=== PATIENT | female | born 1955 | race Caucasian/White ===

== ENCOUNTER 2016-07-07 11:00 | Inpatient (IN) | payer OTHER ==
[2016-07-07] VITALS (15 sets, daily range): BP systolic 74–142; BP diastolic 41–87
[~2016-07-07] VITALS: Ht 167.6 cm; Wt 83.9 kg
--- NOTE | ~2016-07-07 | HC ---
[place] [address] CONSULTATION Name: RAVINDRA FORD Room #: 250-P [facility] IN M.R.#: [id number] Admission: 07/07/16 Attend Phys: Kendell Tidwell MD Discharge: Date of : 55 Report #: [id number] THIS REPORT FOR: //name// CC: Kendell Toscano REASON FOR CONSULTATION: I was asked by Dr. iTdwell to evaluate the patient concerning pneumonia and sepsis. HISTORY OF PRESENT ILLNESS: The patient is a 60-year-old who presented with acute onset of chills, shortness of breath, cough and left pleuritic chest pain. She was brought into the emergency room earlier this morning. Chest x-ray showed left lower lobe and lingular infiltrate. White count was 8.9 with 16% bands. Hemoglobin 14, creatinine 1. She has underlying common variable immunodeficiency and receives monthly immunoglobulin injections. She was hospitalized with pneumonia and respiratory failure a year ago. She has had no travel. She has exposure to young children. No recent vaccinations. No HIV risk factors. ALLERGIES: LATEX, RED DYE, LANOLIN and TYLENOL. She has nausea with SULFA. Headache with PETROLEUM JELLY. MEDICATIONS: As noted on her MAR including azithromycin and ceftriaxone given in the emergency room. PAST MEDICAL HISTORY: Common variable immunodeficiency, asthma, restless leg syndrome, fibrocystic breast disease, bipolar affective disorder, pancreatitis, appendectomy, tubal ligation, left knee arthroscopic surgery, tonsillectomy, hysterectomy, bilateral salpingo-oophorectomy, and premalignant skin lesions to her nose. FAMILY HISTORY: . SOCIAL HISTORY: Past smoker. No significant alcohol intake. REVIEW OF SYSTEMS: The patient denies any nausea, vomiting, or diarrhea. No dysuria or frequency. No rashes. PHYSICAL EXAMINATION: VITAL SIGNS: Afebrile, pulse 90, blood pressure 87/48, respiratory rate 32 on 3-1/2 liters per nasal cannula. GENERAL: She was alert and cooperative. Had pain on movement involving the left chest. SKIN: Unremarkable. LYMPHATIC: Unremarkable. Moderately obese. HEENT: Unremarkable. [address] [place] [address] CONSULTATION Name: RAVINDRA FORD Room #: 250-P ADM IN .R.#: [id number] Admission: 07/07/16 Attend Phys: Kendell Tidwell MD Discharge: Date of : 55 Report #: [id number] NECK: Supple. No adenopathy. No thyromegaly. LUNGS: Crackles with rub heard in the left lateral to the anterior mid lung harrell. HEART: Regular without appreciable murmur. ABDOMEN: Soft, nontender, no hepatosplenomegaly or mass. EXTREMITIES: Unremarkable. NEUROLOGIC: Nonfocal. LABORATORY STUDIES: Hemoglobin is 14.3, white count 8.9, platelet count 258,000, 16% bands. She had vacuolated polys seen. Sodium 138, potassium 2.9, bicarbonate 24, creatinine 1, and glucose 124. ABGs on 3 liters showed a pO2 of 57, pCO2 of 41, pH 7.35, lactate 1.8. Chest x-ray, left lower lobe lingular infiltrate. I did not appreciate any effusion. IMPRESSION: A 60-year-old with underlying asthma, common variable immunodeficiency with community-acquired pneumonia, left lower lobe with pruritus. Recommend IV antibiotic therapy, fluid resuscitation for her sepsis. Corticosteroids increased. We will have pulmonary medicine evaluate and follow closely for evidence of empyema. We will continue on the med-surg floor. I have discussed with nursing staff and respiratory therapy. <ELECTRONICALLY SIGNED> By: Basil Naylor MD 07/08/16 1056 1609 2327 Basil Naylor MD /nt
--- NOTE | ~2016-07-07 | HC ---
[facility] [place] [address] CONSULTATION Name: RAVINDRA FORD Room #: 302-P [facility] IN M.R.#: [id number] Admission: 07/07/16 Attend Phys: Kendell Tidwell MD Discharge: 07/12/16 Date of : 55 Report #: [id number] THIS REPORT FOR: //name// CC: Basil Toscano DATE OF SERVICE: 07/07/2016 REFERRING PROVIDER: Kendell Tidwell M.D. REASON FOR CONSULTATION: Pneumonia and hypotension. HISTORY OF PRESENT ILLNESS: Our group was asked to see the patient in consultation while hospitalized at [facility]. She actually called our office earlier today and was subsequently referred to the emergency department due to increasing shortness of breath, sudden onset chills and left-sided chest pain. In the emergency department, left lower lobe infiltrate was noted. She has had some cough, no significant sputum production. She has not had fevers, but as mentioned had chills, that has come on within the last 12 hours to 24 hours. No other ill contacts, had been ill about 5 days prior with what she states was an upper respiratory infection; this subsequently resolved. While admitted to critical care telemetry floor, was noted to be hypotensive despite 3 liters of fluid administration; subsequently transferred to ICU for further management. Currently is weak with some left-sided pleuritic pain, making it difficult to cough and take a deep inspiratory effort. ALLERGIES: Include RED DYE, SULFA, TYLENOL, LANOLIN, LATEX, PETROLEUM JELLY and HEPARIN, which caused swelling at a local injection site. OUTPATIENT MEDICATIONS: Include lorazepam, clotrimazole, Benadryl p.r.n., Dexilant 60 mg daily, IVIG infusions every month, fluoxetine 20 mg daily, Synthroid 0.112 daily, Tums p.r.n., albuterol inhaler p.r.n., prednisone 5 mg daily, Mucinex 600 mg twice daily p.r.n., tramadol p.r.n., aspirin she takes 2 grams daily on days of IVIG infusion, oxycodone, Proventil inhaler, Qsymia, Adderall 30 mg daily, Firazyr, fluconazole 150 p.r.n., metronidazole p.r.n., rabeprazole ____ mg daily, multivitamin, Sudafed p.r.n., iron 325 daily, Advair 500/50 ____ and Spiriva once daily. PAST MEDICAL HISTORY: 1. Persistent severe asthma. 2. Hypogammaglobulinemia. 3. Hypothyroidism. [address] [address] CONSULTATION Name: LOGANRAVINDRA JAZMIN Room #: 302-P [facility] IN M.R.#: [id number] Admission: 07/07/16 Attend Phys: Kendell Tidwell MD Discharge: 07/12/16 Date of : 55 Report #: [id number] 4. Restless leg syndrome. 5. History of appendectomy. 6. History of bilateral tubal ligation. 7. History of left knee arthroscopy. 8. History of fibrocystic breast disease. 9. Bipolar affective disorder. 10. History of cholecystectomy. 11. Prior history of pancreatitis. SOCIAL HISTORY: The patient is an ex-smoker, quitting in 2009. No significant alcohol consumption. Currently retired. FAMILY HISTORY: Significant for CML, congestive heart failure and cerebrovascular accident. REVIEW OF SYSTEMS: CONSTITUTIONAL: No fever, but chills and rigors noted, some diminished appetite but no nausea. EARS, NOSE AND THROAT: No upper respiratory congestion, rhinorrhea or dysphagia. CARDIOVASCULAR: Left sided pleuritic chest pain, worse with coughing. No palpitations. GASTROINTESTINAL: No nausea or vomiting, some diarrhea noted in the last 24 hours. GENITOURINARY: No dysuria, no frequency. INTEGUMENT: Denies any new rash. MUSCULOSKELETAL: No joint pains or swelling. PHYSICAL EXAMINATION: VITAL SIGNS: Afebrile, pulse 90s and regular, respiratory rate 28-32 and blood pressure 74/41. GENERAL: This is a middle-aged woman, somewhat somnolent but arousable, no distress. EARS, NOSE AND THROAT: Clear oropharynx, no thrush. NECK: Supple, no lymphadenopathy. LUNGS: Revealed diminished breath sounds left base with inspiratory crackles noted, left greater than right base. No wheezes. CARDIOVASCULAR: Heart regular. No murmurs noted. ABDOMEN: Soft and nontender, no masses and no hepatosplenomegaly. EXTREMITIES: Warm, 2+ pulses, no edema. INTEGUMENT: Without rash. LABORATORY DATA: White blood cell count 15,000, hemoglobin 12, hematocrit 36, platelet count 188. Sodium 138, potassium 4.6, chloride 110, bicarbonate 21, BUN 29, creatinine 0.8, glucose 82, procalcitonin was 31. INR 1.1. Most recent lactate 1.31. Cultures are pending. Respiratory viral panel pending. [address] [place] [address] CONSULTATION Name: RAVINDRA FORD Room #: 302-P [facility] IN M.R.#: [id number] Admission: 07/07/16 Attend Phys: Kendell Tidwell MD Discharge: 07/12/16 Date of : 55 Report #: [id number] IMPRESSION: 1. Severe sepsis manifested by refractory hypotension despite intravenous fluids and administration of systemic steroids likely secondary to pneumonia. 2. Severe community-acquired pneumonia resulting in severe sepsis. 3. Asthma with acute exacerbation. 4. Chronic steroid use, will need stress dose steroids. 5. History of hypogammaglobulinemia. 6. Hypothyroidism. SUGGESTIONS: 1. Follow chest radiographs. 2. Sepsis protocol, ____ request placed. 3. Systemic steroids with taper stress dose. 4. Antibiotics per infectious disease service. 5. Await cultures. 6. Follow up chest radiograph. 7. Intravenous and oral narcotics to assist with pain control. 8. Bronchodilators. 9. Followup chest x-ray in a.m. 10. Additional recommendations to follow. Total critical care time 40 minutes not including procedures. Case discussed with patient's , nursing and Dr. Basil Naylor. <ELECTRONICALLY SIGNED> By: Jesus Manuel Haywood MD 07/27/16 0903 1946 0527 Jesus Manuel Haywood MD /nt
[~2016-07-07 11:00] MED LIST: ADDERALL 15 MG15 MG PO; ADDERALL 30 MG30 MG PO; ADVAIR 100-501 EACH INH; AMOXIL 875 MG875 M1 PO; ARMOUR THYROID180 M1 PO; ATIVAN1 MG PO; ATIVAN2 MG PO; AZO STANDARD95 MG PO; BACTROBAN15 GM TP; BENADRYL25 MG PO; CATHFLO ACT2 MG/VIAL INJECTION; CENTRUM SILVER1 EAC3 PO; CLEOCIN HCL300 MG PO; CLOTRIMAZOLE10 MG PO; COLACE100 MG PO; CULTURELLE CAP1 EACH; CULTURELLE1 EACH PO; DEXILANT60 MG PO; DIPHENHYDRAMINE50 MG PO; DUONEB 2.5-0.5 M3 ML INH; FLAGYL500 MG PO; FLOVENT DISKUS50 MCG INH; HEPARIN SO5000 UNIT/ SUBQ; KLOR-CON 1010 MEQ PO; LACTASE 3000U T1 TA1 PO; LEVOTHYROXINE 0.1 MG PO; LOPERAMIDE 2 MG2 M1 PO; LOPRESSOR25 PO; LOTRIMIN AF10 ML PO; LOXAPINE5 MG; LOXAPINE5 MG PO; LUVOX CR100 MG PO; MAGNESIUM500 MG PO; MILK OF MA2400 MG/10 PO; NORCO 5-325 TA1 EACH PO; OMEPRAZOLE 20 M20 M1 PO; OXYCODONE HCL 55 MG PO; PEPCID20 MG PO; PHENERGAN 25 MG25 M1 PO; PREDNISONE 10 M10 M1 PO; PREDNISONE 10 M10 MG PO; PREDNISONE 20 M20 M1 PO; PROAIR HFA8.5 GM INH; PROTONIX40 MG PO; PROVENTIL HFA6.7 G1; PROVENTIL HFA6.7 G1 INH; PROZAC20 MG PO; REGLAN 10 MG TA10 MG PO; SENNA8.6 MG PO; SIMETHICON CHEW80 M1 PO; SPIRIVA INH; STERAPRED DS10 MG PO; SUDAFED30 MG PO; SULFAMETHOXAZOLE PO; SYMBICORT160 MCG/4. INH; SYNTHROID112 MCG PO; SYNTHROID75 MCG PO; TRAMADOL 50 MG50 MG; TRAMADOL 50 MG50 MG PO; TRIMETHOPRIM PO; TUMS; TUMS PO; TYLENOL325 MG PO; UNICOMPLEX M TA1 TA1 PO; UNITHROID112 MCG PO; VANCOMYCIN100 MG/M1 PO; VENTOLIN HFA 1818 GM INH; VICODIN 5-5001 EACH PO; VITRON-C TABLE1 EAC1 PO; ZOFRAN ODT4 MG PO; ZOLOFT25 MG PO; ZPAK PO; ZYPREXA 10 MG T10 MG PO; [UNRECOGNIZED DRUG - OTHER] PO
[2016-07-07 11:37] LABS: HEMATOCRIT 41.7 % (37.0-47.0); HEMOGLOBIN 14.3 gm/dL (12.0-15.0); MCH 31.6 pg (26.0-34.0); MCHC 34.2 % (28.0-37.0); MCV 92.6 fL (80.0-100.0); PLATELET COUNT 258 thou/uL (150-400); RBC 4.51 mil/uL (4.20-5.00); RDW 13.3 % (10.5-14.5); WBC 8.9 thou/uL (4.0-11.0)
[2016-07-07 11:40] LABS: ANION GAP 9 mmol/L (7-16); BUN 33 mg/dL (7-18); CALCIUM 8.4 mg/dL (8.5-10.1); CHLORIDE 105 mmol/L (98-107); CO2 24 mmol/L (21-32); GLUCOSE 124 mg/dL (70-99); SODIUM 138 mmol/L (136-145)
[2016-07-07 11:43] LABS: MANUAL DIFF YES
[2016-07-07 11:49] LABS: ABG SAMPLE TYPE ARTERIAL; BE(vivo) -3.1 mmol/L (-2 to +3); HCO3 22.3 mmol/L (22.0-26.0); LACTATE 1.84 mmol/L (0.5-2.0); O2(CT) 17.8 mL/dL (15.0-23.0); O2Hb 88.9 % (92.0-98.0); PCO2 41.2 mmHg (35.0-45.0); pH 7.352 (7.360-7.450); sO2 88.4 % (92.0-98.0); tCO2 23.6 mmol/L (24.0-30.0)
[2016-07-07 11:50] LABS: POTASSIUM 2.9 mmol/L (3.5-5.1)
[2016-07-07 11:50] LABS: STICK SITE R.RADIAL
[2016-07-07 11:54] LABS: NT-PRO BRAIN NAT PEPTIDE 519 pg/mL (<300); TROPONIN-I < 0.04 ng/mL (<0.04-0.07)
[2016-07-07 12:29] LABS: ABSOLUTE NEUTROPHILS 7.1 thou/uL (1.4-8.2); METAMYELOCYTES 1 %; TOTAL CELL COUNT 100
[2016-07-07 12:31] LABS: ANISOCYTOSIS SLIGHT
[2016-07-07] MEDS ORDERED: CLOTRIMAZOLE10 GM (13:56)
[2016-07-07] MEDS ORDERED: HYQVIA IV (13:58)
[2016-07-07] MEDS ORDERED: ULTRAM 50MG TAB50 MG PO (14:01)
[2016-07-07] MEDS ORDERED: DEXILANT60 MG PO (14:03)
[2016-07-07] MEDS ORDERED: QSYMIA 15 MG-91 EACH PO (14:04)
[2016-07-07] MEDS ORDERED: ADDERALL 15 MG15 MG PO (14:05)
[2016-07-07] MEDS ORDERED: FIRAZYR30 MG/3 ML SQ (14:07)
[2016-07-07] MEDS ORDERED: DIFLUCAN200 MG PO (14:09)
[2016-07-07] MEDS ORDERED: ARIPIPRAZOLE2 MG PO (14:10)
[2016-07-07] MEDS ORDERED: ASPIRIN325 PO (14:12)
[2016-07-07] MEDS ORDERED: SUDAFED 12 HOU120 MG PO (14:14)
[2016-07-07] MEDS ORDERED: MUCINEX TA600 MG/TA2 PO (14:16)
[2016-07-07] MEDS ORDERED: CULTURELLE IMM1 EACH PO (14:17)
[2016-07-07] MEDS ORDERED: POTASSIUM20 PO (14:18)
[2016-07-07 17:58] LABS: ABG SAMPLE TYPE ARTERIAL; BE(vivo) -6.5 mmol/L (-2 to +3); HCO3 18.5 mmol/L (22.0-26.0); LACTATE 1.05 mmol/L (0.5-2.0); O2(CT) 14.6 mL/dL (15.0-23.0); PCO2 35.4 mmHg (35.0-45.0); PO2 46.5 mmHg (80.0-100.0); STICK SITE L.RADIAL; pH 7.336 (7.360-7.450); sO2 80.2 % (92.0-98.0); tCO2 19.6 mmol/L (24.0-30.0)
[2016-07-07 19:06] LABS: HEMATOCRIT 35.7 % (37.0-47.0); MCH 31.2 pg (26.0-34.0); MCHC 33.6 % (28.0-37.0); MCV 92.8 fL (80.0-100.0); PLATELET COUNT 188 thou/uL (150-400); RBC 3.84 mil/uL (4.20-5.00); RDW 13.7 % (10.5-14.5); WBC 14.7 thou/uL (4.0-11.0)
[2016-07-07 19:09] LABS: MANUAL DIFF YES
[2016-07-07 19:10] LABS: BE(vivo) -6.7 mmol/L (-2 to +3); HCO3 19.8 mmol/L (22.0-26.0); LACTATE 1.31 mmol/L (0.5-2.0); O2(CT) 12.1 mL/dL (15.0-23.0); O2Hb VENOUS 70.1 (65.0-85.0); PCO2 VENOUS 43.8 mmHg (41.0-51.0); PO2 VENOUS 38.8 mmHg (35.0-45.0); sO2 VENOUS 66.2 % (65.0-85.0); tCO2 21.2 mmol/L (24.0-30.0)
[2016-07-07 19:11] LABS: ABG SAMPLE TYPE VENOUS; STICK SITE LINE
[2016-07-07 19:11] LABS: URINE BILIRUBIN NEGATIVE (Negative); URINE BLOOD NEGATIVE (Negative); URINE COLOR YELLOW; URINE GLUCOSE-RANDOM* NEGATIVE (Negative); URINE KETONES NEGATIVE (Negative); URINE NITRITE NEGATIVE (Negative); URINE PROTEIN (DIPSTICK) NEGATIVE (Negative); URINE UROBILINOGEN 0.2 E.U./dl (0.2-1.0)
[2016-07-07 19:12] LABS: CALCIUM 7.5 mg/dL (8.5-10.1); CREATININE 0.8 mg/dL (0.6-1.3); POTASSIUM 4.6 mmol/L (3.5-5.1)
[2016-07-07 19:13] LABS: AMYLASE 68 U/L (25-115)
[2016-07-07 19:18] LABS: FIBRINOGEN 292.6 mg/dL (210-360); INR 1.1; PROTIME 11.6 Seconds (9.3-11.4)
[2016-07-07 19:30] LABS: METAMYELOCYTES 1 %; TOTAL CELL COUNT 100
[2016-07-07 19:31] LABS: ANISOCYTOSIS 1+; POIKILOCYTOSIS SLIGHT
[2016-07-07 19:56] LABS: ABG SAMPLE TYPE ARTERIAL; BE(vivo) -6.6 mmol/L (-2 to +3); HCO3 20.3 mmol/L (22.0-26.0); LACTATE 1.15 mmol/L (0.5-2.0); O2Hb VENOUS 70.4 (65.0-85.0); PCO2 VENOUS 45.7 mmHg (41.0-51.0); PO2 VENOUS 39.3 mmHg (35.0-45.0); sO2 VENOUS 66.3 % (65.0-85.0); tCO2 21.7 mmol/L (24.0-30.0)
[2016-07-07 19:57] LABS: STICK SITE LINE
[2016-07-07 20:58] LABS: ABG SAMPLE TYPE VENOUS; BE(vivo) -5.9 mmol/L (-2 to +3); HCO3 20.8 mmol/L (22.0-26.0); LACTATE 1.19 mmol/L (0.5-2.0); O2(CT) 12.7 mL/dL (15.0-23.0); O2Hb VENOUS 70.8 (65.0-85.0); PCO2 VENOUS 45.1 mmHg (41.0-51.0); STICK SITE LINE; sO2 VENOUS 66.8 % (65.0-85.0); tCO2 22.1 mmol/L (24.0-30.0)
[2016-07-07 22:07] LABS: ABG SAMPLE TYPE VENOUS; BE(vivo) -7.9 mmol/L (-2 to +3); HCO3 18.7 mmol/L (22.0-26.0); LACTATE 1.17 mmol/L (0.5-2.0); O2(CT) 13.3 mL/dL (15.0-23.0); O2Hb VENOUS 73.2 (65.0-85.0); PCO2 VENOUS 42.3 mmHg (41.0-51.0); PO2 VENOUS 41.5 mmHg (35.0-45.0); STICK SITE LINE; sO2 VENOUS 69.8 % (65.0-85.0)
[2016-07-07 22:59] LABS: ABG SAMPLE TYPE VENOUS; BE(vivo) -7.1 mmol/L (-2 to +3); HCO3 20.4 mmol/L (22.0-26.0); LACTATE 1.48 mmol/L (0.5-2.0); O2(CT) 14.5 mL/dL (15.0-23.0); O2Hb VENOUS 79.6 (65.0-85.0); PCO2 VENOUS 49.1 mmHg (41.0-51.0); PO2 VENOUS 48.5 mmHg (35.0-45.0); sO2 VENOUS 76.8 % (65.0-85.0); tCO2 21.9 mmol/L (24.0-30.0)
[2016-07-07 23:00] LABS: STICK SITE LINE
[2016-07-07 23:09] LABS: CALCIUM 7.9 mg/dL (8.5-10.1); CREATININE 0.8 mg/dL (0.6-1.3); POTASSIUM 4.2 mmol/L (3.5-5.1)
[2016-07-07 23:12] LABS: APTT 23.5 Seconds (24.5-32.8); FIBRINOGEN 343.2 mg/dL (210-360)
[2016-07-07 23:50] LABS: ABG SAMPLE TYPE VENOUS; BE(vivo) -8.4 mmol/L (-2 to +3); HCO3 18.6 mmol/L (22.0-26.0); LACTATE 1.08 mmol/L (0.5-2.0); O2Hb VENOUS 79.1 (65.0-85.0); PO2 VENOUS 46.6 mmHg (35.0-45.0); sO2 VENOUS 75.4 % (65.0-85.0)
[2016-07-07 23:51] LABS: STICK SITE LINE
[2016-07-08] VITALS (31 sets, daily range): BP systolic 90–132; BP diastolic 50–97
[2016-07-08 03:31] LABS: HEMATOCRIT 35.6 % (37.0-47.0); HEMOGLOBIN 11.6 gm/dL (12.0-15.0); MCH 30.7 pg (26.0-34.0); MCHC 32.6 % (28.0-37.0); MCV 94.4 fL (80.0-100.0); PLATELET COUNT 176 thou/uL (150-400); RBC 3.77 mil/uL (4.20-5.00); RDW 13.5 % (10.5-14.5); WBC 22.9 thou/uL (4.0-11.0)
[2016-07-08 03:44] LABS: ALBUMIN 2.2 g/dL (3.4-5.0); CREATININE 0.7 mg/dL (0.6-1.3); MAGNESIUM 1.6 mg/dL (1.8-2.4); POTASSIUM 3.9 mmol/L (3.5-5.1); TOTAL BILIRUBIN 0.2 mg/dL (<0.1-1.0)
[2016-07-08 03:46] LABS: MANUAL DIFF YES
[2016-07-08 04:42] LABS: ABSOLUTE NEUTROPHILS 20.4 thou/uL (1.4-8.2); METAMYELOCYTES 2 %; MYELOCYTES 1 %; TOTAL CELL COUNT 100
[2016-07-08 04:43] LABS: TOXIC GRANULATION 1+
[2016-07-08 06:54] LABS: CREATININE 0.7 mg/dL (0.6-1.3); POTASSIUM 3.9 mmol/L (3.5-5.1)
[2016-07-08 06:55] LABS: APTT 26.8 Seconds (24.5-32.8); FIBRINOGEN 439.7 mg/dL (210-360)
[2016-07-09] VITALS (7 sets, daily range): BP systolic 120–158; BP diastolic 64–79
[2016-07-10 03:40] VITALS: BP 150/87
[2016-07-10 07:17] VITALS: BP 162/81
[2016-07-10 07:38] LABS: HEMATOCRIT 35.2 % (37.0-47.0); HEMOGLOBIN 11.5 gm/dL (12.0-15.0); MCH 30.6 pg (26.0-34.0); MCHC 32.8 % (28.0-37.0); MCV 93.3 fL (80.0-100.0); PLATELET COUNT 158 thou/uL (150-400); RBC 3.77 mil/uL (4.20-5.00)
[2016-07-10 07:41] LABS: MANUAL DIFF YES
[2016-07-10 07:48] LABS: CALCIUM 8.6 mg/dL (8.5-10.1); CREATININE 0.6 mg/dL (0.6-1.3); MAGNESIUM 1.8 mg/dL (1.8-2.4); POTASSIUM 3.8 mmol/L (3.5-5.1)
[2016-07-10 08:24] LABS: ABSOLUTE NEUTROPHILS 18.2 thou/uL (1.4-8.2); TOTAL CELL COUNT 100
[2016-07-10 11:53] VITALS: BP 149/80
[2016-07-10 16:05] VITALS: BP 137/75
[2016-07-10 20:00] VITALS: BP 153/83
[2016-07-11 04:00] VITALS: BP 136/80
[2016-07-11 07:30] VITALS: BP 148/73
[2016-07-11 15:15] VITALS: BP 154/79
[2016-07-11 20:00] VITALS: BP 135/83
[2016-07-12 04:00] VITALS: BP 141/77
[2016-07-12 05:46] LABS: ABSOLUTE NEUTROPHILS 8.2 thou/uL (1.4-8.2); BASOPHILS 0.2 % (0.0-2.0); EOSINOPHILS 0.1 % (0.0-3.0); HEMATOCRIT 39.6 % (37.0-47.0); HEMOGLOBIN 13.3 gm/dL (12.0-15.0); LYMPHOCYTES 11.3 % (24.0-44.0); MCH 30.9 pg (26.0-34.0); MCHC 33.6 % (28.0-37.0); MCV 92.1 fL (80.0-100.0); PLATELET COUNT 204 thou/uL (150-400); POLYS 84.4 % (36.0-66.0); RDW 13.6 % (10.5-14.5); WBC 9.7 thou/uL (4.0-11.0)
[2016-07-12 05:56] LABS: MANUAL DIFF NO
[2016-07-12 06:03] LABS: ALBUMIN 2.3 g/dL (3.4-5.0); CALCIUM 8.7 mg/dL (8.5-10.1); CREATININE 0.6 mg/dL (0.6-1.3); POTASSIUM 3.5 mmol/L (3.5-5.1); TOTAL BILIRUBIN 0.3 mg/dL (<0.1-1.0); TOTAL PROTEIN 6.8 g/dL (6.4-8.2)
[2016-07-12 09:23] VITALS: BP 116/62
[2016-07-12] MEDS ORDERED: AZITHROMYCIN 2250 MG PO (13:22)
[2016-07-12] MEDS ORDERED: CEFUROXIME500 MG PO (13:24)
[2016-07-12] MEDS ORDERED: OXYCODONE HCL5 M1 PO (14:03)
[2016-07-12] MEDS ORDERED: LORAZEPAM 0.50.5 MG PO (14:03)
[2016-07-12 14:48] VITALS: BP 116/62
[2016-07-14 13:11] LABS: INFLUENZA B Negative (Negative); METAPNEUMOVIRUS Negative (Negative)
== END 2016-07-12 15:53 | disposition home or self-care (01) | DRG 871 ==
LOC: ER 11:00 → 3N 12:40 → EROBS 12:40 → ICU 12:40 → 3N 13:27 → ICU 17:48 → 3N 07-08 13:58
PROVIDERS: Emergency Medicine; Internal Medicine; Internal Medicine Pulmonary Disease; Nurse Practitioner; Nurse Practitioner Family; Specialist
PROC: B54MZZA Ultrasonography of Right Upper Extremity Veins, Guidance (ICD-10-PCS; principal; 2016-07-07)
PROC: 05HB33Z Insertion of Infusion Device into Right Basilic Vein, Percutaneous Approach (ICD-10-PCS; principal; 2016-07-07)
DX: A41.9 Sepsis, unspecified organism (principal); R65.21 Severe sepsis with septic shock; J18.9 Pneumonia, unspecified organism; J96.01 Acute respiratory failure with hypoxia; E43 Unspecified severe protein-calorie malnutrition; D80.1 Nonfamilial hypogammaglobulinemia; J45.51 Severe persistent asthma with (acute) exacerbation; F31.9 Bipolar disorder, unspecified; E03.9 Hypothyroidism, unspecified; M51.36 Other intervertebral disc degeneration, lumbar region; G72.9 Myopathy, unspecified; G25.81 Restless legs syndrome; J06.9 Acute upper respiratory infection, unspecified; E87.6 Hypokalemia; E83.42 Hypomagnesemia; Z68.29 Body mass index [BMI] 29.0-29.9, adult; Z90.49 Acquired absence of other specified parts of digestive tract; Z87.891 Personal history of nicotine dependence; Z90.710 Acquired absence of both cervix and uterus; Z79.899 Other long term (current) drug therapy; Z88.8 Allergy status to other drugs, medicaments and biological substances; Z88.2 Allergy status to sulfonamides; Z82.49 Family history of ischemic heart disease and other diseases of the circulatory system; Z82.3 Family history of stroke; Z91.041 Radiographic dye allergy status; Z91.040 Latex allergy status; Z90.722 Acquired absence of ovaries, bilateral; Z23 Encounter for immunization
CPT/HCPCS: 10078; 10096; 23026; 27000

== ENCOUNTER → 2016-07-20 | Outpatient (CLI) | payer OTHER ==
[~2016-07-20] MED LIST changes: +ARIPIPRAZOLE2 MG PO; +ASPIRIN325 PO; +AZITHROMYCIN 2250 MG PO; +CEFUROXIME500 MG PO; +CLOTRIMAZOLE10 GM; +CULTURELLE IMM1 EACH PO; +DIFLUCAN200 MG PO; +FIRAZYR30 MG/3 ML SQ; +HYQVIA IV; +LORAZEPAM 0.50.5 MG PO; +MAGNESIUM OXID400 MG PO; +MUCINEX TA600 MG/TA2 PO; +OXYCODONE HCL5 M1 PO; +POTASSIUM20 PO; +QSYMIA 15 MG-91 EACH PO; +SUDAFED 12 HOU120 MG PO; +SUDAFED 12-HOU120 MG PO; +ULTRAM 50MG TAB50 MG PO
== END ==
LOC: RAD 02:25
DX: J18.9 Pneumonia, unspecified organism (principal); R91.8 Other nonspecific abnormal finding of lung field

== ENCOUNTER 2016-08-02 17:48 | Emergency (ER) | payer OTHER ==
[~2016-08-02] VITALS: Ht 167.6 cm; Wt 76.2 kg
--- NOTE | ~2016-08-02 | EKG ---
[place] [address] [address] [place] [address] ELECTROCARDIOGRAM REPORT Name: FORDRAVINDRA JAZMIN [id number] Admission: 08/02/16 Attend Phys: Discharge: 08/02/16 Date of : 55 Report #: [id number] THIS REPORT FOR: //name// [facility] ED Test Date: 2016-08-02 Test Time: 18:32:44 Pat Name: RAVINDRA FORD Department: Room: Gender: F Engineer Chief: FERNANDO : 1955 Requested By: Obdulia Weems Order Number: [id number] MD: Mariano Sanders Measurements Intervals [place] Rate: 83 P: 25 VA: 161 QRS: 44 QRSD: 87 T: 55 QT: 375 QTc: 441 Interpretive Statements Sinus rhythm No significant abnormality No previous ECG available for comparison Electronically Signed On 08-03-2016 8:17:01 FINAL INSPECTION SUPERVISOR by Mariano Sanders [email or web address] <ELECTRONICALLY SIGNED> By: Mariano Sanders MD, [facility] 08/03/16 0817 1832 31 Mariano Sanders MD, FACC /EPI
[~2016-08-02 17:48] MED LIST changes: -MAGNESIUM OXID400 MG PO; -SUDAFED 12-HOU120 MG PO
[2016-08-02 18:31] LABS: ABSOLUTE NEUTROPHILS 4.5 thou/uL (1.4-8.2); BASOPHILS 0.9 % (0.0-2.0); EOSINOPHILS 0.9 % (0.0-3.0); HEMATOCRIT 39.5 % (37.0-47.0); HEMOGLOBIN 13.1 gm/dL (12.0-15.0); LYMPHOCYTES 21.4 % (24.0-44.0); MCHC 33.2 % (28.0-37.0); MCV 93.4 fL (80.0-100.0); MONOCYTES 7.5 % (1.0-8.0); PLATELET COUNT 253 thou/uL (150-400); POLYS 69.3 % (36.0-66.0); RBC 4.23 mil/uL (4.20-5.00); RDW 14.1 % (10.5-14.5); WBC 6.5 thou/uL (4.0-11.0)
[2016-08-02 18:35] LABS: ANION GAP 7 mmol/L (7-16); BUN 28 mg/dL (7-18); CALCIUM 8.3 mg/dL (8.5-10.1); CHLORIDE 106 mmol/L (98-107); CO2 25 mmol/L (21-32); CREATININE 0.9 mg/dL (0.6-1.3); GLUCOSE 98 mg/dL (70-99); POTASSIUM 3.7 mmol/L (3.5-5.1); SODIUM 138 mmol/L (136-145)
[2016-08-02] MEDS ORDERED: FLAGYL500 MG PO (18:35)
[2016-08-02] MEDS ORDERED: SUDAFED 12-HOU120 MG PO (18:36)
[2016-08-02] MEDS ORDERED: MAGNESIUM OXID400 MG PO (18:36)
[2016-08-02] MEDS ORDERED: LOPERAMIDE 2 MG2 M1 PO (18:37)
[2016-08-02 18:44] LABS: TROPONIN-I < 0.04 ng/mL (<0.04-0.07)
[2016-08-02 18:49] LABS: MANUAL DIFF NO
[2016-08-02 19:27] VITALS: BP 129/62
== END 2016-08-02 19:28 | disposition home or self-care (01) ==
LOC: ER 17:48
PROVIDERS: Emergency Medicine
DX: R07.89 Other chest pain (principal); R50.9 Fever, unspecified; R05 Cough; J45.909 Unspecified asthma, uncomplicated; F31.9 Bipolar disorder, unspecified; Z88.2 Allergy status to sulfonamides; Z88.8 Allergy status to other drugs, medicaments and biological substances; Z91.040 Latex allergy status; Z91.041 Radiographic dye allergy status; Z87.891 Personal history of nicotine dependence

== ENCOUNTER 2016-10-24 15:01 | Emergency (ER) | payer OTHER ==
[~2016-10-24] VITALS: Ht 167.6 cm; Wt 68.0 kg
[~2016-10-24 15:01] MED LIST changes: +MAGNESIUM OXID400 MG PO; +SUDAFED 12-HOU120 MG PO
[2016-10-24 16:53] LABS: ABSOLUTE NEUTROPHILS 5.7 thou/uL (1.4-8.2); BASOPHILS 0.6 % (0.0-2.0); EOSINOPHILS 0.4 % (0.0-3.0); HEMATOCRIT 40.2 % (37.0-47.0); HEMOGLOBIN 13.8 gm/dL (12.0-15.0); LYMPHOCYTES 12.1 % (24.0-44.0); MCH 31.6 pg (26.0-34.0); MCHC 34.4 g/dL (28.0-37.0); MONOCYTES 5.5 % (1.0-8.0); PLATELET COUNT 257 thou/uL (150-400); POLYS 81.4 % (36.0-66.0); RBC 4.37 mil/uL (4.20-5.00)
[2016-10-24 16:54] LABS: MANUAL DIFF NO
[2016-10-24 17:08] LABS: ALBUMIN 2.6 g/dL (3.4-5.0); ALKALINE PHOSPHATASE 76 U/L (46-116); ANION GAP 5 mmol/L (7-16); BUN 19 mg/dL (7-18); CALCIUM 8.3 mg/dL (8.5-10.1); CHLORIDE 105 mmol/L (98-107); CO2 27 mmol/L (21-32); CREATININE 0.9 mg/dL (0.6-1.0); DIRECT BILIRUBIN < 0.1 mg/dL (<0.1-0.3); GLUCOSE 107 mg/dL (74-106); POTASSIUM 3.7 mmol/L (3.5-5.1); SGOT 20 U/L (15-37); SGPT 31 U/L (30-65); SODIUM 137 mmol/L (136-145); TOTAL BILIRUBIN 0.2 mg/dL (<0.1-1.0); TOTAL PROTEIN 8.6 g/dL (6.4-8.2)
[2016-10-24 17:40] LABS: URINE BILIRUBIN NEGATIVE (Negative); URINE BLOOD 1+ (Negative); URINE COLOR YELLOW; URINE GLUCOSE-RANDOM* NEGATIVE (Negative); URINE KETONES NEGATIVE (Negative); URINE NITRITE NEGATIVE (Negative); URINE PROTEIN (DIPSTICK) NEGATIVE (Negative); URINE UROBILINOGEN 0.2 E.U./dl (0.2-1.0)
[2016-10-24 17:46] LABS: SQUAMOUS 0-3 Few /LPF (0-3)
[2016-10-24 17:47] LABS: BACTERIA None Seen /HPF (None Seen); CASTS None Seen /LPF (None Seen); CRYSTALS None Seen /LPF (None Seen); URINE RBC 0-2 Rare /HPF (0-2); URINE WBC None Seen /HPF (0-5)
[2016-10-24 18:57] VITALS: BP 138/74
== END 2016-10-24 19:00 | disposition home or self-care (01) ==
LOC: ER 15:01
PROVIDERS: Nurse Practitioner
DX: J40 Bronchitis, not specified as acute or chronic (principal); J45.909 Unspecified asthma, uncomplicated; F31.9 Bipolar disorder, unspecified; E03.9 Hypothyroidism, unspecified; M51.37 Other intervertebral disc degeneration, lumbosacral region; A41.9 Sepsis, unspecified organism; R65.20 Severe sepsis without septic shock; Z88.6 Allergy status to analgesic agent; Z91.040 Latex allergy status; Z88.2 Allergy status to sulfonamides; Z88.8 Allergy status to other drugs, medicaments and biological substances; Z87.891 Personal history of nicotine dependence

== ENCOUNTER → 2016-12-16 | Outpatient (CLI) | payer OTHER ==
[~2016-12-16] MED LIST changes: +ADVAIR 500-501 EACH INH; +CULTURELLE1 EACH; +DAIRY RELIE9000 UNIT; +FIRAZYR30 MG/3 ML; +POTASSIUM GLUC500 MG; +PREDNISONE 20 M20 MG PO; +PREDNISONE 5 MG5 M1; +SPIRIVA; +WELLBUTRIN XL300 MG PO
== END ==
LOC: RAD 14:16
DX: J45.30 Mild persistent asthma, uncomplicated (principal)

== ENCOUNTER 2016-12-20 17:00 | Emergency (ER) | payer OTHER ==
[~2016-12-20] VITALS: Ht 167.6 cm; Wt 77.1 kg
--- NOTE | ~2016-12-20 | EKG ---
[place] [address] [facility] [place] [address] ELECTROCARDIOGRAM REPORT Name: LOGANRAVINDRA JAZMIN [facility] [id number] Admission: 12/20/16 Attend Phys: Discharge: Date of : 55 Report #: [id number] THIS REPORT FOR: //name// [facility] ED Test Date: 2016-12-20 Test Time: 20:13:35 Pat Name: RAVINDRA FORD Department: Room: Gender: F Associate Business Analyst: guy guerra : 1955 Requested By: Basil Grady Order Number: [id number] MD: [facility] Measurements Intervals [place] Rate: 98 P: 17 IA: 148 QRS: 36 QRSD: 81 T: 46 QT: 349 QTc: 446 Interpretive Statements Sinus arrhythmia Consider RVH or posterior infarct Baseline wander in lead(s) V1,V3,V5 Compared to ECG 11/28/2016 18:50:55 Myocardial infarct finding now present Sinus rhythm no longer present Electronically Signed On 12-20-2016 22:09:03 CDT by Home Agee [email or web address] <ELECTRONICALLY SIGNED> By: Home Agee MD 12/20/16 2209 12 12 Home Agee MD /EPI
[2016-12-20 18:59] LABS: HEMATOCRIT 41.3 % (37.0-47.0); HEMOGLOBIN 13.8 gm/dL (12.0-15.0); MCHC 33.4 g/dL (28.0-37.0); MCV 95.7 fL (80.0-100.0); PLATELET COUNT 258 thou/uL (150-400); RBC 4.32 mil/uL (4.20-5.00); RDW 13.7 % (10.5-14.5); WBC 18.2 thou/uL (4.0-11.0)
[2016-12-20 19:16] LABS: ANION GAP 6 mmol/L (7-16); BUN 29 mg/dL (7-18); CALCIUM 8.7 mg/dL (8.5-10.1); CHLORIDE 104 mmol/L (98-107); CO2 24 mmol/L (21-32); CREATININE 0.9 mg/dL (0.6-1.0); GLUCOSE 140 mg/dL (74-106); POTASSIUM 4.2 mmol/L (3.5-5.1); SODIUM 134 mmol/L (136-145)
[2016-12-20 19:17] LABS: MANUAL DIFF YES
[2016-12-20 19:26] LABS: ALBUMIN 3.2 g/dL (3.4-5.0); ALKALINE PHOSPHATASE 75 U/L (46-116); MAGNESIUM 2.1 mg/dL (1.8-2.4); NT-PRO BRAIN NAT PEPTIDE 230 pg/mL (<300); SGOT 23 U/L (15-37); SGPT 35 U/L (30-65); TOTAL BILIRUBIN 0.3 mg/dL (<0.1-1.0); TOTAL PROTEIN 9.1 g/dL (6.4-8.2); TROPONIN-I < 0.04 ng/mL (<0.04-0.07)
[2016-12-20 19:27] LABS: APTT 24.5 Seconds (24.5-32.8); PROTIME 10.5 Seconds (9.3-11.4)
[2016-12-20 20:03] LABS: ABSOLUTE NEUTROPHILS 15.8 thou/uL (1.4-8.2); TOTAL CELL COUNT 100
[2016-12-20] MEDS ORDERED: CEFUROXIME250 MG PO (21:19)
[2016-12-20] MEDS ORDERED: DOXYCYCLINE 10100 MG PO (21:19)
[2016-12-20] MEDS ORDERED: ULTRAM 50MG TAB50 MG PO (21:21)
[2016-12-20 21:22] VITALS: BP 133/85
[2016-12-20] MEDS ORDERED: OXYCODONE HCL 55 MG PO (21:27)
== END 2016-12-20 21:17 | disposition still patient (30) ==
LOC: ER 17:00
PROVIDERS: Emergency Medicine
DX: J18.8 Other pneumonia, unspecified organism (principal); J45.909 Unspecified asthma, uncomplicated; F31.9 Bipolar disorder, unspecified; E03.9 Hypothyroidism, unspecified; Z88.6 Allergy status to analgesic agent; Z91.040 Latex allergy status; Z91.041 Radiographic dye allergy status; Z88.8 Allergy status to other drugs, medicaments and biological substances; Z88.2 Allergy status to sulfonamides; Z87.891 Personal history of nicotine dependence

== ENCOUNTER 2016-12-24 16:36 | Emergency (ER) | payer OTHER ==
[~2016-12-24] VITALS: Ht 152.4 cm; Wt 79.8 kg
--- NOTE | ~2016-12-24 | EKG ---
[place] [address] [facility] [place] [address] ELECTROCARDIOGRAM REPORT Name: RAVINDRA FORD [facility] [id number] Admission: 12/24/16 Attend Phys: Discharge: 12/24/16 Date of : 55 Report #: [id number] THIS REPORT FOR: //name// [facility] ED Test Date: 2016-12-24 Test Time: 17:16:15 Pat Name: RAVINDRA FORD Department: Room: Gender: F Athletics Director: Darlin DEMARCO : 1955 Requested By: Arianna López Order Number: [id number] MD: Mariano Sanders Measurements Intervals [place] Rate: 69 P: 48 [place]: 143 QRS: 28 QRSD: 82 T: 54 QT: 407 QTc: 436 Interpretive Statements Sinus rhythm Atrial premature complex Compared to ECG 12/20/2016 20:13:35 Atrial premature complex(es) now present Sinus arrhythmia no longer present Electronically Signed On 12-25-2016 8:08:52 CDT by Mariano Sanders [email or web address] <ELECTRONICALLY SIGNED> By: Mariano Sanders MD, [facility] 12/25/16 0808 15 15 Mariano Sanders MD, [facility] /EPI
[~2016-12-24 16:36] MED LIST changes: +CEFUROXIME250 MG PO; +DOXYCYCLINE 10100 MG PO
[2016-12-24 17:30] LABS: ABSOLUTE NEUTROPHILS 4.9 thou/uL (1.4-8.2); BASOPHILS 0.9 % (0.0-2.0); EOSINOPHILS 1.9 % (0.0-3.0); HEMATOCRIT 40.7 % (37.0-47.0); LYMPHOCYTES 17.3 % (24.0-44.0); MANUAL DIFF NO; MCH 32.4 pg (26.0-34.0); MCHC 34.5 g/dL (28.0-37.0); MCV 93.8 fL (80.0-100.0); MONOCYTES 5.3 % (1.0-8.0); PLATELET COUNT 274 thou/uL (150-400); POLYS 74.6 % (36.0-66.0); RBC 4.34 mil/uL (4.20-5.00); RDW 13.4 % (10.5-14.5); WBC 6.6 thou/uL (4.0-11.0)
[2016-12-24 17:42] LABS: CALCIUM 8.6 mg/dL (8.5-10.1); CREATININE 0.9 mg/dL (0.6-1.0); POTASSIUM 3.4 mmol/L (3.5-5.1)
[2016-12-24 17:46] LABS: ALBUMIN 2.7 g/dL (3.4-5.0); TOTAL BILIRUBIN 0.2 mg/dL (<0.1-1.0); TOTAL PROTEIN 7.9 g/dL (6.4-8.2)
[2016-12-24 17:56] LABS: NT-PRO BRAIN NAT PEPTIDE 223 pg/mL (<300); TROPONIN-I < 0.04 ng/mL (<0.04-0.07)
[2016-12-24] MEDS ORDERED: LIDODERM 5%1 PATC1 TRANSDERM (18:12)
[2016-12-24] MEDS ORDERED: PHENERGAN 25 MG25 M1 PO (18:17)
[2016-12-24 18:31] VITALS: BP 134/77
== END 2016-12-24 18:50 | disposition home or self-care (01) ==
LOC: ER 16:36
PROVIDERS: Physician Assistant
DX: J18.9 Pneumonia, unspecified organism (principal); R07.89 Other chest pain; J45.909 Unspecified asthma, uncomplicated; F31.9 Bipolar disorder, unspecified; E03.9 Hypothyroidism, unspecified; Z88.6 Allergy status to analgesic agent; Z91.048 Other nonmedicinal substance allergy status; Z91.040 Latex allergy status; Z91.041 Radiographic dye allergy status; Z88.2 Allergy status to sulfonamides; Z87.891 Personal history of nicotine dependence; Z88.8 Allergy status to other drugs, medicaments and biological substances

== ENCOUNTER 2016-12-30 11:44 | Inpatient (IN) | payer OTHER ==
[~2016-12-30] VITALS: Ht 167.6 cm; Wt 81.2 kg
--- NOTE | ~2016-12-30 | HC ---
[facility] [place] [address] CONSULTATION Name: RAVINDRA FORD Room #: 534-P ADM IN M.R.#: [id number] Admission: 12/30/16 Attend Phys: Jesus Manuel Haywood MD Discharge: Date of : 55 Report #: [id number] THIS REPORT FOR: //name// CC: Clifford Toscano REASON FOR CONSULTATION: I was asked to evaluate concerning bilateral pulmonary infiltrates. HISTORY OF PRESENT ILLNESS: The patient is a 61-year-old known from her previous hospitalizations, who presents with approximately 10-day history of increasing shortness of breath, left-sided chest pain and intermittent cough. She presented to the emergency room on 12/20, diagnosed with pneumonia and placed on oral antibiotic therapy. She returned on 12/24, with similar symptoms. She was on Ceftin and doxycycline. She was continued on her current treatment program after being given lidocaine patch and Phenergan. She continues to have low-grade fever and intermittent chills. No hemoptysis. sputum. She was hospitalized after she presented to Dr. Haywood' office where she was unable to walk and had to come in through a wheelchair due to her dyspnea. She does have difficulty swallowing both liquid and some solids. Previous video swallows; however, have cleared her for oral intake. She has had no travel. About a month ago, had gastroenteritis that lasted 24 hours. REVIEW OF SYSTEMS: Notes no rash. She has had intermittent nausea without vomiting. No diarrhea. No dysuria or frequency. ALLERGIES: TYLENOL, BAND-AIDS, LANOLIN, LATEX, RED DYE, SULFA, and PETROLEUM. MEDICATIONS: As noted on her MAR, which were reviewed. PAST MEDICAL HISTORY, FAMILY HISTORY, AND SOCIAL HISTORY: Unchanged from her previous hospitalization. It is noted that she has common variable immunodeficiency and has been on immunoglobulin infusions, last of which was 10 days ago. She has history of asthma and recurring episodes of sepsis and respiratory failure. She has had C. difficile colitis as of July 2015, with no relapse. FAMILY HISTORY: Noncontributory. SOCIAL HISTORY: She is a smoker of cigarettes. PHYSICAL EXAMINATION: VITAL SIGNS: Afebrile, hemodynamically stable. GENERAL: She was alert, cooperative and pleasant. Oxygen saturation was 97% on room air. Moderately obese. SKIN: Unremarkable. [address] [address] CONSULTATION Name: RAVINDRA FORD Room #: 534-P [facility] IN M.R.#: [id number] Admission: 12/30/16 Attend Phys: Jesus Manuel Haywood MD Discharge: Date of : 55 Report #: [id number] LYMPH: Unremarkable. HEENT: Unremarkable. NECK: Supple. LUNGS: Coarse breath sounds in the mid posterior chest bilaterally. HEART: Regular without murmur. ABDOMEN: Soft, nontender, no hepatosplenomegaly or mass. NEUROLOGIC: Nonfocal. She was alert and conversant. LABORATORY STUDIES: Sodium 137, potassium 3.4, bicarbonate 27, creatinine 1. Liver function test normal except for an AST of 71 and ALT of 67. INR 1. Hemoglobin 13.4, white count 19.1, and platelet count 242. ABG on room air showed a pO2 66, pCO2 32, pH 7.44, and lactate 2.3. Chest x-ray is pending. Previous CT scan earlier last week did show bilateral infiltrates, left upper lobe. Also had right middle lobe infiltrate. She also has some hazy ground glass opacities in the upper lobes. IMPRESSION: A 61-year-old with recurring bilateral pulmonary infiltrates. Given the intermittent nature and location, I am suspecting aspiration may be primary etiology. However, given the other ground glass changes, must also consider other granulomatous processes and inflammatory conditions. I doubt we are dealing with malignancy. Recommend restarting her antibiotics. We will prophylax for Clostridium difficile relapse. Check sedimentation rate, IgG level, urine antigens, await bronchoscopy for bacterial, fungus and AFB cultures. I did not get a sense we are dealing with viral process. Have speech therapy evaluate. <ELECTRONICALLY SIGNED> By: Basil Naylor MD 12/31/16 0843 1520 1650 Basil Naylor MD /nt
--- NOTE | ~2016-12-30 | CNG ---
[facility] [place] [address] CYTO-NONGYN REPORT PROCEDURE Name: RAVINDRA ESPITIA Room #: 534-P ADM IN M.R.#: [id number] Admission: 12/30/16 Date of : 55 Discharge: Report #: [id number] Path Case #: [id number] CYTOPATHOLOGY REPORT COLLECTION DATE: 12/30/2016 RECEIVED DATE: 12/31/2016 SUBMITTING PHYS: Dr. Jesus Manuel Haywood OTHER PHYS: Dr. Claudio Horton CLINICAL HISTORY: Pneumonia. SPECIMEN(S) RECEIVED: A.Bronchoalveolar lavage, RML * * * * * * * * * * * * FINAL DIAGNOSIS: A. Lung, RML, Bronchoalveolar lavage: - No malignant cells identified. Pulmonary macrophages and bronchial cells identified in the background of numerous inflammatory cells. PATHOLOGIST: Morena Red M.D. REPORT ELECTRONICALLY SIGNED BY: Morena Red M.D. DATE/TIME: 01/01/2017 11:23 * * * * * * * * * * * * GROSS PATHOLOGY: A. Bronchoalveolar lavage, RML: The specimen is submitted unfixed, labeled "Ravindra Espitia". Received by the Cytology Department is 20 mL of cloudy pink fluid. One ThinPrep slide was prepared. (clt 12.31.2016) MACHINE COMPOSITOR(S): KATY Perea([facility]) INITIAL CPT CODE(S): A; 63949 Professional services performed by [facility] at [facility] [address], [place] [address] Technical services performed by [facility] at [address] [place] [address]., [address], [place] [address]. [facility] [address] [place] [address], [address] [facility] [address] [place] [address] CYTO-NONGYN REPORT PROCEDURE Name: RAVINDRA ESPITIA Room #: 534-P ADM IN M.R.#: [id number] Admission: 12/30/16 Date of : 55 Discharge: Report #: [id number] Path Case #: [id number] [place] [id number] PHONE: [phone] DIRECTOR: Kieran Jose M.D. * * * END OF REPORT * * *
--- NOTE | ~2016-12-30 | HC ---
[facility] [place] [address] CONSULTATION Name: RAVINDRA FORD Room #: 534-P ADM IN M.R.#: [id number] Admission: 12/30/16 Attend Phys: Jesus Manuel Haywood MD Discharge: Date of : 55 Report #: [id number] THIS REPORT FOR: //name// CC: Basil Toscano MD DATE OF SERVICE: 12/30/2016 REASON FOR CONSULTATION: Persistent pneumonia. CHIEF COMPLAINT: Rigors and cough, shortness of breath. HISTORY OF PRESENT ILLNESS: The patient is a pleasant 61-year-old female known to me from prior office visits with known history of severe persistent asthma as well as recurrent lower respiratory infections and infiltrates, predominantly most recently in the lingula, hospitalized most recently in June for similar problem, subsequently also has a history of common variable immunodeficiency for which she received IVIG most recently about 2 weeks ago, was seen in my office about 3 weeks ago, had been complaining of some general malaise, but was waiting her followup IVIG infusions, did not get better, subsequently has been to the Emergency Room twice with complaints of left-sided chest pain and shortness of breath and low grade fevers and was found to have lingular and right upper and middle lobe infiltrates most recently on CT of the chest, had been on Ceftin and doxycycline. The patient continues to have nonproductive cough and severe left-sided pleuritic chest pain, has been having chills, in fact when seen in the office for chilling and had significant noted. Subsequent chest x-ray from the office showed some persistent slightly progressive infiltrates in these areas; was admitted for further management. I have just completed fiberoptic bronchoscopy on this patient showing some thick white secretions coming from lingula and right lower lobe predominantly. ALLERGIES: Include BAND-AID, SULFA, ACETAMINOPHEN, LANOLIN, PETROLEUM, LATEX and RED DYE. PAST MEDICAL HISTORY: 1. Severe persistent asthma. 2. Common variable immunodeficiency, for which she receives IVIG. 3. Hypothyroidism. 4. Restless legs syndrome. 5. Bipolar affective disorder. 6. History of pancreatitis. [facility] [address] [place] [address] CONSULTATION Name: RAVINDRA FORD Room #: 534-P [facility] IN .R.#: [id number] Admission: 12/30/16 Attend Phys: Jesus Manuel Haywood MD Discharge: Date of : 55 Report #: [id number] SOCIAL HISTORY: Ex-smoker, quitting in 2009. No significant alcohol consumption. FAMILY HISTORY: Significant for CML, congestive heart failure, cerebrovascular accident. REVIEW OF SYSTEMS: CONSTITUTIONAL: No fever, no significant chills noted. ENT: No upper respiratory congestion, rhinorrhea or dysphagia. CARDIOVASCULAR: Some left-sided pleuritic chest pain. GASTROINTESTINAL: No nausea, vomiting, diarrhea, constipation or abdominal pain. GENITOURINARY: No dysuria, no frequency. INTEGUMENT: Denies any new rash. MUSCULOSKELETAL: No new joint pains or swelling. PHYSICAL EXAMINATION: VITAL SIGNS: The patient's temperature 97.8, pulse 100, respiratory rate 16, blood pressure 134/77. GENERAL: This is a pleasant middle-aged woman, somewhat somnolent. ENT: Edentulous mouth. Clear oropharynx. NECK: Supple, no lymphadenopathy. LUNGS: Bilateral crackles on inspiration. No wheezes. Crackles predominantly in the bases. CARDIOVASCULAR: Heart regular. No murmurs noted. ABDOMEN: Soft, nontender, no masses. EXTREMITIES: Without significant edema. LABORATORY DATA: Sodium 137, potassium 3.4, chloride 103, bicarbonate 27, BUN 20, creatinine 1.0. Glucose of 92, mildly elevated ALT of 68, alkaline phosphatase normal. INR 1.0. White blood cell count 19,000, hemoglobin 13, hematocrit 40, platelet count 242, IgG level is pending, urinalysis pending. Arterial blood gas on room air revealed pH 7.44, pCO2 of 33, pO2 of 66, bicarbonate 22. IMPRESSION: 1. Persistent pulmonary infiltrates, immunocompromised host, worrisome for atypical infections and failing outpatient therapy. 2. Severe persistent asthma. 3. Pleuritic chest pain in the left, nothing for pleural effusion noted, likely related to current infiltrates. 4. Poor airway clearance. SUGGESTIONS: 1. [place] [address] CONSULTATION Name: RAVINDRA FORD Room #: 534-P [facility] IN M.R.#: [id number] Admission: 12/30/16 Attend Phys: Jesus Manuel Haywood MD Discharge: Date of : 55 Report #: [id number] 2. Antibiotics per Infectious Disease. 3. Bronchodilators. 4. Systemic steroids. 5. Await bronchoscopy cultures. 6. Additional recommendations to follow. Thank you for requesting our suggestions. By: 1708 2255 Jesus Manuel Haywood MD /nt
--- NOTE | ~2016-12-30 | P ---
[facility] [place] [address] PROCEDURE REPORT Name: RAVINDRA FORD Room #: 534-P [facility] IN M.R.#: [id number] Admission: 12/30/16 Attend Phys: Jesus Manuel Haywood MD Discharge: Date of : 55 Report #: [id number] THIS REPORT FOR: //name// CC: Basil Mayama Jesus Manuel Toscano MD DATE OF SERVICE: 12/30/2016 PROCEDURE: Fiberoptic bronchoscopy with microscopic protected specimen brush of the left lingula and bronchial lavage in the right middle lobe. INDICATION: Persistent pulmonary infiltrates in immunocompromised host, failing outpatient therapy. ASA classification class II. PROCEDURE NOTATION: After discussing risks, benefits of planned procedure with the patient. She desired to proceed. After obtaining informed consent, she was brought to director of cath lab room 3, her procedure was performed. She was placed on continuous cardiopulmonary monitoring and supplemental oxygen. She was given 4% lidocaine nebulized to anesthetize the upper respiratory tract. She received conscious sedation, a total 4 mg of Versed and 50 mcg of fentanyl were titrated during the procedure to provide adequate sedation. Once accomplished, bronchoscope was passed through an oral biteblock until the vocal cords were visualized. Lidocaine 1% was instilled in the vocal cords to provide topical anesthesia. Bronchoscope was then passed in the trachea, 1% lidocaine was instilled in the tracheobronchial tree bilaterally to provide topical anesthesia. Once complete, airways were surveyed. FINDINGS: Mainstem, lobar, segmental and subsegmental bronchi were explored. No significant anatomic variation noted. Some scattered thick white plugs and mucus were emanating predominantly from the right middle lobe and left lingula. There was some mild bronchiectasis suggested. Protected specimen brush was obtained in the left lingula and sent for quantitative cultures. A bronchioalveolar lavage was performed in the right middle lobe with thick white mucus plugs and secretions noted with cloudy return. This was sent for microbiologic and cytologic tests. The patient tolerated well. No noted complications. IMPRESSION: Persistent pulmonary infiltrates, failing outpatient therapy, [facility] [address] [place] [address] PROCEDURE REPORT Name: RAVINDRA FORD Room #: 534-P [facility] IN M.R.#: [id number] Admission: 12/30/16 Attend Phys: Jesus Manuel Haywood MD Discharge: Date of : 55 Report #: [id number] status post bronchoscopy with the above plan. Await microbiologic and cytologic testing. By: 1642 [id number] Jesus Manuel Haywood MD /nt
[~2016-12-30 11:44] MED LIST changes: -DAIRY RELIE9000 UNIT; +DAIRY RELIE9000 UNIT PO; +LIDODERM 5%1 PATC1 TRANSDERM
[2016-12-30 14:04] LABS: ABG SAMPLE TYPE ARTERIAL; BE(vivo) -1.4 mmol/L (-2 to +3); LACTATE 2.37 mmol/L (0.5-2.0); O2Hb 92.5 % (92.0-98.0); PCO2 33.1 mmHg (35.0-45.0); PO2 66.2 mmHg (80.0-100.0); STICK SITE R.RADIAL
[2016-12-30 14:28] LABS: HEMATOCRIT 40.2 % (37.0-47.0); HEMOGLOBIN 13.4 gm/dL (12.0-15.0); MCH 31.6 pg (26.0-34.0); MCHC 33.3 g/dL (28.0-37.0); RBC 4.24 mil/uL (4.20-5.00); RDW 13.6 % (10.5-14.5); WBC 19.1 thou/uL (4.0-11.0)
[2016-12-30 14:40] LABS: CALCIUM 8.9 mg/dL (8.5-10.1); POTASSIUM 3.4 mmol/L (3.5-5.1)
[2016-12-30 14:41] LABS: PROTIME 10.5 Seconds (9.3-11.4)
[2016-12-30 14:44] LABS: TOTAL BILIRUBIN 0.4 mg/dL (<0.1-1.0); TOTAL PROTEIN 7.1 g/dL (6.4-8.2)
[2016-12-30 19:45] VITALS: BP 111/36
[2016-12-30 19:58] VITALS: BP 102/47
[2016-12-30 23:34] VITALS: BP 117/68
[2016-12-31 03:39] VITALS: BP 105/60
[2016-12-31 06:09] LABS: HEMATOCRIT 36.2 % (37.0-47.0); HEMOGLOBIN 12.1 gm/dL (12.0-15.0); MCH 31.6 pg (26.0-34.0); MCHC 33.3 g/dL (28.0-37.0); RBC 3.81 mil/uL (4.20-5.00); RDW 13.9 % (10.5-14.5); WBC 18.1 thou/uL (4.0-11.0)
[2016-12-31 06:20] LABS: CALCIUM 8.3 mg/dL (8.5-10.1); CREATININE 0.9 mg/dL (0.6-1.0); POTASSIUM 4.5 mmol/L (3.5-5.1)
[2016-12-31 08:16] VITALS: BP 116/64
[2016-12-31 15:52] VITALS: BP 109/77
[2016-12-31 19:09] VITALS: BP 120/67
[2017-01-01 03:38] LABS: HEMATOCRIT 33.8 % (37.0-47.0); HEMOGLOBIN 11.3 gm/dL (12.0-15.0); MCHC 33.5 g/dL (28.0-37.0); MCV 95.5 fL (80.0-100.0); RBC 3.54 mil/uL (4.20-5.00); RDW 14.1 % (10.5-14.5); WBC 14.4 thou/uL (4.0-11.0)
[2017-01-01 03:44] LABS: CALCIUM 8.3 mg/dL (8.5-10.1); CREATININE 0.9 mg/dL (0.6-1.0); POTASSIUM 3.8 mmol/L (3.5-5.1)
[2017-01-01 04:05] VITALS: BP 129/71
[2017-01-01 16:58] VITALS: BP 126/75
[2017-01-01 20:00] VITALS: BP 149/79
[2017-01-02 04:00] VITALS: BP 133/75
[2017-01-02 04:47] LABS: HEMOGLOBIN 11.4 gm/dL (12.0-15.0); MCH 31.7 pg (26.0-34.0); MCHC 33.4 g/dL (28.0-37.0); RBC 3.58 mil/uL (4.20-5.00); RDW 13.8 % (10.5-14.5); WBC 15.2 thou/uL (4.0-11.0)
[2017-01-02 04:56] LABS: CALCIUM 8.4 mg/dL (8.5-10.1); CREATININE 0.8 mg/dL (0.6-1.0); POTASSIUM 3.2 mmol/L (3.5-5.1)
[2017-01-02 07:26] VITALS: BP 160/82
[2017-01-02 15:27] VITALS: BP 147/88
[2017-01-02 19:12] VITALS: BP 138/86
[2017-01-03 03:46] LABS: HEMATOCRIT 37.4 % (37.0-47.0); HEMOGLOBIN 12.4 gm/dL (12.0-15.0); MCH 31.4 pg (26.0-34.0); MCHC 33.3 g/dL (28.0-37.0); MCV 94.2 fL (80.0-100.0); RBC 3.97 mil/uL (4.20-5.00); RDW 13.7 % (10.5-14.5); WBC 12.6 thou/uL (4.0-11.0)
[2017-01-03 03:57] LABS: CALCIUM 8.1 mg/dL (8.5-10.1); CREATININE 0.8 mg/dL (0.6-1.0); POTASSIUM 3.5 mmol/L (3.5-5.1)
[2017-01-03 04:34] VITALS: BP 140/84
[2017-01-03 07:10] VITALS: BP 156/81
[2017-01-03 19:50] VITALS: BP 130/79
[2017-01-04 03:47] LABS: HEMOGLOBIN 13.8 gm/dL (12.0-15.0); MCHC 33.6 g/dL (28.0-37.0); RBC 4.32 mil/uL (4.20-5.00); RDW 13.8 % (10.5-14.5); WBC 10.1 thou/uL (4.0-11.0)
[2017-01-04 04:12] LABS: CALCIUM 8.1 mg/dL (8.5-10.1); CREATININE 0.9 mg/dL (0.6-1.0); POTASSIUM 3.4 mmol/L (3.5-5.1)
[2017-01-04 05:02] VITALS: BP 150/95
[2017-01-04 07:15] VITALS: BP 130/81
[2017-01-04] MEDS ORDERED: CODEINE SULFATE30 MG PO (12:10)
[2017-01-04] MEDS ORDERED: ACIDOPHILUS1 EAC4 PO ×2 (12:11→13:11)
[2017-01-04] MEDS ORDERED: AUGMENTIN 875875 MG PO ×2 (12:21→12:25)
[2017-01-04] MEDS ORDERED: FLAGYL 250 MG250 MG PO ×2 (12:21→12:26)
[2017-01-04] MEDS ORDERED: PROTONIX40 M1 PO (12:21)
[2017-01-04] MEDS ORDERED: PHENERGAN 25 MG25 M1 PO (13:11)
[2017-01-04] MEDS ORDERED: PREDNISONE 10 M10 MG PO (13:12)
[2017-01-04 13:43] VITALS: BP 130/81
[2017-01-06 23:07] LABS: INFLUENZA B Negative (Negative); METAPNEUMOVIRUS Negative (Negative)
== END 2017-01-04 14:00 | disposition home or self-care (01) | DRG 853 ==
LOC: RAD 11:44 → 5S 13:04
PROVIDERS: Hospitalist; Internal Medicine; Internal Medicine Pulmonary Disease
PROC: 0B9D8ZX Drainage of Right Middle Lung Lobe, Via Natural or Artificial Opening Endoscopic, Diagnostic (ICD-10-PCS; principal; 2016-12-30)
PROC: 0BB98ZX Excision of Lingula Bronchus, Via Natural or Artificial Opening Endoscopic, Diagnostic (ICD-10-PCS; principal; 2016-12-30)
DX: A41.9 Sepsis, unspecified organism (principal); J18.9 Pneumonia, unspecified organism; J96.01 Acute respiratory failure with hypoxia; D83.9 Common variable immunodeficiency, unspecified; J45.901 Unspecified asthma with (acute) exacerbation; D80.3 Selective deficiency of immunoglobulin G [IgG] subclasses; E03.9 Hypothyroidism, unspecified; G25.81 Restless legs syndrome; F31.9 Bipolar disorder, unspecified; M51.36 Other intervertebral disc degeneration, lumbar region; F41.1 Generalized anxiety disorder; E87.6 Hypokalemia; J47.9 Bronchiectasis, uncomplicated; Z88.2 Allergy status to sulfonamides; Z88.8 Allergy status to other drugs, medicaments and biological substances; Z91.040 Latex allergy status; Z87.891 Personal history of nicotine dependence; Z82.49 Family history of ischemic heart disease and other diseases of the circulatory system; Z82.3 Family history of stroke; Z88.6 Allergy status to analgesic agent; Z90.710 Acquired absence of both cervix and uterus; Z79.899 Other long term (current) drug therapy
CPT/HCPCS: 10086

== ENCOUNTER 2017-01-25 15:35 | Emergency (ER) | payer OTHER ==
[~2017-01-25] VITALS: Ht 167.6 cm; Wt 77.1 kg
[~2017-01-25 15:35] MED LIST changes: +ACIDOPHILUS1 EAC4 PO; +AUGMENTIN 875875 MG PO; +CODEINE SULFATE30 MG PO; +FLAGYL 250 MG250 MG PO; +PROTONIX40 M1 PO
[2017-01-25 16:55] LABS: ABSOLUTE NEUTROPHILS 8.9 thou/uL (1.4-8.2); BASOPHILS 0.8 % (0.0-2.0); EOSINOPHILS 0.1 % (0.0-3.0); HEMATOCRIT 42.1 % (37.0-47.0); HEMOGLOBIN 14.3 gm/dL (12.0-15.0); LYMPHOCYTES 12.1 % (24.0-44.0); MCH 31.6 pg (26.0-34.0); MONOCYTES 3.4 % (1.0-8.0); PLATELET COUNT 303 thou/uL (150-400); POLYS 83.6 % (36.0-66.0); RBC 4.53 mil/uL (4.20-5.00); RDW 14.1 % (10.5-14.5); WBC 10.6 thou/uL (4.0-11.0)
[2017-01-25 17:03] LABS: MANUAL DIFF NO; POTASSIUM 4.1 mmol/L (3.5-5.1)
[2017-01-25 18:14] VITALS: BP 133/87
== END 2017-01-25 18:15 | disposition home or self-care (01) ==
LOC: ER 15:35
PROVIDERS: Emergency Medicine
DX: R06.00 Dyspnea, unspecified (principal); J45.909 Unspecified asthma, uncomplicated; F31.9 Bipolar disorder, unspecified; E03.9 Hypothyroidism, unspecified; Z88.6 Allergy status to analgesic agent; Z91.040 Latex allergy status; Z91.041 Radiographic dye allergy status; Z88.2 Allergy status to sulfonamides; Z88.8 Allergy status to other drugs, medicaments and biological substances; Z87.891 Personal history of nicotine dependence

== ENCOUNTER 2017-02-18 17:14 | Observation (INO) | payer OTHER ==
[~2017-02-18] VITALS: Ht 167.6 cm; Wt 79.4 kg
--- NOTE | ~2017-02-18 | 2DMMODE ---
[facility] [address] [place] [address] 2 D/M-MODE ECHOCARDIOGRAM Name: RAVINDRA FORD JAZMIN Room #: 453-P [facility]..#: [id number] Admission: 02/18/17 Attend Phys: Marcos Velazquez, Discharge: 02/19/17 Date of : 55 Date of Service: 02/21/17 1625 Report #: [id number] THIS REPORT FOR: //name// APPROVED REPORT Study performed: 02/19/2017 12:30:39 EXAM: Comprehensive 2D, Doppler, and color-flow Echocardiogram Patient Location: Echo lab Room #: [id number] Status: routine BSA: 1.89 HR: 89 bpm BP: 132/76 mmHg Rhythm: NSR Other Information Study Quality: Good Indications Chest Pressure Dyspnea 2D Dimensions RVDd: 29.53 mm LVEF(%): 63.12 (>50%) IVSd: 1.20 (7-11mm) LVOT Diam: 19.94 (18-24mm) LVDd: 41.21 mm PWd: 1.20 (7-11mm) Ascending Ao: 34.29 (22-36mm) LVDs: 27.28 (25-40mm) Aortic Root: 31.19 mm Mayers's LVEF: 63.12 % Volumes Left Atrial Volume (Systole) Single Plane 4CH: 34.99 mL Single Plane 2CH: 37.63 mL LA ESV Index: 21.00 mL/m2 Aortic Valve AoV Peak Drew.: 1.31 m/s AO Peak Gr.: 6.84 mmHg LVOT Max P.57 mmHg LVOT Max V: 1.18 m/s GUANAKITO Vmax: 2.81 cm2 Mitral Valve E/A Ratio: 0.8 [facility] [place] [place] [address] 2 D/M-MODE ECHOCARDIOGRAM Name: RAVINDRA FORD JAZMIN Room #: 453-[facility]..#: [id number] Admission: 02/18/17 Attend Phys: Marcos Velazquez, Discharge: 02/19/17 Date of : 55 Date of Service: 02/21/17 1625 Report #: [id number] MV Decel. Time: 219.16 ms MV E Max Drew.: 0.60 m/s MV A Drew.: 0.77 m/s MV PHT: 63.56 ms IVRT: 78.43 ms Pulmonary Valve PV Peak Drew.: 0.96 m/s PV Peak Gr.: 3.66 mmHg Pulmonary Vein P Vein S: 0.79 m/s P Vein D: 0.53 m/s P Vein S/D Ratio: 1.49 Tricuspid Valve TR Peak Drew.: 2.03 m/s RAP Estimate: 5.00 mmHg TR Peak Gr.: 16.50 mmHg PA Pressure: 21.00 mmHg Left Ventricle The left ventricle is normal size. There is normal LV segmental wall motion. Mild concentric left ventricular hypertrophy. Left ventricular systolic function is normal. LVEF is 55-60%. Mild diastolic dysfunction is present (impaired relaxation pattern). Right Ventricle The right ventricle is normal size. The right ventricular systolic function is normal. Atria The left atrium size is normal. The right atrium size is normal. Aortic Valve The aortic valve is normal in structure. No aortic regurgitation is present. There is no aortic valvular stenosis. Mitral Valve Mitral valve leaflets are mildly thickened. Trace to mild mitral regurgitation. Tricuspid Valve The tricuspid valve is normal in structure. There is trace tricuspid regurgitation. The right atrial pressure is estimated at 5 mmHg. Estimated PAP is 21mmHg. [address] [address] 2 D/M-MODE ECHOCARDIOGRAM Name: RAVINDRA FORD JAZMIN Room #: 453-P [facility] IN ..#: [id number] Admission: 02/18/17 Attend Phys: Marcos Velazquez, Discharge: 02/19/17 Date of : 55 Date of Service: 02/21/17 1625 Report #: [id number] Pulmonic Valve The pulmonary valve is normal in structure. There is no pulmonic valvular regurgitation. Great Vessels The aortic root is normal in size. The ascending aorta is normal in size. IVC is normal in size and collapses >50% with inspiration. Pericardium There is no pericardial effusion. <Conclusion> The left ventricle is normal size. LVEF is 55-60%. The aortic valve is normal in structure. Mitral valve leaflets are mildly thickened. Trace to mild mitral regurgitation. The tricuspid valve is normal in structure. There is trace tricuspid regurgitation. The right atrial pressure is estimated at 5 mmHg. Estimated PAP is 21mmHg. The pulmonary valve is normal in structure. <ELECTRONICALLY SIGNED> By: Perez Bliss MD 02/21/17 1625 1625 1625 Perez Bliss MD /INF
--- NOTE | ~2017-02-18 | EKG ---
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
[2017-02-18 17:27] VITALS: BP 150/86
[2017-02-18 17:42] LABS: ABG SAMPLE TYPE ARTERIAL; BE(vivo) 0.4 mmol/L (-2 to +3); HCO3 23.1 mmol/L (22.0-26.0); LACTATE 2.29 mmol/L (0.5-2.0); O2(CT) 20.4 mL/dL (15.0-23.0); O2Hb 96.4 % (92.0-98.0); PCO2 32.1 mmHg (35.0-45.0); PO2 87.9 mmHg (80.0-100.0); STICK SITE R.RADIAL; pH 7.475 (7.360-7.450); sO2 97.3 % (92.0-98.0); tCO2 24.1 mmol/L (24.0-30.0)
[2017-02-18] MEDS ORDERED: PREDNISONE 10 M10 MG PO (18:31)
[2017-02-18 19:24] LABS: ABSOLUTE NEUTROPHILS 6.8 thou/uL (1.4-8.2); EOSINOPHILS 0.1 % (0.0-3.0); HEMOGLOBIN 13.9 gm/dL (12.0-15.0); LYMPHOCYTES 21.2 % (24.0-44.0); MCH 31.6 pg (26.0-34.0); MCHC 34.6 g/dL (28.0-37.0); MCV 91.4 fL (80.0-100.0); MONOCYTES 7.1 % (1.0-8.0); PLATELET COUNT 332 thou/uL (150-400); POLYS 70.6 % (36.0-66.0); RBC 4.38 mil/uL (4.20-5.00); RDW 13.5 % (10.5-14.5); WBC 9.6 thou/uL (4.0-11.0)
[2017-02-18 19:33] LABS: MANUAL DIFF NO
[2017-02-18 19:36] LABS: CALCIUM 9.1 mg/dL (8.5-10.1); CREATININE 0.9 mg/dL (0.6-1.0); POTASSIUM 4.1 mmol/L (3.5-5.1)
[2017-02-18 19:43] LABS: ALBUMIN 3.2 g/dL (3.4-5.0); ALKALINE PHOSPHATASE 72 U/L (46-116); DIRECT BILIRUBIN < 0.1 mg/dL (<0.1-0.3); SGOT 32 U/L (15-37); SGPT 52 U/L (30-65); TOTAL BILIRUBIN 0.2 mg/dL (<0.1-1.0); TOTAL PROTEIN 7.9 g/dL (6.4-8.2)
[2017-02-18 19:51] LABS: TROPONIN-I 0.06 ng/mL (<0.04-0.07)
[2017-02-18] MEDS ORDERED: ADVAIR HFA 230M12 GM INH (20:34)
[2017-02-18 21:40] VITALS: BP 150/86
[2017-02-18] MEDS ORDERED: LACTAID FAS9000 UNIT PO (21:56)
[2017-02-18 23:18] VITALS: BP 152/89
[2017-02-19 03:57] VITALS: BP 137/99
[2017-02-19 07:45] VITALS: BP 150/84
[2017-02-19 11:25] VITALS: BP 132/76
[2017-02-19 11:50] LABS: CHOLESTEROL 244 mg/dL (<200); HDL CHOLESTEROL 47 mg/dL (>40); LDL CHOLESTEROL 162 mg/dL (<100); TC:HDL 5.2 Ratio (Not establshd); TRIGLYCERIDE 177 mg/dL (<150); VLDL 35 mg/dL (<40)
[2017-02-19 15:24] VITALS: BP 151/78
[2017-02-19 19:15] VITALS: BP 156/91
[2017-02-19 19:46] VITALS: BP 156/91
[2017-02-19] MEDS ORDERED: MUCINEX TA600 MG/TA2 PO (20:24)
[2017-02-19] MEDS ORDERED: ASPIRIN325 PO (20:24)
[2017-02-19] MEDS ORDERED: PROAIR HFA8.5 GM INH (20:24)
[2017-02-19] MEDS ORDERED: UNICOMPLEX M TA1 TA1 PO (20:24)
[2017-02-19] MEDS ORDERED: SPIRIVA INH (20:24)
[2017-02-19] MEDS ORDERED: AUGMENTIN 875875 MG PO (20:24)
[2017-02-19] MEDS ORDERED: PROZAC20 MG PO (20:24)
[2017-02-19] MEDS ORDERED: ADVAIR HFA 230M12 GM INH (20:24)
[2017-02-19] MEDS ORDERED: WELLBUTRIN XL300 MG PO (20:24)
[2017-02-19] MEDS ORDERED: ACIDOPHILUS1 EAC4 PO (20:24)
== END 2017-02-19 21:30 | disposition home or self-care (01) ==
LOC: ER 17:36 → EROBS 20:50 → 4W 20:50
PROVIDERS: Nurse Practitioner; Nurse Practitioner Gerontology
DX: J96.20 Acute and chronic respiratory failure, unspecified whether with hypoxia or hypercapnia (principal); R07.89 Other chest pain; J47.9 Bronchiectasis, uncomplicated; E03.9 Hypothyroidism, unspecified; Z87.891 Personal history of nicotine dependence
CPT/HCPCS: 27001

== ENCOUNTER 2017-05-22 06:25 | Inpatient (IN) | payer OTHER ==
[2017-05-22] VITALS (27 sets, daily range): BP systolic 74–133; BP diastolic 37–84
[~2017-05-22] VITALS: Ht 167.6 cm; Wt 81.6 kg
--- NOTE | ~2017-05-22 | H ---
[facility] [place] [address] HISTORY AND PHYSICAL Name: RAVINDRA FORD Room #: 245-P ADM IN M.R.#: [id number] Admission: 05/22/17 Attend Phys: Hamzah Ma MD Discharge: Date of : 55 Report #: [id number] THIS REPORT FOR: //name// CC: Hamzah [facility]jay [facility] DATE OF SERVICE: 05/22/2017 REASON FOR ADMISSION: Shortness of breath. HISTORY OF PRESENT ILLNESS: The patient is a 61-year-old with extensive past medical history including and not limited to common variable immunodeficiency syndrome. She has had repeated hospitalizations since 06/2016. Those were for numerous causes including and not limited to pneumonitis, septic shock, C. diff. She required ICU stay. She is followed by Dr. Haywood from the pulmonary team. She started to have some right-sided chest pain with shortness of breath this morning. She also felt that she is somewhat warm. She presented to the emergency room where she was found to have hypoxemia and what seems to be a right-sided infiltration. I was asked to admit accordingly given her hypoxemia. PAST MEDICAL HISTORY: 1. Common variable immunodeficiency syndrome. 2. Asthma. 3. Recurrent episodes of C. diff. 4. Respiratory failure. 5. Sepsis. 6. Hypothyroidism. 7. Pancreatitis. 8. Bipolar affective disorder. 9. Severe persistent asthma. 10. Restless legs syndrome. SOCIAL HISTORY: Ex-smoker. She quit in 2009. No drug or alcohol abuse. FAMILY HISTORY: Significant for common variable immunodeficiency and congestive heart failure. REVIEW OF SYSTEMS: GENERAL: No fever or chills. CARDIOVASCULAR: Significant for right-sided chest pain. PULMONARY: Significant for shortness of breath and cough. GASTROINTESTINAL: No nausea or vomiting. GENITOURINARY: No frequency, no urgency. MUSCULOSKELETAL: No back pain. MEDICATIONS: Listed in the patient's medications the following: [facility] [address] [place] [address] HISTORY AND PHYSICAL Name: RAVINDRA FORD Room #: 245-[facility] IN [facility]#: [id number] Admission: 05/22/17 Attend Phys: Hamzah Ma MD Discharge: Date of : 55 Report #: [id number] 1. Spiriva. 2. Aspirin. 3. Fluoxetine. 4. Lactobacillus. 5. Prednisone. PHYSICAL EXAMINATION: GENERAL: The patient is alert, oriented. VITAL SIGNS: Bedside pulse ox 88 on 2 liters by nasal. Temperature 36.5. HEAD AND NECK: No jugular venous distention. CHEST: Decreased air entry on the right base. CARDIOVASCULAR: Regular, no rub detected. ABDOMEN: Soft, nontender, with no hepatosplenomegaly. LOWER EXTREMITIES: No edema. LABORATORY DATA: Reviewed. She is mildly hypokalemic. There is no leukocytosis; however, she does have significant bands. Chest x-ray and CT reviewed. There is a right lower lobe consolidation. ASSESSMENT, IMPRESSION, PLAN: 1. Right-sided pneumonitis. 2. Acute hypoxemic respiratory failure. 3. Hypokalemia. 4. History of common variable immunodeficiency disorder. 5. Hypothyroidism. 6. Admission to the Intensive Care Unit. 7. Blood cultures were obtained in the Emergency Room. 8. Initiate triple antibiotic with vancomycin, Zosyn and levofloxacin. 9. Pulmonary consultation. 10. Resume her home medications. 11. Pulmonary toilet program. 12. P.r.n. oxygen. 13. Routine Intensive Care Unit care. <ELECTRONICALLY SIGNED> By: Hamzah Ma MD 05/25/17 0918 1106 1210 Hamzah Ma MD /nt
--- NOTE | ~2017-05-22 | EKG ---
[place] [address] [facility] [employer] 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 05/22/17 0958 0710 0710 Mariano Sanders MD, FACC /EPI
--- NOTE | ~2017-05-22 | HC ---
[facility] [place] [address] CONSULTATION Name: RAVINDRA FORD Room #: [facility] IN M.R.#: [id number] Admission: 05/22/17 Attend Phys: Hamzah Ma MD Discharge: Date of : 55 Report #: [id number] THIS REPORT FOR: //name// CC: Hamzah Toscano DATE OF SERVICE: 05/22/2017 CONSULTATION: Infectious Diseases. HISTORY OF PRESENT ILLNESS: The patient is a 61-year-old white female who comes to [facility] the morning of 05/22 because of increased dyspnea and shortness of breath. This was associated with severe right-sided chest pain. The patient noted fevers, chills, sweats and a pleuritic-kind of pain. The patient has a history of persistent pneumonia and was better with a long course of antibiotic therapy this summer. She developed cough and a severe chest pain, bringing her into the hospital. Workup shows right-sided pneumonia. Infectious Disease consultation was requested. PAST MEDICAL HISTORY: Past history is significant for diagnosis of common variable immunodeficiency. The patient received gamma globulin transfusions every 4 weeks. She is about 2 weeks since her last infusion. The patient's other diagnoses include coronary artery disease, asthma, bronchiectasis, hypothyroidism, low back pain, ADD, bipolar and several years ago, she had C. difficile disease and, I believe, she had it again with oral antibiotics this summer. PAST SURGICAL HISTORY: Includes hysterectomy. ALLERGIES: THE PATIENT NOTES ALLERGY TO FLAGYL, SULFA CAUSES NAUSEA AND VOMITING. MEDICATION RECONCILIATION: Home medications include Prozac 40 mg daily, oxycodone 5 mg q.4h. p.r.n., L-Thyroid 100 mcg daily, pantoprazole 20 mg daily and budesonide 0.5 mg respiratory therapy b.i.d. Here in the hospital, we have added vancomycin 1 gram q. 24h., levofloxacin 500 mg q.24h and piperacillin/tazobactam 3.375 grams every 6 hours as well as intravenous hydrocortisone 100 mg q.6h. Other medications include Lactobacillus 2 capsules 3 times a day, bupropion 300 mg daily and tramadol 50 mg b.i.d. p.r.n. FAMILY HISTORY: Noncontributory. SOCIAL HISTORY: The patient is . She lives with her who brought her to the hospital. She did smoke cigarettes, quitting about 7 years ago. No history of alcohol. [facility] [address] [place] [address] CONSULTATION Name: RAVINDRA FORD Room #: 245-P [facility] IN [facility].#: [id number] Admission: 05/22/17 Attend Phys: Hamzah Ma MD Discharge: Date of : 55 Report #: [id number] REVIEW OF SYSTEMS: GENERAL: Fevers, chills, sweats, weakness and malaise. ENT: The patient denies headache, sinus congestion, sore throat or trouble swallowing. She is quite anxious because of her discomfort and dyspnea. CHEST: The patient has cough. She is not able to raise up any phlegm. She has dyspnea. She has a severe right-sided pleuritic type of chest pain which makes it difficult to cough. GASTROINTESTINAL: The patient denies nausea, vomiting, diarrhea or constipation. GENITOURINARY: No urinary complaints. EXTREMITIES: No new complaints in her extremities. PHYSICAL EXAMINATION: GENERAL: On examination, the patient appears her stated age, alert, oriented, comfortable, not in any distress. VITAL SIGNS: Normal. The patient is afebrile. She appears uncomfortable. SKIN: Shows no rash, lesion or exanthem. ENT EXAMINATION: Negative. HEART: Heart sounds, rapid S1, S2. Regular rate and rhythm. CHEST: Breath sounds are diminished, with rales on the right. ABDOMEN: Belly is obese, soft, not tender. No mass. No organomegaly. EXTREMITIES: Demonstrate no cyanosis, clubbing or edema. LABORATORY STUDIES: Electrolytes show sodium 140, potassium 3.3, chloride 106, bicarbonate 26, BUN 27, creatinine 0.9 and glucose 122. Liver function tests are normal. The CBC shows white count 7.2, hemoglobin 13.0, hematocrit 39.7% and platelets are normal. The differential shows 74% polys and 19% bands. The CT of the chest shows dense infiltrates in the right upper and right lower lobes. Other laboratory studies include elevated procalcitonin at 21. Influenza antigens are negative. BNP is normal. Troponin is normal. Blood gas shows pH of 7.32, pCO2 of 41 and pO2 of 53. SUMMARY: In summary, the patient is immunocompromised by common variable immunodeficiency, who presents with dense right-sided infiltrates with fever, pleurisy and shortness of breath. This patient apparently has another episode of acute pneumonia given her extensive antibiotic exposure. I think it would be very reasonable to treat her with very broad antibiotic therapy. At this point, she is on a regimen of vancomycin plus Zosyn. We would like to obtain sputum for culture. At some point, this may require bronchoscopy or lung biopsy. We can do a nasopharyngeal swab for non-influenza viruses. I would like to check for MRSA in the sputum. With a history of C. difficile and intensive use of antibiotics, we will use probiotics up front. I want to follow CBC, chemistries and chest x-ray. The patient may require some invasive procedure to obtain a specimen for culture, which might allow us to further de-escalate antibiotic therapy. [facility] [address] [place] [address] CONSULTATION Name: RAVINDRA FORD Room #: 245-P ADM IN M.R.#: [id number] Admission: 05/22/17 Attend Phys: Hamzah Ma MD Discharge: Date of : 55 Report #: [id number] I appreciate the opportunity to offer input in the care of the patient. I will be happy to follow her through the weekend. Dr. Naylor returns on Wednesday. Thank you for this consultation. By: [id number] Godwin Mendez MD /nt
--- NOTE | ~2017-05-22 | HC ---
[facility] [address] [place] [address] CONSULTATION Name: RAVINDRA FORD Room #: 429-[facility] IN ..#: [id number] Admission: 05/22/17 Attend Phys: Hamzah Ma MD Discharge: Date of : 55 Report #: [id number] THIS REPORT FOR: //name// CC: Hamzah Toscano DATE OF SERVICE: 05/27/2017 HISTORY OF PRESENT ILLNESS: The patient is a 61-year-old white female with a history of common variable immunodeficiency syndrome, history of asthma, was noted to have acute hypoxic respiratory failure with multilobar pneumonia. She has considerable hypoxia and has been on elevated nasal prong O2, currently at 5 liters. She did have sepsis, which has resolved. She has had an exacerbation of her COPD/asthma. She has significant problems with endurance. We are seeing her in rehabilitation medicine consultation. PAST MEDICAL HISTORY: Common variable immunodeficiency syndrome, asthma, recurrent episodes of C. diff, respiratory failure, sepsis, pancreatitis, bipolar affective disorder, severe persistent asthma, restless legs syndrome. MEDICATIONS: Please see the full medication listing. SOCIAL HISTORY: The patient lives with her in a house ranched out 2 steps in, was not on O2 premorbidly was ambulatory without a device, driving in the community. HABITS: Exsmoker, quit in 2009, no history of drug or alcohol abuse. FAMILY HISTORY: Significant for common variable immunodeficiency and congestive heart failure. REVIEW OF SYSTEMS: No complaints of chest pain or abdominal discomfort. She gets short of breath with limited activity. No focal extremity pain complaints. Did not offer any complaints of bowel or bladder changes. PHYSICAL EXAMINATION: GENERAL: She is a pleasant 61-year-old white female in no obvious distress, currently on 6 liters nasal prong O2. She is alert, oriented. VITAL SIGNS: Temperature is 98.3, pulse 94, respirations 20, blood pressure 150/90. HEENT: Appeared to be benign. EXTREMITIES: Functional range of motion of both upper extremities with strength grade 4-/5. DTRs are trace to 1. Lower extremities, no focal calf swelling, functional range of motion with strength grade 4-/5. DTRs are trace to 1. She has been standby assistance with basic activities and has significant decreased endurance. Physical therapy evaluation is pending. [address] [address] CONSULTATION Name: RAVINDRA FORD Room #: [address] [place] [address] [place] ..#: [id number] Admission: 05/22/17 Attend Phys: Hamzah Ma MD Discharge: Date of : 55 Report #: [id number] ASSESSMENT: A 61-year-old white female with the following problem list: 1. Pulmonary rehabilitation. 2. Medical complexity with generalized debilitation. 3. Common variable immunodeficiency syndrome. 4. Acute hypoxic respiratory failure. 5. Multilobar pneumonia. 6. Sepsis has resolved. 7. Hypothyroidism. 8. History of asthma with exacerbation. 9. Diarrhea, C. diff, rule out. PLAN: Therapies are evaluated. She certainly made benefit from a short acute in-hospital inpatient rehabilitation to try to further improve her strength and endurance overall independence and hopefully decrease some of her oxygen while the art sales consultant physicians are continuing to follow. At this point, we will follow along with you regarding her rehab therapy needs. <ELECTRONICALLY SIGNED> By: Tom Gómez MD 05/27/17 1456 0945 1105 Tom Gómez MD /PMT
--- NOTE | ~2017-05-22 | HC ---
[facility] [place] [address] CONSULTATION Name: RAVINDRA FORD Room #: [facility]- ADM IN M.R.#: [id number] Admission: 05/22/17 Attend Phys: Hamzah Ma MD Discharge: Date of : 55 Report #: [id number] THIS REPORT FOR: //name// CC: Hamzah Toscano DATE OF SERVICE: 05/22/2017 PULMONARY CONSULTATION REFERRING PROVIDER: Hamzah Ma M.D. REASON FOR CONSULTATION: Pneumonia, sepsis and respiratory failure. HISTORY OF PRESENT ILLNESS: Our group was asked to evaluate the patient in consultation. ____ called about 30 minutes ago about this patient. She is well known to me from prior admissions due to severe asthma and recurrent lower respiratory infections and pneumonia due to underlying common variable immunodeficiency, has been on IVIG infusions, managed by Dr. Chris Rene, presented to the emergency department earlier this morning, had been in usual state of health overnight. notes about 2:00 to 3:00 in the morning, the patient with severe right-sided chest pain and chills, within hours had her in the Emergency Department where she was diagnosed with pneumonia based on CT scan of the chest showing extensive right upper and right lower lobe infiltrates. Small pleural effusion was also noted. She has received IV antibiotics and is now receiving IV fluid bolus. IV team here placing PICC line during my evaluation without difficulties. She is awake, is speaking full sentences. Denies any recent travel. No other recent exposures. No ill contacts. ALLERGIES: Include ACETAMINOPHEN, BAND-AIDS, LANOLIN, LATEX, METRONIDAZOLE, RED DYE, SULFA AND PETROLATUM. PAST MEDICAL HISTORY: 1. Recurrent lower respiratory infections and pneumonia. 2. Common variable immunodeficiency. 3. Severe persistent asthma. 4. Hypothyroidism. 5. Restless leg syndrome. 6. Bipolar affective disorder. 7. Prior history of pancreatitis. SOCIAL HISTORY: Ex-smoker, quit in 2009. No alcohol consumption. FAMILY HISTORY: Significant for CML, congestive heart failure and [facility] [address] [place] [address] CONSULTATION Name: RAVINDRA FORD Room #: 245-P [facility] IN M.R.#: [id number] Admission: 05/22/17 Attend Phys: Hamzah Ma MD Discharge: Date of : 55 Report #: [id number] cerebrovascular accident. REVIEW OF SYSTEMS: CONSTITUTIONAL: Chills. No fever. ENT: No upper respiratory congestion, rhinorrhea or dysphagia. CARDIOVASCULAR: Right-sided pleuritic chest pain. No palpitations. GASTROINTESTINAL: No nausea, vomiting, diarrhea, constipation or abdominal pain or hematochezia. GENITOURINARY: No dysuria. No frequency. No hematuria. INTEGUMENT: Denies any rash. MUSCULOSKELETAL: No new joint pains or swelling. PHYSICAL EXAMINATION: VITAL SIGNS: Afebrile, pulse 90s, respiratory rate 20s and blood pressure 86/41. GENERAL: This is a pleasant middle-aged woman, in no apparent distress, awake, conversant. HEENT: ENT: Clear oropharynx. NECK: Supple. No lymphadenopathy. LUNGS: Diffuse right-sided inspiratory crackles. No wheezes. CARDIOVASCULAR: Heart is regular. No murmurs. ABDOMEN: Soft and nontender. No masses. No hepatosplenomegaly. EXTREMITIES: Warm with 2+ pulses. No edema. INTEGUMENT: No rash. LABORATORY DATA: White blood cell count 7000, hemoglobin 13, hematocrit 40 and platelet count 252. Sodium 140, potassium 3.3, chloride 106, bicarbonate 26, BUN 27, creatinine 0.9 and glucose 122. Arterial blood gas done on 2 liters revealed pH 7.37, pCO2 of 42, pO2 of 53 and bicarbonate of 24. RADIOLOGICAL DATA: CT scan as described in HPI. IMPRESSION: 1. Multilobar pneumonia, an immunocompromised host. 2. Acute hypoxemic respiratory failure. 3. Severe sepsis with respiratory failure and hypertension. 4. History of chronic steroid use, last use of systemic steroids was in February. 5. Common variable immunodeficiency. SUGGESTIONS: 1. Infectious Disease consultation. 2. Sepsis protocol. 3. ICU care. 4. Frequent bronchodilators. 5. Systemic steroid with taper. 6. Await cultures. [address] [address] CONSULTATION Name: RAVINDRA FORD JAZMIN Room #: 245-P [facility] IN M.R.#: [id number] Admission: 05/22/17 Attend Phys: Hamzah Ma MD Discharge: Date of : 55 Report #: [id number] 7. If not performed, rapid influenza screen and respiratory viral panel. 8. Additional recommendations to follow. Discussed with and nursing and the patient at bedside. Total critical care time 40 minutes, not including procedures to this point. By: [id number] Jesus Manuel Haywood MD /nt
[~2017-05-22 06:25] MED LIST changes: +ADVAIR HFA 230M12 GM INH; +LACTAID FAS9000 UNIT PO
[2017-05-22 06:52] LABS: ABG SAMPLE TYPE ARTERIAL; BE(vivo) -1.6 mmol/L (-2 to +3); HCO3 23.6 mmol/L (22.0-26.0); LACTATE 1.38 mmol/L (0.5-2.0); O2Hb 86.5 % (92.0-98.0); PCO2 41.6 mmHg (35.0-45.0); PO2 53.3 mmHg (80.0-100.0); STICK SITE R.RADIAL; pH 7.372 (7.360-7.450); sO2 86.8 % (92.0-98.0); tCO2 24.9 mmol/L (24.0-30.0)
[2017-05-22] MEDS ORDERED: ADVAIR 500-501 EACH INH (07:21)
[2017-05-22] MEDS ORDERED: CLOTRIMAZOLE10 MG MM (07:23)
[2017-05-22] MEDS ORDERED: FIRAZYR30 MG/3 ML SUBQ (07:25)
[2017-05-22] MEDS ORDERED: MAGOX 400400 MG PO (07:27)
[2017-05-22] MEDS ORDERED: ASPIRIN325 PO (07:27)
[2017-05-22 07:36] LABS: HEMATOCRIT 39.7 % (37.0-47.0); MCH 28.8 pg (26.0-34.0); MCHC 32.8 g/dL (28.0-37.0); MCV 87.7 fL (80.0-100.0); PLATELET COUNT 252 thou/uL (150-400); RBC 4.52 mil/uL (4.20-5.00); WBC 7.2 thou/uL (4.0-11.0)
[2017-05-22 07:39] LABS: MANUAL DIFF YES
[2017-05-22 07:41] LABS: ANION GAP 8 mmol/L (7-16); BUN 27 mg/dL (7-18); CHLORIDE 106 mmol/L (98-107); CO2 26 mmol/L (21-32); CREATININE 0.9 mg/dL (0.6-1.0); GLUCOSE 122 mg/dL (74-106); POTASSIUM 3.3 mmol/L (3.5-5.1); SODIUM 140 mmol/L (136-145)
[2017-05-22 07:49] LABS: TROPONIN-I < 0.04 ng/mL (<0.06)
[2017-05-22 08:08] LABS: ABSOLUTE NEUTROPHILS 6.7 thou/uL (1.4-8.2); ANISOCYTOSIS 1+; POLYCHROMASIA OCCASIONAL; TOTAL CELL COUNT 100
[2017-05-22 08:23] LABS: URINE BILIRUBIN NEGATIVE (Negative); URINE BLOOD NEGATIVE (Negative); URINE COLOR YELLOW; URINE GLUCOSE-RANDOM* NEGATIVE (Negative); URINE KETONES NEGATIVE (Negative); URINE LEUKOCYTES-REFLEX NEGATIVE (Negative); URINE PROTEIN (DIPSTICK) NEGATIVE (Negative); URINE UROBILINOGEN 0.2 E.U./dl (0.2-1.0)
[2017-05-22 15:25] LABS: CALCIUM 7.9 mg/dL (8.5-10.1); CREATININE 0.8 mg/dL (0.6-1.0); POTASSIUM 4.4 mmol/L (3.5-5.1)
[2017-05-22 15:29] LABS: INR 1.1
[2017-05-22 15:32] LABS: ALBUMIN 2.4 g/dL (3.4-5.0); TOTAL BILIRUBIN 0.6 mg/dL (<0.1-1.0); TOTAL PROTEIN 5.8 g/dL (6.4-8.2)
[2017-05-23] VITALS (25 sets, daily range): BP systolic 99–155; BP diastolic 45–78
[2017-05-23 05:23] LABS: HEMATOCRIT 32.2 % (37.0-47.0); MCH 28.8 pg (26.0-34.0); MCHC 32.3 g/dL (28.0-37.0); MCV 89.1 fL (80.0-100.0); RBC 3.61 mil/uL (4.20-5.00); RDW 14.4 % (10.5-14.5); WBC 16.9 thou/uL (4.0-11.0)
[2017-05-23 05:29] LABS: ABG SAMPLE TYPE ARTERIAL; BE(vivo) -5.3 mmol/L (-2 to +3); LACTATE 0.93 mmol/L (0.5-2.0); O2(CT) 15.3 mL/dL (15.0-23.0); O2Hb 94.9 % (92.0-98.0); PCO2 38.1 mmHg (35.0-45.0); PO2 83.9 mmHg (80.0-100.0); pH 7.337 (7.360-7.450); sO2 95.8 % (92.0-98.0); tCO2 21.1 mmol/L (24.0-30.0)
[2017-05-23 05:30] LABS: STICK SITE L.RADIAL
[2017-05-23 05:31] LABS: HEMOGLOBIN 10.4 gm/dL (12.0-15.0)
[2017-05-23 05:37] LABS: ALBUMIN 2.2 g/dL (3.4-5.0); CREATININE 0.7 mg/dL (0.6-1.0); POTASSIUM 3.6 mmol/L (3.5-5.1); TOTAL BILIRUBIN 0.4 mg/dL (<0.1-1.0); TOTAL PROTEIN 5.6 g/dL (6.4-8.2)
[2017-05-23] MEDS ORDERED: SYNTHROID100 MCG PO (05:44)
[2017-05-23] MEDS ORDERED: OXYCODONE HCL 55 MG PO (05:46)
[2017-05-24] VITALS (26 sets, daily range): BP systolic 138–179; BP diastolic 61–140
[2017-05-24 05:38] LABS: HEMATOCRIT 32.7 % (37.0-47.0); HEMOGLOBIN 10.6 gm/dL (12.0-15.0); MCH 28.8 pg (26.0-34.0); MCHC 32.4 g/dL (28.0-37.0); MCV 88.8 fL (80.0-100.0); RBC 3.69 mil/uL (4.20-5.00); RDW 14.4 % (10.5-14.5); WBC 17.7 thou/uL (4.0-11.0)
[2017-05-24 06:03] LABS: ALBUMIN 2.1 g/dL (3.4-5.0); CALCIUM 8.4 mg/dL (8.5-10.1); CREATININE 0.8 mg/dL (0.6-1.0); TOTAL BILIRUBIN 0.3 mg/dL (<0.1-1.0)
[2017-05-24 14:47] LABS: CALCIUM 8.3 mg/dL (8.5-10.1); CREATININE 0.7 mg/dL (0.6-1.0); MAGNESIUM 1.8 mg/dL (1.8-2.4)
[2017-05-24 15:01] LABS: POTASSIUM 2.9 mmol/L (3.5-5.1)
[2017-05-24 19:41] LABS: ABG SAMPLE TYPE ARTERIAL; BE(vivo) -0.4 mmol/L (-2 to +3); HCO3 24.3 mmol/L (22.0-26.0); LACTATE 0.73 mmol/L (0.5-2.0); O2Hb 93.4 % (92.0-98.0); PCO2 39.8 mmHg (35.0-45.0); PO2 71.3 mmHg (80.0-100.0); pH 7.403 (7.360-7.450); sO2 94.4 % (92.0-98.0); tCO2 25.5 mmol/L (24.0-30.0)
[2017-05-24 19:42] LABS: STICK SITE L.RADIAL
[2017-05-25] VITALS (22 sets, daily range): BP systolic 133–174; BP diastolic 67–106
[2017-05-25 01:11] LABS: MAGNESIUM 1.9 mg/dL (1.8-2.4); POTASSIUM 3.8 mmol/L (3.5-5.1)
[2017-05-25 05:37] LABS: HEMATOCRIT 33.2 % (37.0-47.0); HEMOGLOBIN 10.9 gm/dL (12.0-15.0); MCH 28.6 pg (26.0-34.0); MCHC 32.9 g/dL (28.0-37.0); PLATELET COUNT 258 thou/uL (150-400); RBC 3.81 mil/uL (4.20-5.00); RDW 14.4 % (10.5-14.5); WBC 10.8 thou/uL (4.0-11.0)
[2017-05-25 05:43] LABS: MANUAL DIFF YES
[2017-05-25 05:44] LABS: CALCIUM 8.6 mg/dL (8.5-10.1); CREATININE 0.6 mg/dL (0.6-1.0); POTASSIUM 3.8 mmol/L (3.5-5.1)
[2017-05-25 06:07] LABS: ABSOLUTE NEUTROPHILS 10.3 thou/uL (1.4-8.2); TOTAL CELL COUNT 100
[2017-05-26] VITALS (18 sets, daily range): BP systolic 126–155; BP diastolic 61–91
[2017-05-27 00:06] LABS: INFLUENZA B Negative (Negative); METAPNEUMOVIRUS Negative (Negative)
[2017-05-27 04:00] VITALS: BP 142/75
[2017-05-27 07:29] VITALS: BP 150/90
[2017-05-27 12:30] LABS: HEMATOCRIT 34.8 % (37.0-47.0); HEMOGLOBIN 11.4 gm/dL (12.0-15.0); MCH 28.5 pg (26.0-34.0); MCHC 32.6 g/dL (28.0-37.0); MCV 87.4 fL (80.0-100.0); RBC 3.98 mil/uL (4.20-5.00); RDW 14.6 % (10.5-14.5); WBC 13.6 thou/uL (4.0-11.0)
[2017-05-27 12:33] LABS: CALCIUM 8.3 mg/dL (8.5-10.1); CREATININE 0.6 mg/dL (0.6-1.0); POTASSIUM 3.7 mmol/L (3.5-5.1)
[2017-05-27 15:30] VITALS: BP 147/94
[2017-05-27 19:26] VITALS: BP 135/86
[2017-05-28 04:08] VITALS: BP 151/84
[2017-05-28 07:44] VITALS: BP 139/85
[2017-05-28 16:18] VITALS: BP 139/74
[2017-05-28 20:08] VITALS: BP 125/65
[2017-05-29 03:29] VITALS: BP 146/98
[2017-05-29 08:00] VITALS: BP 119/80
[2017-05-29] MEDS ORDERED: PREDNISONE 20 M20 M1 PO (12:46)
[2017-05-29 13:50] VITALS: BP 119/80
[2017-05-29] MEDS ORDERED: OXYCODONE HCL 55 MG PO (13:58)
== END 2017-05-29 14:48 | disposition home health service (06) | DRG 871 ==
LOC: ER 06:25 → EROBS 11:01 → ICU 11:01 → 4E 05-26 18:29
PROVIDERS: Emergency Medicine; Hospitalist; Internal Medicine Infectious Disease; Internal Medicine Pulmonary Disease; Nurse Practitioner
PROC: 02HV33Z Insertion of Infusion Device into Superior Vena Cava, Percutaneous Approach (ICD-10-PCS; principal; 2017-05-22)
PROC: 5A09357 Assistance with Respiratory Ventilation, Less than 24 Consecutive Hours, Continuous Positive Airway Pressure (ICD-10-PCS; 2017-05-24)
PROC: 5A09357 Assistance with Respiratory Ventilation, Less than 24 Consecutive Hours, Continuous Positive Airway Pressure (ICD-10-PCS; 2017-05-25)
DX: A41.9 Sepsis, unspecified organism (principal); J96.01 Acute respiratory failure with hypoxia; J18.1 Lobar pneumonia, unspecified organism; D81.9 Combined immunodeficiency, unspecified; A04.72 Enterocolitis due to Clostridium difficile, not specified as recurrent; J45.901 Unspecified asthma with (acute) exacerbation; J44.1 Chronic obstructive pulmonary disease with (acute) exacerbation; J44.0 Chronic obstructive pulmonary disease with (acute) lower respiratory infection; D83.9 Common variable immunodeficiency, unspecified; J98.11 Atelectasis; G25.81 Restless legs syndrome; E03.9 Hypothyroidism, unspecified; R65.20 Severe sepsis without septic shock; E87.6 Hypokalemia; I25.10 Atherosclerotic heart disease of native coronary artery without angina pectoris; I10 Essential (primary) hypertension; F31.9 Bipolar disorder, unspecified; M51.36 Other intervertebral disc degeneration, lumbar region; F41.9 Anxiety disorder, unspecified; Z88.2 Allergy status to sulfonamides; Z88.8 Allergy status to other drugs, medicaments and biological substances; Z79.52 Long term (current) use of systemic steroids; Z91.040 Latex allergy status; Z91.011 Allergy to milk products; Z87.891 Personal history of nicotine dependence; Z80.6 Family history of leukemia; Z82.49 Family history of ischemic heart disease and other diseases of the circulatory system; Z82.3 Family history of stroke; Z79.82 Long term (current) use of aspirin; Z79.899 Other long term (current) drug therapy
CPT/HCPCS: 10203; 10783; 27000

== ENCOUNTER 2017-09-14 13:52 | Inpatient (IN) | payer OTHER ==
[~2017-09-14] VITALS: Ht 165.1 cm; Wt 75.1 kg
--- NOTE | ~2017-09-14 | EKG ---
[place] [address] [facility] [place] [address] ELECTROCARDIOGRAM REPORT Name: RAVINDRA FORD JAZMIN Room #: 434-P ADM IN M.R.#: [id number] Admission: 09/14/17 Attend Phys: Liu Hobbs MD Discharge: Date of : 55 Report #: [id number] THIS REPORT FOR: //name// [facility] ED Test Date: 2017-09-14 Test Time: 15:32:32 Pat Name: RAVINDRA FORD Department: Room: 434 Gender: F Mutton Puncher: NAKIA : 1955 Requested By: Arun Nash Order Number: [id number] MD: Mariano Sanders Measurements Intervals [place] Rate: 119 P: 49 [place]: 149 QRS: 45 QRSD: 77 T: 65 QT: 327 QTc: 461 Interpretive Statements Sinus tachycardia Ventricular bigeminy Nonspecific ST segment abnormality Compared to ECG 05/22/2017 07:10:14 Ventricular premature complex(es) now present Electronically Signed On 09-15-2017 8:02:34 ELECTRICAL AND RADIO [employer]CHANIC by Mariano Sanders [email or web address] <ELECTRONICALLY SIGNED> By: Mariano Sanders MD, [facility] [id number] Mariano Sanders MD, [facility] /EPI
--- NOTE | ~2017-09-14 | HC ---
[facility] [place] [address] CONSULTATION Name: RAVINDRA FORD Room #: 434-P [facility] IN M.R.#: [id number] Admission: 09/14/17 Attend Phys: Liu Hobbs MD Discharge: Date of : 55 Report #: [id number] THIS REPORT FOR: //name// CC: Liu Toscano TYPE OF REPORT: Infectious diseases consultation. REASON FOR CONSULTATION: I was asked to evaluate concerning pneumonia. HISTORY OF PRESENT ILLNESS: The patient was a 62-year old underlying history of common variable immunodeficiency. Her last immunoglobulin injection was approximately 2 weeks ago. She was hospitalized in May with RSV pneumonia. Subsequently, she had a urinary tract infection and was treated for C. difficile colitis. This has subsequently improved. She was on cholestyramine after finishing a course of metronidazole. Overall, was feeling reasonably well until 48 hours ago when she had the acute onset of fever, chills, cough, shortness of breath along with some bilateral lower chest discomfort. Brought into the Emergency Room and found to have a right middle lobe and right upper lobe pulmonary infiltrate. No gross aspiration symptoms. No travel. No other exposure to ill persons. Her has been feeling reasonably well. No nausea, vomiting or diarrhea. No dysuria or frequency. No rash. No arthritis symptoms. ALLERGIES: TYLENOL, BAND-AIDS, LANOLIN, LATEX, RED DYE, SULFA and PETROLEUM. MEDICATIONS: As noted on her MAR, which were reviewed. She was given Solu-Medrol in the Emergency Room. Now on ceftriaxone and azithromycin. Added oral vancomycin. PAST MEDICAL HISTORY: Unchanged from previous consultations and that of her current history and physical. FAMILY HISTORY: Unchanged from previous consultations and that of her current history and physical. SOCIAL HISTORY: Unchanged from previous consultations and that of her current history and physical. REVIEW OF SYSTEMS: As noted above. PHYSICAL EXAMINATION: VITAL SIGNS: Afebrile and hemodynamically stable. GENERAL: She was alert and cooperative and pleasant and on room air saturations were normal. She had nonproductive cough. SKIN: Unremarkable. LYMPHATIC: Unremarkable. [address] [address] CONSULTATION Name: RAVINDRA FORD Room #: 434-P [facility] IN M.R.#: [id number] Admission: 09/14/17 Attend Phys: Liu Hobbs MD Discharge: Date of : 55 Report #: [id number] HEENT: Unremarkable. NECK: Supple. LUNGS: Few crackles in the right mid posterior chest. No consolidation. HEART: Regular, without murmur. ABDOMEN: Mild distention and tenderness. No hepatosplenomegaly or mass. EXTREMITIES: Unremarkable. LABORATORY STUDIES: Influenza antigen negative. Chest x-ray, right middle lobe, right upper lobe infiltrates with left mid lung atelectasis. Sodium 145, potassium 3.3, bicarbonate 25 and creatinine 1. Liver function tests normal. Hemoglobin 13.1; platelet count 287,000 and WBC is 17.7 with 81% segs and 11% lymphs. Blood cultures are pending. IMPRESSION: A 62-year-old with common variable immunodeficiency, asthma, now community-acquired pneumonia. Would be concerned about influenza versus bacterial pneumonitis. I doubt aspiration. She does have history of recent respiratory syncytial virus. No evidence of ongoing Clostridium difficile colitis. We would need to prophylax while on her antibiotic therapy for this reoccurrence. RECOMMENDATIONS: Check urine antigens as well as viral respiratory panel. Sputum culture. Continue antibiotic coverage with azithromycin, Tamiflu and ceftriaxone. We will keep in droplet precautions. Since her immunoglobulin was only 2 weeks ago, we will maintain on her current program. Continue with oral vancomycin while on systemic antibiotics. <ELECTRONICALLY SIGNED> By: Basil Naylor MD 09/15/17 1036 [id number] Basil Naylor MD /nt
--- NOTE | ~2017-09-14 | HC ---
[facility] [place] [address] CONSULTATION Name: RAVINDRA FORD Room #: 434-P ADM IN M.R.#: [id number] Admission: 09/14/17 Attend Phys: Liu Hobbs MD Discharge: Date of : 55 Report #: [id number] THIS REPORT FOR: //name// CC: Liu Toscano DATE OF SERVICE: 09/15/2017 TYPE OF REPORT: Pulmonary consultation. REFERRING PROVIDER: Liu Hobbs M.D. REASON FOR CONSULTATION: Pneumonia. CHIEF COMPLAINT: Shortness of breath and chest pain. HISTORY OF PRESENT ILLNESS: Our group was asked to see the patient in consultation while hospitalized in [facility], well known to me from office visits and prior admissions with longstanding history of common variable immune deficiency, on immunoglobulin replacement therapy as well as underlying history of severe persistent asthma had been in her usual state of health with several small children visiting with her, recently hospitalized in May with RSV pneumonia and also recently on antibiotics for urinary tract infection complicated by C. difficile colitis and has been on therapeutic metronidazole and cholestyramine. As mentioned, presented with sudden onset shortness of breath and some chest discomfort and fevers for about 2 days prior to admission. Chest x-ray in the Emergency Department revealed right lower lobe infiltrate. She has some cough, unable to clear any sputum, was admitted yesterday but has not been on any aerosol treatments until I ordered this afternoon. Has been receiving antimicrobial therapy with Rocephin and azithromycin in addition to oral vancomycin. Has been on no systemic steroids recently. ALLERGIES: MULT[employer] as well as BAND-AIDS, PERFUME, PLASTIC, SULFA, TYLENOL, LANOLIN, LACTOSE, PETROLEUM and MOLD. PAST MEDICAL HISTORY: 1. Persistent asthma. 2. Common variable immunodeficiency, on immunoglobulin replacement therapy. 3. Recurrent pneumonias. 4. Hypothyroidism. 5. Restless leg syndrome. 6. Bipolar affective disorder. 7. Prior history of pancreatitis. SOCIAL HISTORY: Ex-smoker, quitting in 2009. No significant alcohol [facility] [address] [place] [address] CONSULTATION Name: RAVINDRA FORD Room #: 434-[facility] IN ..#: [id number] Admission: 09/14/17 Attend Phys: Liu Hobbs MD Discharge: Date of : 55 Report #: [id number] consumption. Lives with her . FAMILY HISTORY: Significant for CML, congestive heart failure and cerebrovascular accident. REVIEW OF SYSTEMS: CONSTITUTIONAL: Some chills and fever. ENT: No upper respiratory congestion, rhinorrhea or dysphagia. CARDIOVASCULAR: Some right-sided pleuritic chest pain. No palpitations. GASTROINTESTINAL: One episode of emesis noted 2 days ago. History of C. difficile colitis. GENITOURINARY: No dysuria. No frequency or hematuria. INTEGUMENT: Denies any rash. MUSCULOSKELETAL: No joint pain or swelling. PHYSICAL EXAMINATION: VITAL SIGNS: Afebrile, pulse 90s, respiratory rate 16, blood pressure 103/52 and oxygen saturation 90%. GENERAL: This is a pleasant middle-aged woman, does not appear in any distress, speaking in full sentences. ENT: With obvious prior surgery to the nose with a clear oropharynx. No thrush. Dentures in place. LUNGS: Revealed right basal inspiratory crackles. No significant wheeze noted. CARDIOVASCULAR: Regular rate and rhythm. No murmurs or gallops. ABDOMEN: Soft and nontender. No masses. EXTREMITIES: Without edema. LABORATORY DATA: Chest x-ray with right lower lobe infiltrate as described in the HPI on yesterday's film. White blood cell count 12,000 down from 18, hemoglobin 12, hematocrit 36 and platelet count 244. Chemistry profile within normal limits except for mild elevated BUN at 20 and glucose 144. Laboratories are pending including micro labs. IMPRESSION: 1. Right lower lobe infiltrate, immunocompromised host. 2. Common variable immunodeficiency. 3. Underlying asthma with mild exacerbation. RECOMMENDATIONS: 1. Low dose steroids with taper. 2. Antibiotics per infectious disease service. 3. Bronchodilators. 4. Await cultures. 5. We will continue to follow [place] [address] CONSULTATION Name: RAVINDRA FORD Room #: [address] [place] [address] IN ..#: [id number] Admission: 09/14/17 Attend Phys: Liu Hobbs MD Discharge: Date of : 55 Report #: [id number] Thank you for requesting our suggestions. <ELECTRONICALLY SIGNED> By: Jesus Manuel Haywood MD 09/22/17 1233 1730 0228 Jesus Manuel Haywood MD /nt
[~2017-09-14 13:52] MED LIST changes: +CLOTRIMAZOLE10 MG MM; +FIRAZYR30 MG/3 ML SUBQ; +MAGOX 400400 MG PO; +SYNTHROID100 MCG PO
[2017-09-14 13:53] VITALS: BP 104/43
[2017-09-14 14:37] LABS: ABSOLUTE NEUTROPHILS 14.4 thou/uL (1.4-8.2); EOSINOPHILS 1.1 % (0.0-3.0); HEMATOCRIT 39.8 % (37.0-47.0); HEMOGLOBIN 13.1 gm/dL (12.0-15.0); LYMPHOCYTES 11.9 % (24.0-44.0); MCH 30.4 pg (26.0-34.0); MCHC 32.9 g/dL (28.0-37.0); MCV 92.3 fL (80.0-100.0); MONOCYTES 4.7 % (1.0-8.0); PLATELET COUNT 287 thou/uL (150-400); POLYS 81.3 % (36.0-66.0); RBC 4.31 mil/uL (4.20-5.00); RDW 16.8 % (10.5-14.5); WBC 17.7 thou/uL (4.0-11.0)
[2017-09-14 14:44] LABS: ANION GAP 8 mmol/L (7-16); BUN 23 mg/dL (7-18); CHLORIDE 112 mmol/L (98-107); CO2 25 mmol/L (21-32); GLUCOSE 118 mg/dL (74-106); POTASSIUM 3.3 mmol/L (3.5-5.1); SODIUM 145 mmol/L (136-145)
[2017-09-14 14:53] LABS: ALBUMIN 2.6 g/dL (3.4-5.0); SGOT 22 U/L (15-37); SGPT 49 U/L (30-65); TOTAL BILIRUBIN 0.3 mg/dL (<0.1-1.0); TOTAL PROTEIN 6.5 g/dL (6.4-8.2); TROPONIN-I < 0.04 ng/mL (<0.06)
[2017-09-14 15:43] VITALS: BP 105/66
[2017-09-14 16:28] VITALS: BP 101/64
[2017-09-14 17:17] VITALS: BP 118/66
[2017-09-14 19:14] VITALS: BP 103/60
[2017-09-14] MEDS ORDERED: ZYPREXA 5 MG TAB5 M1 PO (20:27)
[2017-09-14] MEDS ORDERED: ATIVAN0.5 MG PO (20:29)
[2017-09-15 04:28] VITALS: BP 91/55
[2017-09-15 05:10] LABS: CALCIUM 8.7 mg/dL (8.5-10.1); CREATININE 0.8 mg/dL (0.6-1.0)
[2017-09-15 05:27] LABS: HEMATOCRIT 35.6 % (37.0-47.0); HEMOGLOBIN 11.7 gm/dL (12.0-15.0); MCH 30.2 pg (26.0-34.0); MCHC 32.9 g/dL (28.0-37.0); MCV 91.8 fL (80.0-100.0); RBC 3.88 mil/uL (4.20-5.00); RDW 16.6 % (10.5-14.5); WBC 11.5 thou/uL (4.0-11.0)
[2017-09-15 07:53] VITALS: BP 105/51
[2017-09-15] MEDS ORDERED: ADVAIR 500-501 EACH INH (13:14)
[2017-09-15 16:34] VITALS: BP 103/52
[2017-09-15 22:10] VITALS: BP 123/73
[2017-09-16 03:21] VITALS: BP 117/58
[2017-09-16 05:47] LABS: ABSOLUTE NEUTROPHILS 11.2 thou/uL (1.4-8.2); HEMOGLOBIN 11.3 gm/dL (12.0-15.0); LYMPHOCYTES 6.4 % (24.0-44.0); MCH 30.5 pg (26.0-34.0); MCHC 33.2 g/dL (28.0-37.0); MCV 91.7 fL (80.0-100.0); MONOCYTES 1.3 % (1.0-8.0); PLATELET COUNT 265 thou/uL (150-400); POLYS 92.3 % (36.0-66.0); RBC 3.71 mil/uL (4.20-5.00); RDW 16.7 % (10.5-14.5); WBC 12.1 thou/uL (4.0-11.0)
[2017-09-16 08:59] VITALS: BP 125/67
[2017-09-16 16:29] VITALS: BP 147/76
[2017-09-16 20:03] VITALS: BP 126/56
[2017-09-17 04:05] VITALS: BP 125/84
[2017-09-17 08:03] VITALS: BP 148/91
[2017-09-17] MEDS ORDERED: NF PO (13:13)
[2017-09-17 19:24] VITALS: BP 157/80
[2017-09-17 23:10] LABS: ADENOVIRUS Negative (Negative); INFLUENZA A Negative (Negative); INFLUENZA B Negative (Negative); METAPNEUMOVIRUS Negative (Negative); PARAINFLUENZA 1 Negative (Negative); PARAINFLUENZA 2 Negative (Negative); PARAINFLUENZA 3 Negative (Negative); RHINOVIRUS Negative (Negative); RSV A Negative (Negative); RSV B Negative (Negative)
[2017-09-18 05:16] VITALS: BP 159/99
[2017-09-18 05:58] LABS: HEMOGLOBIN 11.8 gm/dL (12.0-15.0); MCHC 32.9 g/dL (28.0-37.0); MCV 91.1 fL (80.0-100.0); RBC 3.95 mil/uL (4.20-5.00); RDW 16.5 % (10.5-14.5); WBC 12.4 thou/uL (4.0-11.0)
[2017-09-18 06:10] LABS: CALCIUM 8.4 mg/dL (8.5-10.1); CREATININE 0.7 mg/dL (0.6-1.0); POTASSIUM 3.6 mmol/L (3.5-5.1)
[2017-09-18 06:42] VITALS: BP 155/73
[2017-09-18 16:45] VITALS: BP 151/91
[2017-09-18 19:20] VITALS: BP 176/84
[2017-09-19 05:49] VITALS: BP 143/85
[2017-09-19 07:29] VITALS: BP 160/85
[2017-09-19 17:00] VITALS: BP 162/113
[2017-09-19 19:46] VITALS: BP 154/89
[2017-09-20 03:31] VITALS: BP 139/78
[2017-09-20 07:19] VITALS: BP 153/94
[2017-09-20 20:45] VITALS: BP 169/80
[2017-09-21 03:05] VITALS: BP 142/58
[2017-09-21 08:28] VITALS: BP 149/91
[2017-09-21 16:41] VITALS: BP 142/75
[2017-09-21 19:22] VITALS: BP 154/74
[2017-09-21 20:10] VITALS: BP 154/74
[2017-09-22 03:58] VITALS: BP 169/89
[2017-09-22 08:00] VITALS: BP 158/80
[2017-09-22 15:04] VITALS: BP 158/80
[2017-09-22] MEDS ORDERED: VANCOMYCIN HCL10 GM PO (15:09)
[2017-09-22] MEDS ORDERED: CEFDINIR300 MG PO (15:09)
[2017-09-22] MEDS ORDERED: LOMOTIL TABLET1 EACH PO (15:10)
[2017-10-06] MEDS ORDERED: LOMOTIL TABLET1 EACH PO (16:31)
== END 2017-09-22 15:36 | disposition home or self-care (01) | DRG 871 ==
LOC: ER 13:52 → EROBS 15:26 → 4S 15:26
PROVIDERS: Hospitalist; Internal Medicine Pulmonary Disease; Physician Assistant; Specialist
DX: A41.9 Sepsis, unspecified organism (principal); J18.1 Lobar pneumonia, unspecified organism; D83.9 Common variable immunodeficiency, unspecified; J45.901 Unspecified asthma with (acute) exacerbation; E03.9 Hypothyroidism, unspecified; F41.9 Anxiety disorder, unspecified; E87.6 Hypokalemia; G25.81 Restless legs syndrome; F31.9 Bipolar disorder, unspecified; R19.7 Diarrhea, unspecified; Z90.710 Acquired absence of both cervix and uterus; Z79.52 Long term (current) use of systemic steroids; Z88.2 Allergy status to sulfonamides; Z88.8 Allergy status to other drugs, medicaments and biological substances; Z91.041 Radiographic dye allergy status; Z91.040 Latex allergy status; Z87.891 Personal history of nicotine dependence; Z79.899 Other long term (current) drug therapy; Z79.82 Long term (current) use of aspirin
CPT/HCPCS: 10195

== ENCOUNTER → 2017-10-05 | Outpatient (CLI) | payer OTHER ==
[~2017-10-05] MED LIST changes: +AFRIN30 ML NASAL; +ALBUTEROL2.5 MG/31 INH; +AMPHETAMINE SAL30 MG PO; +ATIVAN0.5 MG PO; +AUGMENTIN 875-1 EACH PO; +CEFDINIR300 MG PO; +CULTURELLE1 EAC1 PO; +D3-5050000 UNIT PO; +DOXYCYCLINE HYC50 MG PO; +EMERGEN-C 1,01000 MG PO; +FLEXERIL PO; +FOLBIC RF TABL1 EACH PO; +GAMUNEX-C40 GM/400; +HEALTHY HEART1 EAC1 PO; +LOMOTIL TABLET1 EACH PO; +MELATONIN5 M1 PO; +MUCINEX1200 MG PO; +MUCINEX600 MG PO; +NF PO; +PREDNISONE 5 MG5 M1 PO; +PROMETHAZINE/C118 ML PO; +VANCOCIN 125 M125 M1 PO; +VANCOMYCIN HCL10 GM PO; +ZYPREXA 5 MG TAB5 M1 PO
== END ==
LOC: RAD 11:54
DX: J18.9 Pneumonia, unspecified organism (principal); J93.82 Other air leak

== ENCOUNTER 2017-10-29 13:59 | Inpatient (IN) | payer OTHER ==
[~2017-10-29] VITALS: Ht 165.1 cm; Wt 86.2 kg
--- NOTE | ~2017-10-29 | HC ---
[facility] [place] [address] CONSULTATION Name: RAVINDRA FORD Room #: 222-P [facility] IN M.R.#: [id number] Admission: 10/29/17 Attend Phys: Liu Hobbs MD Discharge: Date of : 55 Report #: [id number] THIS REPORT FOR: //name// CC: Liu Toscano DATE OF SERVICE: 10/29/2017 REASON FOR CONSULTATION: I was asked to evaluate concerning pneumonia. HISTORY OF PRESENT ILLNESS: The patient was a 62-year-old known from her previous hospitalizations, who has a common variable immunodeficiency, who has been on immunoglobulin injections. Hospitalized last month with pneumonia and respiratory failure. She improved with IV antibiotic therapy followed by discharge on azithromycin, cefdinir. Subsequent to that, developed a flare of her C. difficile colitis and was on vancomycin. Improved following this and was doing well for several weeks. Last week, developed increased cough with purulent sputum production along with some hemoptysis. She was seen in the outpatient clinic last week and increased her prednisone to 40 mg a day. Despite this, she continued to have further respiratory compromise and presents to the Emergency Room. Here, she had basilar infiltrates on chest x-ray with a white count of 22,000. Lactate was normal. She has been wheezing. Still has green sputum production. Stools have been normal. Appetite has been reasonable. Mental status has been normal. She has had no travel. She has been exposed to her grandchildren along with their pet dog. She feels that she may be allergic to that. ALLERGIES: Include TYLENOL, NAUSEA WITH SULFA, METRONIDAZOLE, HEADACHE WITH PETROLEUM JELLY, BAND-AIDS, RED DYE, LATEX, LANOLIN. MEDICATIONS: As noted on her MAR, having started on vancomycin and cefepime in the Emergency Room. I also placed on oral vancomycin. 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 FAMILY HISTORY: Noncontributory. SOCIAL HISTORY: She is a past smoker. No alcohol intake. REVIEW OF SYSTEMS: No nausea, vomiting, diarrhea, dysuria or frequency, rash or arthritis symptoms. [facility] [address] [place] [address] CONSULTATION Name: RAVINDRA FORD Room #: 222-P [facility] IN M.R.#: [id number] Admission: 10/29/17 Attend Phys: Liu Hobbs MD Discharge: Date of : 55 Report #: [id number] PHYSICAL EXAMINATION: VITAL SIGNS: Afebrile and hemodynamically stable. She was tachycardic at 102. Alert and cooperative. GENERAL: She was diaphoretic. SKIN: Unremarkable. LYMPH: Unremarkable. HEENT: Unremarkable. NECK: Supple. LUNGS: Scattered wheezes with some crackles in the bases bilaterally, no consolidation. HEART: Regular, without murmur. ABDOMEN: Soft, mildly protuberant. No hepatosplenomegaly or mass. EXTREMITIES: Unremarkable. NEUROLOGIC: Nonfocal. LABORATORY STUDIES: Influenza antigen negative. Blood cultures pending. Sputum culture pending. Procalcitonin 0.07, hemoglobin 13.5, white count 22.3, platelet count 222,000, 4% bands, 88% neutrophils. BNP 311, lactate 1.2, sodium 139, potassium 3.9, bicarbonate 29, creatinine 0.9. Liver function test normal. Chest x-ray, bibasilar nonconsolidative opacities are present. IMPRESSION: A 62-year-old with underlying asthma and common variable immunodeficiency. Has exacerbation of her lung disease with associated infiltrates still possible could have pneumonia. I am suspecting that her white count may be driven from her high prednisone dosing. She also has some hoarseness to her voice. Does not appear to be in status asthmaticus. No other source of infection identified at this time. It appears that her C. difficile symptoms are stable. RECOMMENDATIONS: Agree with full pulmonary toilet and asthma treatment. We will cover with vancomycin and cefepime for now pending culture results. Obtain sputum and blood cultures. Follow up chest x-ray and laboratory studies. I have discussed with nursing staff. <ELECTRONICALLY SIGNED> By: Basil Naylor MD 11/01/17 0915 2100 223 Basil Naylor MD /nt
--- NOTE | ~2017-10-29 | EKG ---
[address] [place] [address] ELECTROCARDIOGRAM REPORT Name: RAVINDRA FORD Room #: 170-8 ADM IN M.R.#: [id number] Admission: 10/29/17 Attend Phys: Liu Hobbs MD Discharge: Date of : 55 Report #: [id number] THIS REPORT FOR: //name// [facility] ED Test Date: 2017-10-29 Test Time: 15:10:51 Pat Name: RAVINDRA FORD Department: Room: 170 Gender: F Residential Specialist: MZOOK : 1955 Requested By: Bertha Mcwilliams Order Number: [id number] MD: Mariano Sanders Measurements Intervals [place] Rate: 138 P: 26 [place]: 132 QRS: 37 QRSD: 72 T: 58 QT: 295 QTc: 447 Interpretive Statements Sinus tachycardia Frequent premature ventricular complexes Compared to ECG 10/06/2017 14:03:02 No significant change was found Electronically Signed On 10-29-2017 17:28:24 CDT by Mariano Sanders [email or web address] <ELECTRONICALLY SIGNED> By: Mariano Sanders MD, [facility] 10/29/17 1728 D: [id number] 09 Mariano Sanders MD, [facility] /EPI
[~2017-10-29 13:59] MED LIST changes: -AFRIN30 ML NASAL; -ALBUTEROL2.5 MG/31 INH; -AMPHETAMINE SAL30 MG PO; -AUGMENTIN 875-1 EACH PO; -CULTURELLE1 EAC1 PO; -D3-5050000 UNIT PO; -DOXYCYCLINE HYC50 MG PO; -EMERGEN-C 1,01000 MG PO; -FLEXERIL PO; -FOLBIC RF TABL1 EACH PO; -GAMUNEX-C40 GM/400; -HEALTHY HEART1 EAC1 PO; -MELATONIN5 M1 PO; -MUCINEX1200 MG PO; -MUCINEX600 MG PO; -PREDNISONE 5 MG5 M1 PO; -PROMETHAZINE/C118 ML PO; -VANCOCIN 125 M125 M1 PO
[2017-10-29 14:44] VITALS: BP 137/50
[2017-10-29 14:50] LABS: HEMATOCRIT 40.5 % (37.0-47.0); HEMOGLOBIN 13.5 gm/dL (12.0-15.0); MCH 29.7 pg (26.0-34.0); MCHC 33.3 g/dL (28.0-37.0); PLATELET COUNT 222 thou/uL (150-400); RBC 4.55 mil/uL (4.20-5.00); RDW 15.2 % (10.5-14.5); WBC 22.3 thou/uL (4.0-11.0)
[2017-10-29 14:59] LABS: CALCIUM 8.4 mg/dL (8.5-10.1); CREATININE 0.9 mg/dL (0.6-1.0); POTASSIUM 3.9 mmol/L (3.5-5.1)
[2017-10-29 15:08] LABS: ALBUMIN 2.4 g/dL (3.4-5.0); TOTAL BILIRUBIN 0.2 mg/dL (<0.1-1.0); TROPONIN-I 0.05 ng/mL (<0.06)
[2017-10-29 15:35] LABS: ABSOLUTE NEUTROPHILS 20.5 thou/uL (1.4-8.2)
[2017-10-29 17:31] VITALS: BP 137/50
[2017-10-29 19:02] VITALS: BP 136/73
[2017-10-29 19:20] VITALS: BP 117/91
[2017-10-29 23:43] VITALS: BP 156/83
[2017-10-30] MEDS ORDERED: ALBUTEROL2.5 MG/31 INH
[2017-10-30] MEDS ORDERED: GAMUNEX-C40 GM/400
[2017-10-30] MEDS ORDERED: FIRAZYR30 MG/3 ML SUBQ (00:03)
[2017-10-30] MEDS ORDERED: PREDNISONE 20 M20 M1 PO (00:04)
[2017-10-30] MEDS ORDERED: FLEXERIL PO (00:04)
[2017-10-30] MEDS ORDERED: LOPERAMIDE 2 MG2 M1 PO (00:05)
[2017-10-30] MEDS ORDERED: BENADRYL25 MG PO (00:06)
[2017-10-30] MEDS ORDERED: CULTURELLE1 EAC1 PO (00:09)
[2017-10-30] MEDS ORDERED: MUCINEX1200 MG PO (00:09)
[2017-10-30] MEDS ORDERED: AFRIN30 ML NASAL (00:10)
[2017-10-30] MEDS ORDERED: D3-5050000 UNIT PO (00:11)
[2017-10-30] MEDS ORDERED: MELATONIN5 M1 PO (00:11)
[2017-10-30] MEDS ORDERED: EMERGEN-C 1,01000 MG PO (00:12)
[2017-10-30] MEDS ORDERED: FOLBIC RF TABL1 EACH PO (00:12)
[2017-10-30] MEDS ORDERED: HEALTHY HEART1 EAC1 PO (00:12)
[2017-10-30 03:47] VITALS: BP 177/101
[2017-10-30 06:22] VITALS: BP 161/86
[2017-10-30 07:48] VITALS: BP 165/97
[2017-10-30 08:59] LABS: HEMATOCRIT 38.2 % (37.0-47.0); HEMOGLOBIN 12.6 gm/dL (12.0-15.0); MCH 29.4 pg (26.0-34.0); MCHC 32.9 g/dL (28.0-37.0); MCV 89.2 fL (80.0-100.0); RBC 4.28 mil/uL (4.20-5.00); RDW 15.4 % (10.5-14.5); WBC 17.6 thou/uL (4.0-11.0)
[2017-10-30 09:06] LABS: CALCIUM 8.5 mg/dL (8.5-10.1); CREATININE 0.7 mg/dL (0.6-1.0)
[2017-10-30 16:00] VITALS: BP 162/89
[2017-10-30 20:00] VITALS: BP 166/92
[2017-10-31 00:30] VITALS: BP 130/87
[2017-10-31 04:00] VITALS: BP 133/79
[2017-10-31 07:30] VITALS: BP 159/105
[2017-10-31 08:53] LABS: HEMATOCRIT 38.1 % (37.0-47.0); HEMOGLOBIN 12.4 gm/dL (12.0-15.0); MCH 29.2 pg (26.0-34.0); MCHC 32.6 g/dL (28.0-37.0); MCV 89.8 fL (80.0-100.0); RBC 4.25 mil/uL (4.20-5.00); RDW 15.8 % (10.5-14.5)
[2017-10-31 08:58] LABS: CALCIUM 8.6 mg/dL (8.5-10.1); CREATININE 0.7 mg/dL (0.6-1.0); POTASSIUM 4.1 mmol/L (3.5-5.1)
[2017-10-31 20:00] VITALS: BP 169/95
[2017-11-01 09:14] VITALS: BP 157/93
[2017-11-01 19:58] VITALS: BP 160/99
[2017-11-02 07:20] VITALS: BP 175/103
[2017-11-02 07:49] LABS: HEMATOCRIT 43.4 % (37.0-47.0); HEMOGLOBIN 14.1 gm/dL (12.0-15.0); MCH 29.4 pg (26.0-34.0); MCHC 32.5 g/dL (28.0-37.0); MCV 90.6 fL (80.0-100.0); RBC 4.79 mil/uL (4.20-5.00); RDW 15.9 % (10.5-14.5); WBC 16.7 thou/uL (4.0-11.0)
[2017-11-02 07:55] LABS: CREATININE 0.8 mg/dL (0.6-1.0); POTASSIUM 4.6 mmol/L (3.5-5.1)
[2017-11-02 08:00] VITALS: BP 175/103
[2017-11-02] MEDS ORDERED: PROMETHAZINE/C118 ML PO (17:40)
[2017-11-02] MEDS ORDERED: CEFDINIR300 MG PO (18:00)
[2017-11-02] MEDS ORDERED: VANCOMYCIN HCL10 GM PO (18:01)
[2017-11-02 18:26] VITALS: BP 175/103
[2017-11-03 03:08] LABS: ADENOVIRUS Negative (Negative); INFLUENZA A Negative (Negative); INFLUENZA B Positive (Negative); METAPNEUMOVIRUS Negative (Negative); PARAINFLUENZA 1 Negative (Negative); PARAINFLUENZA 2 Negative (Negative); PARAINFLUENZA 3 Negative (Negative); RHINOVIRUS Negative (Negative); RSV A Negative (Negative); RSV B Negative (Negative)
== END 2017-11-02 19:50 | disposition home or self-care (01) | DRG 177 ==
LOC: ER 13:59 → EROBS 15:34 → SICU 15:34 → 3W 15:34 → SICU 10-31 07:18
PROVIDERS: Hospitalist; Internal Medicine Pulmonary Disease; Nurse Practitioner Family
DX: J15.6 Pneumonia due to other Gram-negative bacteria (principal); J96.00 Acute respiratory failure, unspecified whether with hypoxia or hypercapnia; E43 Unspecified severe protein-calorie malnutrition; J45.901 Unspecified asthma with (acute) exacerbation; D83.9 Common variable immunodeficiency, unspecified; F31.9 Bipolar disorder, unspecified; E03.9 Hypothyroidism, unspecified; F41.9 Anxiety disorder, unspecified; J04.0 Acute laryngitis; Y95 Nosocomial condition; Z88.2 Allergy status to sulfonamides; Z88.8 Allergy status to other drugs, medicaments and biological substances; Z88.1 Allergy status to other antibiotic agents; Z91.040 Latex allergy status; Z79.899 Other long term (current) drug therapy; Z87.891 Personal history of nicotine dependence; Z90.710 Acquired absence of both cervix and uterus; Z90.89 Acquired absence of other organs; Z98.51 Tubal ligation status; Z86.73 Personal history of transient ischemic attack (TIA), and cerebral infarction without residual deficits; Z79.51 Long term (current) use of inhaled steroids
CPT/HCPCS: 10879; 15002

== ENCOUNTER 2017-11-08 10:23 | Inpatient (IN) | payer OTHER ==
[~2017-11-08] VITALS: Ht 167.6 cm; Wt 90.3 kg
--- NOTE | ~2017-11-08 | HC ---
[facility] [place] [address] CONSULTATION Name: RAVINDRA FORD Room #: 359-[facility] IN M.R.#: [id number] Admission: 11/08/17 Attend Phys: Allen Yang DO Discharge: Date of : 55 Report #: [id number] THIS REPORT FOR: //name// CC: Allen Toscano REASON FOR CONSULTATION: I was asked to evaluate concerning pneumonia. HISTORY OF PRESENT ILLNESS: The patient is a 62-year-old with underlying history of common variable immunodeficiency who was on immunoglobulin injections. She has been hospitalized multiple times over the last 6 months. She was just discharged on the with pneumonia. No organisms were identified. She was treated with broad spectrum antibiotic coverage and discharged on Omnicef. Also, was discharged on oral vancomycin; she has a history of C. difficile colitis. She returns now with acute onset of shortness of breath, cough with yellowish sputum production. No hemoptysis. No pleuritic chest pain. No documented fever. ALLERGIES: SHE IS ALLERGIC TO TYLENOL, NAUSEA WITH SULFA, METRONIDAZOLE, HEADACHE WITH PETROLEUM JELLY, BAND-AIDS, RED DYE, LATEX, LANOLIN. MEDICATIONS: As noted on her MAR, now on cefepime, Levaquin, vancomycin. I also increased her steroids, given 125 mg of Solu-Medrol. PAST MEDICAL HISTORY, FAMILY HISTORY AND SOCIAL HISTORY: Unchanged from history and physical and that of my previous consultation. REVIEW OF SYSTEMS: No nausea or vomiting. No abdominal pain. Stools have been loose. PHYSICAL EXAMINATION: VITAL SIGNS: She is afebrile, hemodynamically stable, heart rate 114, O2 saturation normal on 2 liters per nasal cannula. SKIN: Unremarkable. LYMPHATIC: Unremarkable. HEENT: Unremarkable. NECK: Supple. LUNGS: Crackles in the bases bilaterally, mostly on the left. ABDOMEN: Soft and nontender. EXTREMITIES: Unremarkable. LABORATORY STUDIES: Procalcitonin 0.06. ABG on 2 liters showed a pO2 of 63, pCO2 of 31, pH 7.5. Sodium 135, potassium 3.9, bicarbonate 32, creatinine 0.8. Hemoglobin 12.6, white count 22.2, platelet count 287,000. Chest x-ray: Bibasilar infiltrates, mostly on the left. IMPRESSION: A 62-year-old with common variable immunodeficiency with basilar [facility] [address] [place] [address] CONSULTATION Name: RAVINDRA FORD JAZMIN Room #: 359-P ADM IN M.R.#: [id number] Admission: 11/08/17 Attend Phys: Allen Yang DO Discharge: Date of : 55 Report #: [id number] infiltrates. I am suspecting she aspirates causing these exacerbations. She also has underlying asthma and chronic obstructive pulmonary disease. She has been very difficult to control at this time. We did do evaluation for aspiration during her last hospital stay finding no gross evidence on study. I have discussed the case with the patient and her regarding attempting to elevate her head of bed at night. I have discussed also with Dr. Haywood. She will perform bronchoscopy to evaluate for opportunistic pathogens. We will continue vancomycin p.o. as prophylaxis for her Clostridium difficile colitis. Continue broad antibiotic coverage and corticosteroids. Revaluate after bronchoscopy. <ELECTRONICALLY SIGNED> By: Basil Naylor MD 11/09/17 1554 1211 0408 Basil Naylor MD /nt
--- NOTE | ~2017-11-08 | HC ---
[facility] [place] [address] CONSULTATION Name: RAVINDRA FORD Room #: 359-[facility] IN M.R.#: [id number] Admission: 11/08/17 Attend Phys: Allen Yang DO Discharge: Date of : 55 Report #: [id number] THIS REPORT FOR: //name// CC: Basil Ibrahim DATE OF SERVICE: 11/08/2017 PULMONARY CONSULTATION REASON FOR CONSULTATION: Pneumonia, failing outpatient management. CHIEF COMPLAINT: Shortness of breath. HISTORY OF PRESENT ILLNESS: Our group was asked to see the patient in consultation while hospitalized at [facility], seen in the Emergency Department at the request of Dr. Person. She is known to me from multiple office visits and hospitalizations. Recently discharged about 1 week ago for pneumonia and had been doing reasonably well, but had increased shortness of breath suddenly this morning with a nonproductive cough, increased wheezing. Chest x-ray revealed left greater than right basilar infiltrates, new from 1 week ago. The patient does have a history of common variable immunodeficiency for which she is on immunoglobulin supplementation. No fevers, chills or sweats. The patient also carries a history of C. difficile colitis. The patient also has a history of severe persistent asthma. At last admission, a barium esophagram was done to evaluate for possible reflux disease, but nothing noted. ALLERGIES: INCLUDE BAND-AID, PERFUME, LAUNDRY DETERGENT, PLASTIC GADGETS, SULFA, TYLENOL, LANOLIN, LACTOSE, WHITE PETROLEUM, METRONIDAZOLE, LATEX, RED DYE, AND MOLD. PAST MEDICAL HISTORY: 1. History of common variable immunodeficiency. 2. Persistent asthma, severe. 3. Recurrent pneumonias. 4. Hypothyroidism. 5. Restless legs syndrome. 6. Bipolar affective disorder. 7. Pancreatitis. SOCIAL HISTORY: Ex-smoker, quitting in 2009. No significant alcohol consumption. Lives with her . [facility] [address] [place] [address] CONSULTATION Name: RAVINDRA FORD Room #: 359-P [facility] IN [facility].#: [id number] Admission: 11/08/17 Attend Phys: Allen Yang DO Discharge: Date of : 55 Report #: [id number] FAMILY HISTORY: Significant for CML, congestive heart failure and cerebrovascular disease. REVIEW OF SYSTEMS: CONSTITUTIONAL: No fevers or chills. ENT: No upper respiratory congestion or dysphagia. CARDIOVASCULAR: No chest pains or palpitations. GASTROINTESTINAL: No known reflux symptoms. GENITOURINARY: No dysuria, no frequency or hematuria. INTEGUMENT: Denies any rash. MUSCULOSKELETAL: No joint pains or swelling. PHYSICAL EXAMINATION: VITAL SIGNS: Afebrile, pulse 120s and regular, respiratory rate 20s, blood pressure 136/79, saturation 95% on 2 liters. GENERAL: This is a pleasant, somewhat cushingoid appearing elderly woman in no distress. HEENT: Clear oropharynx. No thrush. Dentures in place. NECK: Supple, no lymphadenopathy. LUNGS: Basilar inspiratory crackles, occasional wheezes. CARDIOVASCULAR: Heart regular but tachycardic. No murmurs. ABDOMEN: Soft, nontender, no masses. EXTREMITIES: With trace edema. LABORATORY DATA: Arterial blood gas done on 2 liters revealed pH 7.52, pCO2 of 32, pO2 of 63, bicarbonate 26, lactate 2.15. White blood cell count 22,000; hemoglobin 13, hematocrit 39, platelet count 287. Sodium 135, potassium 3.9, chloride 101, bicarbonate 32, BUN 26, creatinine 0.8, glucose 132. Procalcitonin 0.06. Chest x-ray with basilar infiltrates. IMPRESSION: 1. Recurrent pulmonary infiltrates, worrisome for aspiration despite findings on most recent barium esophagram. This patient is immunocompromised and is failing outpatient therapy. 2. History of Clostridium difficile colitis. 3. Severe persistent asthma. 4. Bipolar disorder. SUGGESTIONS: 1. Bronchoscopy for cultures and evaluate lower respiratory tract. 2. Infectious Disease consultation. 3. Systemic steroid taper. 4. Bronchodilators. 5. Consult GI regarding possible reflux and aspiration problems. 6. Follow up on elevated lactate. 7. Additional recommendations to follow. [address] [address] CONSULTATION Name: RAVINDRA FORD JAZMIN Room #: 359-P [facility] IN M.R.#: [id number] Admission: 11/08/17 Attend Phys: Allen Yang DO Discharge: Date of : 55 Report #: [id number] Thank you for requesting our suggestions. <ELECTRONICALLY SIGNED> By: Jesus Manuel Haywood MD 11/10/17 1055 1417 0547 Jesus Manuel Haywood MD /nt
--- NOTE | ~2017-11-08 | EKG ---
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 : 1955 Requested By: Elton Person Order Number: [id number] MD: Mariano Sanders Measurements Intervals [place] Rate: 119 P: 14 ME: 142 QRS: 21 QRSD: 71 T: 58 QT: 309 QTc: 435 Interpretive Statements Sinus tachycardia Occasional atrial premature complexes Compared to ECG 10/29/2017 15:10:51 Ventricular premature complex(es) no longer present Electronically Signed On 11-09-2017 8:48:04 CDT by Mariano Sanders [email or web address] <ELECTRONICALLY SIGNED> By: Mariano Sanders MD, [facility] 11/09/17 0848 1037 [facility] Mariano Sanders MD, [facility] /EPI
--- NOTE | ~2017-11-08 | EKG ---
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: CARLOS : 1955 Requested By: Liu Hobbs Order Number: [id number] MD: Luis Antonio Cruz Measurements Intervals [place] Rate: 107 P: 29 DC: 129 QRS: 41 QRSD: 75 T: 59 QT: 314 QTc: 419 Interpretive Statements Sinus tachycardia Ventricular trigeminy Probable left atrial enlargement Compared to ECG 11/08/2017 10:37:08 Ventricular premature complex(es) now present Atrial premature complex(es) no longer present Electronically Signed On 11-14-2017 7:32:10 CDT by Luis Antonio Cruz [email or web address] <ELECTRONICALLY SIGNED> By: Luis Antonio Cruz MD 11/14/17 0732 1402 140 Luis Antonio Cruz MD /DEVON
--- NOTE | ~2017-11-08 | P ---
[facility] [place] [address] PROCEDURE REPORT Name: RAVINDRA FORD Room #: 359-P [facility] IN ..#: [id number] Admission: 11/08/17 Attend Phys: Allen Yang DO Discharge: Date of : 55 Report #: [id number] THIS REPORT FOR: //name// CC: Allen Toscano DATE OF SERVICE: 11/08/2017 PROCEDURE: Fiberoptic bronchoscopy, bronchial lavaging of the left upper lobe as well as microbiologic protected specimen brush. INDICATION: Recurrent pneumonia and immunocompromised host, ASA classification class 3. PROCEDURE NOTATION: After discussing risks and benefits of the planned procedure with the patient, she desired to proceed. After obtaining informed consent, she was brought to calibration laboratory technician 3 where she was placed on continuous cardiopulmonary monitoring and supplemental oxygen. She was then given 4% lidocaine nebulized to anesthetize the upper respiratory tract. Once complete, she received conscious sedation. She received 1 mg of lorazepam IV prior to arrival while in the Emergency Department; 7 mg of Versed and 75 mcg of fentanyl were titrated during the procedure to provide adequate sedation. Once accomplished, bronchoscope was passed through an oral bite block until the vocal cords were visualized. Vocal cords moved appropriately both before and after procedure. Some minor irregular appearance to the right vocal fold was noted. 1% lidocaine was then instilled in the vocal cords to provide topical anesthesia. Bronchoscope was then passed in the trachea, 1% lidocaine was instilled in the tracheobronchial tree bilaterally to provide topical anesthesia. Once complete, airways were surveyed. FINDINGS: Mainstem, lobar, segmental and subsegmental bronchi were all explored and appeared patent without any significant anatomic variation. The airways were significantly friable. There was some bronchomalacia noted. Right-sided structures without significant secretions noted. Left side with thick mucopurulent secretions predominately in the left upper lobe. This was sampled using a protected specimen brush. This was sent for quantitative microbiologic tests. Bronchial lavage was then performed in the left upper lobe at the end of procedure. The patient tolerated well. No noted complications. IMPRESSION: Recurrent pulmonary infiltrates, immunocompromised host, status post bronchoscopy with microbiologic brush and lavage. [address] [address] PROCEDURE REPORT Name: RAVINDRA FORD Room #: 359-P ADM IN M.R.#: [id number] Admission: 11/08/17 Attend Phys: Allen Yang DO Discharge: Date of : 55 Report #: [id number] PLAN: Await microbiologic tests. Consider GI consultation for possible recurrent aspiration events. <ELECTRONICALLY SIGNED> By: Jesus Manuel Haywood MD 11/10/17 1055 1447 0721 Jesus Manuel Haywood MD /nt
--- NOTE | ~2017-11-08 | 2DMMODE ---
[facility] [address] [place] [address] 2 D/M-MODE ECHOCARDIOGRAM Name: LOGANRAVINDRA JAZMIN Room #: 357-P [facility] IN ..#: [id number] Admission: 11/08/17 Attend Phys: Allen Yang, Discharge: Date of : 55 Date of Service: 11/15/17 0858 Report #: [id number] THIS REPORT FOR: //name// APPROVED REPORT Study performed: 11/15/2017 08:20:24 EXAM: Comprehensive 2D, Doppler, and color-flow Echocardiogram Patient Location: Echo lab Room #: 357 Status: routine BSA: 2.00 BP: 127/67 mmHg Rhythm: Irregular. Heart rate between 80-125bpm Other Information Study Quality: Good Indications Tachycardia 2D Dimensions RVDd: 33.00 mm LVEF(%): 65.16 (>50%) IVSd: 11.70 (7-11mm) LVOT Diam: 19.52 (18-24mm) LVDd: 51.52 mm PWd: 10.96 (7-11mm) LVDs: 33.01 (25-40mm) Aortic Root: 33.93 mm Mayers's LVEF: 65.16 % Volumes Left Atrial Volume (Systole) Single Plane 4CH: 42.12 mL Single Plane 2CH: 47.74 mL LA ESV Index: 24.00 mL/m2 Aortic Valve AoV Peak Drew.: 1.42 m/s AO Peak Gr.: 8.08 mmHg LVOT Max P.14 mmHg LVOT Max V: 1.24 m/s GUANAKITO Vmax: 2.61 cm2 Mitral Valve E/A Ratio: 0.8 MV Decel. Time: 176.80 ms [facility] [place] [address] 2 D/M-MODE ECHOCARDIOGRAM Name: LOGANRAVINDRA JAZMIN Room #: 357-[facility] IN ..#: [id number] Admission: 11/08/17 Attend Phys: Allen Yang, Discharge: Date of : 55 Date of Service: 11/15/17 0858 Report #: [id number] E Max Drew.: 0.77 m/s MV A Drew.: 0.93 m/s MV PHT: 51.27 ms IVRT: 73.82 ms Pulmonary Valve PV Peak Drew.: 1.01 m/s PV Peak Gr.: 4.12 mmHg Pulmonary Vein P Vein S: 0.78 m/s P Vein A: 0.43 m/s P Vein D: 0.59 m/s P Vein A Dur.: 120.0 msec P Vein S/D Ratio: 1.32 Tricuspid Valve TR Peak Drew.: 2.73 m/s RAP Estimate: 5.00 mmHg TR Peak Gr.: 29.78 mmHg PA Pressure: 35.00 mmHg Left Ventricle The left ventricle is normal size. There is normal LV segmental wall motion. Mild concentric left ventricular hypertrophy. Left ventricular systolic function is normal. LVEF is 55-60%. Mild diastolic dysfunction is present (impaired relaxation pattern). Right Ventricle The right ventricle is normal size. The right ventricular systolic function is normal. Atria The left atrium size is normal. The right atrium size is normal. Aortic Valve The aortic valve is normal in structure. No aortic regurgitation. There is no aortic valvular stenosis. Mitral Valve Mitral valve leaflets are mildly thickened. Moderate mitral regurgitation. Tricuspid Valve The tricuspid valve is normal in structure. Trace tricuspid regurgitation. Estimated PAP is 35mmHg. Pulmonic Valve [facility] [address] [place] [address] 2 D/M-MODE ECHOCARDIOGRAM Name: RAVINDRA FORD JAZMIN Room #: 357-P [facility] IN ..#: [id number] Admission: 11/08/17 Attend Phys: Allen Yang, Discharge: Date of : 55 Date of Service: 11/15/17 0858 Report #: [id number] The pulmonary valve is normal in structure. Trace pulmonic regurgitation. Great Vessels The aortic root is normal in size. IVC is normal in size and collapses >50% with inspiration. Pericardium There is no pericardial effusion. <Conclusion> Left ventricular systolic function is normal. There is normal LV segmental wall motion. Mild concentric LVH LVEF is 55-60%. Mild diastolic dysfunction The aortic valve is normal in structure. No aortic regurgitation or stenosis. Mitral valve leaflets are mildly thickened. Moderate mitral regurgitation. Trace tricuspid regurgitation. Estimated pulmonary artery pressure of 35mmHg. There is no pericardial effusion. <ELECTRONICALLY SIGNED> By: Mariano Sanders MD, [facility] 11/15/1758 7 7 Mariano Sanders MD, FACC /INF
--- NOTE | ~2017-11-08 | HC ---
[facility] [place] [address] CONSULTATION Name: RAVINDRA FORD Room #: 222-P [facility] IN .R.#: [id number] Admission: 11/08/17 Attend Phys: Allen Yang DO Discharge: Date of : 55 Report #: [id number] THIS REPORT FOR: //name// CC: Allen Toscano DATE OF SERVICE: 11/15/2017 HISTORY OF PRESENT ILLNESS: A 62-year-old white female who has a history of common variable immunodeficiency syndrome, history of asthma, was noted to have problems with recurrent pneumonia, and has been on corticosteroids for at least the past year per her and her 's history. She has also had a history of recurrent C. diff, history of respiratory failure and healthcare-associated pneumonia. She was readmitted at this time with increased shortness of breath. She underwent a fiberoptic bronchoscopy and had bronchial lavage. She was treated for acute on chronic respiratory failure and aspiration pneumonia. Infectious Disease is involved and she has been on doxycycline and p.o. vancomycin. Following white blood cell count as steroids are tapered. Gastroenterology has been involved as well with aspiration pneumonia and satiety on Reglan. She is continuing on the Reglan and PPI. Pulmonary is following. She complains of weakness with decreased endurance, some difficulty with proximal weakness. We are seeing her in rehabilitation medicine consultation. PAST MEDICAL HISTORY: Includes the common variable immunodeficiency syndrome, asthma, recurrent episodes of C. diff, respiratory failure, sepsis, pancreatitis, bipolar affective disorder, severe persistent asthma, restless legs syndrome. MEDICATIONS: Please see the full medication listing. ALLERGIES: Multiple allergies are noted. Please see the full list. HABITS: Past tobacco abuse, quit greater than a year ago. No history of ETOH abuse or usage. SOCIAL HISTORY: Lives in a house with her , helga kan, 2 steps in, was not on oxygen premorbidly and ambulated without a device. REVIEW OF SYSTEMS: Did not offer any current complaints of chest pain, has shortness of breath with limited activity. No abdominal discomfort. Complains of difficulty with short distance functional ambulation. PHYSICAL EXAMINATION: GENERAL: A pleasant 62-year-old overweight white female in no obvious distress. VITAL SIGNS: Last recorded temperature 36.7, pulse 64, respirations 16, blood pressure 127/67. [address] [address] CONSULTATION Name: RAVINDRA FORD Room #: 222-P [facility] IN .R.#: [id number] Admission: 11/08/17 Attend Phys: Allen Yang DO Discharge: Date of : 55 Report #: [id number] NEUROLOGIC: She is alert. She is currently on 2 liters nasal cannula. Facies are symmetric. Functional range of motion of both upper extremities with strength grade 4-/5. DTRs are trace to 1. Lower extremities, proximal strength is probably 4- with distal strength more of a grade 4. Tone appeared to be intact. She does fatigue quickly with limited functional mobility. 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 She is on tapering dose of steroids as noted. 2. Medical complexity with generalized debilitation. 3. Acute on chronic respiratory failure. 4. Aspiration pneumonia. 5. Common variable immunodeficiency syndrome. 6. Asthma. 7. Bipolar affective disorder. 8. History of pancreatitis. 9. Restless leg syndrome. PLAN: We will ask Physical Therapy and Occupational Therapy to reevaluate. We will need to see what her current functional level is. She feels that she is doing worse than she was before. We will be glad to assist and follow along with you regarding her rehab therapy needs. By: 1423 02 Tom Gómez MD /PMT
[~2017-11-08 10:23] MED LIST changes: +AFRIN30 ML NASAL; +ALBUTEROL2.5 MG/31 INH; +CULTURELLE1 EAC1 PO; +D3-5050000 UNIT PO; +EMERGEN-C 1,01000 MG PO; +FLEXERIL PO; +FOLBIC RF TABL1 EACH PO; +GAMUNEX-C40 GM/400; +HEALTHY HEART1 EAC1 PO; +MELATONIN5 M1 PO; +MUCINEX1200 MG PO; +PROMETHAZINE/C118 ML PO
[2017-11-08 10:30] VITALS: BP 164/72
[2017-11-08 10:54] LABS: HEMATOCRIT 38.9 % (37.0-47.0); HEMOGLOBIN 12.6 gm/dL (12.0-15.0); MCH 29.5 pg (26.0-34.0); MCHC 32.3 g/dL (28.0-37.0); MCV 91.3 fL (80.0-100.0); RBC 4.26 mil/uL (4.20-5.00); RDW 16.4 % (10.5-14.5); WBC 22.2 thou/uL (4.0-11.0)
[2017-11-08 11:02] LABS: ANION GAP 2 mmol/L (7-16); BUN 26 mg/dL (7-18); CALCIUM 8.5 mg/dL (8.5-10.1); CHLORIDE 101 mmol/L (98-107); CO2 32 mmol/L (21-32); CREATININE 0.8 mg/dL (0.6-1.0); GLUCOSE 132 mg/dL (74-106); POTASSIUM 3.9 mmol/L (3.5-5.1); SODIUM 135 mmol/L (136-145)
[2017-11-08 11:11] LABS: TROPONIN-I < 0.04 ng/mL (<0.06)
[2017-11-08 11:20] LABS: BE(vivo) 3.4 mmol/L (-2 to +3); HCO3 25.7 mmol/L (22.0-26.0); PCO2 31.9 mmHg (35.0-45.0); pH 7.524 (7.360-7.450); sO2 94.4 % (92.0-98.0)
[2017-11-08 12:54] VITALS: BP 127/60
[2017-11-08 15:05] VITALS: BP 115/58
[2017-11-08 16:05] VITALS: BP 115/72
[2017-11-08 16:24] VITALS: BP 115/72
[2017-11-08 20:00] VITALS: BP 122/92
[2017-11-09 05:19] VITALS: BP 137/90
[2017-11-09 05:34] LABS: HEMATOCRIT 37.2 % (37.0-47.0); HEMOGLOBIN 11.9 gm/dL (12.0-15.0); MCH 29.5 pg (26.0-34.0); MCV 92.1 fL (80.0-100.0); PLATELET COUNT 289 thou/uL (150-400); RBC 4.04 mil/uL (4.20-5.00)
[2017-11-09 05:47] LABS: CALCIUM 8.7 mg/dL (8.5-10.1); CREATININE 0.7 mg/dL (0.6-1.0); MAGNESIUM 2.5 mg/dL (1.8-2.4); POTASSIUM 4.7 mmol/L (3.5-5.1)
[2017-11-09 06:23] LABS: ABSOLUTE NEUTROPHILS 24.6 thou/uL (1.4-8.2); ATYPICAL LYMPHS 2 %
[2017-11-09 07:30] VITALS: BP 156/84
[2017-11-09 11:10] VITALS: BP 129/85
[2017-11-09 15:20] VITALS: BP 112/69
[2017-11-09 19:10] VITALS: BP 132/77
[2017-11-10 04:30] VITALS: BP 132/79
[2017-11-10 08:20] VITALS: BP 142/66
[2017-11-10 12:15] VITALS: BP 142/74
[2017-11-11 00:06] LABS: ADENOVIRUS Negative (Negative); INFLUENZA A Negative (Negative); INFLUENZA B Negative (Negative); METAPNEUMOVIRUS Negative (Negative); PARAINFLUENZA 1 Negative (Negative); PARAINFLUENZA 2 Negative (Negative); PARAINFLUENZA 3 Negative (Negative); RHINOVIRUS Negative (Negative); RSV A Negative (Negative); RSV B Negative (Negative)
[2017-11-11 03:46] VITALS: BP 135/58
[2017-11-11 07:21] VITALS: BP 143/87
[2017-11-11 15:31] VITALS: BP 139/82
[2017-11-11 19:22] VITALS: BP 158/80
[2017-11-12 04:30] VITALS: BP 149/95
[2017-11-12 07:21] VITALS: BP 156/80
[2017-11-12 14:07] LABS: HEMATOCRIT 34.7 % (37.0-47.0); HEMOGLOBIN 11.2 gm/dL (12.0-15.0); MCH 29.7 pg (26.0-34.0); MCHC 32.3 g/dL (28.0-37.0); RBC 3.78 mil/uL (4.20-5.00); RDW 16.2 % (10.5-14.5); WBC 14.8 thou/uL (4.0-11.0)
[2017-11-12 14:15] LABS: CALCIUM 8.7 mg/dL (8.5-10.1); CREATININE 0.9 mg/dL (0.6-1.0); POTASSIUM 4.4 mmol/L (3.5-5.1)
[2017-11-12 15:12] VITALS: BP 153/87
[2017-11-12 19:30] VITALS: BP 152/73
[2017-11-13 04:16] VITALS: BP 149/90
[2017-11-13 07:59] VITALS: BP 120/82
[2017-11-13 11:02] VITALS: BP 126/69
[2017-11-13 15:34] VITALS: BP 137/70
[2017-11-13 19:41] VITALS: BP 122/62
[2017-11-14 04:29] VITALS: BP 144/95
[2017-11-14 07:05] VITALS: BP 127/80
[2017-11-14 11:59] VITALS: BP 140/62
[2017-11-14 15:39] VITALS: BP 121/74
[2017-11-14 20:00] VITALS: BP 117/77
[2017-11-15 04:00] VITALS: BP 166/75
[2017-11-15 07:54] VITALS: BP 127/67
[2017-11-15 20:05] VITALS: BP 126/62
[2017-11-16 08:22] VITALS: BP 106/71
[2017-11-16] MEDS ORDERED: PREDNISONE 5 MG5 M1 PO (17:44)
[2017-11-16] MEDS ORDERED: MUCINEX600 MG PO (17:44)
[2017-11-16] MEDS ORDERED: DOXYCYCLINE HYC50 MG PO (17:44)
[2017-11-16 18:31] VITALS: BP 106/71
== END 2017-11-16 16:45 | disposition home or self-care (01) | DRG 853 ==
LOC: ER 10:23 → EROBS 12:04 → 3W 12:04 → SICU 11-15 16:00
PROVIDERS: Emergency Medicine; Internal Medicine Pulmonary Disease; Nurse Practitioner; Specialist
PROC: 0B9G8ZX Drainage of Left Upper Lung Lobe, Via Natural or Artificial Opening Endoscopic, Diagnostic (ICD-10-PCS; principal; 2017-11-08)
DX: A41.9 Sepsis, unspecified organism (principal); J69.0 Pneumonitis due to inhalation of food and vomit; J96.21 Acute and chronic respiratory failure with hypoxia; E43 Unspecified severe protein-calorie malnutrition; D83.9 Common variable immunodeficiency, unspecified; J45.51 Severe persistent asthma with (acute) exacerbation; A04.72 Enterocolitis due to Clostridium difficile, not specified as recurrent; F31.9 Bipolar disorder, unspecified; J44.9 Chronic obstructive pulmonary disease, unspecified; G25.81 Restless legs syndrome; E03.9 Hypothyroidism, unspecified; K44.9 Diaphragmatic hernia without obstruction or gangrene; R68.81 Early satiety; Z66 Do not resuscitate; F41.9 Anxiety disorder, unspecified; R21 Rash and other nonspecific skin eruption; R73.9 Hyperglycemia, unspecified; K21.9 Gastro-esophageal reflux disease without esophagitis; E66.9 Obesity, unspecified; Z68.32 Body mass index [BMI] 32.0-32.9, adult; Z87.891 Personal history of nicotine dependence; Z87.19 Personal history of other diseases of the digestive system; Z90.49 Acquired absence of other specified parts of digestive tract; Z90.710 Acquired absence of both cervix and uterus; Z79.51 Long term (current) use of inhaled steroids; Z79.82 Long term (current) use of aspirin; Z79.899 Other long term (current) drug therapy; Z91.041 Radiographic dye allergy status; Z91.040 Latex allergy status; Z88.2 Allergy status to sulfonamides; Z88.8 Allergy status to other drugs, medicaments and biological substances; Z91.048 Other nonmedicinal substance allergy status
CPT/HCPCS: 10879; 15002

== ENCOUNTER 2017-11-21 07:46 | Inpatient (IN) | payer OTHER ==
[~2017-11-21] VITALS: Ht 167.6 cm; Wt 94.4 kg
--- NOTE | ~2017-11-21 | HC ---
[facility] [place] [address] CONSULTATION Name: RAVINDRA FORD Room #: 213-[facility] IN M.R.#: [id number] Admission: 11/21/17 Attend Phys: Marcos Velazquez MD Discharge: 11/29/17 Date of : 55 Report #: [id number] THIS REPORT FOR: //name// CC: Marcos Hoovermeghan DATE OF SERVICE: 11/24/2017 HISTORY OF PRESENT ILLNESS: The patient is a 62-year-old white female previously known to me with a history of common variable immune deficiency syndrome, history of asthma, noted to have problems with recurrent pneumonia, has been on corticosteroids for at least the past year, history of recurrent C. diff, respiratory failure. She was recently discharged from [facility] and was able to be discharged home without any oxygen. She was discharged on 11/08/2017. She ended up being readmitted on 11/21/2017 with increased shortness of breath, decreased O2 saturation, elevated white count, hypoxemia and complaints of worsening weakness. She was also seen by Surgery and Gastroenterology with a history of reflux and hiatal hernia as a cause for her recurrent pneumonias and hospitalizations. Plan would be for her to have an EGD with an esophageal manometry study in an outpatient setting with consideration for surgical intervention regarding the hiatal hernia at a later date. In the meantime, she is continuing with current antibiotics as per Infectious Disease with IV Zosyn. She is also on IV Solu-Medrol. She complains of significant weakness and we are seeing her in rehabilitation medicine consultation. PAST MEDICAL HISTORY: Includes the common variable immune deficiency syndrome, history of asthma, recurrent episodes of C. diff, respiratory failure, sepsis, pancreatitis, bipolar affective disorder, restless leg syndrome. MEDICATIONS: Please see the full medication listing. PAST SURGICAL HISTORY: Includes the patient's vitamins, herbals and supplements. ALLERGIES: She does have multiple allergies. Please see the full list. HABITS: Past tobacco abuse, quit greater than a year ago. No history of ETOH abuse. SOCIAL HISTORY: Lives in a house with her , helga kan, 2 steps in, was not on oxygen premorbidly and was ambulatory without a device. REVIEW OF SYSTEMS: No current complaints of chest pain. Has shortness of breath with limited activity. Complains of weakness, proximal and distal was able to ambulate without a device. [address] [address] CONSULTATION Name: RAVINDRA FORD Room #: 213-P [facility] IN [facility].#: [id number] Admission: 11/21/17 Attend Phys: Marcos Velazquez MD Discharge: 11/29/17 Date of : 55 Report #: [id number] PHYSICAL EXAMINATION: GENERAL: A 62-year-old overweight white female in no obvious distress. VITAL SIGNS: Last recorded temperature 97.5, pulse 108, respirations 16, blood pressure 152/77. NEUROLOGIC: She is alert, pleasant. Currently on nasal prong O2, 4 liters. Facies were symmetric. Functional range of motion of both upper extremities. Strength is grade 4-/5. DTRs are trace to 1. Lower extremities, no focal calf swelling, functional range of motion with strength grade 3+ to 4-/5. She needed 6 liters for short distance ambulation. She required 2 short standing rest breaks with one loss of balance. She needs min assist for steadiness. Lower extremities reveal normal tone. There is no clonus. ASSESSMENT: A 62-year-old white female with the following problem list: 1. Medical complexity with generalized debilitation. 2. Sepsis secondary to healthcare-associated pneumonia. 3. Recurrent aspiration. Gastroenterology and surgery are involved with consideration for possible surgical intervention for the hiatal hernia as noted above. 4. Common variable immune deficiency, on replacement. 5. Asthma with acute exacerbation. 6. Chronic obstructive pulmonary disease. 7. GERD. 8. Bipolar affective disorder. 9. Severe persistent asthma. 10. Restless leg syndrome. 11. Recurrent episodes of Clostridium difficile. PLAN: Therapies are further assessing. She has had multiple hospitalizations. She is debilitated and we are assessing her for an acute in-hospital, inpatient rehabilitation stay to further maximize her functional independence and also assist with maximizing her overall medical stability prior to returning back to the home setting. We will be glad to follow along with you. <ELECTRONICALLY SIGNED> By: Tom Gómez MD 11/30/17 1440 1015 1359 Tom Gómez MD /nt
--- NOTE | ~2017-11-21 | EKG ---
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: [facility] : 1955 Requested By: Timi Wilhelm Order Number: [id number] MD: Mariano Sanders Measurements Intervals [place] Rate: 113 P: 20 [place]: 130 QRS: 38 QRSD: 80 T: 42 QT: 302 QTc: 414 Interpretive Statements Sinus tachycardia Frequent premature ventricular complexes Baseline wander in lead(s) V1,V2 Compared to ECG 11/21/2017 08:05:38 No significant changes Electronically Signed On 11-28-2017 10:11:14 CDT by Mariano Sanders [email or web address] <ELECTRONICALLY SIGNED> By: Mariano Sanders MD, [facility] 11/28/17 1011 1108 1108 Mariano Sanders MD, [facility] /EPI
--- NOTE | ~2017-11-21 | HC ---
[facility] [place] [address] CONSULTATION Name: RAVINDRA FORD Room #: 213-[facility] IN ..#: [id number] Admission: 11/21/17 Attend Phys: Marcos Velazquez MD Discharge: 11/29/17 Date of : 55 Report #: [id number] THIS REPORT FOR: //name// CC: Marcos Hoovermeghan REASON FOR CONSULTATION: Tachycardia. HISTORY OF PRESENT ILLNESS: The patient is a 62-year-old woman with a complicated history including common variable immunodeficiency, severe asthma and recurrent pneumonia. She has been hospitalized many times over the past 6 months for recurrent pulmonary infections. There is also presumed aspiration pneumonitis. She was admitted on 11/21/2017 with exacerbation in her lung disease and recurrent infection. In this setting, she has been tachycardic. I have been asked to see her in this regard. She had remembered that her mother, Arely Wright, had a tachycardia for which she underwent an ablation procedure. The patient was wondering that if she would be a candidate for the same. She denies chest heaviness or pressure. She does have a sense on occasion that her heart races, although this is not sustained. I have reviewed all of her telemetry rhythm strips and her predominant rhythm is either sinus rhythm or sinus tachycardia with atrial premature complexes. Earlier in her course, she had a brief episode of multifocal atrial tachycardia at rates of about 115 beats per minute. There is no history of heart failure. She denies palpitations, near-syncope or syncope. A recent echocardiogram, which I reviewed demonstrated normal left ventricular systolic function with ilmv-dj-nvkkssas mitral insufficiency. Ejection fraction 55%. HOME MEDICATIONS: Include Synthroid 100 mcg daily, Advair 1 puff twice daily, Fluoxetine 40 mg daily, Dexilant, albuterol, prednisone and doxycycline. ALLERGIES: She is allergic to TYLENOL, LACTOSE, LATEX, FLAGYL, SULFA, RED DYE, PLASTICS, PERFUMES, MOLD and LAUNDRY DETERGENT. PAST MEDICAL HISTORY: Past history and medical records have been reviewed and are notable for bipolar disorder, restless leg syndrome, recurrent pneumonia and common variable immunodeficiency. SOCIAL HISTORY: She is a former smoker, and nondrinker. FAMILY HISTORY: Unremarkable for premature coronary artery disease. Mother had coronary artery disease at an advanced age. REVIEW OF SYSTEMS: All systems negative except as that noted above. [facility] [address] [place] [address] CONSULTATION Name: RAVINDRA FORD Room #: 213-P [facility] IN ..#: [id number] Admission: 11/21/17 Attend Phys: Marcos Velazquez MD Discharge: 11/29/17 Date of : 55 Report #: [id number] PHYSICAL EXAMINATION: GENERAL: A pleasant woman, in no distress. VITAL SIGNS: Blood pressure is 115/70, heart rate of 100 and regular. She is afebrile, 5 feet 6 inches tall and 204 pounds. HEENT: There are neither xanthelasma, subcutaneous xanthomata, oral mucosal or digital cyanosis or kyphoscoliosis present. CHEST: Reveals a few end-expiratory wheezes. CARDIAC: Regular rate and rhythm with normal S1 and S2. ABDOMEN: Soft and nontender. EXTREMITIES: Without cyanosis, clubbing or edema. Radial pulses are 2+. NEUROLOGICAL: She is alert with a nonfocal exam. LABORATORY DATA: Sodium 139, potassium 3.7 and creatinine 0.8. Pro-BNP of 542. White count 11.7, hemoglobin 11.4, hematocrit 35 and platelet count 278. RADIOLOGICAL DATA: Chest x-ray demonstrates a normal heart size, no infiltrates and atelectasis. EKGs, sinus tachycardia with atrial premature complexes and occasional premature ventricular complexes. IMPRESSION: 1. Recurrent aspiration pneumonia. 2. Severe asthma. 3. Common variable immunodeficiency. 4. Sinus tachycardia with atrial premature complexes. 5. Hypothyroidism, on replacement. RECOMMENDATIONS: 1. No specific suppressant therapy is needed for this sinus tachycardia, which is a physiologic response to illness. 2. No additional cardiovascular testing needed at this point. I have discussed these issues with patient. Thank you for asking me to participate in her care. <ELECTRONICALLY SIGNED> By: Mariano Sanders MD, FACC 12/01/17 0759 0738 [facility] Mariano Sanders MD, FACC /nt
--- NOTE | ~2017-11-21 | EKG ---
[place] [address] [facility] [place] [address] ELECTROCARDIOGRAM REPORT Name: RAVINDRA FORD JAZMIN Room #: 213-P ADM IN M.R.#: [id number] Admission: 11/21/17 Attend Phys: Marcos Velazquez MD Discharge: Date of : 55 Report #: [id number] THIS REPORT FOR: //name// [facility] ED Test Date: 2017-11-21 Test Time: 08:05:38 Pat Name: RAVINDRA FORD Department: Room: Gender: F Director Of Education: Preston DURAN : 1955 Requested By: Haylie Lozano Order Number: [id number] MD: Mariano Sanders Measurements Intervals [place] Rate: 143 P: 33 SD: 130 QRS: 26 QRSD: 82 T: 42 QT: 330 QTc: 509 Interpretive Statements Sinus tachycardia Frequent ventricular premature complexes Compared to ECG 11/13/2017 14:02:43 No significant changes Electronically Signed On 11-22-2017 8:02:17 CDT by Mariano Sanders [email or web address] <ELECTRONICALLY SIGNED> By: Mariano Sanders MD, [facility] 11/22/17 0802 08 08 Mariano Sanders MD, [facility] /EPI
--- NOTE | ~2017-11-21 | EKG ---
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: as : 1955 Requested By: Lisa Solano Order Number: [id number] MD: [facility] Measurements Intervals [place] Rate: 97 P: 53 MN: 139 QRS: 42 QRSD: 75 T: 46 QT: 352 QTc: 447 Interpretive Statements Sinus tachycardia Atrial premature complex Probable left atrial enlargement Compared to ECG 11/27/2017 11:08:50 Atrial premature complex(es) now present Ventricular premature complex(es) no longer present Electronically Signed On 11-29-2017 7:06:05 CDT by Home Agee [email or web address] <ELECTRONICALLY SIGNED> By: Home Agee MD 11/29/17 0706 0656 0656 Home Agee MD /EPI
--- NOTE | ~2017-11-21 | HC ---
[facility] [place] [address] CONSULTATION Name: RAVINDRA FORD Room #: 213-P [facility] IN M.R.#: [id number] Admission: 11/21/17 Attend Phys: Marcos Velazquez MD Discharge: Date of : 55 Report #: [id number] THIS REPORT FOR: //name// CC: [facility] REASON FOR CONSULTATION: I was asked to evaluate concerning recurrent pneumonia. HISTORY OF PRESENT ILLNESS: The patient was a 62-year-old with underlying history of chronic obstructive pulmonary disease, asthma, hiatal hernia who had suspected nocturnal aspiration along with common variable immunodeficiency. She has been hospitalized multiple times over the last several months. Just hospitalized here on 11/08/2017 through 11/16/2017. At that time was diagnosed with aspiration pneumonia. No organisms were identified. She had basilar infiltrates. She was started on Reglan and was markedly improved at the time of dismissal on Reglan, doxycycline and oral vancomycin to prevent relapse of her C. difficile colitis. She was doing very well at home off oxygen. She had been out to eat and been to a conference and was doing very well until she awoke on 11/21/2017 with acute shortness of breath. Now on 4 liters of oxygen per nasal cannula and x-ray showing a new pulmonary infiltrate. No fever, chills or sweats. No pleuritic chest pain. No nausea, vomiting or diarrhea. ALLERGIES: TYLENOL, BAND-AID, CATGUT, LACTOSE, LANOLIN, LATEX, METRONIDAZOLE, SULFA, PETROLEUM, RED DYE, PLASTIC, PERFUMES, MOLD, LAUNDRY DETERGENT. MEDICATIONS: As noted on her MAR, which were reviewed. Now on vancomycin, Levaquin, Zosyn, enteral vancomycin, olanzapine, aspirin, fluoxetine, fluticasone, levothyroxine, enoxaparin, guaifenesin, melatonin, magnesium, ipratropium/albuterol, Solu-Medrol 80 mg t.i.d., lactobacillus, lactase. PAST MEDICAL HISTORY, FAMILY HISTORY AND SOCIAL HISTORY: Unchanged from previous history and physical and most recent consultations. PHYSICAL EXAMINATION: GENERAL: She is afebrile, hemodynamically stable, alert and cooperative. On 4 liters of oxygen per nasal cannula. HEENT: Unremarkable. Moderately obese. SKIN: Unremarkable. LYMPH: Unremarkable. NECK: Supple. LUNGS: Clear posteriorly. HEART: Regular, without murmur. ABDOMEN: Soft, nontender, no hepatosplenomegaly or mass. EXTREMITIES: Unremarkable. LABORATORY DATA: Sodium 142, potassium 3.5, bicarbonate 28, creatinine [address]. [address] [address] CONSULTATION Name: RAVINDRA FORD JAZMIN [facility]M IN M.R.#: [id number] Admission: 11/21/17 Attend Phys: Marcos Velazquez MD Discharge: Date of : 55 Report #: [id number] Hemoglobin 10.4, WBC 19, platelet count 218,000. CT scan of the chest shows no evidence of pulmonary emboli. Multifocal infiltrates, right lung predominantly. IMPRESSION: A 62-year-old with aspiration pneumonitis involving the right lung. Underlying chronic obstructive pulmonary disease and asthma, underlying common variable immunodeficiency, hiatal hernia with gastroesophageal reflux. RECOMMENDATIONS: We will continue with broad nosocomial coverage due to her recent hospital stay. Agree with GI Service, General Surgery Service seeing the patient concerning her reflux. <ELECTRONICALLY SIGNED> By: Basil Naylor MD 11/23/17 1702 0919 1927 Basil Naylor MD /nt
--- NOTE | ~2017-11-21 | P ---
[facility] [place] [address] PROCEDURE REPORT Name: RAVINDRA FORD Room #: 213-P [facility] IN .R.#: [id number] Admission: 11/21/17 Attend Phys: Marcos Velazquez MD Discharge: 11/29/17 Date of : 55 Report #: [id number] THIS REPORT FOR: //name// CC: Marcos Toscano MD DATE OF SERVICE: 11/29/2017 PROCEDURE PERFORMED: Upper endoscopy with biopsies. HISTORY OF PRESENT ILLNESS: The patient is a 62-year-old female with a history of recurrent aspiration pneumonia and gastroesophageal reflux disease. She has been on PPI therapy. She denies any nausea or vomiting. She has a known history of hiatal hernia. Last hospitalization for pneumonia, we placed the patient on 5 mg of Reglan before each meal and at dinner, which was helpful for early satiety, but unfortunately, she had side effects. She then presented again with a recurrent pneumonia due to aspiration. Therefore, the plan is likely to proceed with a fundoplication type procedure in the near future. Plan is for EGD today and then later the patient is to have an esophageal manometry. DESCRIPTION OF PROCEDURE: The risks and benefits of the procedure were explained to the patient, those risks including but not limited to bleeding, perforation and the risk of sedation. She understood these risks and gave informed consent. Sedation was given using propofol per anesthesia. Next, using a standard Olympus upper endoscope, the scope was placed in the patient's mouth and advanced under direct vision through the esophagus, stomach and into the second portion of the duodenum. The larynx was normal in appearance. The upper and mid esophagus was normal. In the distal esophagus, there appears to be a short segment of Dawn's esophagus. Several biopsies were obtained. There was no esophagitis or stricture. Upon entering the stomach, there was a medium-sized hiatal hernia approximately 5-7 cm. Overall, the gastric mucosa was normal. The pylorus was normal and patent. The duodenal bulb, first and second portion were all normal. The scope was then withdrawn and the procedure terminated. The patient tolerated the procedure well. IMPRESSION: 1. Possible short segment Dawn's esophagus, biopsies obtained. 2. Medium-sized hiatal hernia. 3. Otherwise, normal upper endoscopy. RECOMMENDATIONS: 1. Await biopsy results. 2. Continue PPI therapy. 3. Agree with considering surgery as the patient has failed promotility agent [address] [address] PROCEDURE REPORT Name: RAVINDRA FORD Room #: 213-P DIS IN M.R.#: [id number] Admission: 11/21/17 Attend Phys: Marcos Velazquez MD Discharge: 11/29/17 Date of : 55 Report #: [id number] secondary to side effects in the case of Reglan and unfortunately is unable to take erythromycin. Thank you for allowing me to participate in her care. <ELECTRONICALLY SIGNED> By: Shant Del Toro MD 12/01/17 0816 1157 1505 Shant Del Toro MD /nt
[~2017-11-21 07:46] MED LIST changes: +DOXYCYCLINE HYC50 MG PO; +MUCINEX600 MG PO; +PREDNISONE 5 MG5 M1 PO
[2017-11-21 07:48] VITALS: BP 127/56
[2017-11-21 08:19] LABS: BE(vivo) 1.5 mmol/L (-2 to +3); HCO3 24.3 mmol/L (22.0-26.0); PCO2 32.5 mmHg (35.0-45.0); PO2 53.7 mmHg (80.0-100.0); pH 7.492 (7.360-7.450); sO2 90.7 % (92.0-98.0)
[2017-11-21 08:24] LABS: HEMATOCRIT 36.8 % (37.0-47.0); HEMOGLOBIN 11.7 gm/dL (12.0-15.0); MCH 29.7 pg (26.0-34.0); MCHC 31.9 g/dL (28.0-37.0); PLATELET COUNT 257 thou/uL (150-400); RBC 3.95 mil/uL (4.20-5.00); RDW 16.1 % (10.5-14.5); WBC 20.7 thou/uL (4.0-11.0)
[2017-11-21 08:28] LABS: CALCIUM 8.2 mg/dL (8.5-10.1); CREATININE 0.9 mg/dL (0.6-1.0); POTASSIUM 3.7 mmol/L (3.5-5.1)
[2017-11-21 08:55] LABS: ABSOLUTE NEUTROPHILS 19.5 thou/uL (1.4-8.2)
[2017-11-21 08:56] LABS: ANISOCYTOSIS 1+; POLYCHROMASIA SLIGHT
[2017-11-21 10:30] VITALS: BP 138/58
[2017-11-21 11:20] VITALS: BP 121/64
[2017-11-21 16:25] VITALS: BP 123/72
[2017-11-21 19:11] VITALS: BP 114/58
[2017-11-21 23:43] VITALS: BP 116/55
[2017-11-22 03:02] VITALS: BP 135/62
[2017-11-22 04:33] LABS: HEMATOCRIT 32.9 % (37.0-47.0); HEMOGLOBIN 10.4 gm/dL (12.0-15.0); MCH 29.7 pg (26.0-34.0); MCHC 31.7 g/dL (28.0-37.0); MCV 93.8 fL (80.0-100.0); RBC 3.5 mil/uL (4.20-5.00); RDW 16.2 % (10.5-14.5)
[2017-11-22 04:46] LABS: CALCIUM 8.3 mg/dL (8.5-10.1); MAGNESIUM 2.3 mg/dL (1.8-2.4); POTASSIUM 3.5 mmol/L (3.5-5.1)
[2017-11-22 07:30] VITALS: BP 138/72
[2017-11-22 11:25] VITALS: BP 121/67
[2017-11-22 16:00] VITALS: BP 127/77
[2017-11-22 19:45] VITALS: BP 151/64
[2017-11-23 04:32] VITALS: BP 143/79
[2017-11-23 04:45] LABS: HEMATOCRIT 32.5 % (37.0-47.0); HEMOGLOBIN 10.5 gm/dL (12.0-15.0); MCH 29.9 pg (26.0-34.0); MCHC 32.1 g/dL (28.0-37.0); MCV 92.9 fL (80.0-100.0); PLATELET COUNT 242 thou/uL (150-400); RDW 16.4 % (10.5-14.5); WBC 15.1 thou/uL (4.0-11.0)
[2017-11-23 04:57] LABS: CALCIUM 8.6 mg/dL (8.5-10.1); CREATININE 0.9 mg/dL (0.6-1.0); MAGNESIUM 2.3 mg/dL (1.8-2.4); POTASSIUM 4.4 mmol/L (3.5-5.1)
[2017-11-23 07:10] VITALS: BP 131/64
[2017-11-23 08:30] LABS: PLATELET ESTIMATE NORMAL
[2017-11-23 11:55] VITALS: BP 157/79
[2017-11-23 16:10] VITALS: BP 138/74
[2017-11-23 19:57] VITALS: BP 142/72
[2017-11-24 03:45] VITALS: BP 136/92
[2017-11-24 04:05] LABS: HEMATOCRIT 33.8 % (37.0-47.0); MCHC 32.5 g/dL (28.0-37.0); MCV 92.3 fL (80.0-100.0); PLATELET COUNT 275 thou/uL (150-400); RBC 3.66 mil/uL (4.20-5.00); RDW 16.1 % (10.5-14.5); WBC 12.6 thou/uL (4.0-11.0)
[2017-11-24 04:14] LABS: CALCIUM 8.6 mg/dL (8.5-10.1); CREATININE 0.9 mg/dL (0.6-1.0); MAGNESIUM 2.2 mg/dL (1.8-2.4); POTASSIUM 4.4 mmol/L (3.5-5.1)
[2017-11-24 05:33] LABS: ABSOLUTE NEUTROPHILS 10.5 thou/uL (1.4-8.2); ANISOCYTOSIS 1+; ATYPICAL LYMPHS 3 %; LARGE PLATELETS OCCASIONAL; METAMYELOCYTES 2 %; MYELOCYTES 1 %
[2017-11-24 08:40] VITALS: BP 152/77
[2017-11-24 11:10] VITALS: BP 127/74
[2017-11-24 15:15] VITALS: BP 154/76
[2017-11-24 19:45] VITALS: BP 135/81
[2017-11-25 03:52] LABS: CALCIUM 8.3 mg/dL (8.5-10.1); CREATININE 0.9 mg/dL (0.6-1.0); MAGNESIUM 2.2 mg/dL (1.8-2.4); POTASSIUM 4.1 mmol/L (3.5-5.1)
[2017-11-25 04:17] LABS: HEMATOCRIT 34.2 % (37.0-47.0); MCH 29.6 pg (26.0-34.0); MCHC 32.1 g/dL (28.0-37.0); MCV 92.4 fL (80.0-100.0); PLATELET COUNT 278 thou/uL (150-400); RDW 15.6 % (10.5-14.5); WBC 10.1 thou/uL (4.0-11.0)
[2017-11-25 04:32] VITALS: BP 154/100
[2017-11-25 05:31] LABS: ABSOLUTE NEUTROPHILS 8.6 thou/uL (1.4-8.2); MYELOCYTES 2 %; PROMYELOCYTES 2 %
[2017-11-25 08:16] VITALS: BP 168/97
[2017-11-25 11:06] VITALS: BP 141/63
[2017-11-25 18:21] VITALS: BP 134/86
[2017-11-25 19:22] VITALS: BP 139/75
[2017-11-26 02:25] LABS: HEMATOCRIT 35.2 % (37.0-47.0); HEMOGLOBIN 11.4 gm/dL (12.0-15.0); MCH 29.4 pg (26.0-34.0); MCHC 32.2 g/dL (28.0-37.0); MCV 91.3 fL (80.0-100.0); PLATELET COUNT 278 thou/uL (150-400); RBC 3.86 mil/uL (4.20-5.00); RDW 15.5 % (10.5-14.5); WBC 11.7 thou/uL (4.0-11.0)
[2017-11-26 02:38] LABS: CALCIUM 8.2 mg/dL (8.5-10.1); CREATININE 0.8 mg/dL (0.6-1.0); POTASSIUM 3.7 mmol/L (3.5-5.1)
[2017-11-26 04:24] VITALS: BP 115/71
[2017-11-26 04:55] LABS: ABSOLUTE NEUTROPHILS 8.5 thou/uL (1.4-8.2); ATYPICAL LYMPHS 2 %; METAMYELOCYTES 1 %; MYELOCYTES 1 %; PROMYELOCYTES 2 %
[2017-11-26 04:56] LABS: PLATELET ESTIMATE NORMAL
[2017-11-26 08:00] VITALS: BP 152/99
[2017-11-26 12:00] VITALS: BP 126/74
[2017-11-26 15:46] VITALS: BP 119/63
[2017-11-26 20:30] VITALS: BP 128/71
[2017-11-27 03:49] LABS: WBC 10.4 thou/uL (4.0-11.0)
[2017-11-27 03:51] LABS: HEMATOCRIT 35.2 % (37.0-47.0); HEMOGLOBIN 11.6 gm/dL (12.0-15.0); MCH 30.2 pg (26.0-34.0); MCV 91.4 fL (80.0-100.0); PLATELET COUNT 281 thou/uL (150-400); RBC 3.85 mil/uL (4.20-5.00); RDW 15.5 % (10.5-14.5)
[2017-11-27 04:08] LABS: CALCIUM 8.3 mg/dL (8.5-10.1); CREATININE 0.9 mg/dL (0.6-1.0); POTASSIUM 4.4 mmol/L (3.5-5.1)
[2017-11-27 04:11] VITALS: BP 136/82
[2017-11-27 04:57] LABS: ABSOLUTE NEUTROPHILS 8.3 thou/uL (1.4-8.2); ANISOCYTOSIS SLIGHT; MYELOCYTES 1 %
[2017-11-27 07:25] VITALS: BP 124/68
[2017-11-27 11:51] VITALS: BP 126/74
[2017-11-27 15:59] VITALS: BP 154/48
[2017-11-27 19:04] VITALS: BP 151/62
[2017-11-28 04:11] VITALS: BP 119/76
[2017-11-28 08:15] VITALS: BP 145/99
[2017-11-28 16:47] VITALS: BP 130/87
[2017-11-28 19:45] VITALS: BP 147/61
[2017-11-29 03:49] VITALS: BP 137/83
[2017-11-29 04:00] LABS: HEMATOCRIT 33.3 % (37.0-47.0); HEMOGLOBIN 10.8 gm/dL (12.0-15.0); MCH 29.4 pg (26.0-34.0); MCHC 32.3 g/dL (28.0-37.0); MCV 91.1 fL (80.0-100.0); PLATELET COUNT 234 thou/uL (150-400); RBC 3.66 mil/uL (4.20-5.00); RDW 15.8 % (10.5-14.5); WBC 10.8 thou/uL (4.0-11.0)
[2017-11-29 04:15] LABS: CALCIUM 7.9 mg/dL (8.5-10.1); CREATININE 0.9 mg/dL (0.6-1.0); POTASSIUM 4.4 mmol/L (3.5-5.1)
[2017-11-29 05:12] LABS: ABSOLUTE NEUTROPHILS 8.2 thou/uL (1.4-8.2); ATYPICAL LYMPHS 1 %; LARGE PLATELETS RARE; METAMYELOCYTES 4 %; MYELOCYTES 1 %
[2017-11-29 07:53] VITALS: BP 149/82
[2017-11-29] MEDS ORDERED: AUGMENTIN 875-1 EACH PO (15:10)
[2017-11-29 15:58] VITALS: BP 149/82
== END 2017-11-29 16:53 | disposition home or self-care (01) | DRG 871 ==
LOC: ER 07:46 → EROBS 09:23 → 2N 09:23 → ENTRNSPT 11-29 16:18 → 2N 11-29 16:53
PROVIDERS: Emergency Medicine; Hospitalist; Internal Medicine; Internal Medicine Pulmonary Disease
PROC: 0DB38ZX Excision of Lower Esophagus, Via Natural or Artificial Opening Endoscopic, Diagnostic (ICD-10-PCS; principal; 2017-11-29)
DX: A41.9 Sepsis, unspecified organism (principal); J69.0 Pneumonitis due to inhalation of food and vomit; I50.31 Acute diastolic (congestive) heart failure; D83.9 Common variable immunodeficiency, unspecified; J45.51 Severe persistent asthma with (acute) exacerbation; F31.9 Bipolar disorder, unspecified; G25.81 Restless legs syndrome; E03.9 Hypothyroidism, unspecified; J44.9 Chronic obstructive pulmonary disease, unspecified; K44.9 Diaphragmatic hernia without obstruction or gangrene; K21.9 Gastro-esophageal reflux disease without esophagitis; R00.0 Tachycardia, unspecified; K22.70 Barrett's esophagus without dysplasia; D64.9 Anemia, unspecified; I11.0 Hypertensive heart disease with heart failure; G89.29 Other chronic pain; F41.1 Generalized anxiety disorder; Z79.82 Long term (current) use of aspirin; Z87.891 Personal history of nicotine dependence; Z88.2 Allergy status to sulfonamides; Z88.8 Allergy status to other drugs, medicaments and biological substances; Z91.041 Radiographic dye allergy status; Z91.040 Latex allergy status; Z82.49 Family history of ischemic heart disease and other diseases of the circulatory system; Z79.899 Other long term (current) drug therapy; Z90.49 Acquired absence of other specified parts of digestive tract; Z90.710 Acquired absence of both cervix and uterus
CPT/HCPCS: 10081; 62110; 62900; 70005

== ENCOUNTER → 2018-01-24 | Outpatient (CLI) | payer OTHER ==
[~2018-01-24] MED LIST changes: +AUGMENTIN 875-1 EACH PO
== END ==
LOC: RAD 10:50
DX: R07.9 Chest pain, unspecified (principal)

== ENCOUNTER 2018-01-27 09:06 | Inpatient (IN) | payer OTHER ==
[~2018-01-27] VITALS: Ht 167.6 cm; Wt 92.5 kg
--- NOTE | ~2018-01-27 | EKG ---
[address] Done In :[address] [place] [address] ELECTROCARDIOGRAM REPORT Name: RAVINDRA FORD JAZMIN Room #: 357-P ADM IN M.R.#: [id number] Admission: 01/27/18 Attend Phys: Reema Aragon Discharge: Date of : 55 Report #: [id number] THIS REPORT FOR: //name// [facility] ED Test Date: 2018-01-27 Test Time: 09:35:11 Pat Name: RAVINDRA FORD Department: Room: Gender: F Inspection Manager: bhanu : 1955 Requested By: Arun Nash Order Number: [id number] MD: Mariano Sanders Measurements Intervals [place] Rate: 100 P: 23 OR: 138 QRS: 32 QRSD: 79 T: 44 QT: 334 QTc: 431 Interpretive Statements Sinus tachycardia Ventricular premature complex Borderline ST depression, lateral leads Compared to ECG 11/29/2017 06:56:41 Ventricular premature complex(es) now present ST (T wave) deviation now present Atrial premature complex(es) no longer present Electronically Signed On 01-28-2018 8:45:27 CDT by Mariano Sanders [email or web address] <ELECTRONICALLY SIGNED> By: Mariano Sanders MD, [facility] 01/28/18 0845 0935 0935 Mariano Sanders MD, [facility] /EPI
--- NOTE | ~2018-01-27 | HC ---
[facility] [place] [address] CONSULTATION Name: RAVINDRA FORD Room #: [facility] IN M.R.#: [id number] Admission: 01/27/18 Attend Phys: Reema Aragon Discharge: Date of : 55 Report #: [id number] THIS REPORT FOR: //name// CC: Reema Toscano DATE OF SERVICE: 01/27/2018 REFERRING PHYSICIAN: Dr. Aragon. PRIMARY CARE PHYSICIAN: Dr. Toscano. REASON FOR REFERRAL: Hypoxia. HISTORY OF PRESENT ILLNESS: The patient is a 62-year-old white female with common variable immune deficiency, asthma, bipolar disorder, who presents with dyspnea and hypoxia. A pulmonary consultation was requested. The patient is followed longitudinally by Dr. Haywood. She was seen recently for preop pulmonary evaluation. Two days ago, she underwent a repair of hiatal hernia at [facility]. She was then discharged. Surgery went well. Early this morning, the patient started to be confused, hallucinating, became aphasic and hypoxic. Her saturation was said to be in the 60%. She was brought to the Emergency Room. CT chest angiogram showed no evidence of pulmonary embolus. Chronic infiltrates are seen in the left upper lobe. Of note, the patient has had altered mental status with respiratory failure in the past. Currently, she is awake, feels better. Denies any chest pain, productive cough, night sweats or chills. PAST MEDICAL HISTORY: Notable for COPD, moderately severe impairment, baseline FEV1 of 1.48 liters or 58% predicted; bipolar disorder, common variable immune deficiency, on immunoglobulin infusion supplements; depression, endometriosis, fibrocystic breast disease, gastroesophageal reflux disease, hypothyroidism, history of pancreatitis, restless leg syndrome. PAST SURGICAL HISTORY: As mentioned above including appendectomy, knee surgery, nose surgery, tonsillectomy, adenoidectomy, total abdominal hysterectomy with bilateral salpingo-oophorectomy. ALLERGIES: MULTIPLE, THESE INCLUDE ACETAMINOPHEN WHICH CAUSES RASH, BAND-AIDS [facility] [address] [address] CONSULTATION Name: RAVINDRA FORD Room #: 357-P [facility] IN M.R.#: [id number] Admission: 01/27/18 Attend Phys: Reema Aragon Discharge: Date of : 55 Report #: [id number] CAUSE PLEURITIS, CATGUT, REACTION NOT SPECIFIED; LACTOSE, REACTIONS NOT SPECIFIED; LANOLIN CAUSES RASH, LATEX, REACTIONS NOT SPECIFIED; LAUNDRY DETERGENT, REACTIONS NOT SPECIFIED; METRONIDAZOLE CAUSES THROAT SWELLING, MOLD, REACTIONS NOT SPECIFIED; PERFUME, PLASTIC, REACTIONS NOT SPECIFIED; RED DYE CAUSES RASH, SULFA CAUSES NAUSEA, PETROLEUM JELLY CAUSES HEADACHE, HOUSEHOLD ACID DIPPER, REACTIONS NOT SPECIFIED; PERSONAL ACID DIPPER, REACTION NOT SPECIFIED. HOME MEDICATIONS: Reviewed. These include Gamunex-C 60 grams IV q.4 weeks, nebulized albuterol, icatibant 30 mg subcutaneous p.r.n., Flexeril, Imodium, Benadryl, lactobacillus, vitamin supplements, melatonin, Zyprexa, Ativan, Diflucan 150 mg p.o. p.r.n., Advair 500 mcg 1 puff twice a day, clotrimazole, mag oxide, aspirin, Synthroid, Dexilant. FAMILY HISTORY: Notable for leukemia in mother, father with heart failure. SOCIAL HISTORY: The patient has smoked for about 37 years, smoking about 1-1/2 packs a day. She quit in 2009. She denies any alcohol use. She is . REVIEW OF SYSTEMS: As mentioned above, otherwise 10-point system review negative. PHYSICAL EXAMINATION: GENERAL: She is awake, alert, in no apparent distress. VITAL SIGNS: Temperature is 98 degrees Fahrenheit, pulse is 100, respiratory rate is 18, blood pressure 150/90 mmHg, saturation 95%. HEENT: Normocephalic, atraumatic. NECK: Supple, without lymphadenopathy or thyromegaly. CHEST: Breath sounds are fair with a few scattered crackles. No obvious wheezes. CARDIOVASCULAR: Normal S1, S2. There are no murmurs or gallop. There is no JVD. There is no carotid bruit. Pulses are 2+/4+ bilaterally. ABDOMEN: Soft. Mildly tender, but no rebound tenderness. GENITOURINARY: Deferred. RECTAL: Deferred. EXTREMITIES: There is no edema, cyanosis or clubbing. LABORATORY DATA: CT chest as mentioned above. Chest x-ray is grossly unremarkable. CT abdomen and pelvis shows fatty infiltrate of the liver, otherwise unremarkable. Electrolytes are normal. Liver function enzymes are mildly elevated. WBC 14,300, hemoglobin is normal, platelets are normal, no bandemia. Troponin 0.56. Arterial blood gas revealed pH 7.34, pCO2 of 50, pO2 of 70 on 2 liters of O2. Albumin 3.1. IMPRESSION: 1. Acute hypoxic hypercapnic respiratory failure in this 62-year-old white female. She recently underwent a hiatal hernia repair. CT chest angiogram [facility] [address] [place] [address] CONSULTATION Name: RAVINDRA FORD Room #: 357-P ADM IN M.R.#: [id number] Admission: 01/27/18 Attend Phys: Reema Aragon Discharge: Date of : 55 Report #: [id number] showed no evidence of pulmonary embolus. Mild atelectasis noted. Etiology is probably related to atelectasis, underlying asthma as a cause. No evidence of pneumonia. 2. Altered mental status. The patient has exhibited altered mental status in the past when she gets sick. Neurologically appears to be near baseline at this time. 3. Elevated troponin, likely related to hypoxia, stress demand. Needs close followup. 4. Elevated liver enzymes. Etiology not clear, but does have findings of fatty liver by CT abdomen and pelvis. Will need to be followed. 5. Left upper lobe infiltrate appears to be chronic, dating back to November of this year. Infiltrates seen in the right lung field has cleared since then. Residual left upper lobe infiltrate is noted. Cannot rule out pneumonia, though clinically appears to be less likely. 6. Asthma, mildly severe impairment without obvious exacerbation. We will try to hold off on steroids given recent surgery. 7. Common variable immunodeficiency, on replacement therapy. 8. Bipolar disorder, likely contributing to her altered mental status. 9. Restless leg syndrome. 10. Hypothyroidism. 11. 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 12. Chronic steroid use. She has been on chronic steroid use due to recurrent exacerbation of asthma. This was recently discontinued. Please see above comments. Again, with a recent surgery, we will try to hold off on steroids if possible as the patient is clinically stable. 13. Anxiety disorder. RECOMMENDATION: Continue bronchodilators, wean O2 for saturation 90%, incentive spirometry. Agree with broad-spectrum antibiotics, but would deescalate if the patient remains afebrile without evidence of infection. DVT and GI prophylaxis recommended. Thank you for this consultation. <ELECTRONICALLY SIGNED> By: Michael Vidal MD 01/28/18 1632 1629 1848 Michael Vidal MD /nt
[2018-01-27 09:06] VITALS: BP 126/83
[2018-01-27 09:37] LABS: ABSOLUTE NEUTROPHILS 10.8 thou/uL (1.4-8.2); BASOPHILS 0.5 % (0.0-2.0); EOSINOPHILS 0.1 % (0.0-3.0); HEMATOCRIT 39.5 % (37.0-47.0); HEMOGLOBIN 12.6 gm/dL (12.0-15.0); LYMPHOCYTES 17.4 % (24.0-44.0); MCH 29.1 pg (26.0-34.0); MCHC 31.9 g/dL (28.0-37.0); MCV 91.3 fL (80.0-100.0); MONOCYTES 6.7 % (1.0-8.0); PLATELET COUNT 312 thou/uL (150-400); POLYS 75.3 % (36.0-66.0); RBC 4.32 mil/uL (4.20-5.00); RDW 17.9 % (10.5-14.5); WBC 14.3 thou/uL (4.0-11.0)
[2018-01-27 09:42] LABS: CREATININE 1.2 mg/dL (0.6-1.0); POTASSIUM 4.5 mmol/L (3.5-5.1)
[2018-01-27 09:46] LABS: BE(vivo) 0.5 mmol/L (-2 to +3); HCO3 26.8 mmol/L (22.0-26.0); PCO2 50.3 mmHg (35.0-45.0); PO2 70.7 mmHg (80.0-100.0); pH 7.345 (7.360-7.450); sO2 93.2 % (92.0-98.0)
[2018-01-27 09:50] LABS: ALBUMIN 3.1 g/dL (3.4-5.0); TOTAL BILIRUBIN 0.4 mg/dL (<0.1-1.0); TOTAL PROTEIN 7.2 g/dL (6.4-8.2); TROPONIN-I 0.56 ng/mL (<0.06)
[2018-01-27 11:52] LABS: URINE BLOOD NEGATIVE (Negative); URINE CLARITY CLEAR; URINE COLOR YELLOW; URINE GLUCOSE-RANDOM* TRACE (Negative); URINE KETONES NEGATIVE (Negative); URINE LEUKOCYTES-REFLEX NEGATIVE (Negative); URINE NITRITE-REFLEX NEGATIVE (Negative); URINE PROTEIN (DIPSTICK) TRACE (Negative); URINE UROBILINOGEN 0.2 E.U./dl (0.2-1.0)
[2018-01-27 11:59] LABS: ICTOTEST (BILI CONFIRMATORY) Negative (Negative); URINE BILIRUBIN NEGATIVE (Negative)
[2018-01-27 12:34] VITALS: BP 127/79
[2018-01-27 13:11] VITALS: BP 127/79
[2018-01-27 13:30] VITALS: BP 153/89
[2018-01-27] MEDS ORDERED: AMPHETAMINE SAL30 MG PO (16:39)
[2018-01-27 19:50] VITALS: BP 128/70
[2018-01-27 23:45] VITALS: BP 122/72
[2018-01-28 04:15] VITALS: BP 144/87
[2018-01-28 05:15] LABS: HEMATOCRIT 37.4 % (37.0-47.0); HEMOGLOBIN 12.3 gm/dL (12.0-15.0); MCH 29.2 pg (26.0-34.0); MCV 88.7 fL (80.0-100.0); RBC 4.22 mil/uL (4.20-5.00); RDW 17.5 % (10.5-14.5); WBC 10.4 thou/uL (4.0-11.0)
[2018-01-28 05:39] LABS: ANION GAP 4 mmol/L (7-16); BUN 17 mg/dL (7-18); CALCIUM 8.7 mg/dL (8.5-10.1); CHLORIDE 102 mmol/L (98-107); CO2 37 mmol/L (21-32); CREATININE 0.9 mg/dL (0.6-1.0); DIRECT BILIRUBIN < 0.1 mg/dL (<0.1-0.3); GLUCOSE 111 mg/dL (74-106); PHOSPHORUS 3.4 mg/dL (2.5-4.9); SGOT 242 U/L (15-37); SGPT 427 U/L (30-65); SODIUM 143 mmol/L (136-145); TOTAL BILIRUBIN 0.3 mg/dL (<0.1-1.0); TOTAL PROTEIN 7.2 g/dL (6.4-8.2); TROPONIN-I 0.49 ng/mL (<0.06)
[2018-01-28 07:46] VITALS: BP 150/82
[2018-01-28 11:23] VITALS: BP 118/73
[2018-01-28 16:54] VITALS: BP 117/67
[2018-01-28 20:30] VITALS: BP 116/72
[2018-01-29 03:30] VITALS: BP 135/71
[2018-01-29 03:49] LABS: ABSOLUTE NEUTROPHILS 4.8 thou/uL (1.4-8.2); BASOPHILS 1.2 % (0.0-2.0); EOSINOPHILS 0.2 % (0.0-3.0); HEMATOCRIT 38.4 % (37.0-47.0); HEMOGLOBIN 12.4 gm/dL (12.0-15.0); LYMPHOCYTES 26.1 % (24.0-44.0); MCHC 32.4 g/dL (28.0-37.0); MCV 89.5 fL (80.0-100.0); MONOCYTES 6.7 % (1.0-8.0); PLATELET COUNT 286 thou/uL (150-400); POLYS 65.8 % (36.0-66.0); RBC 4.29 mil/uL (4.20-5.00); RDW 17.5 % (10.5-14.5); WBC 7.3 thou/uL (4.0-11.0)
[2018-01-29 04:06] LABS: CALCIUM 8.5 mg/dL (8.5-10.1); CREATININE 0.8 mg/dL (0.6-1.0); POTASSIUM 3.3 mmol/L (3.5-5.1)
[2018-01-29 07:15] VITALS: BP 141/78
[2018-01-29] MEDS ORDERED: AUGMENTIN 875-1 EACH PO (08:47)
[2018-01-29] MEDS ORDERED: VANCOCIN 125 M125 M1 PO (08:48)
[2018-01-29 09:11] LABS: ALBUMIN 2.8 g/dL (3.4-5.0); DIRECT BILIRUBIN < 0.1 mg/dL (<0.1-0.3); SGOT 149 U/L (15-37); SGPT 325 U/L (30-65); TOTAL BILIRUBIN 0.3 mg/dL (<0.1-1.0); TOTAL PROTEIN 6.5 g/dL (6.4-8.2)
[2018-01-29 11:32] VITALS: BP 104/64
[2018-01-29 11:34] VITALS: BP 141/78
== END 2018-01-29 14:17 | disposition home or self-care (01) | DRG 177 ==
LOC: ER 09:06 → EROBS 11:43 → 3W 11:43
PROVIDERS: Hospitalist; Internal Medicine Pulmonary Disease; Physician Assistant
DX: J69.0 Pneumonitis due to inhalation of food and vomit (principal); J96.01 Acute respiratory failure with hypoxia; J96.02 Acute respiratory failure with hypercapnia; G92 Toxic encephalopathy; I21.A1 Myocardial infarction type 2; J45.901 Unspecified asthma with (acute) exacerbation; D83.9 Common variable immunodeficiency, unspecified; J98.11 Atelectasis; K44.9 Diaphragmatic hernia without obstruction or gangrene; G72.9 Myopathy, unspecified; K76.0 Fatty (change of) liver, not elsewhere classified; F31.9 Bipolar disorder, unspecified; N18.9 Chronic kidney disease, unspecified; R74.0 Nonspecific elevation of levels of transaminase and lactic acid dehydrogenase [LDH]; K21.9 Gastro-esophageal reflux disease without esophagitis; G25.81 Restless legs syndrome; E03.9 Hypothyroidism, unspecified; F41.9 Anxiety disorder, unspecified; Z91.041 Radiographic dye allergy status; Z91.040 Latex allergy status; Z88.2 Allergy status to sulfonamides; Z88.8 Allergy status to other drugs, medicaments and biological substances; Z91.09 Other allergy status, other than to drugs and biological substances; Z87.891 Personal history of nicotine dependence; Z90.49 Acquired absence of other specified parts of digestive tract; Z90.710 Acquired absence of both cervix and uterus; Z90.722 Acquired absence of ovaries, bilateral; Z80.6 Family history of leukemia; Z82.49 Family history of ischemic heart disease and other diseases of the circulatory system; Z79.52 Long term (current) use of systemic steroids; Z79.899 Other long term (current) drug therapy
CPT/HCPCS: 10879

== ENCOUNTER → 2018-02-08 | Outpatient (CLI) | payer OTHER ==
[~2018-02-08] MED LIST changes: +AMPHETAMINE SAL30 MG PO; +VANCOCIN 125 M125 M1 PO
== END ==
LOC: RAD 12:16
DX: J45.909 Unspecified asthma, uncomplicated (principal); J98.11 Atelectasis

== ENCOUNTER → 2018-08-24 | Outpatient (CLI) | payer OTHER | LOC: RAD 07:38 | DX: M41.86 Other forms of scoliosis, lumbar region (principal); N18.9 Chronic kidney disease, unspecified; R11.0 Nausea; J44.9 Chronic obstructive pulmonary disease, unspecified ==

== ENCOUNTER → 2018-09-28 | Outpatient (CLI) | payer OTHER | LOC: NUC 10:23 | DX: M85.89 Other specified disorders of bone density and structure, multiple sites (principal); Z78.0 Asymptomatic menopausal state ==

== ENCOUNTER → 2018-11-16 | Outpatient (CLI) | payer OTHER ==
[~2018-11-16] VITALS: Ht 165.1 cm; Wt 79.4 kg
[~2018-11-16] MED LIST changes: +ASMANEX220 MC2 INH; +BREO ELLIPTA 21 EACH INH; +INCRUSE ELLI62.5 MCG INH; +OXYCODONE HCL10 MG PO; +PHENTERMINE HCL15 MG PO; +TOPAMAX 100 MG100 MG PO; +VANCOMYCIN HCL125 MG PO
--- NOTE | 2018-11-17 18:05 | PATH ---
[facility] [place] [address] PATHOLOGY RPT PROCEDURE Name: RAVINDRA ESPITIA Room #: REG [facility].#: [id number] ������������������ Admission: 11/16/18 ������������������ Date of : 55 Discharge: Report #: [id number] Path Case #: [id number] [facility] Accession Number: [id number] . 01 Material submitted: . PART A: duodenum - DUODENAL BIOPSY PART B: stomach - GASTRIC POLYP PART C: esophagus - DISTAL ESOPHAGUS. Modifiers: distal . 01 Clinical history: . Moreno's esophagus, diarrhea, gastric polyp, history of intermittent diarrhea. A: rule out spure. . 02 Diagnosis: A. Small bowel mucosa, duodenum, rule out sprue, endoscopic biopsy: - No diagnostic abnormalities present. - Negative for villous blunting or increase in intraepithelial lymphocytes. . B. Polyp, gastric polyp, endoscopic biopsy: - Fundic gland polyp. - Negative for dysplasia or malignancy. . C. Gastroesophageal mucosa, distal esophagus, histor of Moreno's, endoscopic biopsy: - SPECIALIZED COLUMNAR EPITHELIUM CONSISTENT WITH MORENO'S METAPLASIA AND SHOWING FOCAL LOW-GRADE DYSPLASIA. - Negative for high-grade dysplasia. - Mild chronic inflammation along with reactive changes. (IUV:pit 11/17/2018) QTP/11/17/2018 . 02 Comment: Dr. Marah Simmons has seen a sales representative adding machines slide of part C and concurs with the diagnosis rendered. (IUV:pit 11/17/2018) . 02 Electronically signed: . Morena Red MD, Pathologist NPI- [id number] . 01 Gross description: . A. The specimen is received in formalin, labeled "Ravindra Espitia, duodenal BX", are few fragments of vences soft tissue measuring 0.3 x 0.3 x 0.1 cm in aggregate, entirely submitted in A1. . [address] [address] PATHOLOGY RPT PROCEDURE Name: RAVINDRA ESPITIA Room #: REG CLI [facility]#: [id number] ������������������ Admission: 11/16/18 ������������������ Date of : 55 Discharge: Report #: [id number] Path Case #: [id number] B. The specimen is received in formalin, labeled "Ravindra Espitia, biopsy gastric polyp", are two vences soft tissues measuring 0.2 cm in greatest dimension each, entirely submitted in B1. . C. The specimen is received in formalin, labeled "Ravindra Espitia, biopsy distal esophagus, history Moreno's", are three vences-white soft tissues measuring 0.5 x 0.2 x 0.1 cm in aggregate, entirely submitted in C1. ([facility]; 11/16/2018) SHS/SHS . 02 Pathologist provided ICD-10: K31.7, K22.710, K20.9 . 02 CPT . 777684, 693813, 235237 Specimen Comment: A courtesy copy of this report has been sent to Specimen Comment: [phone], . Specimen Comment: Report sent to / DR FITCH Performed at: [address], [place], [place] [id number] MD Rajinder Arana MD Phone: [phone] Performed at: [address] [id number] MD Morena Red MD Phone: [phone]
--- NOTE | 2018-11-18 08:25 | P ---
[facility] [place] [address] PROCEDURE REPORT Name: RAVINDRA FORD Room #: REG [facility]#: [id number] Admission: 11/16/18 ������������������ Attend Phys: Shant Handy Discharge: ������������������ Date of : 55 Report #: [id number] THIS REPORT FOR: //name// CC: Shant Toscano MD DATE OF SERVICE: 11/16/2018 PROCEDURE PERFORMED: Upper endoscopy with biopsies. HISTORY OF PRESENT ILLNESS: The patient is a 63-year-old female with a history of gastroesophageal reflux disease and Dawn esophagus, here for 1-year followup. She is currently taking Dexilant 60 mg per day. She denies any heartburn symptoms. She denies any dysphagia. She had a previous history of heartburn that was not responding to medication and a hiatal hernia; therefore, underwent a hiatal hernia repair and LINX procedure for reflux last year. She also has noticed intermittent diarrhea, especially when eating gluten products. Plan is for EGD. DESCRIPTION OF PROCEDURE: The risks and benefits of the procedure were explained to the patient. Those risks including, but not limited to, bleeding, perforation and the risk of sedation. She understood these risks and gave informed consent. Sedation was given using propofol per Anesthesia. Next, using a standard Olympus upper endoscope, the scope was placed in the patient's mouth and advanced under direct vision through the esophagus, stomach and into the second portion of the duodenum. The larynx was normal in appearance. The upper and mid esophagus was normal in appearance. In the distal esophagus, a short segment of Dawn's as well as an island of Dawn's was noted. Biopsies were obtained. There was no evidence of erosive esophagitis. Upon entering the stomach, the gastric fundus was normal. There was no evidence of hiatal hernia. In the gastric body, a single 3 mm sessile polyp was noted. This was removed with cold forceps. The gastric antrum was normal. The pylorus was normal and patent. The duodenal bulb, first and second portion were all normal. Biopsies were obtained to rule out the possibility of celiac sprue. The scope was then withdrawn and the procedure terminated. The patient tolerated the procedure well. IMPRESSION: 1. Short segment Dawn esophagus. 2. Small gastric polyp. 3. Otherwise, normal upper endoscopy. RECOMMENDATIONS: 1. Await biopsy results. 2. Continue daily PPI therapy. [address] [address] PROCEDURE REPORT Name: LOGANRAVINDRA Kamila Room #: REG [facility]#: [id number] Admission: 11/16/18 ������������������ Attend Phys: Shant Handy Discharge: ������������������ Date of : 55 Report #: [id number] Thank you for allowing me to participate in her care. ��������������������������������������������� <ELECTRONICALLY SIGNED> ���������������������������������������� By: Shant Del Toro MD ��������������������������������������������� 11/18/18 0825 0848 21 Shant Del Toro MD /[place]
== END | disposition home or self-care (01) ==
LOC: GI 07:02
DX: K31.7 Polyp of stomach and duodenum (principal); K29.50 Unspecified chronic gastritis without bleeding; K22.70 Barrett's esophagus without dysplasia; K21.9 Gastro-esophageal reflux disease without esophagitis; F41.9 Anxiety disorder, unspecified; F32.9 Major depressive disorder, single episode, unspecified; J44.9 Chronic obstructive pulmonary disease, unspecified; E03.9 Hypothyroidism, unspecified; D64.9 Anemia, unspecified; J45.901 Unspecified asthma with (acute) exacerbation; N18.9 Chronic kidney disease, unspecified; I21.A1 Myocardial infarction type 2; I21.4 Non-ST elevation (NSTEMI) myocardial infarction; Z87.891 Personal history of nicotine dependence; Z98.890 Other specified postprocedural states; Z90.49 Acquired absence of other specified parts of digestive tract; Z88.8 Allergy status to other drugs, medicaments and biological substances; Z88.2 Allergy status to sulfonamides; Z91.040 Latex allergy status
CPT/HCPCS: 62110; 62900

== ENCOUNTER → 2019-04-13 | Outpatient (CLI) | payer OTHER ==
[~2019-04-13] VITALS: Ht 167.6 cm; Wt 74.4 kg
[~2019-04-13] MED LIST changes: +EFFER-K 20 MEQ20 ME1 PO; +FUROSEMIDE 40 M40 MG PO; +MS CONTIN15 MG PO; +ONDANSETRON HCL4 M2 PO; +OXYGEN NASAL; +PREDNISOLONE 5 M5 M1 PO; +PROAIR RESPICL90 MCG INH; +PROZAC20 M1 PO; +ROXICODONE5 M2 PO; +SUPER THERAVIT1 EACH PO
[2019-04-13 08:47] VITALS: BP 111/72
== END | disposition home or self-care (01) ==
LOC: MRI 02-17 12:21 → SPEC 08:24 → CATH 11:08 → SPEC 11:15
DX: S32.050A Wedge compression fracture of fifth lumbar vertebra, initial encounter for closed fracture (principal); S32.040A Wedge compression fracture of fourth lumbar vertebra, initial encounter for closed fracture; Z53.8 Procedure and treatment not carried out for other reasons; M54.5 Low back pain; Z87.81 Personal history of (healed) traumatic fracture; F31.89 Other bipolar disorder; I25.10 Atherosclerotic heart disease of native coronary artery without angina pectoris; K21.9 Gastro-esophageal reflux disease without esophagitis; E03.9 Hypothyroidism, unspecified; I25.2 Old myocardial infarction; Z87.19 Personal history of other diseases of the digestive system; Z90.49 Acquired absence of other specified parts of digestive tract; Z90.710 Acquired absence of both cervix and uterus; Z87.891 Personal history of nicotine dependence; Z79.899 Other long term (current) drug therapy; X58.XXXA Exposure to other specified factors, initial encounter; Y93.89 Activity, other specified; Y92.89 Other specified places as the place of occurrence of the external cause; Y99.8 Other external cause status

== ENCOUNTER → 2019-04-20 | Outpatient (CLI) | payer OTHER ==
[~2019-04-20] VITALS: Ht 162.6 cm; Wt 76.2 kg
[2019-04-20 12:27] VITALS: BP 122/64
[2019-04-20 12:53] LABS: HEMATOCRIT 40.8 % (37.0-47.0); HEMOGLOBIN 13.6 gm/dL (12.0-15.0); MCH 31.6 pg (26.0-34.0); MCHC 33.3 g/dL (28.0-37.0); MCV 95.1 fL (80.0-100.0); RBC 4.29 mil/uL (4.20-5.00); RDW 13.8 % (10.5-14.5); WBC 6.8 thou/uL (4.0-11.0)
[2019-04-20 13:10] LABS: APTT 25.1 Seconds (24.5-32.8); PROTIME 10.4 Seconds (9.3-11.4)
--- NOTE | 2019-04-20 15:16 | NUR ---
PT RETRUNED FROM PACU AT 1440. PT AWAKE AND ALERT AND ORIENTED. WILL CONTINUE TO MONITOR. PT HAS NO PAIN OR COMPLAINTS AT THIS TIME. SITE COVERED WITH BANDAGE. NO BLEEDING NOTED.
== END | disposition home or self-care (01) ==
LOC: CATH 10:27
PROVIDERS: Radiology Vascular & Interventional Radiology
DX: S32.020A Wedge compression fracture of second lumbar vertebra, initial encounter for closed fracture (principal); S32.050A Wedge compression fracture of fifth lumbar vertebra, initial encounter for closed fracture; M54.9 Dorsalgia, unspecified; J44.9 Chronic obstructive pulmonary disease, unspecified; E03.9 Hypothyroidism, unspecified; N18.9 Chronic kidney disease, unspecified; K21.9 Gastro-esophageal reflux disease without esophagitis; F31.9 Bipolar disorder, unspecified; F41.9 Anxiety disorder, unspecified; Z90.710 Acquired absence of both cervix and uterus; Z90.49 Acquired absence of other specified parts of digestive tract; Z87.442 Personal history of urinary calculi; Z98.890 Other specified postprocedural states; Z79.899 Other long term (current) drug therapy; Z87.891 Personal history of nicotine dependence; Z87.19 Personal history of other diseases of the digestive system; Z88.2 Allergy status to sulfonamides; Z91.040 Latex allergy status; Z91.041 Radiographic dye allergy status; Z88.8 Allergy status to other drugs, medicaments and biological substances; X58.XXXA Exposure to other specified factors, initial encounter; Y93.89 Activity, other specified; Y92.89 Other specified places as the place of occurrence of the external cause; Y99.8 Other external cause status
CPT/HCPCS: 62110; 62900; 70005

== ENCOUNTER → 2019-05-03 | Outpatient (CLI) | payer OTHER ==
[~2019-05-03] VITALS: Ht 165.1 cm; Wt 74.8 kg
[2019-05-03 13:38] VITALS: BP 123/69
--- NOTE | 2019-05-03 14:31 | NUR ---
Pain Clinic Assessment: 1. History of Osteoarthritis: NECK History of Rheumatoid Arthritis: Not Applicable 2. Height: 5 ft. 5 in. 165.1 cm. Weight: 165.0 lb. oz. 74.844 kg. Patient's BMI: 27.5 3. Vital Signs: BP: 123/69 Pulse: 97 Resp: 16 Temp: 02 Sat: 98 ECG Mon: 4. Pain Intensity: 7 5. Fall Risk: Dizziness: Needs help standing or walking: Fallen in the last 3 months: Fall risk comments: 6. Patient on Blood Thinner: None 7. History of Hypertension: N 8. Opioid Therapy greater than 6 weeks: Y Opiate Contract Signed: 05/03/19 9. Risk Assessment Tool Provided: LOW RISK 2/3 10. Functional Assessment Tool: / 11. Recreational Drug Use: Never Drug Type: Tobacco Use: Never Smoker Tobacco Type: Amount or Packs/day: How Many Years: Alcohol Use: No Frequency: Quant:
--- NOTE | 2019-05-19 08:25 | HPC ---
[facility] [address] [place] [address] PAIN MANAGEMENT CONSULTATION Name: RAVINDRA FORD Room #: REG [facility].#: [id number] Admission: 05/03/19 Attend Phys: Mariam Tovar MD Discharge: Date of : 55 Report #: [id number] THIS REPORT FOR: //name// CC: Mariam Toscano DATE OF SERVICE: 05/03/2019 CHIEF COMPLAINT: Lumbar spine pain and nasal/nose problems. HISTORY: The patient is a 63-year-old female who has been referred to the pain clinic for evaluation. The patient has a history of osteoporosis. She was found to have increased pain in 12/2018. At that time, she felt like she injured her back. Evaluation of her back indicated compression fractures at L1, L3, L4 and L5. She did undergo a repair of L3 and L4 at [facility]. She has a history of an old fracture at T12 and has taken pain medications to try to quell and decrease her discomfort. She has been referred to the pain clinic for evaluation. Does have some other problems. She has had some problems with her nose. This had been treated with antibiotics. The patient states that she does have a primary immune deficiency. The problem with her nose was found to have been a fungus rather than bacteria. She has found that pain continues to disrupt her life. She has had a number of surgeries on her nose. She has had problems with infections and has been on life support because of septic shock. She has had pneumonia as well as pleurisy. She has been using oxycodone to help quell her pain. ALLERGIES: ASPIRIN, shortness of breath; FLAGYL, shortness of breath, palpitation; SINGULAIR, shortness of breath; ACETAMINOPHEN, rash; IBUPROFEN, rash; LANOLIN, swelling, hives, dermatitis; NICKEL, itching, swelling, dermatitis; RED DYE; BACTROBAN, HEPARIN, LACTULOSE, gas and bloating, diarrhea, GI intolerance; MOLD ? asthma; PETROLEUM JELLY; PLASTICIZED MATERIALS; REGLAN, shaking, headache, twitching; SOAPS; VERSED, the patient states it does not work in her, CEPHALEXIN, rash; LATEX, contact dermatitis; and SULFA ANTIBIOTICS. CURRENT MEDICATIONS: Albuterol 2 puffs q. 6 hours p.r.n., Adderall XR 15 mg b.i.d., vitamin D 2000 units, clotrimazole 10 mg triston, Flexeril 10 mg one-half tablet at bedtime, Dexilant 60 mg, EpiPen, Prozac 40 mg, Breo Ellipta 200/25, Lasix 40 mg 2 tablets, immune globulin (Gamunex) infusion every 4 weeks, lactate 3000 units with meals, lactobacillus, Synthroid 100 mcg, Imodium 2 grams, Ativan 0.5 mg q. 6 hours p.r.n. anxiety, Asmanex 120 inhaled 2 puffs, multivitamins, Zofran 4 mg p.r.n., oxycodone 5 mg tablets 5-10 q. 6 hours p.r.n., phentermine 37.5 mg, potassium 10 mEq 2 times daily, prednisone 10 mg daily, Topamax 100 mg daily, Incruse Ellipta 62.5 one puff, garlic tabs, ibuprofen 200 mg by mouth, multivitamins. PAST MEDICAL HISTORY: [facility] [address] [place] [address] PAIN MANAGEMENT CONSULTATION Name: RAVINDRA FORD Room #: REG [facility]#: [id number] Admission: 05/03/19 Attend Phys: Mariam Tovar MD Discharge: Date of : 55 Report #: [id number] 1. Asthma. 2. Bipolar affective disorder. 3. Hyperplastic rectal polyps. 4. Common variable immunodeficiency. 5. Coronary artery disease. 6. Osteoporosis. 7. Depression. 8. Dawn's esophagus, stable. 9. Endometriosis. 10. Fibrocystic breast disease. 11. Gastroesophageal reflux with esophagitis. 12. Heart attack. 13. Hypothyroidism. 14. Pancreatitis in 2013. 15. Pneumonia. 16. Restless leg syndrome. PAST SURGICAL HISTORY: 1. Appendectomy in 1963. 2. Cystoscopy with dilation of the bladder, 10/10/2018. 3. D and C uterus 1987, EGD procedures. 4. Hiatal hernia repair. 5. Hysterectomy. 6. Knee arthroscopy, left 2003. 7. Laparoscopic cholecystectomy in 1998. 8. Nose surgery 2013, debridement of left nasal wound with graft 2011. 9. Periesophageal hernia repair 2017. 10. Tonsillectomy and adenoids 1971. 11. Total abdominal hysterectomy with bilateral salpingo-oophorectomy 2003. 12. Tubal ligation in 1988. 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 She is not working, has not worked for the last 22 years. REVIEW OF SYSTEMS: Weight change, decreased appetite, fever, night sweats, fatigue, weakness, headaches, wears glasses, chronic sinus problems, asthma, kidney stones, rash, numbness and tingling, tremors, memory loss/confusion, depression, hormone problems, thyroid disease, cold and hot intolerance, slow to heal, bruising easily. LABORATORY DATA: No laboratory values are available at the time of our interview. PAIN CLINIC ASSESSMENT AND PQRS: 1. History of osteoarthritis with involvement of her neck. The patient is not being treated for rheumatoid arthritis. [facility] [address] [place] [address] PAIN MANAGEMENT CONSULTATION Name: RAVINDRA FORD Room #: REG [facility]#: [id number] Admission: 05/03/19 Attend Phys: Mariam Tovar MD Discharge: Date of : 55 Report #: [id number] 2. Height 5 feet 5 inches, weight 165 pounds, BMI is 27.5. 3. Vital signs: Blood pressure 123/69, pulse 97, respiratory rate 16, room air saturation 98%. 4. Pain intensity 7/10. 5. Fall history: The patient has not fallen in the last 3 months. 6. Blood thinner. The patient is not on a blood thinning medication. 7. Hypertension. The patient is not being treated for hypertension. 8. Opioids greater than 6 weeks. The patient received medication from her primary physician. 9. Risk assessment tool, moderate for opioid use. 10. Functional assessment tool 57/70. 11. Recreational drug use. The patient denies use of recreational drugs. 12. Tobacco: The patient has never smoked. 13. Alcohol. The patient denies alcohol. PHYSICAL EXAMINATION: GENERAL: The patient is a well-developed white female. Appears her stated age. Her affect appears stable. She becomes very emotional and starts to cry when indicates that opioid levels could only be increased slowly. HEENT: The patient has a nose, which shows obvious surgeries in the past with changes similar to that which Isrrael Michael had. The patient does place a Kleenex up into her nose on a number of occasions while we are chatting through the interview. HEART: Regular rate. ABDOMEN: Nontender. MUSCULOSKELETAL: Without significant scoliosis, kyphosis or lordosis. Complains of pain in the area of her nose. States that the oxycodone is helpful, but does not eliminate her pain. IMPRESSION: 1. Chronic pain with pain in the nasal area as a result of fungal infection per the patient report, sinus discomfort. 2. Asthma. 3. Bipolar affective disorder. 4. Hyperplastic rectal polyps. 5. Common variable immunodeficiency. 6. Coronary artery disease. 7. Osteoporosis. 8. Depression. 9. Dawn's esophagus, stable. 10. Endometriosis. 11. Fibrocystic breast disease. 12. Gastroesophageal reflux with esophagitis. 13. Heart attack. 14. Hypothyroidism. [address] [address] PAIN MANAGEMENT CONSULTATION Name: RAVINDRA FORD Room #: REG [facility]#: [id number] Admission: 05/03/19 Attend Phys: Mariam Tovar MD Discharge: Date of : 55 Report #: [id number] 15. Pancreatitis in 2013. 16. Pneumonia. 17. Restless leg syndrome. RECOMMENDATIONS: We discussed treatment options with the patient. We will make adjustments to her pain medication as tolerated. We have explained to the patient that 70,000 people last year as a result of overdose for medications. We are willing to provide the patient with medication, but we must do it in a slow and a reasonable manner. We will provide her with oxycodone 5 mg 1 p.o. q.i.d. up from one p.o. t.i.d. The patient will also continue with MS Contin 15 mg p.o. b.i.d. We discussed the limitations as considered reasonable by the CDC. The patient will call us if she has any concerns. We would like to thank you for letting us participate in her care. We hope she continues to improve. <ELECTRONICALLY SIGNED> By: Mariam Tovar MD 05/19/19 0825 2350 0232 Mariam Tovar MD /[facility]
== END ==
LOC: PAIN 07:05
DX: M54.5 Low back pain (principal); J45.909 Unspecified asthma, uncomplicated; I25.10 Atherosclerotic heart disease of native coronary artery without angina pectoris; M81.0 Age-related osteoporosis without current pathological fracture; F32.89 Other specified depressive episodes; K21.9 Gastro-esophageal reflux disease without esophagitis; E03.9 Hypothyroidism, unspecified; K22.70 Barrett's esophagus without dysplasia; I25.2 Old myocardial infarction; N80.9 Endometriosis, unspecified; K85.90 Acute pancreatitis without necrosis or infection, unspecified; Z79.82 Long term (current) use of aspirin; Z91.040 Latex allergy status; Z88.8 Allergy status to other drugs, medicaments and biological substances; Z79.899 Other long term (current) drug therapy

== ENCOUNTER → 2019-06-07 | Outpatient (CLI) | payer OTHER ==
[~2019-06-07] VITALS: Ht 165.1 cm; Wt 75.3 kg
[2019-06-07 08:07] VITALS: BP 142/82
--- NOTE | 2019-06-07 08:11 | NUR ---
Pain Clinic Assessment: 1. History of Osteoarthritis: NECK History of Rheumatoid Arthritis: Not Applicable 2. Height: 5 ft. 5 in. 165.1 cm. Weight: 166.0 lb. oz. 75.297 kg. Patient's BMI: 27.6 3. Vital Signs: BP: 142/82 Pulse: 101 Resp: 16 Temp: 02 Sat: 98 ECG Mon: 4. Pain Intensity: 7 5. Fall Risk: Dizziness: N Needs help standing or walking: N Fallen in the last 3 months: N Fall risk comments: 6. Patient on Blood Thinner: None 7. History of Hypertension: N 8. Opioid Therapy greater than 6 weeks: Y Opiate Contract Signed: 05/03/19 9. Risk Assessment Tool Provided: LOW RISK 2 10. Functional Assessment Tool: 57/ 11. Recreational Drug Use: Never Drug Type: Tobacco Use: Never Smoker Tobacco Type: Amount or Packs/day: How Many Years: Alcohol Use: No Frequency: Quant:
--- NOTE | 2019-06-12 09:18 | HPC ---
[facility] [address] [address] PAIN MANAGEMENT CONSULTATION Name: RAVINDRA FORD Room #: REG [facility]#: [id number] Admission: 06/07/19 Attend Phys: Angeline Tavares Discharge: Date of : 55 Report #: [id number] THIS REPORT FOR: //name// CC: Angeline Toscano MD DATE OF SERVICE: 06/07/2019 CHIEF COMPLAINT: Lumbar spine pain and nasal pain. HISTORY OF PRESENT ILLNESS: This is a 63-year-old female who returns to the pain clinic today to discuss her medications. She has been a longstanding patient of Dr. Toscano'steven. We saw her for consultation in April for her ongoing back pain as well as her nose pain. She does have multiple pain generators in other areas in her hands, calves and rib cage. She does report a pain score of 7/10, though she reports that time, she can be "pain free." Her pain is exacerbated by talking, eating, blowing her nose as well as using her hands for various activities. She reports that quite stiff in the morning, but better with activity. She feels her medication is very beneficial in controlling her pain except that the changes that we rotate her to last month have not been beneficial. She reports that the morphine sulfate makes her too sleepy and it does not relieve her pain. She would like to rotate back to oxycodone 5 mg, a total of 6 pills available in a day. She reports by taking that medication, she is able to have "complete pain relief at times." When it does flare, she will take occasionally 2 tablets of her oxycodone to help quiet her pain and then return to one tablet as needed, taking no more than 6 tablets a day. She feels that that medication gave her the most benefit. She denies any problems with constipation or daytime sleepiness only happens when she takes her morphine, which she has not taken for several days per her report. ALLERGIES: CATGUT, SULFA, ASPIRIN, TYLENOL, LANOLIN, LACTULOSE, PETROLEUM JELLY, FLAGYL, ADHESIVE, AMOXICILLIN, LATEX, RED DYE. CURRENT MEDICATIONS: Oxycodone 5 mg q.i.d. p.r.n., Prozac 20 mg b.i.d., multivitamin, Zofran p.r.n., Lasix 40 mg daily, potassium, albuterol inhaler, prednisone 10 mg daily, Incruse Ellipta Breo, Asmanex, Topamax 100 mg daily, phentermine 15 mg daily, amphetamine salts 30 mg 4 times a day, lactobacillus, Benadryl p.r.n., Imodium p.r.n., Flexeril rarely, immunoglobulin IgG, lorazepam 0.5 mg p.r.n., Synthroid 100 mcg, Lactase before meals, and Dexilant 60 mg at bedtime. PQRS: 1. She has known osteoarthritic changes involving her neck and hand. She is not being treated for rheumatoid arthritis. [address] [address] PAIN MANAGEMENT CONSULTATION Name: RAVINDRA FORD Room #: REG [facility]#: [id number] Admission: 06/07/19 Attend Phys: Angeline Tavares Discharge: Date of : 55 Report #: [id number] 2. Height is 5 feet 5 inches, weight is 166. BMI is 27. 3. Vital signs: Blood pressure 142/82, pulse is 101, respirations 16, oxygen sat is 98. 4. Pain score 7/10. 5. Denies dizziness, does not need help walking or standing, has not fallen in the last 3 months. 6. The patient is not on any blood thinners and she is not being treated for hypertension. 7. Opioid therapy is greater than 6 weeks. She has been receiving her medications prior to the last [address] Toscano. 8. Risk assessment tool is moderate. Functional assessment is 57/70. 9. Recreational drug use, she denies. She is not a smoker and does not drink alcohol. According to the prescription monitoring system, the patient is filling her opioid medications in a timely fashion and is due for those medications today. According to the CDC guidelines, her morphine milliequivalent at her current dose is 60 per day. PHYSICAL EXAMINATION: GENERAL: This is a well-developed female who appears her stated age, placing her current pain score at 7/10 today. She is alert and orientated. HEENT: The patient's nose shows obvious surgeries in the past. It is reddened in color today. Pupils equal and reactive to light. Mucous membranes are moist. MUSCULOSKELETAL: She is without significant scoliosis, kyphosis or lordosis. Complains of pain in her bilateral hands, stiffness. IMPRESSION: 1. Chronic pain with pain in her nasal area as a result of past surgeries. 2. Osteoporosis. 3. Osteoarthritis. 4. Complex medical management. 5. Asthma. 6. Bipolar affective disorder. We reviewed the fact that opiate medications are being used to provide analgesia adequate to support activities of daily living, not attempting to achieve a specific pain score on the 0-10 Visual Analog Scale. The current opiate medications are providing sufficient analgesia to allow the patient to participate in activities of daily living. The patient is not exhibiting any aberrant behavior suggestive of drug diversion. The patient is not having any adverse reactions to medications. The patient is not suffering from daytime somnolence or mental acuity changes. The patient is managing opiate-induced constipation with appropriate [id number] agents and dietary considerations. The patient was counseled on concern for caution with operating [facility] [address] [place] [address] PAIN MANAGEMENT CONSULTATION Name: LOGANRAVINDRA Kamila Room #: REG [facility]#: [id number] Admission: 06/07/19 Attend Phys: Angeline Tavares Discharge: Date of : 55 Report #: [id number] a motor vehicle while using opiate medications. PLAN: 1. We discussed treatment options with the patient today. The patient reports that the change in medications by Dr. Tereso Tovar tried her on in the last month was not effective in controlling her pain, gave her significant side effects of sleepiness throughout the day. She has stopped her morphine several days ago due to the side effects, is requesting a change back to her oxycodone 5 mg. She informed me that Dr. Toscano is willing to write these medications for her again, but he is out of town this week. We will gladly return her to oxycodone 5 mg, #180, this is a 30-day supply. The patient instructed to take the lowest most effective dose; if she is not needing 6 tablets a day to control her pain, then she is to try to take less. We also discussed the interaction of opioids with her benzodiazepine and other medications that she does take. The patient reports she does not take her opioids and lorazepam at the same time. 2. With this decrease dose, the patient's morphine milliequivalent will be 45 MME according to the CDC guidelines. 3. Scripts given to the patient today. The patient will follow up with Dr. Toscano in the future. Thank you for allowing us to see this patient. The patient is seen in collaboration with Dr. Tereso Tovar. <ELECTRONICALLY SIGNED> By: Angeline Tavares 06/12/19 0918 0922 1451 Angeline Tavares /nt
== END ==
LOC: PAIN 06:39
DX: M54.5 Low back pain (principal); G89.29 Other chronic pain; M81.0 Age-related osteoporosis without current pathological fracture; M19.90 Unspecified osteoarthritis, unspecified site; J45.909 Unspecified asthma, uncomplicated; F31.9 Bipolar disorder, unspecified; Z88.8 Allergy status to other drugs, medicaments and biological substances; Z79.899 Other long term (current) drug therapy

== ENCOUNTER 2019-07-31 19:07 | Emergency (ER) | payer OTHER ==
[~2019-07-31] VITALS: Ht 165.1 cm; Wt 68.0 kg
[2019-07-31 21:03] VITALS: BP 126/70
== END 2019-07-31 22:55 | disposition home or self-care (01) ==
LOC: ER 19:07
DX: S39.012A Strain of muscle, fascia and tendon of lower back, initial encounter (principal); S60.011A Contusion of right thumb without damage to nail, initial encounter; Z90.710 Acquired absence of both cervix and uterus; Z90.49 Acquired absence of other specified parts of digestive tract; Z98.51 Tubal ligation status; Z87.891 Personal history of nicotine dependence; Z91.040 Latex allergy status; Z91.048 Other nonmedicinal substance allergy status; Z88.1 Allergy status to other antibiotic agents; Z88.2 Allergy status to sulfonamides; Z88.6 Allergy status to analgesic agent; Z88.8 Allergy status to other drugs, medicaments and biological substances; X50.1XXA Overexertion from prolonged static or awkward postures, initial encounter; Y93.89 Activity, other specified; Y92.89 Other specified places as the place of occurrence of the external cause; Y99.8 Other external cause status

== ENCOUNTER 2019-09-21 18:53 | Emergency (ER) | payer OTHER ==
[~2019-09-21] VITALS: Ht 162.6 cm; Wt 70.3 kg
[2019-09-21 19:36] LABS: URINE BILIRUBIN NEGATIVE (Negative); URINE BLOOD TRACE (Negative); URINE CLARITY CLEAR; URINE COLOR YELLOW; URINE GLUCOSE-RANDOM* NEGATIVE (Negative); URINE KETONES NEGATIVE (Negative); URINE LEUKOCYTES-REFLEX NEGATIVE (Negative); URINE NITRITE-REFLEX NEGATIVE (Negative); URINE PROTEIN (DIPSTICK) NEGATIVE (Negative); URINE SPECIFIC GRAVITY >= 1.030 (1.005-1.035); URINE UROBILINOGEN 0.2 E.U./dl (0.2-1.0)
[2019-09-21 20:00] LABS: AMP/METHAMP POSITIVE (Negative); BARBITURATES Negative (Negative); BENZODIAZEPINES Negative (Negative); COCAINE Negative (Negative); METHADONE Negative (Negative); OPIATES POSITIVE (Negative); PCP Negative (Negative)
[2019-09-21 21:09] LABS: ABSOLUTE NEUTROPHILS 3.6 thou/uL (1.4-8.2); BASOPHILS 1.1 % (0.0-2.0); EOSINOPHILS 0.8 % (0.0-3.0); HEMATOCRIT 39.6 % (37.0-47.0); HEMOGLOBIN 13.2 gm/dL (12.0-15.0); LYMPHOCYTES 30.5 % (24.0-44.0); MCH 31.9 pg (26.0-34.0); MCHC 33.4 g/dL (28.0-37.0); MCV 95.5 fL (80.0-100.0); MONOCYTES 7.4 % (1.0-8.0); PLATELET COUNT 274 thou/uL (150-400); POLYS 60.2 % (36.0-66.0); RBC 4.14 mil/uL (4.20-5.00); RDW 13.5 % (10.5-14.5)
[2019-09-21 21:12] LABS: CALCIUM 8.3 mg/dL (8.5-10.1); CREATININE 0.7 mg/dL (0.6-1.0); POTASSIUM 3.8 mmol/L (3.5-5.1)
[2019-09-21 21:18] LABS: ALBUMIN 3.2 g/dL (3.4-5.0); TOTAL BILIRUBIN 0.4 mg/dL (<0.1-1.0); TOTAL PROTEIN 7.1 g/dL (6.4-8.2)
[2019-09-21 22:03] VITALS: BP 138/77
== END 2019-09-21 22:03 | disposition home or self-care (01) ==
LOC: ER 18:53
PROVIDERS: Emergency Medicine Emergency Medical Services
DX: R21 Rash and other nonspecific skin eruption (principal); F17.210 Nicotine dependence, cigarettes, uncomplicated; Z88.6 Allergy status to analgesic agent; Z91.011 Allergy to milk products; Z91.041 Radiographic dye allergy status; Z88.2 Allergy status to sulfonamides; Z79.899 Other long term (current) drug therapy; Z90.710 Acquired absence of both cervix and uterus; Z98.51 Tubal ligation status; Z98.890 Other specified postprocedural states

== ENCOUNTER 2020-02-29 20:20 | Emergency (ER) | payer OTHER ==
[~2020-02-29] VITALS: Ht 162.6 cm; Wt 72.6 kg
[2020-02-29 21:34] LABS: ABSOLUTE NEUTROPHILS 5.7 thou/uL (1.4-8.2); BASOPHILS 1.2 % (0.0-2.0); EOSINOPHILS 1.3 % (0.0-3.0); HEMATOCRIT 38.8 % (37.0-47.0); HEMOGLOBIN 13.1 gm/dL (12.0-15.0); MCH 31.7 pg (26.0-34.0); MCHC 33.8 g/dL (28.0-37.0); MCV 93.9 fL (80.0-100.0); MONOCYTES 6.9 % (1.0-8.0); PLATELET COUNT 260 thou/uL (150-400); POLYS 64.6 % (36.0-66.0); RBC 4.13 mil/uL (4.20-5.00); RDW 13.5 % (10.5-14.5); WBC 8.9 thou/uL (4.0-11.0)
[2020-02-29 21:48] LABS: ANION GAP 9 mmol/L (7-16); BUN 37 mg/dL (7-18); CALCIUM 8.1 mg/dL (8.5-10.1); CHLORIDE 106 mmol/L (98-107); CO2 25 mmol/L (21-32); CREATININE 0.7 mg/dL (0.6-1.0); GLUCOSE 92 mg/dL (74-106); POTASSIUM 3.7 mmol/L (3.5-5.1); SODIUM 140 mmol/L (136-145)
[2020-02-29 21:58] LABS: ALBUMIN 3.1 g/dL (3.4-5.0); SGOT 23 U/L (15-37); SGPT 33 U/L (30-65); TOTAL BILIRUBIN 0.1 mg/dL (0.2-1.0); TOTAL PROTEIN 6.8 g/dL (6.4-8.2); TROPONIN-I <0.06 ng/mL (<0.06)
[2020-02-29] MEDS ORDERED: HIZENTRA1 GM/5 ML PO (22:17)
[2020-02-29] MEDS ORDERED: MAGNESIUM250 M1 PO (22:18)
[2020-02-29] MEDS ORDERED: DIFLUCAN100 MG PO (22:18)
[2020-02-29] MEDS ORDERED: CLOTRIMAZOLE10 GM PO (22:19)
[2020-02-29] MEDS ORDERED: IMITREX100 MG PO (22:19)
[2020-02-29] MEDS ORDERED: AJOVY225 MG/1.5 SUBQ (22:20)
[2020-02-29] MEDS ORDERED: DEXILANT30 MG PO (22:20)
[2020-02-29] MEDS ORDERED: CELEXA 20 MG TA20 MG PO (22:21)
[2020-02-29] MEDS ORDERED: KEFLEX500 M1 PO (22:27)
[2020-02-29] MEDS ORDERED: DOXYCYCLINE 10100 M2 PO (22:34)
[2020-02-29] MEDS ORDERED: VANCOMYCIN HCL250 MG PO (22:34)
[2020-02-29 22:45] VITALS: BP 129/69
--- NOTE | 2020-03-01 08:46 | EKG ---
[facility] [place] [address] ELECTROCARDIOGRAM REPORT Name: RAVINDRA FORD Room #: DEP [facility]#: [id number] Admission: 02/29/20 Attend Phys: Discharge: 02/29/20 Date of : 55 Report #: [id number] THIS REPORT FOR: cc: Claudio Toscano MD, Rene P. MD Lundgren, Craig H. 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[facility] : 1955 Requested By: Donovan Schuster Order Number: [id number] MD: Mariano Sanders Measurements Intervals [place] Rate: 89 P: 15 CA: 148 QRS: 18 QRSD: 79 T: 45 QT: 375 QTc: 457 Interpretive Statements Sinus rhythm Frequent supraventricular complexes Compared to ECG 01/27/2018 09:35:11 Atrial premature complex(es) now present Sinus tachycardia no longer present Ventricular premature complex(es) no longer present Electronically Signed On 03-01-2020 8:46:30 CDT by Mariano Sanders [email or web address] <ELECTRONICALLY SIGNED> By: Mariano Sanders MD, [facility] 03/01/20845 23 23 Mariano Sanders MD, FAC /EPI
== END 2020-02-29 22:30 | disposition home or self-care (01) ==
LOC: ER 20:20
PROVIDERS: Emergency Medicine
DX: R07.9 Chest pain, unspecified (principal); L03.113 Cellulitis of right upper limb; R06.02 Shortness of breath; I50.9 Heart failure, unspecified; Z90.711 Acquired absence of uterus with remaining cervical stump; Z90.49 Acquired absence of other specified parts of digestive tract; Z98.51 Tubal ligation status; Z79.899 Other long term (current) drug therapy; Z88.6 Allergy status to analgesic agent; Z88.8 Allergy status to other drugs, medicaments and biological substances; Z91.040 Latex allergy status; Z91.048 Other nonmedicinal substance allergy status; Z88.2 Allergy status to sulfonamides; Z91.041 Radiographic dye allergy status; Z87.891 Personal history of nicotine dependence

== ENCOUNTER → 2020-03-26 | Outpatient (CLI) | payer OTHER ==
[~2020-03-26] MED LIST changes: +AJOVY225 MG/1.5 SUBQ; +CELEXA 20 MG TA20 MG PO; +CLOTRIMAZOLE10 GM PO; +CLOTRIMAZOLE10 MG DISSOLVE; +DEXILANT30 MG PO; +DIFLUCAN100 MG PO; +DOXYCYCLINE 10100 M2 PO; +HIZENTRA1 GM/5 ML SUBQ; +HYZENTRA SUBQ; +IBUPROFEN 400400 M2 PO; +IMITREX100 MG PO; +IVERMECTIN3 MG PO; +KEFLEX500 M1 PO; +LORAZEPAM 1 MG T1 MG PO; +MAGNESIUM250 M1 PO; +ROXICODONE5 MG PO; +SUDAFED 12 HR120 MG PO; +SYNTHROID100 MC1 PO; -SYNTHROID100 MCG PO; +VANCOMYCIN HCL250 MG PO
== END ==
LOC: LAB 10:52
PROVIDERS: ATTEND Specialist
DX: Z01.812 Encounter for preprocedural laboratory examination (principal); Z20.828 Contact with and (suspected) exposure to other viral communicable diseases

== ENCOUNTER → 2020-03-29 | Outpatient (CLI) | payer OTHER ==
[~2020-03-29] VITALS: Ht 162.6 cm; Wt 72.6 kg
--- NOTE | 2020-04-01 15:07 | PATH ---
[facility] [place] [address] PATHOLOGY RPT PROCEDURE Name: RAVINDRA ESPITIA Room #: REG [facility] M.R.#: [id number] Admission: 03/29/20 Date of : 55 Discharge: Report #: [id number] Path Case #: [id number] LCA Accession Number: [id number] . 01 Material submitted: . PART A: stomach - GASTRIC BIOPSY R/O H. PYLORI PART B: colon - ASCENDING COLON POLYP. Modifiers: ascending PART C: colon - BIOPSY OF TRANSVERSE COLON ULCER. Modifiers: transverse . 01 Clinical history: . HX OF MORENO'S, SCREENING, NAUSEA DX: MORENO'S ESOPHAGUS, COLON POLYP, COLON ULCER . 02 Diagnosis: A. Gastric mucosa, gastric, endoscopic biopsy: - Mild chronic gastritis. - Negative for intestinal metaplasia or atrophy. - Negative for Helicobacter pylori (properly controlled immunohistochemical stain performed). . B. Polyp, ascending colon polyp, endoscopic biopsy: - Tubular adenoma. - Negative for high-grade dysplasia. . C. Large intestinal mucosa, transverse colon ulcer, endoscopic biopsy: - One fragment of fibrinopurulent material, consistent with ulceration. 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 - Negative for dysplasia or malignancy. . 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 02 Comment: C. Sections of the colonic mucosa designated "transverse colon ulcer" show focal cryptitis, and a moderately cellular lamina propria composed predominantly of lymphocytes and plasma cells and occasional eosinophils. Surface ulceration is present. There are no crypt abscesses, granulomas or viral inclusions. The process affects all the fragments with a similar intensity. Given the description, the differential diagnosis includes focal acute infectious-type of colitis, medication/drug induced colitis, acute diverticulitis, as well as inflammatory bowel disease (including ulcerative colitis). Please correlate with clinical as well as endoscopic findings. 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 02 Electronically signed: . [address] [address] PATHOLOGY RPT PROCEDURE Name: RAVINDRA ESPITIA Room #: REG CLDestini Fernandes.#: [id number] Admission: 03/29/20 Date of : 55 Discharge: Report #: [id number] Path Case #: [id number] Morena Red MD, Pathologist NPI- [id number] . 01 Gross description: . A. Received in formalin labeled "Ravindra Espitia, gastric BX rule out H. pylori" are two vences-brown soft tissue fragments measuring in aggregate 0.7 x 0.4 x 0.1 cm. The specimen is submitted entirely in A1. . B. Received in formalin labeled "Ravindra Espitia, ascending colon polyp" are multiple vences-brown soft tissue fragments measuring in aggregate 0.5 x 0.4 x 0.1 cm. The specimen is submitted entirely in B1. . C. Received in formalin labeled "Ravindra Espitia, BX of ulcer at transverse colon" are multiple vences-brown soft tissue fragments measuring in aggregate 1.0 x 0.5 x 0.1 cm. The specimen is submitted entirely in C1. ([facility] [place] [place]; 03/31/2020) [facility] 03/31/2020 1230 Local . 02 Pathologist provided ICD-10: K29.50, D12.2, K52.9 . 02 CPT . 504258, 528288, 328231, F77048 Specimen Comment: A courtesy copy of this report has been sent to [phone] Specimen Comment: [phone] Specimen Comment: Report sent to / DR FITCH Performed at: [address] [facility], [place], [place] [id number] MD Rajinder Arana MD Phone: [phone] Performed at: [address] [facility] [id number] MD Morena Red MD Phone: [phone]
--- NOTE | 2020-04-03 08:37 | P ---
[facility] [address] PROCEDURE REPORT Name: RAVINDRA FORD Room #: REG [facility]#: [id number] Admission: 03/29/20 Attend Phys: Shant Handy Discharge: Date of : 55 Report #: [id number] THIS REPORT FOR: cc: Claudio Toscano MD, Rene P. MD McElhinney, Christian C. MD ~ CC: Shant Toscano MD DATE OF SERVICE: 03/29/2020 PROCEDURE PERFORMED: Esophagoscopy with ablation and biopsies. HISTORY OF PRESENT ILLNESS: The patient is a 64-year-old female with a history of Dawn's esophagus, underwent an upper endoscopy routine by myself in November of last year. 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 She has also had a previous LINX procedure for reflux. The patient does take PPI therapy. Since her LINX procedure, she reports significant improvement in her heartburn symptoms. She does, however, complain of nausea and vomiting with meat. She denies any dysphagia. We discussed proceeding with an ablation last year in the office in December; however, the patient never did schedule procedure. She states she was feeling ill at that time. She now presents today for possible first ablation. DESCRIPTION OF PROCEDURE: The risks and benefits of the procedure were explained to the patient, those risks including but not limited to bleeding, perforation and the risk of sedation. She understood these risks and gave informed consent. Sedation was given using propofol per anesthesia. Next, using a standard Olympus upper endoscope, the scope was placed in the patient's mouth and advanced under direct vision through the esophagus, stomach and into the second portion of the duodenum. The larynx was normal in appearance. The upper and mid esophagus was normal in appearance. In the distal esophagus, patchy Dawn's esophagus was noted just above the GE junction with several small islands. No nodules or esophagitis was noted. Overall, the gastric mucosa was normal. Because of her history of intermittent nausea, biopsies were obtained to rule out H. pylori. On retroflexion, possible LINX changes were noted, but nothing obvious. The pylorus was normal and patent. The duodenal bulb, first and second portion were all normal. The scope was then brought back up into the patient's distal esophagus. The esophagus was then irrigated with 1% Mucomyst mixed solution with water. This was then aspirated away. Next, the in-channel electrode ablation device was advanced through the channel. The Dawn's tissue was then targeted using the ablation electrode, which was positioned under direct visualization, so the ablation electrode was in contact with the Dawn's tissue. Energy was applied twice at 40 W/cm squared and 12 joules/cm squared. Each area was treated twice as per protocol and then the [address] [address] PROCEDURE REPORT Name: RAVINDRA FORD Room #: REG [facility] Chrissie#: [id number] Admission: 03/29/20 Attend Phys: Shant Handy Discharge: Date of : 55 Report #: [id number] tissue was sloughed off and removed and the area was treated again. All areas of Dawn's esophagus was treated today. There was no evidence of bleeding after treatment. At this point, the scope was then withdrawn and the procedure terminated. The patient tolerated the procedure well. IMPRESSION: 1. Patchy Dawn's esophagus noted in the distal esophagus areas were treated as per ablation protocol described above. 2. Otherwise, normal upper endoscopy. RECOMMENDATIONS: 1. Await biopsy results. 2. Continue PPI therapy. 3. We will have the patient return in 2 months' time for possible repeat ablation at that time. Thank you for allowing me to participate in her care. <ELECTRONICALLY SIGNED> By: Shant Del Toro MD 04/03/20 0837 0939 [id number] Shant Del Toro MD /nt
--- NOTE | 2020-04-03 08:37 | P ---
[facility] [place] [address] [address] PROCEDURE REPORT Name: RAVINDRA FORD Room #: REG [facility]#: [id number] Admission: 03/29/20 Attend Phys: Shant Handy Discharge: Date of : 55 Report #: [id number] THIS REPORT FOR: cc: Claudio Toscano MD, Rene P. MD McElhinney, Christian C. MD ~ CC: Shant Toscano MD DATE OF SERVICE: 03/29/2020 PROCEDURE PERFORMED: Colonoscopy with polypectomies. HISTORY OF PRESENT ILLNESS: The patient is a 64-year-old female here for a screening colonoscopy. Last colonoscopy was approximately 10 years ago and reportedly negative. She denies any symptoms at this time. No family history of colon cancer. DESCRIPTION OF PROCEDURE: The risks and benefits of the procedure were explained to the patient, those risks including but not limited to bleeding, perforation and the risk of sedation. She understood these risks and gave informed consent. Sedation was given using propofol per anesthesia. Next, digital rectal exam was initially performed, which was normal. Next, using a standard Olympus colonoscope, the scope was placed in the patient's anus and advanced under direct vision to the cecum. The overall prep was good. The cecum and ileocecal valve were normal in appearance. In the ascending colon, a 6 mm sessile polyp was noted. This was removed by snare cautery, otherwise normal. In the transverse colon, a single clean white based ulcer 1-1.2 cm was noted on a fold. No evidence of bleeding. No other ulcerations are surrounding colitis was noted. Biopsies were obtained. The descending and sigmoid colon were normal. The rectal mucosa was normal, on retroflexion, no abnormalities were noted. The scope was then withdrawn and the procedure terminated. The patient tolerated the procedure well. IMPRESSION: 1. Colonic polyp. 2. Area of ulceration in the transverse colon. 3. Otherwise, normal colonoscopy. RECOMMENDATIONS: 1. Await biopsy results. 2. If polyp is hyperplastic, repeat in 10 years, if adenomatous polyp, repeat in [address] [address] PROCEDURE REPORT Name: RAVINDRA FORD [id number] Admission: 03/29/20 Attend Phys: Shant Handy Discharge: Date of : 55 Report #: [id number] Thank you for allowing me to participate in her care. <ELECTRONICALLY SIGNED> By: Shant Del Toro MD 04/03/20 0837 0951 0959 Shant Del Toro MD /nt
== END | disposition home or self-care (01) ==
LOC: GI
PROVIDERS: ATTEND Specialist
DX: Z12.11 Encounter for screening for malignant neoplasm of colon (principal); D12.2 Benign neoplasm of ascending colon; K52.9 Noninfective gastroenteritis and colitis, unspecified; K63.3 Ulcer of intestine; K29.50 Unspecified chronic gastritis without bleeding; K22.70 Barrett's esophagus without dysplasia; I50.9 Heart failure, unspecified; J43.9 Emphysema, unspecified; D64.9 Anemia, unspecified; E03.9 Hypothyroidism, unspecified; F32.9 Major depressive disorder, single episode, unspecified; F41.9 Anxiety disorder, unspecified; Z98.890 Other specified postprocedural states; Z79.899 Other long term (current) drug therapy; Z87.442 Personal history of urinary calculi; Z90.49 Acquired absence of other specified parts of digestive tract; Z90.710 Acquired absence of both cervix and uterus; Z98.51 Tubal ligation status; Z87.891 Personal history of nicotine dependence; Z91.040 Latex allergy status; Z88.2 Allergy status to sulfonamides; Z88.8 Allergy status to other drugs, medicaments and biological substances
CPT/HCPCS: 62110; 62900

== ENCOUNTER 2020-04-20 18:12 | Emergency (ER) | payer OTHER ==
[~2020-04-20] VITALS: Ht 162.6 cm; Wt 72.6 kg
[2020-04-20] MEDS ORDERED: ROXICODONE5 M2 PO (19:36)
[2020-04-20 19:40] VITALS: BP 132/80
== END 2020-04-20 19:44 | disposition home or self-care (01) ==
LOC: ER 18:12
DX: M48.56XA Collapsed vertebra, not elsewhere classified, lumbar region, initial encounter for fracture (principal); S60.522A Blister (nonthermal) of left hand, initial encounter; J45.909 Unspecified asthma, uncomplicated; F98.8 Other specified behavioral and emotional disorders with onset usually occurring in childhood and adolescence; F32.9 Major depressive disorder, single episode, unspecified; F41.9 Anxiety disorder, unspecified; E03.9 Hypothyroidism, unspecified; Z90.711 Acquired absence of uterus with remaining cervical stump; Z90.49 Acquired absence of other specified parts of digestive tract; Z98.51 Tubal ligation status; Z87.442 Personal history of urinary calculi; Z79.899 Other long term (current) drug therapy; Z88.6 Allergy status to analgesic agent; Z91.048 Other nonmedicinal substance allergy status; Z91.041 Radiographic dye allergy status; Z88.1 Allergy status to other antibiotic agents; Z88.8 Allergy status to other drugs, medicaments and biological substances; Z88.2 Allergy status to sulfonamides; Z87.891 Personal history of nicotine dependence; X58.XXXA Exposure to other specified factors, initial encounter; Y93.89 Activity, other specified; Y92.89 Other specified places as the place of occurrence of the external cause; Y99.8 Other external cause status

== ENCOUNTER → 2020-05-09 | Outpatient (CLI) | payer OTHER | LOC: MRI 12:46 | PROVIDERS: ATTEND Nuclear Medicine Nuclear Cardiology | DX: M47.816 Spondylosis without myelopathy or radiculopathy, lumbar region (principal) ==

== ENCOUNTER → 2020-05-10 | Outpatient (CLI) | payer OTHER | LOC: LAB 14:23 | PROVIDERS: ATTEND Nuclear Medicine Nuclear Cardiology | DX: Z01.812 Encounter for preprocedural laboratory examination (principal); Z20.828 Contact with and (suspected) exposure to other viral communicable diseases ==

== ENCOUNTER → 2020-05-14 | Outpatient (CLI) | payer OTHER ==
[~2020-05-14] MED LIST changes: +AJOVY225 MG/1.5 SQ; +CENTRUM ADULTS1 EACH PO; +DIGESTIVE ENZY1 EAC1 PO; +LOPERAMIDE2 MG PO
[2020-05-14 07:33] LABS: HEMOGLOBIN 13.8 gm/dL (12.0-15.0); MCH 31.8 pg (26.0-34.0); MCHC 33.6 g/dL (28.0-37.0); MCV 94.7 fL (80.0-100.0); RBC 4.33 mil/uL (4.20-5.00); RDW 15.1 % (10.5-14.5); WBC 10.8 thou/uL (4.0-11.0)
== END | disposition home or self-care (01) ==
LOC: CATH
PROVIDERS: ATTEND Nuclear Medicine Nuclear Cardiology
DX: M54.9 Dorsalgia, unspecified (principal); M80.08XA Age-related osteoporosis with current pathological fracture, vertebra(e), initial encounter for fracture; I50.9 Heart failure, unspecified; I25.10 Atherosclerotic heart disease of native coronary artery without angina pectoris; J43.9 Emphysema, unspecified; E03.9 Hypothyroidism, unspecified; D64.9 Anemia, unspecified; F31.9 Bipolar disorder, unspecified; F41.9 Anxiety disorder, unspecified; Z98.890 Other specified postprocedural states; Z79.899 Other long term (current) drug therapy; Z90.49 Acquired absence of other specified parts of digestive tract; Z90.710 Acquired absence of both cervix and uterus; Z98.51 Tubal ligation status; Z87.442 Personal history of urinary calculi; Z87.19 Personal history of other diseases of the digestive system; Z79.891 Long term (current) use of opiate analgesic
CPT/HCPCS: 62110; 62900; 70005

== ENCOUNTER 2020-05-26 18:30 | Emergency (ER) | payer OTHER ==
[~2020-05-26] VITALS: Ht 162.6 cm; Wt 74.8 kg
[2020-05-26 20:09] VITALS: BP 136/79
== END 2020-05-26 20:10 | disposition home or self-care (01) ==
LOC: ER 18:30
DX: M79.605 Pain in left leg (principal); I50.9 Heart failure, unspecified; E03.9 Hypothyroidism, unspecified; I25.10 Atherosclerotic heart disease of native coronary artery without angina pectoris; J44.9 Chronic obstructive pulmonary disease, unspecified; Z86.2 Personal history of diseases of the blood and blood-forming organs and certain disorders involving the immune mechanism; Z90.49 Acquired absence of other specified parts of digestive tract; Z79.1 Long term (current) use of non-steroidal anti-inflammatories (NSAID); Z79.899 Other long term (current) drug therapy; Z87.891 Personal history of nicotine dependence; Z88.6 Allergy status to analgesic agent; Z88.1 Allergy status to other antibiotic agents; Z88.8 Allergy status to other drugs, medicaments and biological substances; Z91.010 Allergy to peanuts; Z88.2 Allergy status to sulfonamides; Z91.048 Other nonmedicinal substance allergy status

== ENCOUNTER → 2020-07-16 | Outpatient (CLI) | payer OTHER | LOC: MRI 09:51 | PROVIDERS: ATTEND Nuclear Medicine Nuclear Cardiology | DX: M51.24 Other intervertebral disc displacement, thoracic region (principal); M25.78 Osteophyte, vertebrae ==

== ENCOUNTER 2020-07-24 03:42 | Inpatient (IN) | payer OTHER ==
[~2020-07-24] VITALS: Ht 165.1 cm; Wt 80.3 kg
[2020-07-24] VITALS (7 sets, daily range): BP systolic 103–135; BP diastolic 44–58
[2020-07-24] MEDS ORDERED: ADIPEX-P37.5 MG PO (03:46)
[2020-07-24] MEDS ORDERED: PREGABALIN75 MG PO (03:48)
[2020-07-24] MEDS ORDERED: ONDANSETRON ODT4 MG PO (03:50)
[2020-07-24 04:57] LABS: ABSOLUTE NEUTROPHILS 7.1 thou/uL (1.4-8.2); BASOPHILS 0.2 % (0.0-2.0); HEMATOCRIT 42.8 % (37.0-47.0); HEMOGLOBIN 13.8 gm/dL (12.0-15.0); LYMPHOCYTES 3.2 % (24.0-44.0); MCH 31.1 pg (26.0-34.0); MCHC 32.3 g/dL (28.0-37.0); MONOCYTES 2.4 % (1.0-8.0); PLATELET COUNT 201 thou/uL (150-400); POLYS 94.2 % (36.0-66.0); RBC 4.46 mil/uL (4.20-5.00); RDW 14.3 % (10.5-14.5); WBC 7.6 thou/uL (4.0-11.0)
[2020-07-24 05:02] LABS: APTT 22.4 Seconds (24.5-32.8); PROTIME 10.4 Seconds (9.3-11.4)
[2020-07-24 05:03] LABS: ANION GAP 8 mmol/L (7-16); BUN 44 mg/dL (7-18); CALCIUM 8.5 mg/dL (8.5-10.1); CHLORIDE 103 mmol/L (98-107); CO2 28 mmol/L (21-32); CREATININE 1.1 mg/dL (0.6-1.0); GLUCOSE 175 mg/dL (74-106); POTASSIUM 3.5 mmol/L (3.5-5.1); SODIUM 139 mmol/L (136-145)
[2020-07-24 05:07] LABS: ALBUMIN 2.5 g/dL (3.4-5.0); SGOT 30 U/L (15-37); SGPT 49 U/L (14-59); TOTAL BILIRUBIN 0.3 mg/dL (0.2-1.0); TOTAL PROTEIN 5.9 g/dL (6.4-8.2); TROPONIN-I <0.06 ng/mL (<0.06)
--- NOTE | 2020-07-24 07:17 | EKG ---
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 : 1955 Requested By: Silvestre Corona Order Number: [id number] MD: Jesus Manuel Paulino Measurements Intervals [place] Rate: 92 P: 91 OK: 142 QRS: 72 QRSD: 75 T: 63 QT: 365 QTc: 452 Interpretive Statements Sinus rhythm LAE, consider biatrial enlargement Minimal ST elevation, lateral leads Baseline wander in lead(s) II,III,aVF,V1 Compared to ECG 02/29/2020 20:24:00 ST (T wave) deviation now present Electronically Signed On 07-24-2020 7:17:03 ENTRY LEVEL CIVIL ENGINEER by Jesus Manuel Paulino [email or web address] <ELECTRONICALLY SIGNED> By: Jesus Manuel Paulino MD, FACC 07/24/20 0717 0400 0400 Jesus Manuel Paulino MD, [facility] /EPI
--- NOTE | 2020-07-24 10:39 | NUR ---
ASSESSMENT: CM REVIEWED CHART AND SPOKE WITH PT AND HER . PT WAS ADMITTED DUE TO CELLULITIS. WOUND CARE HAS BEEN CONSULTED. PT LIVES IN A HOUSE WITH HER . PT REPORTS TWO STEPS TO ENTER AND NO STEPS SHE HAS TO USE ONCE INSIDE. PT STATES SHE HAS A CANE AT HOME FOR AMBULATION. PT REPORTS ALSO HAVING OXYGEN ARRANGED AT HOME THROUGH [facility] AND REPORTS THE MAX IS 6L OXGEN. PT REPORTS HAVING [facility] AND [facility] IN THE PAST AND HAS ALSO BEEN TO 5N. CM DISCUSSED ROLE. CM WILL CONTINUE TO FOLLOW TO ASSIST NEEDED.
--- NOTE | 2020-07-24 13:45 | NUR ---
COVID 19 TEST TO RIGHT NARE COMPLETED AT THIS TIME AND TAKEN TO LAB.
[2020-07-24] MEDS ORDERED: ROXICODONE5 M2 PO (15:56)
--- NOTE | 2020-07-24 20:06 | NUR ---
PATIENT ADMITTED TO ROOM 441 LATER MOVED TO ROOM 436 CAME THROUGH ER. AT BED SIDE. ALERT XS 3 HAS FORGETFULNESS. SKIN ASSESSMENT COMPLETED AND WOUND CARE PICTURES AND TX DONE. WOUND CARE NURSE HERE TO ASSESS WOUNDS. DOCTOR HERE TO SPEAK WITH PATIENT AND . ADMISSION PAPERWORK COMPLETED. FLUIDS ORDERED.
[2020-07-25 01:06] LABS: GLYCOHEMOGLOBIN (HGB A1C) 6.1 % (4.8-5.6)
--- NOTE | 2020-07-25 04:04 | NUR ---
ASSUMED CARE OF PT AT 1900. PT IS A/O X4 AND IS UP WITH ASSISTANCE TO THE BSC. LLE IS EDEMATOUS AND PT C/O PAIN 10 OUT OF 10 WITHOUT RELIEF FROM PRESCRIBED PAIN MEDICATION. NOTIFIED STONE LAYER. WAS GIVEN AN ADDITIONAL ONE TIME ORDER FOR PAIN MEDICATION. PT C/O PAIN STILL A 10 OUT OF 10. BEEN IN ROOM MOST OF EVENING TRYING TO REPOSITION TO HELP WITH LEVEL OF COMFORT AND DECREASE PAIN. PT IS TEARFUL AND AT TIMES EXTREMELY RESTLESS AND SCREAMS OUT HELP. PT HAS HAD 1 EPISODE OF DIARRHEA. VSS. NO INSULIN GIVEN AT HS WAS NOT INDICATED. AT THIS TIME PT IS LYING IN HER BED WITH HOB ELEVATED AND LLE ELEVATED ON A PILLOW. LE APPEARS RED,PURPLE AND IN PLACES THERE IS OPEN BLISTERS. REMAINS ON 4 LITERS OF 02 NC. AND AN EXTERNAL CATHETER HAS BEEN PLACED FOR COMFORT IT IS TOO PAINFUL FOR THE PT TO MOVE AROUND TOO MUCH. FALL PRECATIONS IMPLEMENTED, CALL LIGHT IS WITHIN REACH. WILL CONTINUE TO MONITOR.
[2020-07-25 04:08] VITALS: BP 121/52
[2020-07-25 05:51] LABS: BASOPHILS 0.1 % (0.0-2.0); EOSINOPHILS 0.1 % (0.0-3.0); HEMATOCRIT 35.9 % (37.0-47.0); LYMPHOCYTES 4.3 % (24.0-44.0); MCHC 32.7 g/dL (28.0-37.0); MCV 94.7 fL (80.0-100.0); MONOCYTES 2.1 % (1.0-8.0); PLATELET COUNT 141 thou/uL (150-400); POLYS 93.4 % (36.0-66.0); RBC 3.79 mil/uL (4.20-5.00); RDW 13.9 % (10.5-14.5); WBC 8.5 thou/uL (4.0-11.0)
[2020-07-25 06:04] LABS: HEMOGLOBIN 11.7 gm/dL (12.0-15.0)
[2020-07-25 06:12] LABS: CALCIUM 8.8 mg/dL (8.5-10.1); CREATININE 0.9 mg/dL (0.6-1.0); MAGNESIUM 2.3 mg/dL (1.8-2.4); POTASSIUM 3.4 mmol/L (3.5-5.1)
[2020-07-25 08:25] VITALS: BP 123/59
--- NOTE | 2020-07-25 09:54 | NUR ---
ASSUMED CARE AT 0700. PT IS A&O X4. IV IS INTACT AND SHOWS NO SIGNS OF REDNESS OR SWELLING. PT COMPLAINS OF PAIN AND NOT TOLERATING WELL WITH OXYCODONE. WILL CONTACT DOCTOR FOR PT REGARDING OXYCODONE AND TO SEE IF WE CAN INCREASE THE NUMBER OF TABS OF OXYCODONE. PT IS ON 5 L ON OXYGEN AND TOLERATING WELL. PT COMPLAINS OF PAIN AND DIARRHEA. WILL CONTACT DOCTOR TO ORDER MEDICATION TO HELP WITH DIARRHEA. PT TYPICALLY GET DIARRHEA A SIDE EFFECT FROM VANCO. ELEVATED LLE FOR EDEMA CONTROL. LLE HAS REDNESS, SWELLING, BLACK SPOTS THROUGHOUT LLE. STATES THAT THE SWELLING HAS WENT DOWN FROM YESTERDAY AND THERE ARE MORE BLACK SPOTS ON THE LLE. PT HAS SIGNED THE HOME MEDICATION DOCUMENT FROM PHARMACY. IT IS IN THE CHART. FALL PRECAUTION. CALL LIGHT WITHIN REACH. WILL CONTINUE TO MONITOR.
--- NOTE | 2020-07-25 13:54 | NUR ---
ON-GOING ASSESSMENT: CM REVIEWED CHART. PT REMAINS ON 4L OX OXYGEN. PT CONTINUING ON IV ANBX. WOUND CARE AND ID ARE FOLLOWING PATIENT. PT/OT HAS BEEN ORDERED AND EVALS ARE PENDING AT THIS TIME. CM WILL CONTINUE TO FOLLOW TO ASSIST NEEDED.
[2020-07-25 16:59] VITALS: BP 122/59
[2020-07-25 19:11] VITALS: BP 126/51
--- NOTE | 2020-07-26 01:52 | NUR ---
PT WAS OBSERVED SITTONG UP IN THE RECLINER IN HER ROOM WATCHING TV AT START OF SHIFT.PT WAS TRANSFERRED TO HER BED AT 1999 PER HER REQUEST.BLE WAS NOTED TO HAVE EDEMA,R GREATER THAN LEFT,MOTTLING NOTED ON HER BLE.EXCORIATIONS AND BLISTER TO HER LLE.PT'S LLE WEEPING ,CLEAR DRAINAGE NOTED FROM THE LEG. BLE ELEVATED WHILE PT IS IN BED TO AID WITH SWELLING.PT UP WITH ASSIST X1,GAIT BELT AND WALKER TO THE [facility],SOB WITH EXERTION NOTED.PT SOUNDED WET AND MOIST,PRN LASIX GIVEN. PT CONT ON 4L/NC.SMALL LOOSE STOOL NOTED X1 SO FAR.PT BREATHING NORMAL AND NONE LABORED AT THIS TIME.NO C/O PAIN NOTED SO FAR.CALL LIGHT WITHIN REACH.
[2020-07-26 04:07] VITALS: BP 131/51
--- NOTE | 2020-07-26 08:54 | NUR ---
ASSUMED CARE AT 0700. PT IS A&O X4. IV IS ON R. FA AND INTACT AND SHOWS NO SIGNS OF REDNESS OR SWELLING. PT COMPLAINS OF PAIN AND OXYCODONE WAS GIVEN TO PT BEFORE SHIFT. FENTAYL PATCH IS STILL PLACED ON LEFT LEG FROM YESTERDAY. PT IS TURNING MORE BETTER THAN YESTERDAY .CALL LIGHT WITHIN REACH. PT DENIES NAUSEA. PT HAS A COUGH BUT PT STATES THAT COUGH HAS BEEN THERE SINCE 3 DAYS PRIOR TO ADMITTING TO HOSPITAL. PILLOWS TO ELEVATE LLE FOR EDEMA CONTROL. LLEE SHOWS RED, SWOLLE, BLACK SPOT WITHOUT DRAINAGE. WILL CONTINUE TO MONITOR.
--- NOTE | 2020-07-26 12:22 | NUR ---
ON-GOING ASSESSMENT: CM REVIEWED CHART AND SPOKE WITH ATTENDING WHO REPORTS TO LIKELY PLAN FOR SNF ON WEDNESDAY. CM SPOKE WITH PT AND HER AT THE BEDSIDE ABOUT SNF RECOMMENDATION. CM PROVIDED THEM A LIST OF SNF OPTIONS FOR THEM TO REVIEW. PT REMAINS ON OXYGEN WELL IV ANBX. AWAITING SNF OPTIONS FROM PT AT THIS TIME. CM WILL CONTINUE TO FOLLOW. NO ANTICIPATED WEEKENED DISCHARGE.
[2020-07-26 14:08] LABS: COMPLEMENT-C3 173 mg/dL (82-167); COMPLEMENT-C4 35 mg/dL (12-38)
--- NOTE | 2020-07-26 15:26 | NUR ---
ON-GOING ASSESSMENT: CM REVIEWED CHART AND SPOKE WITH LIASON FROM [facility] WHO STATES THEY CAN ACCEPT PT. NEGATIVE COVID TEST WAS FAXED TO FACILITY. ATTENDING STATING TO PLAN DISCHARGE ON WEDNESDAY. IF PATIENT IS READY FOR DISCHARGE BEFORE THEN CONTACT MADISON MAIER AT ON LICENSE OF [facility] AT [phone] TO FACILITATE DISCHARGE. FAX D/C ORDERS AND SUMMARY TO THEIR FAX [phone]. LIVIER WALLACE WILL ARRANGE TRANSPORTATION. CONTACT PTS TO NOTIFY HIM IF SHE IS READY FOR DISCHARGE OVER THE WEEKEND.
[2020-07-26 19:58] VITALS: BP 143/60
--- NOTE | 2020-07-27 03:26 | NUR ---
PT RESTING ION HER BED AT START OF SHIFT.PT C/O PAIN ON HER LL,MANAGED WITH MED.DRAINGE NOTED TO HER LLE,DRSG CHANGED AT START OF SHIFT.PT CONT ON 4L/NC.EDEMA NOTED TO HER BLE,LEGS ELEVATED TO AID WITH EDEMA.ONE LOOSE STOOL NOTED THIS SHIFT.STILL NOT ABLE TO GET THE UA DUE TO CONTAMINATION WITH STOOL WHENEVER PT URINATES.PT'S BG 155,PT REF INSULIN AT HS.CALL LIGHT WITHIN REACH.
[2020-07-27 07:19] VITALS: BP 101/55
--- NOTE | 2020-07-27 15:32 | NUR ---
ASSUMED CARE OF THE PATIENT AT 0715, PATIENT ALERT AND ORIENTED. PATIENT C/O PAIN WITH LEFT LEG, SHE RECEIVED PAIN MEDS PRIOR TO STARTING OF THE SHIFT. PATIENT HAS TERAFUL MOMENTS, THINKING ABOUT BEFORE SHE WAS SICK. WILL DO WOUND CARE TO LEFT LEG AND LEFT ARM THIS SHIFT. PT WORKED WITH THE PATIENT WITH BED MOBILITY, O2 AT 6 LITERS/NC IN PLACE. RIGHT FOREARM IV IN PLACE, SHE RECEIVED 2 IV ABX'S THIS SHIFT. AT BEDSIDE. WILL CONTINUE TO MONITOR.
[2020-07-27 19:25] VITALS: BP 119/64
--- NOTE | 2020-07-28 04:43 | NUR ---
PATIENT ALERT AND ORIENTED X4. BS MONITORED PER ORDER. SNACK GIVEN PER REQUEST. MEDICATED FOR PAIN X2 AT TIME OF NOTE. 6LNC WITH 02SAT OF 97%. DRESSING TO LEFT LOWER LEG D/I. NO DIARRHEA DURING THE NIGHT. PATIENT BECAME VERY ANXIOUS AND TEARFUL (WHINNING) THIS AM, HOWEVER, WOULD NOT ASK FOR PAIN MEDICATION. THIS NURSE INQUIRED ABOUT HER PAIN AND THEN IT WAS ACKNOWLEDGED. PATIENT BECOMES VERY LOUD AT TIMES MOANING, THEN DENIES THAT ANYTHING IS WRONG. RESTING OFF AND ON DURING THE NIGHT.
--- NOTE | 2020-07-28 06:41 | NUR ---
PATIENT'S LEFT LEG IS FLUSHED, ESPECIALLY ON HER THIGH. THIS NURSE ASKED PATIENT IF THIS HAD HAPPENED BEFORE. PATIENT STATED THAT "THEY KNOW ABOUT IT AND ARE TRYING TO FIGURE IT OUT".
[2020-07-28 08:26] VITALS: BP 133/64
[2020-07-28 17:05] VITALS: BP 130/64
[2020-07-28 19:00] VITALS: BP 141/76
--- NOTE | 2020-07-28 19:17 | NUR ---
PT CARE ASSUMED AT 0700. A&Ox4. PT UP IN RECLINER MOST OF THE DAY. DRESSING CHANGE COMPLEETED. 6L ON O2. SPUTUM AND L. ARM SWAB COLLECTED. LATEX ALLERGY. PAIN TOLERATED WELL WITH PAIN MEDICATION ON BOARD. GAVE PT HER WEEKLY IMMUNOGLOBULIN TRANSFUSION TODAY. ACHS WITH COVERAGE. IV INFILTRATED NEW IV PLACED, SALINE LOCKED WITH NO REDNESS OR EDEMA. FALL PROTOCOL IN PLACE. CALL LIGHT IN REACH. WILL CONTINUE TO MONITOR. PT VERY NEEDY.
--- NOTE | 2020-07-29 05:39 | NUR ---
PATIENT ALERT AND ORIENTED X4. UP TO BSC WITH ONE ASSIST. VERY TIME CONSUMING. IVPB INFUSED W/O COMPLICATION. BS MONITORED PER ORDER. PAIN MED PER REQUEST WITH GOOD RESULTS. PATIENT FELT IF SHE HAD A TEMP ABOUT 0200, HOWEVER, TEMP WAS 98.3. RESTING QUIETLY AT TIME OF NOTE. LEFT LEG REMAINS FLUSH, HOWEVER IT LOOKS BETTER TO THIS NURSE THAN NIGHT OF 07/27. WILL MONITOR.
[2020-07-29 08:22] VITALS: BP 132/71
--- NOTE | 2020-07-29 13:45 | NUR ---
ON-GOING ASSESSMENT: CM REVIEWED CHART. PT IS PROGRESSING TOWARDS DISCHARGE GOALS BUT IS STILL HAVING PAIN IN HER LOWER EXTREMITY AND REMAINS ON IV ANBX. CM SPOKE WITH LIASON FROM [facility] WHO REPORTS THEY WILL LIKELY NOT HAVE A BED UNTIL WEDNESDAY. CM DISCUSSED THIS WITH PT AND HER PHYSICIAN STATING PATIENT MAY BE READY TOMORROW. PT AND WANTED REFERRAL SENT TO [facility]. CM NOTIFIED PLATE PAINTER WHO IS SENDING REFERRAL. CM WILL CONTINUE TO FOLLOW TO ASSIST NEEDED.
--- NOTE | 2020-07-29 16:28 | NUR ---
FAXED REFERRAL TO [facility] SPOKE WITH DAMON IN ADM SHE RECEIVED REFERRAL AND WILL NOT BE ABLE TO ACCEPT AT THIS TIME.
[2020-07-29 17:01] VITALS: BP 131/59
--- NOTE | 2020-07-29 18:33 | NUR ---
PT ASSESSED AT START OF SHIFT. LOTS OF PAIN W/ LEFT LEG CELLULITIS. TRANSFERS OUT OF BED W/ ASSIST OF ONE. DSNG CHANGED. BLISTERS ON TOP OF DUMONT AND FOOT. DR. SORIANO IN THIS AFTERNOON TO SEE PT AND UNWRAPPED DSNG. EATING FAIR. AT BEDSIDE MUCH OF DAY.
[2020-07-29 20:10] VITALS: BP 133/75
[2020-07-29 20:12] VITALS: BP 117/55
[2020-07-29 21:09] LABS: ANA INTERPRETATION Positive (())
--- NOTE | 2020-07-29 23:49 | NUR ---
ASSUMED PT CARE AT AROUND 1915 HRS. PT CALM AND COOPERATIVE. REQUIRES MAX ASSIST X 1 TO THE BSC, REQUIRES EXTRA TIME DUE TO PAIN.PT HAD A LARGE BM.DRSG TO LLE IS INTACT. PT ALSO ELEVATING THE LEG FOR EDEMA CONTROL.SCHEDULED PAIN MEDS WELL PRN GIVEN. PT HAS A NON PRODUCTIVE COUGH, SATTING FINE ON 023L/NC. SHE IS AFEBRILE, THOUGH PT STATES A TEMP OF 98 IS HIGH FOR HER. PT VOIDING ADEQUATELY THOUGH SHE FEELS "THE KIDNEY STONES" ARE BACK. PAIN FOR PT IS IN THE LEGS AND BACK FROM ALL THE COUGHING. PT ADVISED TO BE WOKEN UP FOR IMMODIUM-SHE DOES NOT WANT TO MISS ANY DOSE (STOOL WAS FORMED).CALL LIGHT WITHIN REACH. WILL CONTINUE WITH POC TILLL EOS.
[2020-07-30 04:55] VITALS: BP 101/55
--- NOTE | 2020-07-30 08:48 | NUR ---
ASSUMED CARE AT 0700. PT IS a&O X4. PT COMPLAINS OF HORRIBLE PAIN ON LLE. PT IS CURRENTLY HAVING OXYCODONE, FLEXERIL, TRAMDOL. PT STATES THAT SHE IS MORE IN PAIN WHEN SHE FIRST WAKE UP. PT WAS GIVEN TRAMDOL IN THE AM AND WILL RECEIVE OXYCODNE AND FLEXERIL WHEN IT IS TIME. WOUND CARE HAS BEEN CHANGED WITH NORMAL SALINE, SILVER, ZEROFORM, AND KERLIX. LLE IS ELEVATED WITH PILLOWS WHEN PT IS LAYING DOWN. SCD HOSE IS PLACE ON RIGHT LEG. LATEX ALLERGY BAND IS ON PT ALONG WITH THE PARTS INTERPRETER IN FRONT OF PT ROOM. DNR BRACELET IS ON PT. IV ON RIGHT CHEST/SHOULDER IS INTACT AND SHOWS NO SIGNS OF REDNESS OR SWELLING .FALL PRECAUTION. CALL LIGHT WITHIN REACH. PT IS ON 6L OF OYXGEN AND TOLERATING AT 95%. PT HAS NONPRODUCTIVE COUGH AND WILL CONTINUE TO MONITOR.
--- NOTE | 2020-07-30 11:32 | NUR ---
RD consult received from [facility] PIPE CLEANING MACHINE OPERATOR. Admit with cellulitis, sepsis. Lives with spouse. Reports good appetite and normally uses Muscle Milk at home for extra supplementation. Wts variable 160-175 lb past year. Follows gluten free diet due to celiac disease. Agrees to Ensure 1x per day. Vitamin D deficient, suggest supplemenation. Low nutrition risk
--- NOTE | 2020-07-30 14:12 | NUR ---
ON-GOING ASSESSMENT: DONOVAN REVIEWED CHART. PT STATING SHE IS WORRIED ABOUT GOING TO SNF DUE TO HER POOR IMMUNE SYSTEM. [facility] CONSULT WAS PLACED FOR PATIENT AND SHE IS TO BE EVALUATED. DONOVAN SPOKE WITH LIASON FROM [facility] WHO REPORTS THEY NO LONGER WILL HAVE A SNF BED TOMORROW A DISCHARGE FELL THROUGH. DONOVAN NOTIFIED PT AND THAT IF [facility] IS UNABLE TO ACCEPT HER THEN LIKELY NEED ANOTHER PLAN OR OTHER SNF FACILITY. THEY WILL REVIEW AND DISCUSS. AWAITING FURTHER INPUT FROM [facility] AT THIS TIME.
[2020-07-30 16:42] VITALS: BP 107/62
[2020-07-30] MEDS ORDERED: TOPAMAX100 MG PO (17:23)
[2020-07-30] MEDS ORDERED: PHENTERMINE H37.5 MG PO (17:24)
[2020-07-30 18:57] VITALS: BP 116/90
--- NOTE | 2020-07-31 02:36 | NUR ---
ASSESSMENT COMPLETED. PT CONTINUES TO C/O TERRIBLE PAIN TO LEFT LEG. GIVEN MORPHINE IVP X 1 SO FAR WELL THE PRN OXY.PT ABLE TO GET UP TO THE BSC WITH ICREASED DIFFICULTY.LEFT HIP IS TENDER TO TOUCH. ELEVATING ON PILLOW. DRSG TO LEFT FOOT IS INTACT-SOME SMALL DRAINAGE NOTED.PT STILL HAS THE RISK CONTROL DIRECTOR COUGH,OXYGEN AT BASELINE WITH NO WORSENING SOA.CONTINUING WITH IV ABTS. COVID TEST OBTAINED.WILL CONTINUE WITH POC.
[2020-07-31 08:06] VITALS: BP 131/97
--- NOTE | 2020-07-31 09:13 | NUR ---
ASSUMED CARE AT 0700. PT IS A&O X4.PT IS SLEEPY BUT WILL CONTINUE TO MONITOR. IF PT IS CONSTANTLY FEELING SLEEPY, PT WILL NOT HAVE MORPHINE AND EXPLAIN TO PT. VSS. IV IS INTACT AND SHOWS NO SIGNS OF REDNESS OR SWELLING BUT PT COMPLAINS OF PAIN ON IV WITHOUT EDEMA. WILL CONTINUE TO MONITOR. PAGED IV TEAM I TRIED TO PUT IV TWICE. WOUND CARE CHANGED WITH MORPHINE WRAPED AND ZEROFROM, KERLIX AND TAPE. LATEX ALLERGY IS ON THE FRONT OF DOOR AND WRIST BAND. PT COMPLAINS OF PAIN AND WAS GIVEN MORPHINE FOR PAIN. PT IS STILL HAVING NONPRODUCTIVE COUGH AND WILL CONTINUE TO MONITOR. CELLITUES ON LLE IS DRY, CLEAN, INTACT. PT IS ON 6 L O2 AND TOLERATING WELL. WILL CONTINUE TO MONITOR. CALL LIGHT WITHIN REACH. FALL PRECAUTION.
[2020-07-31 10:22] LABS: HEMATOCRIT 32.7 % (37.0-47.0); HEMOGLOBIN 10.5 gm/dL (12.0-15.0); MCH 30.7 pg (26.0-34.0); MCV 95.8 fL (80.0-100.0); RBC 3.42 mil/uL (4.20-5.00); RDW 14.3 % (10.5-14.5); WBC 10.1 thou/uL (4.0-11.0)
[2020-07-31 10:37] LABS: CREATININE 0.9 mg/dL (0.6-1.0); POTASSIUM 3.4 mmol/L (3.5-5.1)
--- NOTE | 2020-07-31 15:19 | NUR ---
Pt with hip pain and ortho consult indicating pt will likely need a CHELSEY in the future once infection is clear. Continue PT/OT. 5N reevaling should pt be limited by tolerance they may suggest SNF as a plan B. Pt down for CT chest this afternoon due to coughing up blood. 5N to reassess tomorrow. Dc discharge planner to fax updates to [facility] as they may have a bed available Wednesday. Covid test yesterday was negative. Will follow.
[2020-07-31 15:51] VITALS: BP 113/51
[2020-07-31 15:55] LABS: APTT 29.2 Seconds (24.5-32.8)
--- NOTE | 2020-07-31 16:01 | NUR ---
FAXED CLINICAL UPDATE TO [facility] SPOKE WITH MAHIN IN ADM SHE RECEIVED UPDATE.
--- NOTE | 2020-07-31 19:27 | NUR ---
ASSUMED PT CARE AT 1915. PT OBSERVED PLAYING GAMES ON TABLET. PT IS CALM. GIVEN OXY FOR A 6/10 PAIN. PT REPORTS PAIN GETS WORSE AROUND HER RIB CAGE WHEN SHE COUGHS.LLE IS ELEVATED. NO FURTHER NEEDS AT THIS TIME.
[2020-07-31 20:30] VITALS: BP 116/56
--- NOTE | 2020-08-01 03:30 | NUR ---
PT IS ALERT AND ORIENTED.CONTINUES TO C/O OF ALOT OF PAIN TO LEFT HIP WELL RIBCAGE AREA SHE COUGHS. PT GETTING PRN AND SCHEDULED PAIN MEDS. PT IS ON / WITH CONTINOUS PULSE OX IN PLACE.LEFT LEG ELEVATED ON PILLOW. SOME DRAINAGE NOTED.PT IS AFEBRILE. DENIES ANY GI OR SYMPTOMS.SHE APPEARS TO BE RESTING QUIETLY AT THIS TIME.
[2020-08-01 08:55] VITALS: BP 115/55
--- NOTE | 2020-08-01 14:40 | NUR ---
ON-GOING ASSESSMENT: CM REVIEWED CHART AND SPOKE WITH ATTENDING WELL 5N LIASON. DUE TO PATIENTS HIP PAIN THEY ARE RECOMMENDING SNF FOR PATIENT. CM MET WITH PATIENT AND HER TO DISCUSS. THEY STATE UNDERSTANDING AND WANT TO TRY AND PROCEED WITH [facility]. CM NOTIFIED LIASON FROM [facility] THAT PT RECEIVES IGG SUBQ MEDICATION HIZENTRA 1GM/5ML VIAL 15GM SUBQ WEEKLY THAT NORMALLY FILLS AT [facility] ([phone]). DONOVAN CONTACTED LESLIE AT [facility] WHO REPORTS THEY CANNOT FILL THIS MEDICATION FOR PATIENT WHILE SHE IS INPATIENT AT A HOSPITAL OR FACILITY THAT IS BILLING MEDICARE BECAUSE THEY ALSO BILL MEDICARE AND TWO CANNOT BILL AT THE SAME TIME. LIASON FROM [facility] COUNT[facility] INCLUDE 234 BEDS AT THE [facility] TO SEE IF THEY WILL STILL BE ABLE TO ACCEPT PT ON THIS MEDICATION IT WILL COST THEM AROUND 650/WEEKLY. AWAITING TO HEAR BACK AT THIS TIME. PT REMAINS ON IV ANBX AND NEARING DISCHARGE GOALS TO SNF.
--- NOTE | 2020-08-01 15:23 | HC ---
[facility] [place] [address] CONSULTATION Name: RAVINDRA FORD Room #: 436-P ADM IN ..#: [id number] Admission: 07/24/20 Attend Phys: Reema Aragon Discharge: Date of : 55 Report #: [id number] THIS REPORT FOR: cc: Claudio Toscano MD, Rene P. MD Althoff, Jeffrey R. MD ~ DATE OF SERVICE: 07/24/2020 CHIEF COMPLAINT: Cellulitis of the left lower leg. HISTORY OF PRESENT ILLNESS: This is a 64-year-old female patient who was admitted to the hospital with a left lower leg swelling, redness and a diagnosis of cellulitis. I have been asked to see her with regard to wound care. She notes significant discomfort in the left leg. It is not quite sure how long it has been swollen and red. PAST MEDICAL HISTORY: Extensive. It is positive for previous L2-L5, L3-L4 kyphoplasty. She has had previous hysterectomy, cholecystectomy and tubal ligation. She has a history of congestive heart failure, irregular heart rhythm, asthma, ADD, depression, anxiety, COPD, bronchiectasis, anemia, immune deficiency, previous kidney stones, hypothyroidism, previous left knee arthroscopy. She has a history of bipolar disorder, depression, hypothyroidism, and previous pancreatitis and restless legs syndrome. SOCIAL HISTORY: The patient admits to occasional alcohol use. She is a former smoker. FAMILY HISTORY: Noncontributory. CURRENT MEDICATIONS: Include Hizentra, lorazepam, prednisone, loperamide, dextroamphetamine, Ajovy, digestive enzyme tablets, Centrum adult, ondansetron, Lactate, Synthroid, Flexeril, Benadryl, Effexor, Imitrex, Roxicodone, Ventolin inhaler, clotrimazole and Motrin. She uses oxygen on a chronic basis. ALLERGIES: INCLUDE ASPIRIN, CATGUT, LATEX, METRONIDAZOLE, ACETAMINOPHEN, ADHESIVES, LANOLIN, SINGULAIR, NAPROSYN, RED DYE, CHOCOLATE, METOCLOPRAMIDE, MOLD, PERFUMES, INCRUSE, BREO, FLUTICASONE, LACTOSE, AMOXICILLIN, FLUOXETINE, PETROLEUM JELLY, SERTRALINE, SULFA AND SPLENDA. REVIEW OF SYSTEMS: Somewhat limited and mostly covered by the history of present illness. CONSTITUTIONAL: The patient denies fever, chills or weight loss. ENT: The patient denies earache, nasal drainage, sore throat. CARDIOVASCULAR: The patient denies chest pain, palpitations or diaphoresis. PULMONARY: The patient denies cough or shortness of breath. [address] [address] CONSULTATION Name: RAVINDRA FORD Kamila Room #: 436-P [place] ..#: [id number] Admission: 07/24/20 Attend Phys: Reema Aragon Discharge: Date of : 55 Report #: [id number] GASTROINTESTINAL: The patient denies nausea, vomiting, diarrhea or abdominal pain. ORTHOPEDIC: The patient complains of significant pain, redness and swelling of her left lower extremity. Other systems are reviewed and are negative. PHYSICAL EXAMINATION: VITAL SIGNS: At this time include temperature 97.8, pulse 97, respiratory rate 11, blood pressure 103/58. GENERAL: This is a chronically ill-appearing female patient who appears to be in mild discomfort. HEENT: Head normocephalic. Nose and throat clear. NECK: Supple. LUNGS: Diminished. HEART: Irregular without murmurs. ABDOMEN: Soft, obese, nontender. EXTREMITIES: Lower extremities demonstrate the distal pulses are palpable. She has significant cellulitis involving the left foot and lower leg. There is significant swelling, redness, tenderness and warmth consistent with cellulitis. There are no breaks in the skin at this point in time, but there is some ecchymosis and a little bit of weeping. CLINICAL IMPRESSION: 1. Cellulitis of the left lower extremity. 2. Sepsis due to the cellulitis. 3. Chronic obstructive pulmonary disease. 4. Moderate protein-calorie malnutrition with albumin of 2.5. 5. Generalized debility. RECOMMENDATIONS: At this point in time, we will recommend elevation of the leg. Due to the severity of the cellulitis, we cannot provide compression to manage the edema as it would likely worsen the lymphangitis. We will check an arterial Doppler to make sure that she has adequate blood flow. Continue with intravenous antibiotics. We will continue to follow closely. I appreciate being asked to see her in consultation. <ELECTRONICALLY SIGNED> By: Adrian Begum MD 08/01/20 1523 [id number] [id number] Adrian Begum MD /nt
[2020-08-01 19:06] VITALS: BP 109/50
--- NOTE | 2020-08-02 03:09 | NUR ---
PT WAS OBSERVED WATCHING TV ON HER BED AT START OF SHIFT.PT C/O PAIN ON HER BACK,HEAD AND LEG,MANAGED WITH MED.DEMETRI TO HER LLE C/D/I,CHANGED THIS SHIFT BY AM NURSE.DR SORIANO HERE TO SEE PT.IV ABX ADMINISTERED ORDERED.PT SLEEPING ON HER BED AT THIS TIME.PT STILL ON 4L/NC.PT SLEEPING ON HER BED T THIS TIME.CALL LIGHT WITHIN REACH.
[2020-08-02 04:49] VITALS: BP 103/52
[2020-08-02 07:30] VITALS: BP 112/50
[2020-08-02 09:22] LABS: HEMATOCRIT 30.5 % (37.0-47.0); HEMOGLOBIN 9.4 gm/dL (12.0-15.0); MCH 30.3 pg (26.0-34.0); MCHC 30.7 g/dL (28.0-37.0); MCV 98.7 fL (80.0-100.0); PLATELET COUNT 325 thou/uL (150-400); RBC 3.09 mil/uL (4.20-5.00); RDW 15.1 % (10.5-14.5)
[2020-08-02 09:51] LABS: CALCIUM 9.4 mg/dL (8.5-10.1); CREATININE 0.8 mg/dL (0.6-1.0); POTASSIUM 4.5 mmol/L (3.5-5.1)
[2020-08-02 10:37] LABS: ABSOLUTE NEUTROPHILS 9.1 thou/uL (1.4-8.2); ANISOCYTOSIS 1+; METAMYELOCYTES 1 %
--- NOTE | 2020-08-02 12:06 | NUR ---
ASSUMED PT CARE THIS AM. PT COMPLAINS OF PAIN IN THE LEFT LOWER EXTREMITY. WOUND DRESSING CHANGED, PT HANDLED WELL. PT AMBULATORY TO THE BATHROOM. ON OXYGEN VIA NASAL CANNULA. PT FUSSY WITH STAFF, HAVING A HARD TIME UNDERSTANDING WHY SHE CANNOT GET PAIN MEDICATION EARLIER THAN SCHEDULED. IV PATENT. FALL PRECAUTIONS IN PLACE.
[2020-08-02 15:08] LABS: IgA 42 mg/dL (87-352); IgG 615 mg/dL (586-1602); IgM 60 mg/dL (26-217)
--- NOTE | 2020-08-02 15:23 | NUR ---
ON-GOING ASSESSMENT: CM REVIEWED CHART. [facility], [facility], [facility] HAVE ALL DECLINED REFERRAL DUE TO IGG MEDICATION AND THE COST OF IT. DONOVAN SPOKE WITH PT AND AND REFERRAL SENT TO [facility] STATING THEY WILL CHECK WITH HER ADMINISTRATION WHETHER THIS CAN BE APPROVED. SHE REPORTS SHE HAS SENT THEM THIS INFORMATION AND AWAITING A RESPONSE FROM CORPORATE SHE STATES. CM UPDATED PT AND . NO PLANS FOR WEEKEND DISCHARGE.
[2020-08-02 15:40] VITALS: BP 98/42
[2020-08-02 19:51] VITALS: BP 103/56
--- NOTE | 2020-08-02 23:45 | NUR ---
PT HAD AN EPISODE OF WATERY LOOSE STOOL.PT CONT ON SCHEDULED IMMODIUM.PT'S PAIN MANGED WITH MED.DRSG TO HER LLE REINFORCED BC IT WAS COMING APART.PER PT SHE HAS SKIN TEAR TO HER RFA AND LFA.DRSG ON THEM C/D/I.FENTNYL TRANSDERM PATCH TO HER UPPER L THIGH.PT CONT ON 4L/NC.PT RESTING ON HER BED AT THIS TIME.CALL LIGHT WITHIN REACH.
[2020-08-03 10:24] VITALS: BP 107/52
[2020-08-03 12:31] LABS: HEMATOCRIT 32.4 % (37.0-47.0); HEMOGLOBIN 10.2 gm/dL (12.0-15.0)
[2020-08-03 16:08] VITALS: BP 125/51
[2020-08-03 19:53] VITALS: BP 111/93
--- NOTE | 2020-08-04 00:54 | NUR ---
PT WAS OBSERVED SITTING UP BY THE SIDE OF HER BED WITH HER LEGS DANGLING,BLE STILL EDEMATOUS.PT WAS ENCOURAGED TO LAY BAACK IN BED SO TO ELEVATE HER LEGS.PT REFUSED.PT STATED THAT SHE WANTS TO SIT UP FOR SOMETIME.PT C/O PAIN,MANAGED WITH MED.PT NOT COMPLIANT WITH FALL PRECAUTIONS.PTGOT UP AND SAT BY HER BEDSIDE.ALARM WENT OFF.PT WAS ENCOURGAED TO CALL FOR ASSISTANCE WHEN SHE NEEDS TO GET OUT OF BED.DRSG TO HER LLE INTACT.PT ON 2L/NC.NO BM SO FAR.CALL LIGHT WITHIN REACH.
[2020-08-04 08:00] VITALS: BP 117/54
[2020-08-04 16:56] VITALS: BP 117/71
--- NOTE | 2020-08-04 19:19 | NUR ---
ORDERED SILVADENE CREAM WITH MORPHINE SULFATE WILL STAY AND PUT ON PATIENT FOR NOC SHIFT.
[2020-08-04 19:41] VITALS: BP 141/68
--- NOTE | 2020-08-05 04:00 | NUR ---
PT MOVING BETTER TO THE BSC. STILL REQUIRES PRN MEDICATIONS DUE TO LEFT GROIN PAIN WELL WELL BACK PAIN FROM ALL THE COUGHING. SHE IS ON TESSALON PERLES AND THE COUGHING WAS ALOT LESS LAST NOC. DRSG TO LLE INTACT.VOIDING OKAY.SLEPT WELL BETWEEN MIDNOC AND 0600.
--- NOTE | 2020-08-05 10:58 | NUR ---
SW reviewed chart and spoke with attending physician. Pt is progressing towards goals for discharge to post-acute care. Awaiting input from [facility]. SW met with pt and spouse at bedside to provide update. SW is following to assist as needed with discharge planning.
[2020-08-05 16:00] VITALS: BP 135/72
--- NOTE | 2020-08-05 16:20 | NUR ---
ASSUMED PT CARE THIS AM UPON TRANSFER FROM ANOTHER NURSE. PT HAS A CONGESTED COUGH. CALLS OUT WHEN NEEDED. RELUCTANT TO HAVE THE BED ALARM ON, BUT EXPLAINED IMPORTANCE OF IT TO PT. PAIN MANAGED WITH PAIN MEDS PER EMAR. FALL PRECAUTIONS IN PLACE. IV PATENT, MEDS TAKEN WELL.
[2020-08-05 19:24] VITALS: BP 130/68
--- NOTE | 2020-08-06 02:03 | NUR ---
ASSESSMENT COMPLETED. DRSG TO LLE INTACT. PT GETS UP TO THE BSC MORE EASILY. CONTINUES ON THE PRN AND SCHEDULED PAIN MEDS.INTERMITTENT NON PRODUCTIVE COUGH. AFEBRILE. ON WHILE SLEEPING.OBSERVED SLEEPING AT THIS TIME.CALL LIGHT WITHIN REACH.
[2020-08-06 07:40] VITALS: BP 135/74
--- NOTE | 2020-08-06 15:35 | NUR ---
CASE DISCUSSED WITH SPORTS LAWYER, AND [facility] WHO HAD MITZY REVIEW PT'S INFO FOR POSSIBLE ADMISSION & NOW THAT PT'S PAIN IS MORE CONTROLLED THEY THINK PT IS AT HER BASELINE & WILL NO LONGER QUALIFY FOR 5N. S/W PT'S AND RELAYED THIS TO HIM. HAS QUESTIONS RELATED TO WHEN PT WILL BE ABLE TO HAVE HER HIP SURGERY & HOW LONG PT NEEDS IV ABX. SHAAN HE IS SCHEDULED TO HAVE BACK SURGERY ON & WILL NOT BE ABLE TO ASSIST PT FOR 6 WEEKS AFTER THIS. RELAYED ALL OF THIS INFO TO DR SILVA WHO IS TRYING TO REACH DR SORIANO TO ANSWER THE QUESTIONS RETO ABX & TIMING OF HER HIP SURGERY. PT HAS HAD HH SERVICES IN THE PAST.
[2020-08-06 16:00] VITALS: BP 120/64
--- NOTE | 2020-08-06 19:21 | NUR ---
A/O, calm, cooperative and pleasant; complains pain in legs, pain medication given and worked.
[2020-08-06 19:27] VITALS: BP 143/83
[2020-08-06 20:33] LABS: URINE BILIRUBIN NEGATIVE (Negative); URINE BLOOD NEGATIVE (Negative); URINE CLARITY SL CLOUDY; URINE COLOR YELLOW; URINE GLUCOSE-RANDOM* 2+ (Negative); URINE KETONES NEGATIVE (Negative); URINE LEUKOCYTES NEGATIVE (Negative); URINE NITRITE NEGATIVE (Negative); URINE PROTEIN (DIPSTICK) NEGATIVE (Negative); URINE SPECIFIC GRAVITY 1.015 (1.005-1.035); URINE UROBILINOGEN 0.2 E.U./dl (0.2-1.0)
--- NOTE | 2020-08-07 03:46 | NUR ---
ASUMED PT CARE AT 1900.PT C/O PAIN ON HER LLE,MANAGED WITH MED.PT NOT COMPLIANT WITH FALL PRECAUTIONS.NEEDED CONSTANT REMINDER THIS SHIFT TO CALL FOR ASSISTANCE TO THE BSC.PT'S DRSG TO HER LLE WITH DRAINAGE,PT REF DRSG CHANGE.PT STATED THAT WOUND CARE NURSE TOLD HER THAT SHE WILL CHANGE IT IN THE AM.DRSG TO HER RUE AND LUE INTACT AND DRY.PT CONT ON 2L/NC.CALL LIGHT WITHIN REACH.
[2020-08-07 06:12] VITALS: BP 147/89
[2020-08-07 07:30] VITALS: BP 155/76
[2020-08-07] MEDS ORDERED: AMITRIPTYLINE H25 M2 PO (12:35)
[2020-08-07] MEDS ORDERED: LEVOTHYROXINE88 MCG PO (12:35)
[2020-08-07] MEDS ORDERED: PREDNISONE 20 M20 M1 PO (12:35)
[2020-08-07] MEDS ORDERED: IPRAT-ALBUT 0.5-3 ML INH (12:35)
[2020-08-07] MEDS ORDERED: GUAIFEN-CODEINE10 ML PO (12:35)
[2020-08-07] MEDS ORDERED: MOBIC15 MG PO (12:35)
[2020-08-07] MEDS ORDERED: PROTONIX 20 MG20 M1 PO (12:35)
[2020-08-07] MEDS ORDERED: GABAPENTIN 100100 MG PO (12:35)
[2020-08-07] MEDS ORDERED: LASIX 40 MG TAB40 M1 PO (12:35)
[2020-08-07] MEDS ORDERED: OXYCODONE HCL10 MG PO (12:35)
[2020-08-07] MEDS ORDERED: TRAMADOL 50 MG50 MG PO (12:35)
[2020-08-07] MEDS ORDERED: ROBAXIN 750 MG750 MG PO (12:35)
[2020-08-07 12:57] LABS: CREATININE 0.9 mg/dL (0.6-1.0)
[2020-08-07 12:59] VITALS: BP 155/76
--- NOTE | 2020-08-07 17:11 | NUR ---
S/W PT'S IN ROOM AND HE IS ASKING FOR A ROLLER WALKER HOSPITAL BED AND BSC. THEY HAVE A NEB AND O2 FROM [facility] ALREADY. EXPLAINED THAT IF THEY HAVE A BATHROOM ON MAIN LEVEL UNABLE TO GET A BSC. HE UNDERSTANDS HE CAN PURCHASE ONE AT [employer]. DC DENTAL LAB TECHNICIAN FAXED SCRIPTS & DOCUMENTATION TO [facility] TO OBTAIN HOSPITAL BED & ROLLER WALKER. S/W DINO FROM [facility] TO ALERT OF THE NEED. DC DENTAL LAB TECHNICIAN FAXED REFERRAL TO [facility]. PT/SPOUSE OFFERED OPTIONS & THEY CHOSE [facility]. STILL AWAITIN ABX REC FROM DR SOIRANO PER DR SILVA.
--- NOTE | 2020-08-07 17:21 | NUR ---
JUST LEARNED THAT ID DR WANTS PT TO HAVE 24HR MORE OF IV ABX SO PLAN FOR DC TOMORROW. S/W DINO FROM [facility] WILL BE DELIVERED IN THE AM. DC WINCH OPERATOR WILL NOTIFY IRMA PUENTES OF DC TOMORROW.
[2020-08-07] MEDS ORDERED: CEFDINIR300 MG PO (18:38)
--- NOTE | 2020-08-07 19:24 | NUR ---
PATIENT HAS BEEN IN BED AND UP ON SIDE OF BED. PRN MEDS GIVEN EVERY 4 HOURS AND SIX HOURS. APPETITE GOOD. PT TO HAVE WALKER DELIEVERED AND DR SORIANO TO DECIDE IF ABT FOR HOME IS TO BE PO OR IV
--- NOTE | 2020-08-07 20:04 | NUR ---
PATIENT HAD 2 BORDERED FOAMS TO RIGHT AND LEFT FOREARMS WAS DCD WOUND CARE DOCTOR STATES TO KEEP OPEN TO AIR.
[2020-08-07 21:34] VITALS: BP 129/76
--- NOTE | 2020-08-08 01:04 | NUR ---
ASSUMED PT CARE AT 1900.PT'S PAIN MANAGED WITH MED.SKIN TEAR TO BUE HEALING,OPEN TO AIR.DRSG TO HER LLE DRY AND INTACT NO DRAINAGE NOTED.PT CONT ON 2L/NC AT HS WAS ON RA AT START OF SHIFT.PT STILL RECEIVING RT TX.PT STILL HAVE NON PRODUCTIVE COUGH,PRN MED GIVEN PER PT'S REQUEST.PT LOOKING FORWARD TO BE DC LATER IN THE DAY.CALL LIGHT WITHIN REACH.
[2020-08-08 07:20] VITALS: BP 116/52
--- NOTE | 2020-08-08 10:05 | NUR ---
Nutrition: Pt seen for LOS. Admitted with cellulitis, sepsis. Lives with spouse. Pt with good appetite, eating 85-100% of meals. Ensure enlive ordered once per day. Wt stable over past week. Pt remains low nutritional risk with current interventions.
--- NOTE | 2020-08-08 10:51 | NUR ---
DISCHARGE PAPERS REVIEWED SIGNED AND COPY IN CHART, TX TO LEFT LE DONE BEFORE DC. IV ACSESS DCD. PRN PAIN MED XS 2 GIVEN. HERE TO TRANSPORT PATIENT FOR DISCHARGE.
[2020-08-08 11:34] VITALS: BP 155/76
--- NOTE | 2020-08-08 11:41 | NUR ---
HOME MEDS SENT HOME WITH PATIENT.
--- NOTE | 2020-08-08 14:41 | NUR ---
PT DISCHARGED PLANNED, IRMA PUENTES ALERTED OF DC TODAY BY DC PHARMACY ASSOCIATE.
--- NOTE | 2020-08-09 09:28 | NUR ---
DC ORDERS/SUMMARY FAXED TO [facility] RECEIVED CONFIRMATION AND SPOKE WITH EVELYNE IN INTAKE THEY WILL ARRANGE VISITS WITH PT.
== END 2020-08-08 11:52 | disposition home health service (06) | DRG 871 ==
LOC: ER 03:42 → EROBS 05:25 → 4S 05:25
PROVIDERS: Emergency Medicine; Hospitalist; Internal Medicine Pulmonary Disease; Nurse Practitioner; Psychiatry & Neurology Neurology; Specialist; ADMIT Hospitalist; ATTEND Hospitalist
PROC: 5A0945A Assistance with Respiratory Ventilation, 24-96 Consecutive Hours, High Flow/Velocity Cannula (ICD-10-PCS; principal; 2020-07-31)
PROC: 5A0935A Assistance with Respiratory Ventilation, Less than 24 Consecutive Hours, High Flow/Velocity Cannula (ICD-10-PCS; 2020-08-02)
DX: A41.9 Sepsis, unspecified organism (principal); E43 Unspecified severe protein-calorie malnutrition; J18.0 Bronchopneumonia, unspecified organism; N17.9 Acute kidney failure, unspecified; L03.116 Cellulitis of left lower limb; A04.71 Enterocolitis due to Clostridium difficile, recurrent; D83.9 Common variable immunodeficiency, unspecified; M87.88 Other osteonecrosis, other site; R04.2 Hemoptysis; J96.11 Chronic respiratory failure with hypoxia; Z20.822 Contact with and (suspected) exposure to COVID-19; I50.9 Heart failure, unspecified; J45.909 Unspecified asthma, uncomplicated; F32.9 Major depressive disorder, single episode, unspecified; F41.9 Anxiety disorder, unspecified; J43.9 Emphysema, unspecified; I25.10 Atherosclerotic heart disease of native coronary artery without angina pectoris; E03.9 Hypothyroidism, unspecified; G25.81 Restless legs syndrome; F22 Delusional disorders; Z66 Do not resuscitate; G89.29 Other chronic pain; E55.9 Vitamin D deficiency, unspecified; M25.552 Pain in left hip; M81.0 Age-related osteoporosis without current pathological fracture; J22 Unspecified acute lower respiratory infection; G20 Parkinson's disease; S51.811A Laceration without foreign body of right forearm, initial encounter; S51.812A Laceration without foreign body of left forearm, initial encounter; X58.XXXA Exposure to other specified factors, initial encounter; Z90.710 Acquired absence of both cervix and uterus; Z90.49 Acquired absence of other specified parts of digestive tract; Z87.442 Personal history of urinary calculi; Z82.49 Family history of ischemic heart disease and other diseases of the circulatory system; Z88.2 Allergy status to sulfonamides; Z88.8 Allergy status to other drugs, medicaments and biological substances; Z88.6 Allergy status to analgesic agent; Z88.1 Allergy status to other antibiotic agents; Z91.040 Latex allergy status; Z87.891 Personal history of nicotine dependence; Z79.52 Long term (current) use of systemic steroids; Z80.6 Family history of leukemia; Y93.89 Activity, other specified; Y92.89 Other specified places as the place of occurrence of the external cause; Y99.8 Other external cause status; Z68.29 Body mass index [BMI] 29.0-29.9, adult
CPT/HCPCS: 10102

== ENCOUNTER → 2020-08-21 | Outpatient (CLI) | payer OTHER ==
[~2020-08-21] MED LIST changes: +ADIPEX-P37.5 MG PO; +AMITRIPTYLINE H25 M2 PO; +GABAPENTIN 100100 MG PO; +GUAIFEN-CODEINE10 ML PO; +IPRAT-ALBUT 0.5-3 ML INH; +LASIX 40 MG TAB40 M1 PO; +LEVOTHYROXINE88 MCG PO; +MOBIC15 MG PO; +ONDANSETRON ODT4 MG PO; +PHENTERMINE H37.5 MG PO; +PREGABALIN75 MG PO; +PROTONIX 20 MG20 M1 PO; +ROBAXIN 750 MG750 MG PO; +TOPAMAX100 MG PO
== END ==
LOC: HYPER 10:34
PROVIDERS: ATTEND Emergency Medicine
DX: I87.313 Chronic venous hypertension (idiopathic) with ulcer of bilateral lower extremity (principal); L97.421 Non-pressure chronic ulcer of left heel and midfoot limited to breakdown of skin; L97.321 Non-pressure chronic ulcer of left ankle limited to breakdown of skin; L97.821 Non-pressure chronic ulcer of other part of left lower leg limited to breakdown of skin; L97.811 Non-pressure chronic ulcer of other part of right lower leg limited to breakdown of skin; L97.121 Non-pressure chronic ulcer of left thigh limited to breakdown of skin; L98.491 Non-pressure chronic ulcer of skin of other sites limited to breakdown of skin; S40.861A Insect bite (nonvenomous) of right upper arm, initial encounter; S40.862A Insect bite (nonvenomous) of left upper arm, initial encounter; B88.9 Infestation, unspecified; E66.9 Obesity, unspecified; E03.9 Hypothyroidism, unspecified; G25.81 Restless legs syndrome; I25.10 Atherosclerotic heart disease of native coronary artery without angina pectoris; J43.9 Emphysema, unspecified; K21.9 Gastro-esophageal reflux disease without esophagitis; K22.70 Barrett's esophagus without dysplasia; M54.5 Low back pain; F31.9 Bipolar disorder, unspecified; F41.9 Anxiety disorder, unspecified; Z87.891 Personal history of nicotine dependence; Z68.28 Body mass index [BMI] 28.0-28.9, adult; X58.XXXA Exposure to other specified factors, initial encounter; Y93.89 Activity, other specified; Y92.89 Other specified places as the place of occurrence of the external cause; Y99.8 Other external cause status

== ENCOUNTER → 2020-09-04 | Outpatient (CLI) | payer OTHER | LOC: HYPER 13:40 | PROVIDERS: ATTEND Emergency Medicine | DX: I87.313 Chronic venous hypertension (idiopathic) with ulcer of bilateral lower extremity (principal); L97.422 Non-pressure chronic ulcer of left heel and midfoot with fat layer exposed; L97.322 Non-pressure chronic ulcer of left ankle with fat layer exposed; L97.821 Non-pressure chronic ulcer of other part of left lower leg limited to breakdown of skin; L97.812 Non-pressure chronic ulcer of other part of right lower leg with fat layer exposed; L98.492 Non-pressure chronic ulcer of skin of other sites with fat layer exposed; S40.861D Insect bite (nonvenomous) of right upper arm, subsequent encounter; S40.862D Insect bite (nonvenomous) of left upper arm, subsequent encounter; B88.9 Infestation, unspecified; E66.9 Obesity, unspecified; E03.9 Hypothyroidism, unspecified; G25.81 Restless legs syndrome; I25.10 Atherosclerotic heart disease of native coronary artery without angina pectoris; J43.9 Emphysema, unspecified; K21.9 Gastro-esophageal reflux disease without esophagitis; K22.70 Barrett's esophagus without dysplasia; M54.5 Low back pain; F31.9 Bipolar disorder, unspecified; F41.9 Anxiety disorder, unspecified; Z87.891 Personal history of nicotine dependence; Z68.28 Body mass index [BMI] 28.0-28.9, adult; X58.XXXD Exposure to other specified factors, subsequent encounter ==

== ENCOUNTER 2020-09-08 18:49 | Inpatient (IN) | payer OTHER ==
[~2020-09-08] VITALS: Ht 162.6 cm; Wt 82.6 kg
[2020-09-08 18:50] VITALS: BP 149/82
[2020-09-08] MEDS ORDERED: LEVO-T100 MCG PO (19:15)
[2020-09-08] MEDS ORDERED: LORAZEPAM 1 MG T1 MG PO (19:16)
[2020-09-08] MEDS ORDERED: DIFLUCAN150 M1 PO (19:16)
[2020-09-08] MEDS ORDERED: AMPHETAMINE SAL30 MG PO (19:16)
[2020-09-08] MEDS ORDERED: HIZENTRA10 GM/50 M SUBQ (19:17)
[2020-09-08] MEDS ORDERED: EFFER-K 20 MEQ20 ME1 PO (19:17)
[2020-09-08] MEDS ORDERED: SUDAFED 12-HOU120 MG PO (19:18)
[2020-09-08] MEDS ORDERED: ABILIFY 2 MG2 M1 PO (19:18)
[2020-09-08 20:57] LABS: BASOPHILS 0.5 % (0.0-2.0); HEMATOCRIT 31.9 % (37.0-47.0); HEMOGLOBIN 10.6 gm/dL (12.0-15.0); LYMPHOCYTES 7.2 % (24.0-44.0); MCH 29.9 pg (26.0-34.0); MCHC 33.2 g/dL (28.0-37.0); MCV 90.2 fL (80.0-100.0); MONOCYTES 2.8 % (1.0-8.0); PLATELET COUNT 205 thou/uL (150-400); POLYS 89.5 % (36.0-66.0); RBC 3.54 mil/uL (4.20-5.00); RDW 16.2 % (10.5-14.5); WBC 10.1 thou/uL (4.0-11.0)
[2020-09-08 21:05] LABS: ANION GAP 9 mmol/L (7-16); BUN 43 mg/dL (7-18); CALCIUM 8.8 mg/dL (8.5-10.1); CHLORIDE 99 mmol/L (98-107); CO2 24 mmol/L (21-32); CREATININE 0.9 mg/dL (0.6-1.0); GLUCOSE 306 mg/dL (74-106); POTASSIUM 3.9 mmol/L (3.5-5.1); SODIUM 132 mmol/L (136-145)
[2020-09-08 21:15] LABS: ALBUMIN 2.9 g/dL (3.4-5.0); SGOT 20 U/L (15-37); SGPT 44 U/L (14-59); TOTAL BILIRUBIN 0.2 mg/dL (0.2-1.0); TOTAL PROTEIN 6.4 g/dL (6.4-8.2); TROPONIN-I <0.06 ng/mL (<0.06)
[2020-09-08 21:56] LABS: URINE BILIRUBIN NEGATIVE (Negative); URINE BLOOD 1+ (Negative); URINE CLARITY CLEAR; URINE COLOR YELLOW; URINE GLUCOSE-RANDOM* 3+ (Negative); URINE KETONES NEGATIVE (Negative); URINE LEUKOCYTES-REFLEX NEGATIVE (Negative); URINE PROTEIN (DIPSTICK) NEGATIVE (Negative); URINE UROBILINOGEN 0.2 E.U./dl (0.2-1.0)
[2020-09-08 22:00] LABS: URINE NITRITE-REFLEX POSITIVE (Negative)
[2020-09-08 22:03] LABS: CASTS None Seen /LPF (None Seen); SQUAMOUS 0-3 Few /LPF (0-3)
[2020-09-08 22:04] LABS: BACTERIA-REFLEX >30 Many /HPF (None Seen); CRYSTALS None Seen /LPF (None Seen); URINE RBC 0-2 Rare /HPF (0-2); URINE WBC-REFLEX 6-15 Few /HPF (0-5)
[2020-09-09] MEDS ORDERED: LEVOTHYROXINE88 MC1 PO (01:38)
[2020-09-09 05:14] LABS: HEMOGLOBIN 10.7 gm/dL (12.0-15.0); MCH 29.6 pg (26.0-34.0); MCHC 32.5 g/dL (28.0-37.0); RBC 3.62 mil/uL (4.20-5.00); RDW 16.2 % (10.5-14.5); WBC 8.6 thou/uL (4.0-11.0)
[2020-09-09 06:01] LABS: CALCIUM 8.5 mg/dL (8.5-10.1); CREATININE 0.8 mg/dL (0.6-1.0); POTASSIUM 3.8 mmol/L (3.5-5.1)
--- NOTE | 2020-09-09 07:15 | NUR ---
Isrrael [phone] , called for an update
--- NOTE | 2020-09-09 07:17 | EKG ---
[address] 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 : 1955 Requested By: Laury Donohue Order Number: [id number] MD: Jesus Manuel Paulino Measurements Intervals [place] Rate: 90 P: 58 MT: 135 QRS: 30 QRSD: 79 T: 67 QT: 352 QTc: 431 Interpretive Statements Sinus rhythm Atrial premature complex Probable left atrial enlargement Abnormal R-wave progression, early transition Compared to ECG 07/24/2020 04:00:29 Atrial premature complex(es) now present ST (T wave) deviation no longer present Electronically Signed On 09-09-2020 7:17:01 [employer] by Jesus Manuel Paulino [email or web address] <ELECTRONICALLY SIGNED> By: Jesus Manuel Paulino MD, [facility] 09/09/20 0717 09 09 Jesus Manuel Paulino MD, [facility] /EPI
[2020-09-09 07:43] VITALS: BP 170/97
--- NOTE | 2020-09-09 08:45 | NUR ---
PT FOUND SITTING ON THE FLOOR CRYING. PER SPOUSE, PT WAS ATTEMPTING TO GET ON THE BEDSIDE COMMODE BY SELF BUT SLIDDED UNTO THE FLOOR. PT DENIES HITTING HEAD OR BACK ON FLOOR/ANY SURFACE BUT REPORTS BACK PAIN WHICH SHE STATES SHE'S HAD A LONG TIME. SKIN ASSESSMENT DONE, ABRASION NOTED TO L HAND, NO ACTIVE BLEEDING. VSS HR 96, R 15 SP02 96% RA, BP 148/81. PT ASSISTED BACK TO BED BY ER STAFF, DR MENESES MADE AWARE.
[2020-09-09 14:20] VITALS: BP 170/97
[2020-09-09 14:51] VITALS: BP 162/82
[2020-09-09 15:25] VITALS: BP 151/85
--- NOTE | 2020-09-09 18:10 | NUR ---
ASSUMED PT CARE UPON TRANSFER FROM ED. ADMISSION COMPLETED. WOUND PICTURES TAKEN OF BOTH LOWER AND UPPER EXTREMETIES AND NOSE. PATIENT REPORTING GENERALIZED PAIN, RESPONDING WELL TO PAIN MEDS GIVEN PER EMAR. IV STARTED IN THE RIGHT UPPER ARM BY IV NURSE. PT WEAK, FALL PRECAUTIONS IN [place]. CALLING WHEN NEEDED. ON ROOM AIR. AT BEDSIDE.
--- NOTE | 2020-09-09 19:05 | NUR ---
4FRSLPICC PLACED MINDY FOR VANCO FOR UTI AND CHRONIC WOUNDS. PEAKED PWAVE WITH ECG CAPTURED AND LINE RELEASED TO THE RN FOR USE,
[2020-09-09 23:19] VITALS: BP 185/99
--- NOTE | 2020-09-10 04:17 | NUR ---
RECIEVED CARE OF THIS PATIENT AT 1900. PATIENT ALERT AND ORIENTED X4. C/O PAIN, MED GIVEN WHEN TIME. WHEN AWAKE CRIES OUT IN PAIN. FALLS ASLEEP QUICKLY. [facility]. REMAINS ON BEDREST. ACCUCHECK WAS 263, RECIEVED 6UNITS LISPRO INSULIN. HAS MULTIPLE WOUNDS. SLEPT MOST OF NIGHT.
[2020-09-10 06:59] LABS: HEMATOCRIT 32.2 % (37.0-47.0); HEMOGLOBIN 10.5 gm/dL (12.0-15.0); MCHC 32.6 g/dL (28.0-37.0); RBC 3.51 mil/uL (4.20-5.00); RDW 16.8 % (10.5-14.5); WBC 8.7 thou/uL (4.0-11.0)
[2020-09-10 07:12] LABS: CREATININE 0.6 mg/dL (0.6-1.0); POTASSIUM 3.7 mmol/L (3.5-5.1)
[2020-09-10 07:45] VITALS: BP 171/85
--- NOTE | 2020-09-10 10:07 | NUR ---
assessment: CM REVIEWED CHART AND MET WITH PATIENT AT THE BEDSIDE. PT WAS ADMITTED DUE TO UTI/WEAKNESS. PT ALSO HAS BLE ULCERS AND CONSULT PLACED FOR WOUNDCARE PATIENT SEES DR. LONG. PT IS CURRENTLY ON IV ANBX. PT ADMITS FROM HOME WHERE SHE LIVES WITH HER . PT HAS TWO STEPS TO ENTER AND NO STEPS SHE HAS TO USE ONCE INSIDE. PT HAS A HOSPITAL BED AT HOME, WALKER, NEBULIZER, WELL OXYGEN AT HOME. PT REPORTS BEING ON 2-4L DURING THE DAY AND ABOUT 6L AT BEDTIME. PT STATES SHE IS CURRENTLY IN SERVICES WITH [facility] AND IS VERY HAPPY WITH THEM. PT IS HOPEFUL SHE WILL BE ABLE TO RETURN HOME WITH HER AND [facility] SERVICES. CM WILL CONTINUE TO FOLLOW TO ASSIST NEEDED.
--- NOTE | 2020-09-10 11:39 | NUR ---
Assumed care of pt at 0700. Pt a&ox4. C/o generalized pain. Prn pain meds administered. Wound dressings changed according to dr's orders. IVF and IV antibiotcs infusing. Family at bedside. Call light within reach. Fall precautions in place. Will continue to monitor.
--- NOTE | 2020-09-10 15:51 | HC ---
[facility] [place] [address] CONSULTATION Name: RAVINDRA FORD Room #: 436-[facility]#: [id number] Admission: 09/08/20 Attend Phys: Lidia Dubois MD Discharge: Date of : 55 Report #: [id number] THIS REPORT FOR: cc: Claudio Toscano MD, Rene P. MD Stephens, Thad A. MD ~ DATE OF SERVICE: 09/10/2020 WOUND CARE CONSULTATION PERSONAL PHYSICIAN: Claudio Toscano MD CHIEF COMPLAINT: Multiple ulcerations. HISTORY OF PRESENT ILLNESS: This is a 65-year-old white female who I have been following as an outpatient for ulcerations on right forearm, bilateral lower extremities and left dorsal foot. These were secondary to cellulitis. The patient now has been admitted for generalized weakness. While here, we have been asked to see the patient for her wound care. The patient currently has been using morphine, Silvadene cream to the sites, which she said helps with the pain. The patient was also set up as an outpatient to get surgical debridement of the left dorsal foot with Dr. Kumar. The patient is also being followed by Dr. Basil Naylor for Infectious Disease. PAST MEDICAL HISTORY: Significant for lumbar compression fractures with status post kyphoplasty, hysterectomy, cholecystectomy, asthma, bipolar disease, immunodeficiency, coronary artery disease, recent cellulitis. CURRENT MEDICATIONS: Multiple, I reviewed the patient's medication list. DRUG ALLERGIES: SULFA AND ASPIRIN. SOCIAL HISTORY: The patient has a history of tobacco use, but quit greater than a year ago. Drinks alcohol socially. FAMILY HISTORY: Not pertinent to current medical condition. REVIEW OF SYSTEMS: CONSTITUTIONAL: The patient denies fevers or chills. NEUROLOGIC: The patient complains of generalized weakness, but no isolated weakness in arms or legs. EYES: No complaints. ENT: No complaints. CARDIAC: The patient denies chest pain or palpitations. Does have chronic peripheral edema. [facility] [address] [place] [address] CONSULTATION Name: RAVINDRA FORD Room #: [address] [place] [address]..#: [id number] Admission: 09/08/20 Attend Phys: Lidia Dubois MD Discharge: Date of : 55 Report #: [id number] RESPIRATORY: The patient denies shortness of breath, cough or wheezes. GASTROINTESTINAL: The patient denies nausea, vomiting or abdominal pain. GENITOURINARY: The patient denies urgency or frequency. MUSCULOSKELETAL: The patient has chronic low back pain with previous kyphoplasties. SKIN: There are multiple open wounds involving her right forearm, bilateral pretibial regions in the left dorsal foot. PHYSICAL EXAMINATION: VITAL SIGNS: Stable. The patient is afebrile. GENERAL: This is an alert and oriented x 3, pleasant white female who is in no obvious distress. HEENT: Normocephalic, atraumatic. Mucous membranes are somewhat dry. Pupils are round. Sclerae white. NECK: Without JVD. LUNGS: Slightly diminished breath sounds heard throughout. HEART: Regular. ABDOMEN: Obese, soft, nontender. EXTREMITIES: Evaluation of extremities reveals an open wound full-thickness to the right dorsal lateral forearm. It is clean and granulating. There is mild bloody discharge without odor. There is circumferential undermining of approximately 1 cm. Distal pulses are intact. Evaluation of right pretibial area reveals an open wound, which is clean and granulating, full-thickness. Distal pulses are intact. Evaluation of the left dorsal foot reveals a full-thickness wound, which is nearly 100% slough covered. Bilateral heels are intact. NEUROLOGIC: Cranial nerves 2-12 are grossly intact. Motor and sensory grossly intact. LABORATORY DATA: White count 8.7, hemoglobin 10.5. Sed rate 16. BUN 29, creatinine 0.6, albumin 2.9. IMPRESSION: 1. Chronic ulceration, dorsal aspect of left foot full-thickness secondary to cellulitis. 2. Chronic ulceration, right forearm full-thickness secondary to cellulitis. 3. Chronic ulceration, right pretibial region full-thickness secondary to cellulitis. 4. Generalized weakness with debility. 5. Moderate protein-calorie malnutrition, albumin 2.9. 6. Diabetes mellitus. PLAN: We will start morphine, Silvadene cream to all the open wounds, cover with Xeroform, ABD and change twice daily. I have consulted Dr. Kumar for evaluation of the left dorsal foot and probable Misonix debridement in the [address] [place] [address] CONSULTATION Name: RAVINDRA FORD Kamila Room #: [address] [place] [address] Sintia Dickens#: [id number] Admission: 09/08/20 Attend Phys: Lidia Dubois MD Discharge: Date of : 55 Report #: [id number] operating room. Make sure we maximize the patient's oral protein supplementation for continued healing. We will continue all other current medications at this time. <ELECTRONICALLY SIGNED> By: Tony Eranndez MD 09/10/20 1551 [id number] [id number] Tony Ernandez MD /nt
[2020-09-10 16:10] VITALS: BP 139/87
[2020-09-10 16:15] VITALS: BP 101/53
--- NOTE | 2020-09-10 21:40 | HC ---
[facility] [place] [address] CONSULTATION Name: RAVINDRA FORD Room #: 436-[facility] IN ..#: [id number] Admission: 09/10/20 Attend Phys: Lidia Dubois MD Discharge: Date of : 55 Report #: [id number] THIS REPORT FOR: cc: Claudio Toscano MD, Rene P. MD Geha, Daniel J. MD ~ DATE OF SERVICE: 09/09/2020 INFECTIOUS DISEASE CONSULTATION REASON FOR CONSULTATION: I was asked to evaluate concerning extensive left foot wound and possible urinary tract infection with generalized weakness. HISTORY OF PRESENT ILLNESS: The patient is a 65-year-old known to me from multiple hospital admissions over the years as well as last visit a month ago where she was treated with lower extremity cellulitis, venous stasis disease and wound to her left foot. She improved over several day hospital stay and was discharged on cefdinir. She did complete this. Her birthday was this past week and she celebrated with her friends. Stated she ate more sweets than normal and some alcohol. Over the last 2 days, she has had progressive weakness, fatigue and she fell uninjured, prior to her hospitalization yesterday where she was brought into the Emergency Room by EMS. She did not lose consciousness. No chest pain or palpitations. No seizure activity. No unilateral weakness. She was started on ceftriaxone, given IV fluids and has improved over the last 24 hours. Unclear how much narcotics she was taking. She has had no nausea, vomiting or diarrhea. She did report dysuria with hot urine without blood or mucus. No back or flank pain different from her typical back pain. She did have imaging studies, which showed compression fractures involving T9 and T12. She has had previous kyphoplasties, mostly involving the lumbar spine. REVIEW OF SYSTEMS: A 14-point review of system was negative other than what has been described above. ALLERGIES: As noted on her MAR, which were multiple including ASPIRIN, LATEX, CATGUT, METRONIDAZOLE, TYLENOL, ADHESIVE TAPE, LANOLIN, SINGULAIR, NAPROSYN, RED DYE, CHOCOLATE, METOCLOPRAMIDE, MOLD, PERFUMES, INCRUSE ELLIPTA, BREO ELLIPTA, LACTOSE, AMOXICILLIN, FLUOXETINE, PETROLEUM JELLY, ZOLOFT, SULFA AND SPLENDA. MEDICATIONS: As noted on her MAR. PAST MEDICAL HISTORY, FAMILY HISTORY AND SOCIAL HISTORY: Unchanged from previous consultation and that of her history and physical. PHYSICAL EXAMINATION: VITAL SIGNS: Afebrile and hemodynamically stable. [address] [address] CONSULTATION Name: RAVINDRA FORD Room #: 436-[facility] IN ..#: [id number] Admission: 09/10/20 Attend Phys: Lidia Dubois MD Discharge: Date of : 55 Report #: [id number] GENERAL: She was alert and cooperative and pleasant, in no acute distress. SKIN: With multiple scars throughout her body. She has small healing wound to her left forearm. The left foot wound was extensive with denuded skin across the dorsum of her foot laterally. No palpable adenopathy. HEENT: Eyes without scleral icterus. Nose was deformed with an area of significant skin loss to the ridge of her nose right greater than left. MOUTH: Without mucositis. NECK: Supple. LUNGS: Clear. HEART: Regular, without murmur. ABDOMEN: Mildly distended, tender in the epigastric and mid abdomen without appreciable mass. No CVA tenderness. EXTREMITIES: With 1+ edema in the lower extremities. NEUROLOGIC: Cranial nerves intact. Strength in the upper and lower extremities was symmetric and within normal limits. Sensation is intact. LABORATORY STUDIES: Reviewed. MICROBIOLOGY: Reviewed. Chest x-ray reviewed. X-rays of her spine reviewed. IMPRESSION: A 65-year-old presents with sepsis versus encephalopathy due to drug effect with generalized weakness with a non-injury fall. She has self-mutilation issues with recurring skin and soft tissue ulcerations and infections. Her right foot now is most extensive wound that she has. Possible urinary tract infection, although she has bacteriuria. She has only had mild pyuria. 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 She has underlying asthma, diabetes, hypothyroidism and anxiety. RECOMMENDATIONS: We will continue with current antibiotics with ceftriaxone. Continue with wound care. She will need further debridement of her left foot. Await urine culture results and have a PICC line placed. She will need pain management and attempt to avoid lethargy. <ELECTRONICALLY SIGNED> By: Basil Naylor MD 09/10/20 [id number] Basil Naylor MD /nt
[2020-09-11 03:15] VITALS: BP 161/78
--- NOTE | 2020-09-11 07:36 | NUR ---
RECIEVED CARE OF THIS PATIENT AT 1900. PATIENT ALERT AND ORIENTED X4. C/O PAIN, MED GIVEN. HAS MUSCLE RELAXER THAT DOES BEST FOR HER. HAS MULTIPLE WOUNDS, REFUSED DRESSING CHANGES D/T THEY WERE DONE LATE ON DAYS. ACCUCHECK WAS 224, RECIEVED 4UNITS OF LISPRO INSULIN. SLEPT OFF AND ON DURING NIGHT.
[2020-09-11 08:30] VITALS: BP 155/101
--- NOTE | 2020-09-11 09:49 | NUR ---
Note Given: Y Facility List Provided:Y Yonis Ramsey: None Selected
[2020-09-11] MEDS ORDERED: PREGABALIN75 MG PO (11:41)
[2020-09-11 15:14] VITALS: BP 140/77
--- NOTE | 2020-09-11 17:08 | NUR ---
PT CARE ASSUMED AT 0700. A&Ox4. WOUND DRESSING CHANGED, PICTURES TAKEN. MRI TOMORROW, PT REQUESTING SOMETHING FOR HER ANXIETY. PSYCH CONSULT CALLED. PAIN MEDICATION GIVEN. ACHS WITH MODERATE SLIDING SCALE. LOW AIRLOSS PUMP IN PLACE. PICC LINE IN PLACE, FLUSHES AND DRAWS WELL. PT ENCOURAGED AGAIN TO STAY OFF OF O2 SINCE SHE IS SATING ON 97% ON RA. PT HAS A VERY NERVOUSE NATURE. USES THE BEDPAN. FALL PROTOCOL IN PLACE. CALL LIGHT IN REACH. WILL CONTINUE TO MONITOR.
[2020-09-11 20:44] VITALS: BP 130/72
--- NOTE | 2020-09-12 04:15 | NUR ---
Pt. very irritable and unpleasant while assisting to reposition on bed , screaming and crying. After repositioning scheduled meds given and also requested for prn pain med. Tolerating room air well with O2 sat in the mid to upper 90's then once she started sleeping RT put her on 6L/NC. Wound care done. She informed RT not to wake her up for breathing tx as she is tired and just wants to sleep. Used bedpan for toileting needs. Bed alarm on for safety. She slept well during the night. Aware she's having MRI done today.
[2020-09-12 05:38] VITALS: BP 133/72
--- NOTE | 2020-09-12 05:51 | NUR ---
Pt. woke up this am and has been pleasant and cooperative. Requested for her prn pain med , muscle relaxant and other scheduled am meds. Provided bedpan to void and has been repositioned for comfort.
[2020-09-12 07:32] VITALS: BP 150/78
--- NOTE | 2020-09-12 13:40 | NUR ---
on-going assessment: CM REVIEWED CHART AND SPOKE WITH ATTENDING. PT IS GETTING MRI. PT MAY NEED POSSIBLE KYPHOPLASTY PENDING THE RESULTS. PT REMAINS ON IV ANBX AND MAY ALSO NEED DEBRIDEMENT. WOUND CARE IS FOLLOWING WELL ID. CM WILL CONTINUE TO FOLLOW TO ASSIST NEEDED.
[2020-09-12 16:00] VITALS: BP 129/69
--- NOTE | 2020-09-12 16:42 | NUR ---
PT A&OX4, VSS, PAIN BACK AND ABDOMEN. AT BEDSIDE. TWO ATTEMPTS FOR MRI MADE TODAY AND PATIENT STATED SHE WAS IN TOO MUCH PAIN TO STAY FLAT. PATIENT WAS PREMEDICATED BEFORE GOING. PATIENT HAS BEEN ON ROOM AIR. NO SIGNS OF DISTRESS. WILL CONTINUE TO [facility].
[2020-09-12 19:31] VITALS: BP 119/71
[2020-09-13] VITALS (7 sets, daily range): BP systolic 125–153; BP diastolic 64–89
--- NOTE | 2020-09-13 04:13 | NUR ---
RECIEVED CARE OF THIS PATIENT AT 1900. PATIENT IS ALERT AND ORIENTED X4. HAS MULTIPLE WOUNDS. C/O PAIN MAINLY IN BACK AND ABD. PAIN MED GIVEN.REMAINS ON BEDREST. USES BEDPAN. HAS SINGLE LUMAN PICC IN [facility]. SLEPT MOST OF NIGHT.
[2020-09-13 10:02] LABS: PROTIME 9.5 Seconds (9.3-11.4)
--- NOTE | 2020-09-13 10:57 | NUR ---
Received awake on bed. On nothing per orem- pt informed and aware. On room air. Vital signs stable. On MS, not on telemetry; no complains and signs of chest pain, crushing sensation and heaviness. Assisted in ADLs. No nausea, no vomiting and no abdominal pain noted. On blood sugar monitoring- taken and recorded accordingly; with insulin prescribed- AM dose omitted- on NPO. Continent of bowel and bladder, able to use bedpan. With R upper arm PICC line, single lumen- saline locked; on IV antibiotics. With wounds at LE and UE- dressing C/D/I. On bedrest, advised and informed pt to turn frequently but refusing most of the time due to pain. Scheduled for MRI today, pt scheduled yesterday but unable to tolerate procedure d/t pain- Dr Hung informed that pt needs to be pre-medicated- a/w orders. Complained of pain, due PRN pain meds given as prescribed. Pt scheduled to have khyphoplasty today as per ACID LOADER, received call from Pre-op as well that pt scheduled to have debridement both at 1400- coordinated with ACID LOADER and pre-op nurse re: this- pt's updated. Brought down via stretched to MRI, pre-medication given as prescribed; transferred safely.
--- NOTE | 2020-09-13 15:56 | NUR ---
on-going assessment: plans are for patient to have kyphoplasty and likely debridement on wednesday. pt remains on iv anbx. cm notified [facility] that pt will be here through the weekend. cm will continue to follow.
--- NOTE | 2020-09-14 00:25 | NUR ---
PT AOX4. PT REPORTS PAIN IN LEFT RIBS, LEFT FOOT, AND INTERMITTENTLY IN ABDOMEN. PT REFUSING SCHEDULED PO TRAMADOL. PT REPORTS PAIN RELIEF WHILE RECEIVING PRN PO OXYCODONE Q4HR AND PRN PO FLEXERIL Q12HR. ABDOMINAL PAIN NOTED TO SUBSIDE WITH REPOSITIONING AND PASSING FLATUS. PT REPORTS SOB WITH EXERTION. PT REMAINS ON 2L O2 VIA NC. PT TOLERATING PO INTAKE OF FLUIDS AND HEART HEALTHY DIET WITHOUT ISSUE. PT WITHOUT NAUSEA OR EMESIS. PT VOIDING PER BEDPAN, INTERMITTENTLY INCONTINENT OF BOWEL. PT RESTING IN BED THROUGHOUT SHIFT, FREQUENT REPOSITIONING ENCOURAGED, PT NOTED TO SHIFT INDEPENDENTLY WHILE IN BED. PT ENCOURAGED TO NOTIFY STAFF FOR ALL NEEDS, CALL LIGHT WITHIN REACH, BED ALARM ON, BED LOCKED IN LOWEST POSITION, ROOM REMAINS NEAR NURSES STATION, FREQUENT MONITORING WILL CONTINUE.
[2020-09-14 04:13] VITALS: BP 154/86
[2020-09-14 08:01] VITALS: BP 148/79
[2020-09-14 16:00] VITALS: BP 135/75
--- NOTE | 2020-09-14 19:31 | NUR ---
PT CARE ASSUMED AT 0700. A&Ox4. DRESSING CHANGE COMPLEETED. PT CONTINUES TO MESS WITH HER WOUNDS ON HER ARMS AND PICK WITH IT. IMMUNOGLOBULINE TREATMENT RECEIVED BY HER TODAY. PAIN MANAGED WELL WITH PAIN MEDICATION ON BOARD. PT REEDUCATED AGAIN FROM DR. ESQUIVEL TO NOT USE O2 UNLESS INDICATED. PT WILL CONTINUE TO TRY AND CONVINCE PEOPLE TO GIVE IT TO HER FOR COMFORT. FALL PROTOCOL IN PLACE. CALL LIGHT IN REACH. WILL CONTINUE TO MONITOR.
[2020-09-14 21:30] VITALS: BP 152/80
--- NOTE | 2020-09-15 02:51 | NUR ---
ASSUMED CARE OF PT AT 1900. PT IS A/O X4 AND IS CURRENTLY ON BEDREST. ROOM AIR AND HAS NOT REQUESTED OXYGEN USE THIS SHIFT. VOIDS PER BEDPAN AND HAS HAD X1 LOOSE BROWN STOOL. HS BS CALLED FOR LISPRO TO BE GIVEN. PT REFUSED INSULIN AND HER HS PRESCRIBED ADDEROL. DRSG CHANGES DONE ON BILAT FA AT PT REQUEST WITH MORPHINE CREAM APPLIED. C/O PAIN UNDER BILAT RIBS, ANXIETY, AND MUSCLE SPASMS. PRN PAIN MEDICATION,ANXIETY MEDICATION, AND MUSCLE SPASMS MEDICATION GIVEN DIRECTED. PT APPEARS RESTLESS AND MANIC WITH FLIGHT OF THOUGHTS AND CONVERSATION. HAS NOT ATTEMPTED TO DISTURB DRSGS PLACED THIS NOC. FALL PRECAUTIONS IN PLACE, CALL LIGHT IS WITHIN REACH. WILL CONTINUE TO MONITOR.
[2020-09-15 08:08] VITALS: BP 115/57
--- NOTE | 2020-09-15 15:34 | NUR ---
PT ALERT AND ORIENTED TIMES FOUR, BUT YELLS OUT FREQUENTLY. PT C/O PAIN SCHEDULED AND PRN MEDICATIONS CONTROLLING PAIN. DRESSING TO BLE AND BUE ALL CHANGED. PT TOLERATES MEDS AND MEALS. PT HUABAND AT BEDSIDE THIS AFTERNOON. PT SCHEDULED TO HAVE SURGERY TOMORROW. WILL CONTINUE TO MONITOR.
[2020-09-15 16:13] VITALS: BP 131/76
[2020-09-15 19:37] VITALS: BP 122/67
--- NOTE | 2020-09-15 22:39 | NUR ---
ASSESSED AT START OF SHIFT. PT A&OX4. C/O PAIN PO PAIN MED AND LORAZEPAM GIVEN. DRESSING CHANGE DONE IN UPPER AND LOWER EXT. PT VOIDS VIA BEDPAN. HAD A BM THIS SHIFT. NPO AT MIDNIGHT. EVENING MEDS GIVEN AND PT TAISHA IT WELL. BSG CHECKED. FALL PREC IN PLACE AND CALL LIGHT AT REACH. PT MOANS OUT SOMETIMES DUE TO PAIN. PO PAIN MEDS GIVEN.
[2020-09-16 07:10] VITALS: BP 126/69
--- NOTE | 2020-09-16 13:45 | NUR ---
Assess due to length of stay. Pt also with noted cellulitis, chronic left foot, right forearm and s/p debridement. Mulitiple hospitalizations. Wt gain about 7 lb above baseline. Geriatric SUPERVISOR PACKING has assessed and indicated sarcopenia, and worsening weakness, floor layer apprentice strength from prior admits. Has good appetite. Recommend restart vitamin D supplmentation and will add ensure max high protein supplement. Physician has indicated moderate protein calorie malnutrition: RD will defer. Low nutrition risk with appropriate nutrition interventions in place.
[2020-09-16 14:30] VITALS: BP 120/69
--- NOTE | 2020-09-16 15:37 | NUR ---
Pt having surgery today with possible dc home with hh tomorrow. Dc program planner to fax op reports to Lynne PUENTES.Will follow.
--- NOTE | 2020-09-16 18:49 | NUR ---
ASSUMED PATIENT CARE AFTER REPORT. ASSESSMENT CHARTED. MEDS HELD PER NPO STATUS. PATIENT IS A&OX4 VOICING PAIN AT 10/10. NEEDING MEDICATION AT ALL AVAILABLE TIMES. PATIENT LEFT FOR SX AT 0900 AND RETURNED TO UNIT AT APPROX 1300. NO DRAINAGE NOTED ON POSTOP SITE. VITALS STABLE. DRESSINGS CHANGED BY WOUND CARE DOCTOR. TOLERATING DIET WELL. VOICING NO FURTHER NEEDS. WILL ENDORSE TO NOC. RN
[2020-09-16 20:00] VITALS: BP 121/72
--- NOTE | 2020-09-17 04:46 | NUR ---
RECIEVED CARE OF THIS PATIENT AT 1900. PATIENT ALERT AND ORIENTED X4. C/O PAIN, MED GIVEN WHEN TIME. DRESSING ON ALL EXT D/I. NPO SINCE PR FOR UPPER GI. ACCUCHECK WAS 310, RECIEVED 16 UNITS LISPRO INSULIN. REMAINS ON BEDREST. SLEPT OFF AND ON DURING NIGHT.
[2020-09-17] MEDS ORDERED: LIDOPATCH1 EACH TRANSDERM (14:50)
[2020-09-17] MEDS ORDERED: TOPIRAMATE 100100 MG PO (14:50)
[2020-09-17] MEDS ORDERED: LEVOTHYROXINE88 MC1 PO (14:50)
[2020-09-17] MEDS ORDERED: PREDNISONE 20 M20 M1 PO (14:50)
[2020-09-17] MEDS ORDERED: CEFDINIR300 MG PO (14:50)
[2020-09-17] MEDS ORDERED: LOPRESSOR50 PO (14:50)
[2020-09-17] MEDS ORDERED: MAGNESIUM400 MG PO (14:50)
[2020-09-17] MEDS ORDERED: PROTONIX 20 MG20 M1 PO (14:50)
[2020-09-17] MEDS ORDERED: ACIDOPHILUS1 EAC4 PO (14:50)
--- NOTE | 2020-09-17 15:08 | NUR ---
ON-GOING ASSESSMENT: CM REVIEWED CHART AND SPOKE WITH ATTENDING. PT IS HAVING XR UPPER GI DUE TO LINX DEVICE. POSSIBLE DISCHARGE HOME LATER TODAY VS TOMORROW. [facility] HAS ACCEPTED PATIENT AND AWAITING FOR DISCHARGE PAPERWORK AND CAN ACCEPT WHENEVER MEDICALLY STABLE TO LEAVE. PT IS FROM HOME WITH HER AND BENOIT IS FAMILIAR WITH PATIENT AND HAD BEEN SEEING HER. PT HAS HOSPITAL BED, WALKER, OXYGEN ALREADY AT HOME. CM WILL CONTINUE TO FOLLOW AND AWAITING FOR D/C DATE/ORDERS. CONTACT FOR [facility] [phone] [facility] FAX:[phone]
[2020-09-17 15:29] VITALS: BP 121/72
--- NOTE | 2020-09-17 16:47 | NUR ---
Reviewed with attending MD and Services Manager and patient to be seen by PT in the AM to assure proper d/c destination. CM will follow after PT eval.
--- NOTE | 2020-09-17 18:30 | NUR ---
PT ASSESSED AT START OF SHIFT. PT NPO FOR SEVERAL HOURS TO HAVE UPPER GI TO CHECK ON FUNCTION OF LYNX DEVICE PER DR. MILLIGAN. ATE LUNCH LATE AND TOOK MEDS. PT STILL HAVING MUCH PAIN AND WEAKNESS. WORKED SOME W/ THERAPY. PLAN FOR PT TO BE REEVALUATED BY THERAPY FOR DICHARGE NEEDS TOMORROW.
[2020-09-18 08:20] VITALS: BP 110/59
[2020-09-18] MEDS ORDERED: SYNTHROID75 MC1 PO (08:30)
--- NOTE | 2020-09-18 09:46 | O ---
[facility] [place] [address] OPERATIVE REPORT Name: RAVINDRA FORD Room #: 436-P [facility] IN .R.#: [id number] Admission: 09/10/20 Attend Phys: Lidia Dubois MD Discharge: Date of : 55 Report #: [id number] THIS REPORT FOR: cc: Claudio Toscano MD, Rene P. MD Soliman, Mohsin Q. MD [facility] ~ DATE OF SERVICE: 09/16/2020 PREOPERATIVE DIAGNOSES: 1. Nonhealing stage 4 left foot wound. 2. Nonhealing stage 4 right forearm wound with gross purulence. 3. Longstanding nonhealing left medial thigh wound. POSTOPERATIVE DIAGNOSES: 1. Nonhealing stage 4 left foot wound. 2. Nonhealing stage 4 right forearm wound with gross purulence. 3. Longstanding nonhealing left medial thigh wound. PROCEDURES PERFORMED: 1. Excisional debridement of skin, subcutaneous tissue, muscle and bone of a nonhealing stage 4 left foot wound ultimately measuring 20.5 x 6 cm in dimension (123 square cm). Preoperative wound measurements were 19 x 4 cm in dimension with periwound erythema, induration and necrosis. 2. Excisional debridement of skin, subcutaneous tissue and muscle/fascia of a nonhealing stage 4 right forearm wound ultimately measuring 5 x 5 cm in dimension (25 square cm). Preoperative wound measurements were 3 x 3 cm with significant undermining circumferentially and rolled edge and rolled borders as well as gross purulent drainage. 3. Excisional debridement of skin and subcutaneous tissue of a longstanding nonhealing left medial thigh wound with closure of the wound ultimately measuring 5 x 1.5 cm in dimension (7.5 square cm). Preoperative wound measurements were 3 x 1 cm in dimension with periwound excoriation. SURGEON: Tonny Kumar MD BOBBIN CLEANER: JANNA Segal. ANESTHESIA: General endotracheal anesthesia. ESTIMATED BLOOD LOSS: Minimal (less than 20 mL). COMPLICATIONS: None appreciated. SPECIMENS: All debrided tissue to pathology including the excoriated medial thigh lesion, which had a suture marking inferior. [address] [address] OPERATIVE REPORT Name: RAVINDRA FORD Room #: 436-P [facility] IN ..#: [id number] Admission: 09/10/20 Attend Phys: Lidia Dubois MD Discharge: Date of : 55 Report #: [id number] INDICATIONS: The patient is a 65-year-old female with a longstanding history of nonhealing wounds from cellulitis and other various ailments throughout her body, mainly in the extremities, who has grossly purulent drainage from her left foot and right forearm wounds. In addition, the patient had a longstanding nonhealing left medial thigh wound for which, indication was for all the above procedures today. DESCRIPTION OF PROCEDURE: After explaining the risks, benefits and alternatives of the procedure with the patient in detail in the preoperative holding area and obtaining consent, the patient was brought to the operating room and placed supine on the operating room table. After conducting a thorough timeout procedure verifying correct patient and procedure, the patient was given general endotracheal anesthesia. Once adequate anesthesia was obtained, she was already on an inpatient regimen of IV antibiotic therapy; however, her SCDs could not be placed due to her bilateral lower extremity wounds. The patient's wounds were all now prepped and draped in standard surgical sterile fashion. We turned our attention to the right forearm wound first. Electrocautery was used to circumferentially debride all skin and subcutaneous tissue from the periphery of the wound carried down to the bed of the wound where the muscle fascia was exposed and was debrided back to healthy viable bleeding tissue throughout. The Misonix ultrasonic debridement tool was now used to remove all remaining nonviable tissue and biofilm from the entirety of the wound, and hemostasis was assured with electrocautery. I then turned my attention to the left foot wound. In similar fashion, electrocautery was used to debride all nonviable skin, subcutaneous tissue and muscle fascia from periphery of the wound, carried down to the bed of the wound where bony lateral malleolus was exposed. This was debrided all the way back to healthy bleeding tissue throughout including bone. The Misonix ultrasonic debridement tool was also used to remove all remaining nonviable tissue and biofilm film from the entirety of the wound throughout and hemostasis was assured with electrocautery. Finally, I turned my attention to the left medial thigh wound. This was excoriated and opened and as such, electrocautery was used to elliptically excise the excoriated portion including all nonviable tissue throughout, carried only down into the subcutaneous tissues. Once excised, a single suture was placed in the inferior aspect to denote orientation and was passed off the field. Hemostasis was assured. Misonix ultrasonic debridement tool was then used in the subcutaneous tissue space to remove any remaining nonviable tissue. This wound being clean and healthy on the medial thigh at this juncture with significant laxity to the thigh tissues allowed for closure. Interrupted inverted 3-0 Vicryl sutures were now used to reapproximate dermis and a running 4-0 Monocryl was used in a standard subcuticular fashion for skin. Dermabond glue was then applied to the skin wound. The other wounds were then dressed with anterior fill placed over the wound dressed with Adaptic, 4 x 4s, fluffs and Medipore tape completing the procedure. At the end of the procedure, all instrument, needle and sponge [facility] [address] [place] [address] OPERATIVE REPORT Name: RAVINDRA FORD Room #: 436-P [facility] IN M.R.#: [id number] Admission: 09/10/20 Attend Phys: Lidia Dubois MD Discharge: Date of : 55 Report #: [id number] counts were correct. The patient tolerated the procedure without incident, was awakened in the operating room, transitioned to the recovery room in stable condition with no apparent complications. <ELECTRONICALLY SIGNED> By: Tonny Kumar MD, FACS 09/18/20 0946 [id number] [id number] Tonny Kumar MD, FACS /nt
[2020-09-18] MEDS ORDERED: SILVADENE20 GM TOP (10:32)
[2020-09-18 11:25] VITALS: BP 121/72
--- NOTE | 2020-09-18 12:56 | NUR ---
ON-GOING ASSESSMENT: CM REVIEWED CHART. PHYSICAL THERAPY IS TO WORK WITH PT TODAY AND [facility] CONSULT WAS PLACED. CM SPOKE WITH [facility] WHO REPORTS THEY CANNOT ACCEPT PATIENT SHE WOULD NOT BE ABLE TO TOLERATE THERAPY. PT WAS NOT CLEARED BY PHYSICAL THERAPY TODAY TO BE SAFE FOR HOME. CM NOTIFIED ATTENDING. CM ATTEMPTED TO TRY AND FIND SNF BUT HAVING DENIALS BASED OFF HER IGG MEDICATION HIZENTRA 15G SUBQ WEEKLY IT IS VERY COSTLY. [facility] HAS DECLINED WELL [facility]. CM NOTIFIED CM DIRECTOR. CM WILL CONTINUE TO ATTEMPT TO FIND SNF THAT CAN ACCEPT PT.
--- NOTE | 2020-09-18 15:56 | NUR ---
PT CARE ASSUMED AT 0700. A&Ox4. PT FOUND TO BE COMPLAINING OF UNRESOLVED PAIN AND STATES THAT SHE HAS NOT BEEN GETTING HER PAIN MEDICATION. PER MAR PT HAS BEEN GETTING HER PAIN MEDICATIONS PT CANNOT REMEMBER THIS. PT IS UPSET ABOUT NOT GETTING OUT OF BED THE LAST FEW DAYS. UP TO THE RECLINER IN THE AM. WOUND DRESSING CHANGED. PT WAS ONLY ABLE TO GET THE PT UP OUT OF BED AND TAKE ONE STEP. FALL PROTOCOL IN PLACE. CALL LIGHT IN REACH. SCRIPT GIVEN TO AND FILLED.
[2020-09-18 17:15] VITALS: BP 105/46
[2020-09-18 19:56] VITALS: BP 98/52
[2020-09-18 22:20] VITALS: BP 109/56
--- NOTE | 2020-09-19 01:40 | NUR ---
PT IS A/O X4 AND IS ON BED REST. 94% ON ROOM AIR. SOB WITH EXERTION. VSS. AFEBRILE. VOIDS PER BEDPAN. BMX1 LOOSE STOOL THIS NOC. WOUND CARE COMPLETED. CURRENT DRESSINGS ARE C/D/I. MEDICATIONS GIVEN PER SEP. REFUSED 2 MEDICATIONS PER CHARTED IN SEP. BP LOW AND BP MEDICATION HELD. HS BS WAS LOW AND DID NOT REQUIRE COVERAGE.PT IS PROGRESSING TOWARDS PLAN OF CARE DC GOALS. FALL PRECAUTIONS IN PLACE, CALL LIGHT IS WITHIN REACH. WILL CONTINUE TO MONITOR.
[2020-09-19 08:19] VITALS: BP 112/64
--- NOTE | 2020-09-19 10:23 | NUR ---
ON-GOING ASSESSMENT: CM REVIEWED CHART. CM REACHED OUT TO BELÉN WALLACE AT [facility] WHO REPORTS THAT HER THERMOSTATIC CONTROLS SUPERVISOR HAS BEEN WORKING WITH THEIR PHARMACY AND REVIEWING WHETHER OR NOT THEY CAN ACCEPT PATIENT FOR SNF. (THEY ARE AWARE OF HER IGG MEDICATION [place] AND ARE REVIEWING). CM SPOKE WITH BELÉN WHO REPORTS THAT SHE HEARD BACK AND THEY CAN ACCEPT HER FOR SNF. CM NOTIFIED HER LAST COVID TEST WAS COMPLETED ON September AND SHE REPORTS THEY WOULD NOT NEED ANOTHER ONE AND THEY RAPID TEST AT THE FACILITY. CM NOTIFIED PT AND THAT [facility] HAS ACCEPTED HER AND PROVIDED THE ADDRESS. PT AND WANT TO FURTHER DISCUSS BEFORE MAKING A DECISION AND STATE THEY WILL GET BACK TO CM. CM WILL CONTINUE TO FOLLOW TO ASSIST NEEDED.
[2020-09-19] MEDS ORDERED: SILVADENE20 GM TOP (10:43)
[2020-09-19] MEDS ORDERED: ROBAXIN 750 MG750 MG PO (10:43)
[2020-09-19] MEDS ORDERED: CEFDINIR300 MG PO (10:43)
[2020-09-19] MEDS ORDERED: PREDNISONE 10 M10 M1 PO (10:44)
[2020-09-19] MEDS ORDERED: DURAGESIC1 EAC4 TRANSDERM (11:12)
--- NOTE | 2020-09-19 11:25 | NUR ---
PT CARE ASSUMED AT 0700. A&Ox4. PICC LINE FLUSHED AND DRAWS BACK. UP TO THE RECLINER. PT DISCHARGING HOME TODAY. WOUND PICTURES TAKEN. DRESSING CHANGE PERFORMED. UP TO THE BEDSIDE COMMODE TODAY. FENTANYL PATCH PLACED. FALL PROTOCOL IN PLACE. CALL LIGHT IN REACH. DISCAHRGE PAPERS GIVEN WITH ALL QUESTIONS ANSWERED.
[2020-09-19 13:14] VITALS: BP 121/72
[2020-09-19 14:26] VITALS: BP 121/72
--- NOTE | 2020-09-19 15:07 | PATH ---
[facility] [address] [place] [address] PATHOLOGY RPT PROCEDURE Name: RAVINDRA ESPITIA Room #: 436-P ADM IN M.R.#: [id number] Admission: 09/10/20 Date of : 55 Discharge: Report #: [id number] Path Case #: [id number] [facility] Accession Number: [id number] . 01 Material submitted: . PART A: forearm - RIGHT FOREARM TISSUE. Modifiers: right PART B: foot - LEFT FOOT WOUND TISSUE. Modifiers: left PART C: thigh - LEFT MEDIAL THIGH WOUND SPECIMEN MARKED INFERIOR. Modifiers: left, inferior . 02 Diagnosis: A. Skin, right forearm tissue, debridement: - Marked acute inflammation along with ulceration associated with granulation tissue, consistent with debridement tissue. . B. Skin, left foot wound tissue, debridement: - Mild to moderate acute and chronic inflammation. . C. Skin, left medial thigh wound, debridement: - Skin and subcutaneous tissue showing ulceration along with extensive gangrenous necrosis as well as fibrinoid degeneration, consistent with wound tissue. (IUV:smith; 09/19/2020) QMS 09/19/2020 1342 Local . 02 Electronically signed: . Morena Red MD, Pathologist NPI- [id number] . 01 Gross description: . A. The specimen is received in formalin, labeled "Ravindra Espitia, right forearm tissue". Received are two excisions of pale vences to light vences skin with attached underlying soft tissue measuring 3.5 x 1.5 x 0.7 cm in aggregate dimensions. Tractor Expert sections from each segment are submitted in cassette A1. . B. The specimen is received in formalin, labeled "Ravindra Espitia, left foot wound tissue". Received are multiple segments of dusky schaefer-vences tissue admixed with possible skin measuring 3.2 x 2.8 x 1.1 cm in aggregate dimensions. The specimen is submitted representatively in cassette B1. . C. The specimen is received in formalin, labeled "Ravindra Espitia, left medial thigh wound, suture julian inferior". Received is an oriented ellipse of skin measuring 4.3 x 1.7 x 0.6 cm in greatest dimensions with a suture placed at one tip designating this as the inferior aspect, which will further be designated as the 6:00 margin. The surgical margins are inked as follows: 12 to 3:00-yellow, 3 to 6:00-blue, and 6 to 12:00-black. [address] [address] PATHOLOGY RPT PROCEDURE Name: RAVINDRA ESPITIA Room #: 436-P [facility] IN M..#: [id number] Admission: 09/10/20 Date of : 55 Discharge: Report #: [id number] Path Case #: [id number] The epidermal surface displays a poorly circumscribed, flat, flaky and pale vences lesion measuring 1.5 x 0.9 cm. The specimen is sectioned into 11 pieces and entirely submitted in cassettes C1 through C4, with the 12 and 6:00 aspects based in cassette C4. (CAA; 09/18/2020) QAC/QAC 09/19/2020 1340 Local . 02 Pathologist provided ICD-10: L98.9, L98.499, I96 . 02 CPT . 909471, 385895, 093854 Specimen Comment: Report sent to , / Performed at: [address] [facility], [place] [id number] MD Miles Goodson MD Phone: [phone] Performed at: [address] [id number] MD Morena Red MD Phone: [phone]
== END 2020-09-19 17:20 | disposition home health service (06) | DRG 570 ==
LOC: ER 18:49 → 4S 22:41 → EROBS 22:41 → 4S 09-09 14:53
PROVIDERS: Nurse Practitioner; Nurse Practitioner Family; ADMIT Internal Medicine; ATTEND Internal Medicine
PROC: 05HY33Z Insertion of Infusion Device into Upper Vein, Percutaneous Approach (ICD-10-PCS; 2020-09-10)
PROC: B54MZZA Ultrasonography of Right Upper Extremity Veins, Guidance (ICD-10-PCS; 2020-09-10)
PROC: 0PU43JZ Supplement Thoracic Vertebra with Synthetic Substitute, Percutaneous Approach (ICD-10-PCS; principal; 2020-09-16)
PROC: 0PS43ZZ Reposition Thoracic Vertebra, Percutaneous Approach (ICD-10-PCS; principal; 2020-09-16)
PROC: 0KB70ZZ Excision of Right Upper Arm Muscle, Open Approach (ICD-10-PCS; principal; 2020-09-16)
PROC: 0QBK0ZZ Excision of Left Fibula, Open Approach (ICD-10-PCS; principal; 2020-09-16)
PROC: 0JBP0ZZ Excision of Left Lower Leg Subcutaneous Tissue and Fascia, Open Approach (ICD-10-PCS; principal; 2020-09-16)
DX: L03.116 Cellulitis of left lower limb (principal); L89.624 Pressure ulcer of left heel, stage 4; L89.894 Pressure ulcer of other site, stage 4; E44.0 Moderate protein-calorie malnutrition; N30.01 Acute cystitis with hematuria; M87.9 Osteonecrosis, unspecified; D84.89 Other immunodeficiencies; M48.54XA Collapsed vertebra, not elsewhere classified, thoracic region, initial encounter for fracture; L03.113 Cellulitis of right upper limb; R65.10 Systemic inflammatory response syndrome (SIRS) of non-infectious origin without acute organ dysfunction; L03.115 Cellulitis of right lower limb; F41.9 Anxiety disorder, unspecified; J43.9 Emphysema, unspecified; E11.9 Type 2 diabetes mellitus without complications; M06.9 Rheumatoid arthritis, unspecified; G89.29 Other chronic pain; M54.9 Dorsalgia, unspecified; S71.102A Unspecified open wound, left thigh, initial encounter; X58.XXXA Exposure to other specified factors, initial encounter; I87.8 Other specified disorders of veins; E55.9 Vitamin D deficiency, unspecified; E03.9 Hypothyroidism, unspecified; F31.9 Bipolar disorder, unspecified; I25.10 Atherosclerotic heart disease of native coronary artery without angina pectoris; Z20.822 Contact with and (suspected) exposure to COVID-19; Z90.49 Acquired absence of other specified parts of digestive tract; Z90.710 Acquired absence of both cervix and uterus; Z79.899 Other long term (current) drug therapy; Z88.1 Allergy status to other antibiotic agents; Z91.041 Radiographic dye allergy status; Y93.89 Activity, other specified; Z99.81 Dependence on supplemental oxygen; Y92.89 Other specified places as the place of occurrence of the external cause; Z68.31 Body mass index [BMI] 31.0-31.9, adult; Y99.8 Other external cause status; Z91.040 Latex allergy status; Z88.2 Allergy status to sulfonamides; Z88.8 Allergy status to other drugs, medicaments and biological substances; Z91.018 Allergy to other foods; Z91.048 Other nonmedicinal substance allergy status; Z87.891 Personal history of nicotine dependence
CPT/HCPCS: 10102; 27000; 50010; 50101; 50386; 54118; 56524; 56526; 57091; 57119; 57120; 57192; 62110; 62900; 70005

== ENCOUNTER → 2020-09-26 | Outpatient (CLI) | payer OTHER ==
[~2020-09-26] MED LIST changes: +ABILIFY 2 MG2 M1 PO; +DIFLUCAN150 M1 PO; +DURAGESIC1 EAC4 TRANSDERM; +HIZENTRA10 GM/50 M SUBQ; +LEVO-T100 MCG PO; +LEVOTHYROXINE88 MC1 PO; +LIDOPATCH1 EACH TRANSDERM; +LOPRESSOR50 PO; +MAGNESIUM400 MG PO; +SILVADENE20 GM TOP; +SYNTHROID75 MC1 PO; +TOPIRAMATE 100100 MG PO
== END ==
LOC: HYPER 09:50
PROVIDERS: ATTEND Emergency Medicine
DX: I87.313 Chronic venous hypertension (idiopathic) with ulcer of bilateral lower extremity (principal); L97.522 Non-pressure chronic ulcer of other part of left foot with fat layer exposed; L97.822 Non-pressure chronic ulcer of other part of left lower leg with fat layer exposed; L97.812 Non-pressure chronic ulcer of other part of right lower leg with fat layer exposed; L98.492 Non-pressure chronic ulcer of skin of other sites with fat layer exposed; L97.322 Non-pressure chronic ulcer of left ankle with fat layer exposed; L97.122 Non-pressure chronic ulcer of left thigh with fat layer exposed; S40.861D Insect bite (nonvenomous) of right upper arm, subsequent encounter; S40.862D Insect bite (nonvenomous) of left upper arm, subsequent encounter; M54.5 Low back pain; B88.9 Infestation, unspecified; J43.9 Emphysema, unspecified; E03.9 Hypothyroidism, unspecified; I25.10 Atherosclerotic heart disease of native coronary artery without angina pectoris; G25.81 Restless legs syndrome; F41.9 Anxiety disorder, unspecified; F31.9 Bipolar disorder, unspecified; Z87.891 Personal history of nicotine dependence; Z79.899 Other long term (current) drug therapy; W57.XXXD Bitten or stung by nonvenomous insect and other nonvenomous arthropods, subsequent encounter

== ENCOUNTER → 2020-10-10 | Outpatient (CLI) | payer OTHER | LOC: HYPER 10:17 | PROVIDERS: ATTEND Emergency Medicine | DX: I87.313 Chronic venous hypertension (idiopathic) with ulcer of bilateral lower extremity (principal); L97.522 Non-pressure chronic ulcer of other part of left foot with fat layer exposed; L97.822 Non-pressure chronic ulcer of other part of left lower leg with fat layer exposed; L97.812 Non-pressure chronic ulcer of other part of right lower leg with fat layer exposed; L98.492 Non-pressure chronic ulcer of skin of other sites with fat layer exposed; L97.322 Non-pressure chronic ulcer of left ankle with fat layer exposed; L97.122 Non-pressure chronic ulcer of left thigh with fat layer exposed; S40.861D Insect bite (nonvenomous) of right upper arm, subsequent encounter; S40.862D Insect bite (nonvenomous) of left upper arm, subsequent encounter; M54.5 Low back pain; B88.9 Infestation, unspecified; E66.9 Obesity, unspecified; E03.9 Hypothyroidism, unspecified; I25.10 Atherosclerotic heart disease of native coronary artery without angina pectoris; G25.81 Restless legs syndrome; J43.9 Emphysema, unspecified; K21.9 Gastro-esophageal reflux disease without esophagitis; F41.9 Anxiety disorder, unspecified; F31.9 Bipolar disorder, unspecified; Z68.28 Body mass index [BMI] 28.0-28.9, adult; Z87.891 Personal history of nicotine dependence; Z79.899 Other long term (current) drug therapy; W57.XXXD Bitten or stung by nonvenomous insect and other nonvenomous arthropods, subsequent encounter ==

== ENCOUNTER → 2020-10-24 | Outpatient (CLI) | payer OTHER | LOC: HYPER 13:20 | PROVIDERS: ATTEND Emergency Medicine | DX: I87.313 Chronic venous hypertension (idiopathic) with ulcer of bilateral lower extremity (principal); L97.522 Non-pressure chronic ulcer of other part of left foot with fat layer exposed; L97.822 Non-pressure chronic ulcer of other part of left lower leg with fat layer exposed; L97.322 Non-pressure chronic ulcer of left ankle with fat layer exposed; L97.122 Non-pressure chronic ulcer of left thigh with fat layer exposed; S40.861D Insect bite (nonvenomous) of right upper arm, subsequent encounter; S40.862D Insect bite (nonvenomous) of left upper arm, subsequent encounter; M54.5 Low back pain; B88.9 Infestation, unspecified; L98.492 Non-pressure chronic ulcer of skin of other sites with fat layer exposed; J43.9 Emphysema, unspecified; E03.9 Hypothyroidism, unspecified; I25.10 Atherosclerotic heart disease of native coronary artery without angina pectoris; G25.81 Restless legs syndrome; E66.9 Obesity, unspecified; F31.9 Bipolar disorder, unspecified; F41.9 Anxiety disorder, unspecified; Z68.28 Body mass index [BMI] 28.0-28.9, adult; Z87.891 Personal history of nicotine dependence; Z79.899 Other long term (current) drug therapy; W57.XXXD Bitten or stung by nonvenomous insect and other nonvenomous arthropods, subsequent encounter ==

== ENCOUNTER 2020-11-07 13:57 | Emergency (ER) | payer OTHER ==
[~2020-11-07] VITALS: Ht 160 cm; Wt 72.6 kg
[2020-11-07 14:54] LABS: BASOPHILS 1.1 % (0.0-2.0); EOSINOPHILS 2.2 % (0.0-3.0); HEMATOCRIT 31.5 % (37.0-47.0); HEMOGLOBIN 10.2 gm/dL (12.0-15.0); LYMPHOCYTES 20.3 % (24.0-44.0); MCH 28.3 pg (26.0-34.0); MCHC 32.4 g/dL (28.0-37.0); MCV 87.3 fL (80.0-100.0); MONOCYTES 8.3 % (1.0-8.0); PLATELET COUNT 434 thou/uL (150-400); POLYS 68.1 % (36.0-66.0); RBC 3.61 mil/uL (4.20-5.00); RDW 16.1 % (10.5-14.5); WBC 10.3 thou/uL (4.0-11.0)
[2020-11-07 15:06] LABS: ANION GAP 9 mmol/L (7-16); BUN 29 mg/dL (7-18); CHLORIDE 104 mmol/L (98-107); CO2 28 mmol/L (21-32); CREATININE 0.9 mg/dL (0.6-1.0); GLUCOSE 118 mg/dL (74-106); SODIUM 141 mmol/L (136-145)
[2020-11-07 15:13] LABS: POTASSIUM 4.3 mmol/L (3.5-5.1)
[2020-11-07 15:18] LABS: URINE BILIRUBIN NEGATIVE (Negative); URINE BLOOD NEGATIVE (Negative); URINE CLARITY SL CLOUDY; URINE COLOR YELLOW; URINE GLUCOSE-RANDOM* NEGATIVE (Negative); URINE KETONES NEGATIVE (Negative); URINE LEUKOCYTES-REFLEX 1+ (Negative); URINE NITRITE-REFLEX POSITIVE (Negative); URINE PROTEIN (DIPSTICK) NEGATIVE (Negative); URINE SPECIFIC GRAVITY 1.025 (1.005-1.035); URINE UROBILINOGEN 0.2 E.U./dl (0.2-1.0)
[2020-11-07 15:18] LABS: TROPONIN-I <0.06 ng/mL (<0.06)
[2020-11-07 15:26] LABS: BACTERIA-REFLEX >30 Many /HPF (None Seen); CASTS None Seen /LPF (None Seen); CRYSTALS None Seen /LPF (None Seen); SQUAMOUS None Seen /LPF (0-3); URINE RBC 1-2 Rare /HPF (NONE SEEN)
--- NOTE | 2020-11-07 16:28 | EKG ---
[place] [address] [facility] [place] [address] ELECTROCARDIOGRAM REPORT Name: RAVINDRA FORD Room #: [facility]#: [id number] Admission: 11/07/20 Attend Phys: Discharge: Date of : 55 Report #: [id number] [facility] ED Test Date: 2020-11-07 Test Time: 14:56:24 Pat Name: RAVINDRA FORD Department: Room: Gender: F Linderman Operator: SETH : 1955 Requested By: Paresh Moffett Order Number: [id number] MD: Jesus Manuel Paulino Measurements Intervals [place] Rate: 90 P: -3 LA: 164 QRS: 30 QRSD: 81 T: 38 QT: 367 QTc: 449 Interpretive Statements Sinus rhythm Atrial premature complex Minimal ST depression, lateral leads Compared to ECG 09/08/2020 21:10:17 ST (T wave) deviation now present Electronically Signed On 11-07-2020 16:28:04 CDT by Jesus Manuel Paulino [email or web address] <ELECTRONICALLY SIGNED> By: Jesus Manuel Paulino MD, [facility] 11/07/20 1628 1456 1456 Jesus Manuel Paulino MD, FACC /EPI
[2020-11-07] MEDS ORDERED: MACRODANTIN100 MG PO (16:36)
[2020-11-07 16:40] VITALS: BP 115/43
== END 2020-11-07 17:20 | disposition admitted as inpatient to this hospital (09) ==
LOC: ER 13:57
PROVIDERS: Nurse Practitioner
DX: S91.312A Laceration without foreign body, left foot, initial encounter (principal); S41.112A Laceration without foreign body of left upper arm, initial encounter; S41.111A Laceration without foreign body of right upper arm, initial encounter; R55 Syncope and collapse; N39.0 Urinary tract infection, site not specified; I50.9 Heart failure, unspecified; J44.9 Chronic obstructive pulmonary disease, unspecified; D64.9 Anemia, unspecified; E03.9 Hypothyroidism, unspecified; F32.9 Major depressive disorder, single episode, unspecified; I25.10 Atherosclerotic heart disease of native coronary artery without angina pectoris; Z88.6 Allergy status to analgesic agent; Z88.1 Allergy status to other antibiotic agents; Z91.040 Latex allergy status; Z88.2 Allergy status to sulfonamides; Z88.8 Allergy status to other drugs, medicaments and biological substances; Z90.710 Acquired absence of both cervix and uterus; Z87.442 Personal history of urinary calculi; Z79.899 Other long term (current) drug therapy; Z90.49 Acquired absence of other specified parts of digestive tract; W19.XXXA Unspecified fall, initial encounter; Y93.89 Activity, other specified; Y92.89 Other specified places as the place of occurrence of the external cause; Y99.8 Other external cause status

== ENCOUNTER → 2020-11-14 | Outpatient (CLI) | payer OTHER ==
[~2020-11-14] MED LIST changes: +MACRODANTIN100 MG PO
== END ==
LOC: HYPER 10:20
PROVIDERS: ATTEND Emergency Medicine
DX: I87.313 Chronic venous hypertension (idiopathic) with ulcer of bilateral lower extremity (principal); L97.822 Non-pressure chronic ulcer of other part of left lower leg with fat layer exposed; L97.812 Non-pressure chronic ulcer of other part of right lower leg with fat layer exposed; L97.322 Non-pressure chronic ulcer of left ankle with fat layer exposed; L97.422 Non-pressure chronic ulcer of left heel and midfoot with fat layer exposed; L98.492 Non-pressure chronic ulcer of skin of other sites with fat layer exposed; S40.861D Insect bite (nonvenomous) of right upper arm, subsequent encounter; S40.862D Insect bite (nonvenomous) of left upper arm, subsequent encounter; B88.9 Infestation, unspecified; E03.9 Hypothyroidism, unspecified; E66.9 Obesity, unspecified; I25.10 Atherosclerotic heart disease of native coronary artery without angina pectoris; G25.81 Restless legs syndrome; J43.9 Emphysema, unspecified; K21.9 Gastro-esophageal reflux disease without esophagitis; M54.5 Low back pain; F31.9 Bipolar disorder, unspecified; F41.9 Anxiety disorder, unspecified; Z68.28 Body mass index [BMI] 28.0-28.9, adult; Z87.891 Personal history of nicotine dependence; Z79.899 Other long term (current) drug therapy; W57.XXXD Bitten or stung by nonvenomous insect and other nonvenomous arthropods, subsequent encounter

== ENCOUNTER → 2020-11-26 | Outpatient (CLI) | payer OTHER | LOC: HYPER 08:09 | PROVIDERS: ATTEND Emergency Medicine | DX: I87.313 Chronic venous hypertension (idiopathic) with ulcer of bilateral lower extremity (principal); L97.822 Non-pressure chronic ulcer of other part of left lower leg with fat layer exposed; L97.812 Non-pressure chronic ulcer of other part of right lower leg with fat layer exposed; L97.322 Non-pressure chronic ulcer of left ankle with fat layer exposed; L97.422 Non-pressure chronic ulcer of left heel and midfoot with fat layer exposed; L98.492 Non-pressure chronic ulcer of skin of other sites with fat layer exposed; S40.861D Insect bite (nonvenomous) of right upper arm, subsequent encounter; S40.862D Insect bite (nonvenomous) of left upper arm, subsequent encounter; B88.9 Infestation, unspecified; E03.9 Hypothyroidism, unspecified; E66.9 Obesity, unspecified; I25.10 Atherosclerotic heart disease of native coronary artery without angina pectoris; G25.81 Restless legs syndrome; J43.9 Emphysema, unspecified; K21.9 Gastro-esophageal reflux disease without esophagitis; K22.70 Barrett's esophagus without dysplasia; M54.5 Low back pain; F31.9 Bipolar disorder, unspecified; F41.9 Anxiety disorder, unspecified; Z68.28 Body mass index [BMI] 28.0-28.9, adult; Z87.891 Personal history of nicotine dependence; Z79.899 Other long term (current) drug therapy; W57.XXXD Bitten or stung by nonvenomous insect and other nonvenomous arthropods, subsequent encounter ==

== ENCOUNTER → 2020-12-04 | Outpatient (CLI) | payer OTHER | LOC: HYPER 16:02 | PROVIDERS: ATTEND Emergency Medicine | DX: I87.313 Chronic venous hypertension (idiopathic) with ulcer of bilateral lower extremity (principal); L97.822 Non-pressure chronic ulcer of other part of left lower leg with fat layer exposed; L98.492 Non-pressure chronic ulcer of skin of other sites with fat layer exposed; L97.812 Non-pressure chronic ulcer of other part of right lower leg with fat layer exposed; L97.322 Non-pressure chronic ulcer of left ankle with fat layer exposed; L97.422 Non-pressure chronic ulcer of left heel and midfoot with fat layer exposed; S40.861D Insect bite (nonvenomous) of right upper arm, subsequent encounter; S40.862D Insect bite (nonvenomous) of left upper arm, subsequent encounter; B88.9 Infestation, unspecified; E03.9 Hypothyroidism, unspecified; E66.9 Obesity, unspecified; I25.10 Atherosclerotic heart disease of native coronary artery without angina pectoris; G25.81 Restless legs syndrome; J43.9 Emphysema, unspecified; K21.9 Gastro-esophageal reflux disease without esophagitis; K22.70 Barrett's esophagus without dysplasia; M54.5 Low back pain; F31.9 Bipolar disorder, unspecified; F41.9 Anxiety disorder, unspecified; Z68.28 Body mass index [BMI] 28.0-28.9, adult; Z87.891 Personal history of nicotine dependence; W57.XXXD Bitten or stung by nonvenomous insect and other nonvenomous arthropods, subsequent encounter ==

== ENCOUNTER → 2020-12-24 | Outpatient (CLI) | payer OTHER | LOC: HYPER 08:41 | PROVIDERS: ATTEND Emergency Medicine | DX: I87.313 Chronic venous hypertension (idiopathic) with ulcer of bilateral lower extremity (principal); L97.822 Non-pressure chronic ulcer of other part of left lower leg with fat layer exposed; L98.492 Non-pressure chronic ulcer of skin of other sites with fat layer exposed; L97.812 Non-pressure chronic ulcer of other part of right lower leg with fat layer exposed; L97.322 Non-pressure chronic ulcer of left ankle with fat layer exposed; L97.422 Non-pressure chronic ulcer of left heel and midfoot with fat layer exposed; S40.861D Insect bite (nonvenomous) of right upper arm, subsequent encounter; S40.862D Insect bite (nonvenomous) of left upper arm, subsequent encounter; B88.9 Infestation, unspecified; E03.9 Hypothyroidism, unspecified; E66.9 Obesity, unspecified; I25.10 Atherosclerotic heart disease of native coronary artery without angina pectoris; G25.81 Restless legs syndrome; J43.9 Emphysema, unspecified; K21.9 Gastro-esophageal reflux disease without esophagitis; K22.70 Barrett's esophagus without dysplasia; M54.5 Low back pain; F31.9 Bipolar disorder, unspecified; F41.9 Anxiety disorder, unspecified; Z68.28 Body mass index [BMI] 28.0-28.9, adult; Z87.891 Personal history of nicotine dependence; W57.XXXD Bitten or stung by nonvenomous insect and other nonvenomous arthropods, subsequent encounter ==

== ENCOUNTER → 2020-12-31 | Outpatient (CLI) | payer OTHER | LOC: HYPER 12-30 10:06 | PROVIDERS: ATTEND Emergency Medicine | DX: I87.312 Chronic venous hypertension (idiopathic) with ulcer of left lower extremity (principal); L97.522 Non-pressure chronic ulcer of other part of left foot with fat layer exposed; L97.322 Non-pressure chronic ulcer of left ankle with fat layer exposed; L98.492 Non-pressure chronic ulcer of skin of other sites with fat layer exposed; L97.822 Non-pressure chronic ulcer of other part of left lower leg with fat layer exposed; S51.802D Unspecified open wound of left forearm, subsequent encounter; S40.861D Insect bite (nonvenomous) of right upper arm, subsequent encounter; S40.862D Insect bite (nonvenomous) of left upper arm, subsequent encounter; L84 Corns and callosities; I87.301 Chronic venous hypertension (idiopathic) without complications of right lower extremity; M54.5 Low back pain; B88.9 Infestation, unspecified; J43.9 Emphysema, unspecified; E03.9 Hypothyroidism, unspecified; I25.10 Atherosclerotic heart disease of native coronary artery without angina pectoris; G25.81 Restless legs syndrome; E66.9 Obesity, unspecified; F41.9 Anxiety disorder, unspecified; F31.9 Bipolar disorder, unspecified; Z87.891 Personal history of nicotine dependence; Z79.899 Other long term (current) drug therapy; X58.XXXD Exposure to other specified factors, subsequent encounter; W57.XXXD Bitten or stung by nonvenomous insect and other nonvenomous arthropods, subsequent encounter ==

== ENCOUNTER → 2021-01-07 | Outpatient (CLI) | payer OTHER | LOC: HYPER 08:23 | PROVIDERS: ATTEND Emergency Medicine | DX: I87.313 Chronic venous hypertension (idiopathic) with ulcer of bilateral lower extremity (principal); L97.522 Non-pressure chronic ulcer of other part of left foot with fat layer exposed; L97.322 Non-pressure chronic ulcer of left ankle with fat layer exposed; L98.492 Non-pressure chronic ulcer of skin of other sites with fat layer exposed; L97.822 Non-pressure chronic ulcer of other part of left lower leg with fat layer exposed; L97.811 Non-pressure chronic ulcer of other part of right lower leg limited to breakdown of skin; S51.802D Unspecified open wound of left forearm, subsequent encounter; S40.861D Insect bite (nonvenomous) of right upper arm, subsequent encounter; S40.862D Insect bite (nonvenomous) of left upper arm, subsequent encounter; L84 Corns and callosities; I87.301 Chronic venous hypertension (idiopathic) without complications of right lower extremity; M54.5 Low back pain; B88.9 Infestation, unspecified; E03.9 Hypothyroidism, unspecified; I25.10 Atherosclerotic heart disease of native coronary artery without angina pectoris; G25.81 Restless legs syndrome; E66.9 Obesity, unspecified; J43.9 Emphysema, unspecified; K21.9 Gastro-esophageal reflux disease without esophagitis; F41.9 Anxiety disorder, unspecified; F31.9 Bipolar disorder, unspecified; Z87.891 Personal history of nicotine dependence; X58.XXXD Exposure to other specified factors, subsequent encounter; W57.XXXD Bitten or stung by nonvenomous insect and other nonvenomous arthropods, subsequent encounter ==

== ENCOUNTER → 2021-03-13 | Outpatient (CLI) | payer OTHER | LOC: HYPER 08:48 | PROVIDERS: ATTEND Emergency Medicine | DX: L97.422 Non-pressure chronic ulcer of left heel and midfoot with fat layer exposed (principal); L97.822 Non-pressure chronic ulcer of other part of left lower leg with fat layer exposed; S50.11XD Contusion of right forearm, subsequent encounter; I87.2 Venous insufficiency (chronic) (peripheral); L84 Corns and callosities; B88.9 Infestation, unspecified; E66.9 Obesity, unspecified; E03.9 Hypothyroidism, unspecified; I25.10 Atherosclerotic heart disease of native coronary artery without angina pectoris; G25.81 Restless legs syndrome; J43.9 Emphysema, unspecified; K21.9 Gastro-esophageal reflux disease without esophagitis; M54.5 Low back pain; F41.9 Anxiety disorder, unspecified; F31.9 Bipolar disorder, unspecified; Z68.28 Body mass index [BMI] 28.0-28.9, adult; Z87.891 Personal history of nicotine dependence; Z96.642 Presence of left artificial hip joint; X58.XXXD Exposure to other specified factors, subsequent encounter ==

== ENCOUNTER → 2021-03-27 | Outpatient (CLI) | payer OTHER | LOC: HYPER 08:54 | PROVIDERS: ATTEND Emergency Medicine | DX: L97.822 Non-pressure chronic ulcer of other part of left lower leg with fat layer exposed (principal); L98.492 Non-pressure chronic ulcer of skin of other sites with fat layer exposed; S50.11XD Contusion of right forearm, subsequent encounter; M54.5 Low back pain; B88.9 Infestation, unspecified; R21 Rash and other nonspecific skin eruption; L95.9 Vasculitis limited to the skin, unspecified; J43.9 Emphysema, unspecified; E03.9 Hypothyroidism, unspecified; J45.909 Unspecified asthma, uncomplicated; I25.10 Atherosclerotic heart disease of native coronary artery without angina pectoris; G25.81 Restless legs syndrome; E66.9 Obesity, unspecified; F31.9 Bipolar disorder, unspecified; F41.9 Anxiety disorder, unspecified; Z68.28 Body mass index [BMI] 28.0-28.9, adult; Z96.642 Presence of left artificial hip joint; Z87.891 Personal history of nicotine dependence; Z79.899 Other long term (current) drug therapy; X58.XXXD Exposure to other specified factors, subsequent encounter ==

== ENCOUNTER → 2021-04-07 | Outpatient (CLI) | payer OTHER | LOC: RAD 16:21 | PROVIDERS: ATTEND Nuclear Medicine Nuclear Cardiology | DX: M47.816 Spondylosis without myelopathy or radiculopathy, lumbar region (principal); M48.061 Spinal stenosis, lumbar region without neurogenic claudication; M85.88 Other specified disorders of bone density and structure, other site; M54.5 Low back pain ==

== ENCOUNTER → 2021-04-11 | Outpatient (CLI) | payer OTHER | LOC: MRI 14:54 | PROVIDERS: ATTEND Family Medicine | DX: S22.068A Other fracture of T7-T8 thoracic vertebra, initial encounter for closed fracture (principal); S22.088A Other fracture of T11-T12 vertebra, initial encounter for closed fracture; M48.04 Spinal stenosis, thoracic region; X58.XXXA Exposure to other specified factors, initial encounter; Y93.89 Activity, other specified; Y92.89 Other specified places as the place of occurrence of the external cause; Y99.8 Other external cause status ==

== ENCOUNTER → 2021-04-16 | Outpatient (CLI) | payer OTHER ==
[~2021-04-16] MED LIST changes: +CRANBERRY500 M3 PO; +DIPHENHYDRAMINE25 M3 PO; +IBUPROFEN200 M1 PO; +KLOR-CON M2020 MEQ PO; +LASIX 40 MG TAB40 M2 PO; +LEVOTHYROXINE100 MCG PO; +LYRICA150 MG PO; +MACROBID 100 M100 MG PO; +PROAIR RESPICL90 MCG; +TOPAMAX 25 MG T25 MG PO; +VITAMIN D350 MC3 PO
== END ==
LOC: MRI 14:06
PROVIDERS: ATTEND Nuclear Medicine Nuclear Cardiology
DX: S32.10XA Unspecified fracture of sacrum, initial encounter for closed fracture (principal); M54.50 Low back pain, unspecified; Z98.890 Other specified postprocedural states; X58.XXXA Exposure to other specified factors, initial encounter; Y92.89 Other specified places as the place of occurrence of the external cause; Y93.89 Activity, other specified; Y99.8 Other external cause status

== ENCOUNTER → 2021-04-16 | Outpatient (CLI) | payer OTHER | LOC: SJCVC 16:15 | PROVIDERS: ATTEND Nuclear Medicine Nuclear Cardiology | DX: M84.48XA Pathological fracture, other site, initial encounter for fracture (principal); J45.50 Severe persistent asthma, uncomplicated; J47.9 Bronchiectasis, uncomplicated; M15.9 Polyosteoarthritis, unspecified; E03.9 Hypothyroidism, unspecified; E78.00 Pure hypercholesterolemia, unspecified; I25.10 Atherosclerotic heart disease of native coronary artery without angina pectoris; Z79.52 Long term (current) use of systemic steroids; Z87.891 Personal history of nicotine dependence; Z72.89 Other problems related to lifestyle; Z79.899 Other long term (current) drug therapy; Z88.6 Allergy status to analgesic agent; Z88.2 Allergy status to sulfonamides; Z88.8 Allergy status to other drugs, medicaments and biological substances; Z88.1 Allergy status to other antibiotic agents ==

== ENCOUNTER → 2021-04-24 | Outpatient (CLI) | payer OTHER ==
[~2021-04-24] VITALS: Ht 162.6 cm; Wt 74.8 kg
[2021-04-24 11:28] VITALS: BP 130/78
[2021-04-24 11:39] LABS: HEMATOCRIT 32.6 % (37.0-47.0); HEMOGLOBIN 10.4 gm/dL (12.0-15.0); MCHC 31.9 g/dL (28.0-37.0); MCV 87.7 fL (80.0-100.0); RBC 3.71 mil/uL (4.20-5.00); RDW 16.3 % (10.5-14.5); WBC 8.8 thou/uL (4.0-11.0)
== END | disposition home or self-care (01) ==
LOC: CATH 08:37
PROVIDERS: ATTEND Nuclear Medicine Nuclear Cardiology
DX: M53.3 Sacrococcygeal disorders, not elsewhere classified (principal); M80.08XA Age-related osteoporosis with current pathological fracture, vertebra(e), initial encounter for fracture; I25.10 Atherosclerotic heart disease of native coronary artery without angina pectoris; I50.9 Heart failure, unspecified; E03.9 Hypothyroidism, unspecified; J43.9 Emphysema, unspecified; F32.9 Major depressive disorder, single episode, unspecified; F41.9 Anxiety disorder, unspecified; Z98.890 Other specified postprocedural states; Z79.899 Other long term (current) drug therapy; Z20.822 Contact with and (suspected) exposure to COVID-19; Z90.710 Acquired absence of both cervix and uterus; Z90.49 Acquired absence of other specified parts of digestive tract; Z98.51 Tubal ligation status
CPT/HCPCS: 62110; 62900; 70005

== ENCOUNTER → 2021-05-14 | Outpatient (CLI) | payer OTHER | LOC: SJCVC 13:36 | PROVIDERS: ATTEND Nuclear Medicine Nuclear Cardiology | DX: E78.00 Pure hypercholesterolemia, unspecified (principal); I25.10 Atherosclerotic heart disease of native coronary artery without angina pectoris; M84.48XG Pathological fracture, other site, subsequent encounter for fracture with delayed healing; J45.909 Unspecified asthma, uncomplicated; F31.89 Other bipolar disorder; N80.9 Endometriosis, unspecified; E03.9 Hypothyroidism, unspecified; Z87.891 Personal history of nicotine dependence; Z72.89 Other problems related to lifestyle; Z79.899 Other long term (current) drug therapy; Z88.2 Allergy status to sulfonamides; Z88.6 Allergy status to analgesic agent; Z88.8 Allergy status to other drugs, medicaments and biological substances ==

== ENCOUNTER 2021-06-15 17:41 | Emergency (ER) | payer OTHER ==
[~2021-06-15] VITALS: Ht 152.4 cm; Wt 79.4 kg
[2021-06-15 18:13] LABS: URINE CLARITY CLEAR; URINE COLOR ORANGE
[2021-06-15 18:24] LABS: ICTOTEST (BILI CONFIRMATORY) Negative (Negative)
[2021-06-15 18:26] LABS: SSA (PROTEIN CONFIRMATORY) NEGATIVE (Negative)
[2021-06-15 18:34] LABS: CALCIUM OXALATE 0-3 Few /LPF (None Seen); CASTS None Seen /LPF (None Seen); SQUAMOUS 0-3 Few /LPF (0-3); URINE RBC 1-2 Rare /HPF (NONE SEEN); URINE WBC-REFLEX 6-15 Few /HPF (0-5)
[2021-06-15 18:36] LABS: URINE REDUCING SUBSTANCE NEGATIVE
[2021-06-15 19:24] LABS: ABSOLUTE NEUTROPHILS 6.7 thou/uL (1.4-8.2); HEMATOCRIT 34.9 % (37.0-47.0); HEMOGLOBIN 11.5 gm/dL (12.0-15.0); LYMPHOCYTES 16.1 % (24.0-44.0); MCH 29.7 pg (26.0-34.0); MCHC 32.8 g/dL (28.0-37.0); MCV 90.4 fL (80.0-100.0); MONOCYTES 2.8 % (1.0-8.0); PLATELET COUNT 277 thou/uL (150-400); POLYS 79.1 % (36.0-66.0); RBC 3.86 mil/uL (4.20-5.00); RDW 17.1 % (10.5-14.5); WBC 8.4 thou/uL (4.0-11.0)
[2021-06-15 19:26] LABS: CALCIUM 8.9 mg/dL (8.5-10.1); CREATININE 0.8 mg/dL (0.6-1.0); POTASSIUM 4.5 mmol/L (3.5-5.1)
[2021-06-15 19:34] LABS: ALBUMIN 3.4 g/dL (3.4-5.0); TOTAL BILIRUBIN 0.3 mg/dL (0.2-1.0)
[2021-06-15] MEDS ORDERED: CEPHALEXIN500 MG PO (20:55)
[2021-06-15 21:06] VITALS: BP 108/69
== END 2021-06-15 21:18 | disposition home or self-care (01) ==
LOC: ER 17:41
PROVIDERS: Nurse Practitioner
DX: N39.0 Urinary tract infection, site not specified (principal); J45.909 Unspecified asthma, uncomplicated; I25.2 Old myocardial infarction; E03.9 Hypothyroidism, unspecified; Z87.891 Personal history of nicotine dependence; Z88.1 Allergy status to other antibiotic agents; Z91.041 Radiographic dye allergy status; Z88.2 Allergy status to sulfonamides; Z88.8 Allergy status to other drugs, medicaments and biological substances; Z98.51 Tubal ligation status; Z98.890 Other specified postprocedural states

== ENCOUNTER 2021-07-24 11:09 | Emergency (ER) | payer OTHER ==
[~2021-07-24] VITALS: Ht 160 cm; Wt 74.8 kg
[~2021-07-24 11:09] MED LIST changes: +CEPHALEXIN500 MG PO; +NITROFURANTOIN100 MG PO; +TOPAMAX 25 MG T25 M1 PO
[2021-07-24 11:25] LABS: ABSOLUTE NEUTROPHILS 4.5 thou/uL (1.4-8.2); BASOPHILS 0.8 % (0.0-2.0); EOSINOPHILS 1.3 % (0.0-3.0); HEMATOCRIT 31.4 % (37.0-47.0); HEMOGLOBIN 10.2 gm/dL (12.0-15.0); MCH 33.2 pg (26.0-34.0); MCHC 32.4 g/dL (28.0-37.0); MCV 102.3 fL (80.0-100.0); MONOCYTES 6.7 % (1.0-8.0); PLATELET COUNT 258 thou/uL (150-400); POLYS 65.2 % (36.0-66.0); RBC 3.07 mil/uL (4.20-5.00); RDW 15.7 % (10.5-14.5); WBC 6.9 thou/uL (4.0-11.0)
[2021-07-24 12:10] LABS: ALBUMIN 2.6 g/dL (3.4-5.0); CREATININE 0.7 mg/dL (0.6-1.0); POTASSIUM 4.9 mmol/L (3.5-5.1); TOTAL BILIRUBIN 0.5 mg/dL (0.2-1.0); TOTAL PROTEIN 6.5 g/dL (6.4-8.2)
[2021-07-24 13:03] LABS: URINE BILIRUBIN NEGATIVE (Negative); URINE BLOOD NEGATIVE (Negative); URINE CLARITY CLEAR; URINE COLOR RED; URINE GLUCOSE-RANDOM* 2+ (Negative); URINE KETONES 1+ (Negative); URINE PROTEIN (DIPSTICK) 3+ (Negative); URINE SPECIFIC GRAVITY 1.025 (1.005-1.035); URINE UROBILINOGEN >= 8.0 E.U./dl (0.2-1.0)
[2021-07-24 13:06] LABS: URINE LEUKOCYTES-REFLEX 1+ (Negative); URINE NITRITE-REFLEX POSITIVE (Negative)
[2021-07-24 13:23] LABS: SQUAMOUS 0-3 Few /LPF (0-3); URINE WBC-REFLEX 0-5 Rare /HPF (0-5)
[2021-07-24 13:24] LABS: BACTERIA-REFLEX >30 Many /HPF (None Seen); CALCIUM OXALATE >10 Many /LPF (None Seen); CASTS None Seen /LPF (None Seen); URINE RBC 1-2 Rare /HPF (NONE SEEN)
[2021-07-24 13:28] VITALS: BP 169/80
== END 2021-07-24 13:28 | disposition home or self-care (01) ==
LOC: ER 11:09
PROVIDERS: Emergency Medicine
DX: U07.1 COVID-19 (principal); J45.909 Unspecified asthma, uncomplicated; F32.9 Major depressive disorder, single episode, unspecified; K21.9 Gastro-esophageal reflux disease without esophagitis; E03.9 Hypothyroidism, unspecified; Z90.710 Acquired absence of both cervix and uterus; Z98.51 Tubal ligation status; Z90.89 Acquired absence of other organs; Z79.899 Other long term (current) drug therapy; Z88.6 Allergy status to analgesic agent; Z91.040 Latex allergy status; Z88.8 Allergy status to other drugs, medicaments and biological substances; Z88.2 Allergy status to sulfonamides; Z88.1 Allergy status to other antibiotic agents; Z87.891 Personal history of nicotine dependence

== ENCOUNTER → 2021-08-15 | Outpatient (CLI) | payer OTHER ==
[~2021-08-15] MED LIST changes: +EMVERM100 MG PO; +OCTAGAM 10% VIA20 ML; +VITAMIN D3250 MC1 PO; -VITAMIN D350 MC3 PO
== END ==
LOC: RAD 15:26
PROVIDERS: ATTEND Nuclear Medicine Nuclear Cardiology
DX: M43.8X4 Other specified deforming dorsopathies, thoracic region (principal); M25.551 Pain in right hip; M25.552 Pain in left hip; Z89.622 Acquired absence of left hip joint

== ENCOUNTER 2021-08-20 01:16 | Emergency (ER) | payer OTHER ==
[~2021-08-20] VITALS: Ht 165.1 cm; Wt 77.1 kg
--- NOTE | ~2021-08-20 | EMS ---
[address] [address] EMS Patient Care Report Name: RAVINDRA FORD Room #: DEP Chrissie#: [id number] Admission: 08/20/21 Attend Phys: Discharge: 08/20/21 Date of : 55 Report #: [id number] THIS REPORT FOR: //name// Report Transmitted: 08/27/2021 15:59 EMS Care Summary [facility] Incident [id number] @ 08/20/2021 00:30 Incident Location [address] [place] [address] [place] [address] Patient RAVINDRA FORD Female, 65 Years 1955 Patient Address [address] [place] [address] [place] [address] Patient History Asthma,Congestive Heart Failure (CHF),Chronic Obstructive Pulmonary Disease (COPD),Anxiety,Hypothyroidism, Patient Allergies Acetaminophen,Aspirin,Sulfa,Versed,Citalopram, Patient Medications Lorazepam, Levothyroxine, Oxygen, Oxycodone, Zofran, Diphenhydramine, Nitrofurantoin, Sudafed, Magnesium Oxide, Lasix, Prednisone, Fluconazole, Cyclobenzaprine, Sumatriptan, Clotrimazole, Lyrica, Loperamide, Chief Complaint Emotional distress Disposition Transported No Lights/[place] Dispatch Reason Breathing Problem Transported To [facility] Narrative Dispatched to difficulty breathing. Upon arrival pt found sitting on the edge [address] [address] EMS Patient Care Report Name: RAVINDRA FORD Room #: DEP [facility]#: [id number] Admission: 08/20/21 Attend Phys: Discharge: 08/20/21 Date of : 55 Report #: [id number] of the bed on home O2 and crying very hard and in no apparent distress. Pt is emotionally upset due to the passing of her son a few hours ago. states she started to cry uncontrollably and hasn't stopped for a couple hours. was concerned about her O2 levels and contacted EMS. Pt denies difficulty breathing. Pt denies chest pain. Pt complains of chronic low back pain that gets agitated with movement. Tip Scourer assessment. Stretcher. O2, and VS. Pt condition improved during transport. Pt taken to ED for further evaluation and treatment by MD. Initial Vitals @00:50P: 84,BP: 128/94,SpO2: 95, @01:00P: 83,R: 22,BP: 114/62,GCS: 15,SpO2: 92,Revised Trauma: 12, @00:46P: 80,R: 22,BP: 128/59,GCS: 15,SpO2: 92,Revised Trauma: 12, Impression Anxiety reaction/Emotional upset Procedures @00:37 ALS Assessment Response: UnchangedSucceeded @00:39 Stretcher Response: Unchanged @00:42 Oxygen FlowRate: 6 Device: Nasal Cannula (NC) Response: UnchangedSucceeded Timeline 00:29,Call Received 00:29,Psap Call 00:30,Dispatched 00:32,En Route 00:34,On Scene 00:35,At Patient 00:37,ALS Assessment,Response: UnchangedSucceeded, 00:39,Stretcher,Response: Unchanged 00:42,Oxygen FlowRate: 6 Device: Nasal Cannula (NC) Response: UnchangedSucceeded, 00:44,Depart Scene 00:46,BP: 128/59 M,PULSE: 80,RR: 22 R,SPO2: 92 Ox,ETCO2: ,BG: ,PAIN: ,GCS: 15, 00:50,BP: 128/94 M,PULSE: 84,RR: R,SPO2: 95 Ox,ETCO2: ,BG: ,PAIN: ,GCS: , 01:00,BP: 114/62 M,PULSE: 83,RR: 22 R,SPO2: 92 Ox,ETCO2: ,BG: ,PAIN: ,GCS: 15, 01:04,At Destination 01:33,Call Closed Disclaimer v1.1 Copyright 2021 [employer] This EMS Care Summary contains data elements [place] [address] EMS Patient Care Report Name: RAVINDRA FORD JAZMIN [id number] Admission: 08/20/21 Attend Phys: Discharge: 08/20/21 Date of : 55 Report #: [id number] (which may be displayed differently). It is designed to provide pertinent information for the following purposes: continuity of care, clinical quality, and state data reporting. The complete legal record is available to ED staff and administrators of the receiving hospital in ES's Patient Tracker. All data is provided "as is."
--- NOTE | ~2021-08-20 | EMS ---
[facility] [address] [place] [address] EMS Patient Care Report Name: RAVINDRA FORD Room #: REG Chrissie#: [id number] Admission: 08/20/21 Attend Phys: Discharge: Date of : 55 Report #: [id number] THIS REPORT FOR: //name// Report Transmitted: 08/20/2021 01:11 EMS Care Summary [facility] Incident [id number] @ 08/20/2021 00:30 Incident Location [address] [place] [address] [place] [address] Patient RAVINDRA FORD Female, 65 Years 1955 Patient Address [address] [place] [address] [place] [address] Patient History Asthma,Congestive Heart Failure (CHF),Chronic Obstructive Pulmonary Disease (COPD),Anxiety,Hypothyroidism, Patient Allergies Acetaminophen,Aspirin,Sulfa,Versed,Citalopram, Patient Medications Lorazepam, Levothyroxine, Oxygen, Oxycodone, Zofran, Diphenhydramine, Nitrofurantoin, Sudafed, Magnesium Oxide, Lasix, Prednisone, Fluconazole, Cyclobenzaprine, Sumatriptan, Clotrimazole, Lyrica, Loperamide, Chief Complaint Emotional distress Disposition Transported No Lights/[place] Dispatch Reason Breathing Problem Transported To [facility] Narrative Dispatched to difficulty breathing. Upon arrival pt found sitting on the edge [facility] [address] [place] [address] EMS Patient Care Report Name: RAVINDRA FORD Room #: REG [facility]#: [id number] Admission: 08/20/21 Attend Phys: Discharge: Date of : 55 Report #: [id number] of the bed on home O2 and crying very hard and in no apparent distress. Pt is emotionally upset due to the passing of her son a few hours ago. states she started to cry uncontrollably and hasn't stopped for a couple hours. was concerned about her O2 levels and contacted EMS. Pt denies difficulty breathing. Pt denies chest pain. Pt complains of chronic low back pain that gets agitated with movement. Advertising Campaign Manager assessment. Stretcher. O2, and VS. Pt condition improved during transport. Pt taken to ED for further evaluation and treatment by MD. Initial Vitals @00:50P: 84,BP: 128/94,SpO2: 95, @01:00P: 83,R: 22,BP: 114/62,GCS: 15,SpO2: 92,Revised Trauma: 12, @00:46P: 80,R: 22,BP: 128/59,GCS: 15,SpO2: 92,Revised Trauma: 12, Impression Anxiety reaction/Emotional upset Procedures @00:37 ALS Assessment Response: UnchangedSucceeded @00:39 Stretcher Response: Unchanged @00:42 Oxygen FlowRate: 6 Device: Nasal Cannula (NC) Response: UnchangedSucceeded Timeline 00:29,Call Received 00:29,Psap Call 00:30,Dispatched 00:32,En Route 00:34,On Scene 00:35,At Patient 00:37,ALS Assessment,Response: UnchangedSucceeded, 00:39,Stretcher,Response: Unchanged 00:42,Oxygen FlowRate: 6 Device: Nasal Cannula (NC) Response: UnchangedSucceeded, 00:44,Depart Scene 00:46,BP: 128/59 M,PULSE: 80,RR: 22 R,SPO2: 92 Ox,ETCO2: ,BG: ,PAIN: ,GCS: 15, 00:50,BP: 128/94 M,PULSE: 84,RR: R,SPO2: 95 Ox,ETCO2: ,BG: ,PAIN: ,GCS: , 01:00,BP: 114/62 M,PULSE: 83,RR: 22 R,SPO2: 92 Ox,ETCO2: ,BG: ,PAIN: ,GCS: 15, 01:04,At Destination 01:33,Call Closed Disclaimer v1.1 Copyright 2021 [employer] This EMS Care Summary contains data elements from the applicable legal record [address] [address] EMS Patient Care Report Name: RAVINDRA FORD JAZMIN Room #: REG [facility]#: [id number] Admission: 08/20/21 Attend Phys: Discharge: Date of : 55 Report #: [id number] (which may be displayed differently). It is designed to provide pertinent information for the following purposes: continuity of care, clinical quality, and state data reporting. The complete legal record is available to ED staff and administrators of the receiving hospital in ES's Patient Tracker. All data is provided "as is."
[~2021-08-20 01:16] MED LIST changes: -EMVERM100 MG PO; -OCTAGAM 10% VIA20 ML
[2021-08-20 02:28] LABS: ABSOLUTE NEUTROPHILS 4.6 thou/uL (1.4-8.2); BASOPHILS 0.5 % (0.0-2.0); EOSINOPHILS 2.4 % (0.0-3.0); HEMATOCRIT 29.5 % (37.0-47.0); HEMOGLOBIN 9.1 gm/dL (12.0-15.0); MCH 34.2 pg (26.0-34.0); MCV 110.2 fL (80.0-100.0); PLATELET COUNT 219 thou/uL (150-400); POLYS 63.1 % (36.0-66.0); RBC 2.68 mil/uL (4.20-5.00); RDW 17.3 % (10.5-14.5); WBC 7.3 thou/uL (4.0-11.0)
[2021-08-20 02:32] LABS: CALCIUM 8.2 mg/dL (8.5-10.1); CREATININE 0.6 mg/dL (0.6-1.0); POTASSIUM 4.8 mmol/L (3.5-5.1)
[2021-08-20 02:40] LABS: ALBUMIN 2.5 g/dL (3.4-5.0); TOTAL BILIRUBIN 0.4 mg/dL (0.2-1.0)
[2021-08-20] MEDS ORDERED: AJOVY225 MG/1.5 SUBQ (02:42)
[2021-08-20] MEDS ORDERED: OCTAGAM 10% VIA20 ML (02:55)
[2021-08-20] MEDS ORDERED: EMVERM100 MG PO (02:58)
[2021-08-20] MEDS ORDERED: AZO STANDARD95 MG PO (03:09)
[2021-08-20 03:32] LABS: URINE BILIRUBIN 2+ (Negative); URINE BLOOD TRACE (Negative); URINE CLARITY CLEAR; URINE COLOR ORANGE; URINE GLUCOSE-RANDOM* 1+ (Negative); URINE KETONES TRACE (Negative); URINE PROTEIN (DIPSTICK) 2+ (Negative); URINE SPECIFIC GRAVITY 1.025 (1.005-1.035); URINE UROBILINOGEN >= 8.0 E.U./dl (0.2-1.0)
[2021-08-20 03:34] LABS: URINE LEUKOCYTES-REFLEX 2+ (Negative); URINE NITRITE-REFLEX POSITIVE (Negative)
[2021-08-20 03:48] LABS: SQUAMOUS 0-3 Few /LPF (0-3); WBC CLUMPS Few (None Seen)
[2021-08-20 03:49] LABS: CASTS None Seen /LPF (None Seen); CRYSTALS None Seen /LPF (None Seen); MUCUS 0-3 Light strn/LPF (None Seen)
[2021-08-20 04:15] VITALS: BP 122/69
== END 2021-08-20 04:33 | disposition home or self-care (01) ==
LOC: ER 01:16
PROVIDERS: Emergency Medicine
DX: M54.59 Other low back pain (principal); J45.909 Unspecified asthma, uncomplicated; K21.9 Gastro-esophageal reflux disease without esophagitis; E03.9 Hypothyroidism, unspecified; J44.9 Chronic obstructive pulmonary disease, unspecified; F17.210 Nicotine dependence, cigarettes, uncomplicated; Z90.710 Acquired absence of both cervix and uterus; Z98.51 Tubal ligation status; Z98.890 Other specified postprocedural states; Z86.16 Personal history of COVID-19; Z88.6 Allergy status to analgesic agent; Z91.040 Latex allergy status; Z91.018 Allergy to other foods; Z88.2 Allergy status to sulfonamides; Z91.048 Other nonmedicinal substance allergy status; Z88.1 Allergy status to other antibiotic agents